=== PATIENT | male | born 1960 | race American Indian/Alaskan Native ===

== ENCOUNTER 2020-08-24 21:53 | Inpatient (IN) | payer OTHER ==
--- NOTE | 2020-08-24 21:58 | Emergency Department Report ---
HPI - General Time Seen by Provider: 08/24/20 21:53 - HPI HPI: This is a 60-year-old male who presents to the emergency department via EMS from home as a code stroke. The patient began having some difficulty with his speech around 5 PM and it got progressively worse to the point where he is having difficulty speaking at all. He also was complaining of an unsteady gait. Justina nt also appears to have a right-sided facial droop. The patient is awake and alert and following commands. The patient has never been to this facility previously. He was just admitted and discharged from [facility] for what appears to be treatment for CHF. The patient denies any headache, vision change, numbness, chest pain, shortness of breath. It does not appear that the patient took anything or receive anything for his symptoms prior to presentation. ED Past Medical Hx - Medications Home Medications: Home Medications Medication Instructions Recorded Confirmed Last Taken Type Aspirin [Adult Aspirin] 81 mg PO QDAY 08/25/20 08/25/20 Unknown History Dapagliflozin Propanediol [Farxiga] 10 mg PO QDAY 08/25/20 08/25/20 Unknown History Furosemide [Lasix] 40 mg PO QDAY 08/25/20 08/25/20 Unknown History Losartan [Cozaar] 50 mg PO QDAY 08/25/20 08/25/20 Unknown History Spironolactone [Aldactone] 25 mg PO QDAY 08/25/20 08/25/20 Unknown History carvediloL [Coreg] 12.5 mg PO BID 08/25/20 08/25/20 Unknown History ED Review of Systems ROS: Stated complaint: STROKE Other details as noted in HPI Comment: All other systems reviewed and negative Constitutional: denies: chills, fever Eyes: denies: eye pain, vision change ENT: denies: ear pain, throat pain Respiratory: denies: cough, shortness of breath Cardiovascular: denies: chest pain, palpitations Gastrointestinal: denies: abdominal pain, vomiting Genitourinary: denies: dysuria, discharge Musculoskeletal: denies: back pain, arthralgia Skin: denies: rash, lesions Neurological: other (Unsteady gait, aphasia). denies: headache Physical Exam - Physical Exam Physical Exam: GENERAL: The patient is ill-appearing. HENT: Normocephalic. Atraumatic. Patient has moist mucous membranes. EYES: Extraocular motions are intact. Pupils equal reactive to light bi laterally. NECK: Supple. Trachea is midline. CHEST/LUNGS: Coarse breath sounds throughout the chest. There is some tachypnea but no accessory muscle use. HEART/CARDIOVASCULAR: Regular. There is no tachycardia. There is no murmur. ABDOMEN: Abdomen is soft, nontender. Patient has normal bowel sounds. There is no abdominal distention. SKIN: Skin is warm and dry. NEURO: The patient is awake, alert, and cooperative. The patient has severe aphasia. Right-sided nasolabial fold paresis. No pronator drift. Follows commands. MUSCULOSKELETAL: There is no tenderness or deformity. There is no limitation range of motion. ED Course - Reevaluation(s) Reevaluation #1: 08/25/20 00:05 The patient returned from CT imaging, he began having increased work of breathing, shortness of breath, and had some oxygen desaturation to about 90% on room air. The patient was first placed on supplemental oxygen via nasal cannula without any improvement. He was then placed on a nonrebreather without any improvement. The patient was very anxious and pulling off his mask. He was given 1.5 mg of Ativan and we placed him on BiPAP. Even despite keeping the BiPAP mask on, the patient continued to have severe tachypnea breathing at about 50 to 60 breaths/min. This did not improve with a DuoNeb breathing treatment being bled into the BiPAP and on 100% FiO2. The patient is unable to communicate either verbally or by writing, most likely secondary to his stroke. I called and spoke with the son, who was then brought back to the bedside. I explained that the patient has both a stroke and what appears to be a CHF exacerbation and explained that we were going to intubate the patient. The patient was successfully intubated as per the intubation procedure section. - Consultations Consultation #1: 08/25/20 00:03 Patient was seen by the telemedicine neurologist, Dr. Gayle, while he was in CT. CT of the head without contrast did not show any hemorrhage or signs of large vessel occlusion. Dr. Gayle asked for a CT angiography of the head and neck. He later called back and said that he did not see any signs of large vessel occlusion, significant stenosis or thrombus on the CT angiography studies. He recommends a full dose aspirin, 300 mg of Plavix, and a statin. His full consultation and recommendations are in the chart. - ABG Interpretation Ph: [phone] PCO2: 49 PO2: 99.5 Bicarbonate: 22.9 Interpretation: respiratory acidosis, metabolic acidosis - Intubation Time Out Performed: Yes Sedative: Etomidate Mg Given: 20 Paralytic: Rocuronium Mg Given: 80 Laryngoscope: other ([place] scope) Size: 4 ET Tube Size: 7.5 Tube Secured Depth (cm): 26 Tube Secured Location: lips Tube Placement Confirmation: visualized tube passing t, equal breath sounds bilat, confirmation by capnometr Patient Tolerated Procedure: well Intubation Complications: none ED Medical Decision Making - Lab Data Result diagrams: 08/24/20 22:24 08/24/20 22:24 Lab Results 08/24/20 08/24/20 08/24/20 Range/Units 22:24 22:24 22:24 WBC 6.6 (4.5-11.0) K/mm3 RBC 4.46 (3.65-5.03) M/mm3 Hgb 13.7 (11.8-15.2) gm/dl Hct 41.2 (35.5-45.6) % MCV 93 (84-94) fl MCH 31 (28-32) pg MCHC 33 (32-34) % RDW 14.6 (13.2-15.2) % Plt Count 154 (140-440) K/mm3 Lymph % (Auto) 11.1 L (13.4-35.0) % [place] % (Auto) 5.7 (0.0-7.3) % Eos % (Auto) 0.2 (0.0-4.3) % Baso % (Auto) 0.5 (0.0-1.8) % Lymph # (Auto) 0.7 L (1.2-5.4) K/mm3 [place] # (Auto) 0.4 (0.0-0.8) K/mm3 Eos # (Auto) 0.0 (0.0-0.4) K/mm3 Baso # (Auto) 0.0 (0.0-0.1) K/mm3 Seg Neutrophils % 82.5 H (40.0-70.0) % Seg Neutrophils # 5.4 (1.8-7.7) K/mm3 PT 15.5 H (12.2-14.9) Sec. INR 1.05 (0.87-1.13) APTT 29.9 (24.2-36.6) Sec. Thrombin Time 18.7 (15.1-19.6) Sec. Sodium 130 L (137-145) mmol/L Potassium 4.9 (3.6-5.0) mmol/L Chloride 97.5 L (98-107) mmol/L Carbon Dioxide 23 (22-30) mmol/L Anion Gap 14 mmol/L BUN 20 (9-20) mg/dL Creatinine 1.1 (0.8-1.3) mg/dL Estimated GFR > 60 ml/min BUN/Creatinine Ratio 18 % Glucose 170 H (75-100) mg/dL Calcium 8.7 (8.4-10.2) mg/dL Total Bilirubin 0.90 (0.1-1.2) mg/dL AST 31 (5-40) units/L ALT 46 (7-56) units/L Alkaline Phosphatase 111 (35-129) units/L Total Creatine Kinase 250 H (55-170) units/L CK-MB (CK-2) 3.6 (0.0-4.0) ng/mL CK-MB (CK-2) Rel Index 1.4 (0-4) Troponin T < 0.010 (0.00-0.029) ng/mL NT-Pro-B Natriuret Pep (0-900) pg/mL Total Protein 7.2 (6.3-8.2) g/dL Albumin 3.9 (3.9-5) g/dL Albumin/Globulin Ratio 1.2 % TSH (0.270-4.200) mlU/mL Urine Color (Yellow) Urine Turbidity (Clear) Urine pH (5.0-7.0) Ur Specific [place] (1.003-1.030) Urine Protein (Negative) mg/dL Urine Glucose (UA) (Negative) mg/dL Urine Ketones (Negative) mg/dL Urine Blood (Negative) Urine Nitrite (Negative) Urine Bilirubin (Negative) Urine Urobilinogen (<2.0) mg/dL Ur Leukocyte Esterase (Negative) Urine WBC (Auto) (0.0-6.0) /HPF Urine RBC (Auto) (0.0-6.0) /HPF Urine Mucus /HPF Urine Opiates Screen Urine Methadone Screen Ur Barbiturates Screen Ur Phencyclidine Scrn Ur Amphetamines Screen U Benzodiazepines Scrn Urine Cocaine Screen U Marijuana (THC) Screen Drugs of Abuse Note Plasma/Serum Alcohol (0-0.07) % Blood Type Antibody Screen 08/24/20 08/24/20 08/24/20 Range/Units 22:24 22:24 22:24 WBC (4.5-11.0) K/mm3 RBC (3.65-5.03) M/mm3 Hgb (11.8-15.2) gm/dl Hct (35.5-45.6) % MCV (84-94) fl MCH (28-32) pg MCHC (32-34) % RDW (13.2-15.2) % Plt Count (140-440) K/mm3 Lymph % (Auto) (13.4-35.0) % [place] % (Auto) (0.0-7.3) % Eos % (Auto) (0.0-4.3) % Baso % (Auto) (0.0-1.8) % Lymph # (Auto) (1.2-5.4) K/mm3 [place] # (Auto) (0.0-0.8) K/mm3 Eos # (Auto) (0.0-0.4) K/mm3 Baso # (Auto) (0.0-0.1) K/mm3 Seg Neutrophils % (40.0-70.0) % Seg Neutrophils # (1.8-7.7) K/mm3 PT (12.2-14.9) Sec. INR (0.87-1.13) APTT (24.2-36.6) Sec. Thrombin Time (15.1-19.6) Sec. Sodium (137-145) mmol/L Potassium (3.6-5.0) mmol/L Chloride (98-107) mmol/L Carbon Dioxide (22-30) mmol/L Anion Gap mmol/L BUN (9-20) mg/dL Creatinine (0.8-1.3) mg/dL Estimated GFR ml/min BUN/Creatinine Ratio % Glucose (75-100) mg/dL Calcium (8.4-10.2) mg/dL Total Bilirubin (0.1-1.2) mg/dL AST (5-40) units/L ALT (7-56) units/L Alkaline Phosphatase (35-129) units/L Total Creatine Kinase (55-170) units/L CK-MB (CK-2) (0.0-4.0) ng/mL CK-MB (CK-2) Rel Index (0-4) Troponin T (0.00-0.029) ng/mL NT-Pro-B Natriuret Pep (0-900) pg/mL Total Protein (6.3-8.2) g/dL Albumin (3.9-5) g/dL Albumin/Globulin Ratio % TSH 3.150 (0.270-4.200) mlU/mL Urine Color (Yellow) Urine Turbidity (Clear) Urine pH (5.0-7.0) Ur Specific [place] (1.003-1.030) Urine Protein (Negative) mg/dL Urine Glucose (UA) (Negative) mg/dL Urine Ketones (Negative) mg/dL Urine Blood (Negative) Urine Nitrite (Negative) Urine Bilirubin (Negative) Urine Urobilinogen (<2.0) mg/dL Ur Leukocyte Esterase (Negative) Urine WBC (Auto) (0.0-6.0) /HPF Urine RBC (Auto) (0.0-6.0) /HPF Urine Mucus /HPF Urine Opiates Screen Urine Methadone Screen Ur Barbiturates Screen Ur Phencyclidine Scrn Ur Amphetamines Screen U Benzodiazepines Scrn Urine Cocaine Screen U Marijuana (THC) Screen Drugs of Abuse Note Plasma/Serum Alcohol < 0.01 (0-0.07) % Blood Type A POSITIVE Antibody Screen Negative 08/24/20 08/24/20 08/24/20 Range/Units 22:24 22:35 22:35 WBC (4.5-11.0) K/mm3 RBC (3.65-5.03) M/mm3 Hgb (11.8-15.2) gm/dl Hct (35.5-45.6) % MCV (84-94) fl MCH (28-32) pg MCHC (32-34) % RDW (13.2-15.2) % Plt Count (140-440) K/mm3 Lymph % (Auto) (13.4-35.0) % [place] % (Auto) (0.0-7.3) % Eos % (Auto) (0.0-4.3) % Baso % (Auto) (0.0-1.8) % Lymph # (Auto) (1.2-5.4) K/mm3 [place] # (Auto) (0.0-0.8) K/mm3 Eos # (Auto) (0.0-0.4) K/mm3 Baso # (Auto) (0.0-0.1) K/mm3 Seg Neutrophils % (40.0-70.0) % Seg Neutrophils # (1.8-7.7) K/mm3 PT (12.2-14.9) Sec. INR (0.87-1.13) APTT (24.2-36.6) Sec. Thrombin Time (15.1-19.6) Sec. Sodium (137-145) mmol/L Potassium (3.6-5.0) mmol/L Chloride (98-107) mmol/L Carbon Dioxide (22-30) mmol/L Anion Gap mmol/L BUN (9-20) mg/dL Creatinine (0.8-1.3) mg/dL Estimated GFR ml/min BUN/Creatinine Ratio % Glucose (75-100) mg/dL Calcium (8.4-10.2) mg/dL Total Bilirubin (0.1-1.2) mg/dL AST (5-40) units/L ALT (7-56) units/L Alkaline Phosphatase (35-129) units/L Total Creatine Kinase (55-170) units/L CK-MB (CK-2) (0.0-4.0) ng/mL CK-MB (CK-2) Rel Index (0-4) Troponin T (0.00-0.029) ng/mL NT-Pro-B Natriuret Pep 2769 H (0-900) pg/mL Total Protein (6.3-8.2) g/dL Albumin (3.9-5) g/dL Albumin/Globulin Ratio % TSH (0.270-4.200) mlU/mL Urine Color Yellow (Yellow) Urine Turbidity Clear (Clear) Urine pH 7.0 (5.0-7.0) Ur Specific [place] 1.005 (1.003-1.030) Urine Protein 100 mg/dl (Negative) mg/dL Urine Glucose (UA) >=500 (Negative) mg/dL Urine Ketones Neg (Negative) mg/dL Urine Blood Neg (Negative) Urine Nitrite Neg (Negative) Urine Bilirubin Neg (Negative) Urine Urobilinogen < 2.0 (<2.0) mg/dL Ur Leukocyte Esterase Neg (Negative) Urine WBC (Auto) 1.0 (0.0-6.0) /HPF Urine RBC (Auto) 2.0 (0.0-6.0) /HPF Urine Mucus Few /HPF Urine Opiates Screen Negative Urine Methadone Screen Negative Ur Barbiturates Screen Negative Ur Phencyclidine Scrn Negative Ur Amphetamines Screen Negative U Benzodiazepines Scrn Negative Urine Cocaine Screen Negative U Marijuana (THC) Screen Negative Drugs of Abuse Note Disclamer Plasma/Serum Alcohol (0-0.07) % Blood Type Antibody Screen - EKG Data -: EKG Interpreted by Me EKG shows normal: sinus rhythm (PVCs), axis, intervals, QRS complexes (LVH), ST- T waves (T wave inversions to the inferolateral leads) Rate: normal - EKG Data When compared to previous EKG there are: previous EKG unavailable Interpretation: other (Sinus rhythm at 100 bpm, PVCs, biatrial enlargement, LVH, normal axis, normal intervals, T wave inversions to the inferolateral leads) - Radiology Data Radiology results: report reviewed, image reviewed interpreted by me: Chest x-ray shows pulmonary vascular congestion and bilateral interstitial/pulmonary edema. No pneumothorax. CT HEAD WITHOUT CONTRAST INDICATION / CLINICAL INFORMATION: Strokelike symptoms. TECHNIQUE: All CT scans at this location are performed using CT dose reduction for ALARA by means of automated exposure control. COMPARISON: None available. FINDINGS: BRAIN PARENCHYMA: No acute intracranial hemorrhage. No evidence of recent infarct. No mass effect or midline shift. White matter chronic small vessel ischemic changes. VENTRICULAR SYSTEM/EXTRA-AXIAL SPACES: Age-related cerebral atrophy. No extra-axial fluid collection. ORBITS: Normal as visualized. SKELETAL SYSTEM/SOFT TISSUES: Normal bones and soft tissues. PARANASAL SINUSES/MASTOID AIR CELLS: No significant abnormality. ADDITIONAL FINDINGS: None. IMPRESSION: No acute intracranial abnormality. CTA HEAD WITH CONTRAST HISTORY: Stroke like symptoms COMPARISON: None. TECHNIQUE: Routine non-contrast CT Head, CTA of the head and post-contrast CT Head are performed. 3-D/MIP reformats postprocessed. All CT scans at this location are performed using CT dose reduction for ALARA by means of automated exposure control CONTRAST: 100 ml of Omnipaque 350 FINDINGS: CTA Head: Intracranial vertebral arteries: No significant abnormality. Basilar artery: No significant abnormality. Posterior cerebral arteries: No significant abnormality. Intracranial internal carotid arteries: No significant abnormality. Anterior cerebral arteries: No significant abnormality. Middle cerebral arteries: No significant abnormality. Dural venous sinuses:Not optimally opacified. No significant abnormality. Additional findings: None. IMPRESSION: 1. No significant abnormality. CTA NECK WITH CONTRAST HISTORY: Stroke like symptoms COMPARISON: None. TECHNIQ UE: Routine CTA of the neck was performed. 3-D/MIP reformats were postprocessed. Percentage stenosis is determined by direct quantitative measurements of diseased internal carotid artery diameter compared with normal distal internal carotid artery reference segments or by criteria similar to NASCET where applicable.All CT scans at this location are performed using CT dose reduction for ALARA by means of automated exposure control CONTRAST: 100 ml of Omnipaque 300 FINDINGS: Aortic arch: No significant abnormality. Cervical vertebral arteries: No significant abnormality. Common carotid arteries: No significant abnormality. Carotid bifurcations: Normal Cervical internal carotid arteries: No significant abnormality. Additional findings: None. IMPRESSION: 1. No significant abnormality. - Medical Decision Making This patient presented to the emergency department initially as a code stroke secondary to some aphasia. He also appears to have right-sided facial droop. He was sent for a CT scan of the head without contrast that ultimately did not show any hemorrhage or large vessel occlusion. He was seen by the telemedicine neurologist, Dr. Gayle, who requested CT angiography studies of the head and neck. These also did not show any signs of large vessel occlusion, thrombus, significant stenosis, or any other acute process. Dr. Gayle gave the patient an NIH stroke scale of 8. When the CT angiography studies did not show any signs of mechanical obstruction, he recommended admission to the hospital for further evaluation of the stroke and gave recommendations for a full dose aspirin, Plavix, and a statin. With the patient returned from CT scan, he began to show signs of respiratory distress. There was increased tachypnea and work of breathing, worsening coarse breath sounds, development of accessory muscle use. The patient also had a pulse ox of 90% on room air. Initially he was tried on supplemental oxygen via nasal cannula without any improvement. He was then placed on a nonrebreather but began pulling the mask off and appeared anxious. He was given 1.5 mg of Ativan but still did not improve with a nonrebreather. He was then placed on BiPAP. Even while being compliant with the BiPAP, the patient continued to have significant tachypnea and work of breathing. Chest x-ray shows concern for volume overload with interstitial edema. For these reasons the patient was intubated as per the procedure section. Patient was given IV Lasix for diuresis. He was given etomidate and rocuronium as part of RSI, and then placed on propofol for sedation after intubation. Post intubation chest x-ray shows appropriate placement of the endotracheal tube, but appears to show some worsening infiltrates or consolidation with right greater than left. The patient's labs have been mostly unremarkable except for an elevated proBNP of about 2500, some mild hyponatremia with a sodium level of 130, and an ABG that shows some respiratory and metabolic acidosis, and there is most likely some underlying lactic acidosis. The patient will be admitted to the ICU and has been accepted for admission by the hospitalist, Dr. England. Critical Care Time: Yes Critical care time in (mins) excluding proc time.: 75 Critical care attestation.: If time is entered above; I have spent that time in minutes in the direct care of this critically ill patient, excluding procedure time. Critical care time spent on this patient in doing his initial evaluation, multiple reevaluations, ordering and interpretation of labs and imaging, discussion with the telemedicine neurologist, IV Lasix for diuresis, propofol for sedation, multiple discussions with the patient's family. This does not include the time spent on separately billable procedures such as the intubation procedure. Critical Care Time: 75 minutes ED Disposition Clinical Impression: CVA (cerebral vascular accident) Qualifiers: CVA mechanism: unspecified Qualified Code(s): I63.9 - Cerebral infarction, unspecified Acute exacerbation of CHF (congestive heart failure) Qualifiers: Heart failure type: unspecified Qualified Code(s): I50.9 - Heart failure, unspecified Acute respiratory failure Qualifiers: Respiratory failure complication: unspecified whether with hypoxia or hypercapnia Qualified Code(s): J96.00 - Acute respiratory failure, unspecified whether with hypoxia or hypercapnia Disposition: OP ADMIT IP TO THIS HOSP Is pt being admited?: Yes Condition: Critical Time of Disposition: 00:01
--- NOTE | 2020-08-24 22:18 | Cat Scan Report ---
CT HEAD WITHOUT CONTRAST INDICATION / CLINICAL INFORMATION: Strokelike symptoms. TECHNIQUE: All CT scans at this location are performed using CT dose reduction for ALARA by means of automated exposure control. COMPARISON: None available. FINDINGS: BRAIN PARENCHYMA: No acute intracranial hemorrhage. No evidence of recent infarct. No mass effect or midline shift. White matter chronic small vessel ischemic changes. VENTRICULAR SYSTEM/EXTRA-AXIAL SPACES: Age-related cerebral atrophy. No extra-axial fluid collection. ORBITS: Normal as visualized. SKELETAL SYSTEM/SOFT TISSUES: Normal bones and soft tissues. PARANASAL SINUSES/MASTOID AIR CELLS: No significant abnormality. ADDITIONAL FINDINGS: None. IMPRESSION: No acute intracranial abnormality. Information regarding the critical finding(s) was communicated to Dr. ANDRE DE LEON DO by Dr. Cade Valenzuela MD, via telephone on 08/24/2020 9:14 PM. Signer Name: Cade Valenzuela MD Signed: 08/24/2020 10:14 PM Workstation Name: [id number]
[2020-08-24 22:47] LABS: Bilirubin,Urine NEG (Negative); Blood,Urine NEG (Negative); Color,Urine Yellow (Yellow); Mucus,Urine FEW /HPF; Urobilinogen,Urine < 2.0 mg/dL (<2.0)
[2020-08-24 22:49] LABS: Basophils % (Auto) 0.5 % (0.0-1.8); Eosinophils % (Auto) 0.2 % (0.0-4.3); Hematocrit 41.2 % (35.5-45.6); Hemoglobin 13.7 gm/dl (11.8-15.2); Lymphocytes # (Auto) 0.7 K/mm3 (1.2-5.4); Lymphocytes % (Auto) 11.1 % (13.4-35.0); Mean Corpuscular HGB Conc 33 % (32-34); Mean Corpuscular Volume 93 fl (84-94); Monocytes # (Auto) 0.4 K/mm3 (0.0-0.8); Monocytes % (Auto) 5.7 % (0.0-7.3); Platelet Count 154 K/mm3 (140-440); Red Blood Count 4.46 M/mm3 (3.65-5.03); Red Cell Distribution Width 14.6 % (13.2-15.2)
[2020-08-24 22:54] LABS: Amphetamine Screen,Urine Negative; Benzodiazepines Screen,Urine Negative; Cannabinoid Screen,Urine Negative; Cocaine Screen,Urine Negative; Methadone Screen,Urine Negative; Opiate Screen,Urine Negative
[2020-08-24] MEDS: FUROSEMIDE 40 MG/4 ML INJ IV ONE ×2 (22:55→23:41)
[2020-08-24] MEDS: IPRATROPIUM/ALBUTEROL SULFATE 3 ML AMPUL.NEB IH ONE (22:57)
[2020-08-24] MEDS ORDERED: ASPIRIN 81 MG TAB CHEW PO ONE (22:58)
--- NOTE | 2020-08-24 22:58 | Consultation ---
History of Present Illness History of present illness: [facility] Consult Note # Demographics Consult Type: Acute Stroke Level 1 (0-4.5 hrs) Patient Location: Emergency Room First Name: Wali Last Name: Glenny Date of : 1960 Age: 60 Gender: Male Time of Initial Page ( Time): 08/24/2020, 21:57 Time of Return Call ( Time): 08/24/2020, 22:03 # HPI History: 60M with HTN, CHF presents with right facial droop and aphasia, difficulty walking. Discharged from [facility] on Sunday. on ASA. Symptom on set at 1700 with mild difficulty speaking, which worsened over time. Right facial droop and difficulty walking started at 2100. # Scores Time of exam and NIHSS (): 08/24/2020, 22:06 Level of Consciousness 1a: [0] = Alert; keenly responsive LOC Questions 1b: [2] = Answers neither correctly LOC Commands 1c: [0] = Performs both tasks correctly Best Gaze 2: [0] = Normal Visual 3: [0] = No visual loss Facial Palsy 4: [2] = Partial paralysis Motor Arm Left 5a: [0] = No drift Motor Arm Right 5b: [0] = No drift Motor Leg Left 6a: [0] = No drift Motor Leg Right 6b: [0] = No drift Limb Ataxia 7: [0] = Absent Sensory 8: [0] = Normal Best Language 9: [2] = Severe aphasia Dysarthria 10: [2] = Severe dysarthria Extinction and Inattention 11: [0] = No abnormality NIHSS Total: 8 # Data Time Head CT personally read by me ( Time): 08/24/2020, 22:[address]: no bleed, preliminarily reviewed by me, please refer to radiology read for official reading CTA Head: no large vessel occlusion, preliminarily reviewed by me, please refer to radiology read for official reading CTA Neck: patent vessels, preliminarily reviewed by me, please refer to radiology read for official reading # Assessment Impression: Ischemic Stroke (Acute) # Plan Thrombolytic/Intervention: NOT IV Thrombolytic or IA Intervention Thrombolytic Exclusion: > 4.5 hours Intraarterial Exclusion: no large vessel occlusion (LVO) Target Blood Pressure: SBP < 220, DBP < 105 Labs: hemoglobin A1c, lipid panel Imaging: (urgency: routine admission): MRI Brain without contrast Diagnostic Test: echo with bubble study Therapy/Evaluation: PT/OT evaluation, speech/swallow consultation Medication: ASA 325 x1 then 81 daily, Plavix 300 x1 then 75 daily (3 weeks DAPT then Plavix monotherapy), atorvastatin 80 daily and tailor dose to LDL < 70 goal DVT Prophylaxis: SCD, chemical DVT prophylaxis Other: permissive hypertension, telemetry monitoring, I have discussed my recommendations with the referring provider Disposition: admit # Logistics Telemedicine: Interactive 2 way audio and visual telecommunication technology was utilized during this visit Electronically signed at 08/24/2020 22:57 (Eastern Time) by Armadno Gayle MD Medications and Allergies Allergies Allergy/AdvReac Type Severity Reaction Status Date / Time No Known Allergies Allergy Verified 08/24/20 22:49 Active Meds: Active Medications Albuterol/Ipratropium (Ipratropium/Albuterol Sulfate 3 Ml Ampul.Neb) 1 ampul IH ONCE ONE Stop: 08/24/20 23:43 Last Admin: 08/24/20 22:57 Dose: 1 ampul Documented by: Furosemide (Furosemide 40 Mg/4 Ml Inj) 40 mg IV ONCE ONE Stop: 08/24/20 23:42 Last Admin: 08/24/20 22:55 Dose: 40 mg Documented by: Results - Laboratory Findings CBC and BMP: 08/24/20 22:24 Abnormal Lab Findings: Abnormal Labs 08/24/20 22:24 Seg Neutrophils % 82.5 H
[2020-08-24 23:00] LABS: INR 1.05 (0.87-1.13)
[2020-08-24 23:01] LABS: Partial Thromboplastin Time 29.9 Sec. (24.2-36.6); Thrombin Time 18.7 Sec. (15.1-19.6)
[2020-08-24] MEDS ORDERED: LORazepam 2 MG/ML VIAL IV ONE (23:05)
--- NOTE | 2020-08-24 23:11 | XRay Report ---
CHEST 1 VIEW INDICATION: SOB COMPARISON: None FINDINGS: SUPPORT DEVICES: None. HEART / MEDIASTINUM: Cardiac enlargement LUNGS / PLEURA: Bilateral diffuse airspace pulmonary process. No pneumothorax. ADDITIONAL FINDINGS: IMPRESSION: 1. Diffuse pulmonary process with associated cardiac enlargement, pulmonary edema is a concern Signer Name: Castillo Roblero MD Signed: 08/24/2020 11:07 PM Workstation Name: [id number]
--- NOTE | 2020-08-24 23:13 | Cat Scan Report ---
CTA NECK WITH CONTRAST HISTORY: Stroke like symptoms COMPARISON: None. TECHNIQUE: Routine CTA of the neck was performed. 3-D/MIP reformats were postprocessed. Percentage s tenosis is determined by direct quantitative measurements of diseased internal carotid artery diamete r compared with normal distal internal carotid artery reference segments or by criteria similar to NA SCET where applicable.All CT scans at this location are performed using CT dose reduction for ALARA b y means of automated exposure control CONTRAST: 100 ml of Omnipaque 300 FINDINGS: Aortic arch: No significant abnormality. Cervical vertebral arteries: No significant abnormality. Common carotid arteries: No significant abnormality. Carotid bifurcations: Normal Cervical internal carotid arteries: No significant abnormality. Additional findings: None. IMPRESSION: 1. No significant abnormality. Signer Name: Марина Prithcard MD Signed: 08/24/2020 11:09 PM Workstation Name: [id number]
[2020-08-24 23:15] LABS: Alanine Aminotransferase 46 units/L (7-56); Albumin 3.9 g/dL (3.9-5); BUN/Creatinine Ratio 18; Blood Urea Nitrogen 20 mg/dL (9-20); Calcium 8.7 mg/dL (8.4-10.2); Creatine Kinase MB 3.6 ng/mL (0.0-4.0); Hemolysis Index 5
--- NOTE | 2020-08-24 23:16 | Cat Scan Report ---
CTA HEAD WITH CONTRAST HISTORY: Stroke like symptoms COMPARISON: None. TECHNIQUE: Routine non-contrast CT Head, CTA of the head and post-contrast CT Head are performed. 3-D /MIP reformats postprocessed. All CT scans at this location are performed using CT dose reduction for ALARA by means of automated exposure control CONTRAST: 100 ml of Omnipaque 350 FINDINGS: CTA Head: Intracranial vertebral arteries: No significant abnormality. Basilar artery: No significant abnormality. Posterior cerebral arteries: No significant abnormality. Intracranial internal carotid arteries: No significant abnormality. Anterior cerebral arteries: No significant abnormality. Middle cerebral arteries: No significant abnormality. Dural venous sinuses:Not optimally opacified. No significant abnormality. Additional findings: None. IMPRESSION: 1. No significant abnormality. Signer Name: Марина Pritchard MD Signed: 08/24/2020 11:11 PM Workstation Name: [id number]
[2020-08-24] MEDS ORDERED: ETOMIDATE 20 MG/10 ML INJ IV ONE (23:39)
[2020-08-24] MEDS ORDERED: ROCURONIUM 50 MG/5 ML INJ IV ONE (23:40)
[2020-08-24] MEDS ORDERED: LIP THERAPY VASELINE TP PRN (23:56)
[2020-08-24] MEDS ORDERED: MINERAL OIL/PETROLATUM, WHITE OPHTH OINT 3.5 GM OU PRN (23:56)
[2020-08-25] MEDS ORDERED: ASPIRIN 300 MG RECT SUPP PR ONE (00:03)
[2020-08-25] MEDS ORDERED: ONDANSETRON 4 MG/2 ML INJ IV PRN (00:33)
[2020-08-25] MEDS ORDERED: ALBUTEROL 2.5 MG/3 ML NEBU IH PRN (00:33)
[2020-08-25] MEDS ORDERED: hydrALAZINE 20 MG/1 ML INJ IV PRN (00:39)
--- NOTE | 2020-08-25 00:44 | History and Physical Report ---
History of Present Illness Date of examination: 08/25/20 Date of admission: 08/25/20 00:01 Chief complaint: Code 2 stroke Shortness of breath History of present illness: 60-year-old male with past medical history of hypertension CHF was brought to the emergency department via EMS from home as a code stroke. The patient began having some difficulty with his speech around 5 PM and it got progressively worse to the point where he is having difficulty speaking at all. He also was complaining of an unsteady gait. Patient also appears to have a right-sided facial droop. The patient is awake and alert and following commands. The patient has never been to this facility previously. He was just admitted and discharged from [facility] for what appears to be treatment for CHF. The patient denies any headache, vision change, numbness, chest pain, shortness of breath. It does not appear that the patient took anything or receive anything for his symptoms prior to presentation. when patient returned from CT imaging, he began having increased work of br eathing, shortness of breath, and had some oxygen desaturation to about 90% on room air. The patient was first placed on supplemental oxygen via nasal cannula without any improvement. He was then placed on a nonrebreather without any improvement. The patient was very anxious and pulling off his mask. He was given 1.5 mg of Ativan and we placed him on BiPAP. Even despite keeping the BiPAP mask on, the patient continued to have severe tachypnea breathing at about 50 to 60 breaths/min. Subsequently patient was intubated. In the emergency room patient is found to have code stroke, acute CHF exacerbation and acute respiratory failure. Initial CT scan of the head shows no acute intracranial abnormality. Patient is seen and evaluated by telemetry neurology Past History Past Medical History: heart failure, hypertension Medications and Allergies Allergies Allergy/AdvReac Type Severity Reaction Status Date / Time No Known Allergies Allergy Verified 08/24/20 22:49 Active Meds: Active Medications Hydrophilic Ointment (Lip Therapy Vaseline) 1 applic TP Q2HR PRN PRN Reason: Dry Lips Propofol (Diprivan 10 Mg/Ml) 1,000 mg in 100 mls @ 0 mls/hr IV TITR TK; Protocol Multi-Ingred Cream/Lotion/Oil/Oint (Mineral Oil/Petrolatum, White Ophth Oint 3.5 Gm) 1 applic OU Q4HR PRN PRN Reason: Dry Eye(s) Senna/Docusate Sodium (Sennosides/Docusate Sodium 8.6/50 Mg Tab) 1 tab FEEDTUBE BID TK Review of Systems Cardiovascular: shortness of breath, dyspnea on exertion Respiratory: shortness of breath, dyspnea on exertion Neurological: change in speech, gait dysfunction, other (Right facial droop) Exam - Constitutional Vitals: Temp Pulse Resp BP Pulse Ox 97.8 F 125 H 20 190/147 96 08/25/20 00:15 08/25/20 00:30 08/25/20 00:30 08/25/20 00:30 08/25/20 00:30 General appearance: Present: mild distress, well-nourished - EENT Eyes: Present: PERRL ENT: hearing intact, clear oral mucosa - Neck Neck: Present: supple, normal ROM - Respiratory Respiratory effort: normal Respiratory: bilateral: rales - Cardiovascular Heart Sounds: Present: S1 & S2. Absent: rub, click - Extremities Extremities: pulses symmetrical, No edema Peripheral Pulses: within normal limits - Abdominal General gastrointestinal: Present: soft, non-tender, non-distended, normal bowel sounds Male genitourinary: Present: normal - Integumentary Integumentary: Present: clear, warm, dry - Musculoskeletal Musculoskeletal: gait normal, strength equal bilaterally - Psychiatric Psychiatric: appropriate mood/affect - Neurologic Neurologic: CNII-XII intact, other (Slurred speech, unsteady gait, right facial droop) HEART Score - HEART Score Troponin: Troponin T < 0.010 ng/mL (0.00-0.029) 08/24/20 22:24 Results - Labs CBC & Chem 7: 08/24/20 22:24 08/24/20 22:24 Labs: Laboratory Last Values WBC 6.6 K/mm3 (4.5-11.0) 08/24/20 22:24 RBC 4.46 M/mm3 (3.65-5.03) 08/24/20 22:24 Hgb 13.7 gm/dl (11.8-15.2) 08/24/20 22:24 Hct 41.2 % (35.5-45.6) 08/24/20 22:24 MCV 93 fl (84-94) 08/24/20 22:24 MCH 31 pg (28-32) 08/24/20 22:24 MCHC 33 % (32-34) 08/24/20 22:24 RDW 14.6 % (13.2-15.2) 08/24/20 22:24 Plt Count 154 K/mm3 (140-440) 08/24/20 22:24 Lymph % (Auto) 11.1 % (13.4-35.0) L 08/24/20 22:24 [place] % (Auto) 5.7 % (0.0-7.3) 08/24/20 22:24 Eos % (Auto) 0.2 % (0.0-4.3) 08/24/20 22:24 Baso % (Auto) 0.5 % (0.0-1.8) 08/24/20 22:24 Lymph # (Auto) 0.7 K/mm3 (1.2-5.4) L 08/24/20 22:24 [place] # (Auto) 0.4 K/mm3 (0.0-0.8) 08/24/20 22:24 Eos # (Auto) 0.0 K/mm3 (0.0-0.4) 08/24/20 22:24 Baso # (Auto) 0.0 K/mm3 (0.0-0.1) 08/24/20 22:24 Seg Neutrophils % 82.5 % (40.0-70.0) H 08/24/20 22:24 Seg Neutrophils # 5.4 K/mm3 (1.8-7.7) 08/24/20 22:24 PT 15.5 Sec. (12.2-14.9) H 08/24/20 22:24 INR 1.05 (0.87-1.13) 08/24/20 22:24 APTT 29.9 Sec. (24.2-36.6) 08/24/20 22:24 Thrombin Time 18.7 Sec. (15.1-19.6) 08/24/20 22:24 Sodium 130 mmol/L (137-145) L 08/24/20 22:24 Potassium 4.9 mmol/L (3.6-5.0) 08/24/20 22:24 Chloride 97.5 mmol/L (98-107) L 08/24/20 22:24 Carbon Dioxide 23 mmol/L (22-30) 08/24/20 22:24 Anion Gap 14 mmol/L 08/24/20 22:24 BUN 20 mg/dL (9-20) 08/24/20 22:24 Creatinine 1.1 mg/dL (0.8-1.3) 08/24/20 22:24 Estimated GFR > 60 ml/min 08/24/20 22:24 BUN/Creatinine Ratio 18 % 08/24/20 22:24 Glucose 170 mg/dL (75-100) H 08/24/20 22:24 Calcium 8.7 mg/dL (8.4-10.2) 08/24/20 22:24 Total Bilirubin 0.90 mg/dL (0.1-1.2) 08/24/20 22:24 AST 31 units/L (5-40) 08/24/20 22:24 ALT 46 units/L (7-56) 08/24/20 22:24 Alkaline Phosphatase 111 units/L (35-129) 08/24/20 22:24 Total Creatine Kinase 250 units/L (55-170) H 08/24/20 22:24 CK-MB (CK-2) 3.6 ng/mL (0.0-4.0) 08/24/20 22:24 CK-MB (CK-2) Rel Index 1.4 (0-4) 08/24/20 22:24 Troponin T < 0.010 ng/mL (0.00-0.029) 08/24/20 22:24 Total Protein 7.2 g/dL (6.3-8.2) 08/24/20 22:24 Albumin 3.9 g/dL (3.9-5) 08/24/20 22:24 Albumin/Globulin Ratio 1.2 % 08/24/20 22:24 TSH 3.150 mlU/mL (0.270-4.200) 08/24/20 22:24 Urine Color Yellow (Yellow) 08/24/20 22:35 Urine Turbidity Clear (Clear) 08/24/20 22:35 Urine pH 7.0 (5.0-7.0) 08/24/20 22:35 Ur Specific [place] 1.005 (1.003-1.030) 08/24/20 22:35 Urine Protein 100 mg/dl mg/dL (Negative) 08/24/20 22:35 Urine Glucose (UA) >=500 mg/dL (Negative) 08/24/20 22:35 Urine Ketones Neg mg/dL (Negative) 08/24/20 22:35 Urine Blood Neg (Negative) 08/24/20 22:35 Urine Nitrite Neg (Negative) 08/24/20 22:35 Urine Bilirubin Neg (Negative) 08/24/20 22:35 Urine Urobilinogen < 2.0 mg/dL (<2.0) 08/24/20 22:35 Ur Leukocyte Esterase Neg (Negative) 08/24/20 22:35 Urine WBC (Auto) 1.0 /HPF (0.0-6.0) 08/24/20 22:35 Urine RBC (Auto) 2.0 /HPF (0.0-6.0) 08/24/20 22:35 Urine Mucus Few /HPF 08/24/20 22:35 Urine Opiates Screen Negative 08/24/20 22:35 Urine Methadone Screen Negative 08/24/20 22:35 Ur Barbiturates Screen Negative 08/24/20 22:35 Ur Phencyclidine Scrn Negative 08/24/20 22:35 Ur Amphetamines Screen Negative 08/24/20 22:35 U Benzodiazepines Scrn Negative 08/24/20 22:35 Urine Cocaine Screen Negative 08/24/20 22:35 U Marijuana (THC) Screen Negative 08/24/20 22:35 Drugs of Abuse Note Disclamer 08/24/20 22:35 Plasma/Serum Alcohol < 0.01 % (0-0.07) 08/24/20 22:24 Blood Type A POSITIVE 08/24/20 22:24 Antibody Screen Negative 08/24/20 22:24 - Imaging and Cardiology CT Scan - head: report reviewed Assessment and Plan VTE prophylaxis?: Mechanical Plan of care discussed with patient/family: Yes - Patient Problems (1) CVA (cerebral vascular accident) Current Visit: Yes Status: Acute Plan to address problem: Admit the patient to the ICU. Put the patient on aspirin 325 mg p.o. daily. Plavix 75 mg p.o. daily. Lipitor 80 mg p.o. daily. Will consult PT OT any speech evaluation. We also order MRI of the brain and MRA of the brain and neck with and without contrast. Echocardiogram. Consult neurology in the morning. (2) Acute exacerbation of CHF (congestive heart failure) Current Visit: Yes Status: Acute Plan to address problem: Lasix 40 mg IV every 12 hours. Fluid restriction. Maintain input output. E chocardiogram. Cardiology consult. BMP in the morning (3) Acute respiratory failure Current Visit: Yes Status: Acute Plan to address problem: Patient is status post intubation. DuoNeb by nebulizer every 4 hours. Albuterol via nebulizer every 4 hours as needed. Will consult critical care evaluation. Recheck ABG in the morning (4) Hypertension Current Visit: Yes Status: Acute Plan to address problem: Hydralazine 10 mg IV every 6 hours as needed lisinopril 5 mg p.o. daily. We will monitor the blood pressure closely. (5) DVT prophylaxis Current Visit: Yes Status: Acute Plan to address problem: SCD for DVT prophylaxis as per neurology recommendation. Pepcid 20 mg IV twice daily for GI prophylaxis. Patient is a full code
--- NOTE | 2020-08-25 00:45 | XRay Report ---
CHEST 1 VIEW INDICATION: ETT placement COMPARISON: 08/24/2020 2242 hours FINDINGS: SUPPORT DEVICES: Endotracheal tubes in good position. Nasogastric tube has tip in stomach. HEART / MEDIASTINUM: Persisting cardiac enlargement LUNGS / PLEURA: Bilateral pulmonary process right much more severe effected than left. No pneumothora x. ADDITIONAL FINDINGS: IMPRESSION: 1. Persistent bilateral pulmonary process, pneumonia is a concern. Signer Name: Castillo Roblero MD Signed: 08/25/2020 12:41 AM Workstation Name: [id number]
[2020-08-25 01:09] LABS: ABG Base Excess -4.2 mmol/L (-2.0-3.0); ABG HCO3 22.9 mmol/L (20.0-26.0); ABG Methemoglobin 0.5 % (0.0-1.5); ABG PCO2 49.2 mm Hg; ABG PH 7.285 pH Units (7.350-7.450); ABG PO2 99.5 mm Hg (80.0-90.0)
[2020-08-25] MEDS: IPRATROPIUM/ALBUTEROL SULFATE 3 ML AMPUL.NEB IH ONE (01:21)
[2020-08-25] MEDS: NORepinephrine/NS 4 MG-250 ML 4 MG/250 ML BAG IV SCH ×4 (02:40→18:43)
[2020-08-25 03:28] LABS: Chol/HDL Ratio 4.18 %
[2020-08-25 04:59] LABS: ABG Base Excess -1.8 mmol/L (-2.0-3.0); ABG HCO3 23.3 mmol/L (20.0-26.0); ABG Methemoglobin 0.5 % (0.0-1.5); ABG Oxygen Saturation 99.2 % (95.0-99.0); ABG PCO2 40.7 mm Hg; ABG PH 7.375 pH Units (7.350-7.450); ABG PO2 194.6 mm Hg (80.0-90.0)
[2020-08-25] MEDS ORDERED: FUROSEMIDE 40 MG/4 ML INJ IV SCH (06:00)
--- NOTE | 2020-08-25 08:48 | Consultation ---
History of Present Illness Consult date: 08/25/20 Reason for Consult: CVA and respiratory failure History of present illness: History of present illness: 60-year-old male with past medical history of hypertension CHF was brought to the emergency department via EMS from home as a code stroke. The patient began having some difficulty with his speech around 5 PM and it got progressively worse to the point where he is having difficulty speaking at all. He also was c omplaining of an unsteady gait. Patient also appears to have a right-sided facial droop. The patient is awake and alert and following commands. The patient has never been to this facility previously. He was just admitted and discharged from [facility] for what appears to be treatment for CHF. The patient denies any headache, vision change, numbness, chest pain, shortness of breath. It does not appear that the patient took anything or receive anything for his symptoms prior to presentation. when patient returned from CT imaging, he began having increased work of breathing, shortness of breath, and had some oxygen desaturation to about 90% on room air. The patient was first placed on supplemental oxygen via nasal cannula without any improvement. He was then placed on a nonrebreather without any improvement. The patient was very anxious and pulling off his mask. He was given 1.5 mg of Ativan and we placed him on BiPAP. Even despite keeping the BiPAP mask on, the patient continued to have severe tachypnea breathing at about 50 to 60 breaths/min. Subsequently patient was intubated. In the emergency room patient is found to have code stroke, acute CHF exacerbation and acute respiratory failure. Initial CT scan of the head shows no acute intracranial abnormality. Patient is seen and evaluated by telemetry neurology his initial NIH#8 he was started on ASA 325 mg and Plavix 75 mg Plus lipitor 80 mg Past History Past Medical History: heart failure, hypertension Medications and Allergies Allergies Allergy/AdvReac Type Severity Reaction Status Date / Time No Known Allergies Allergy Verified 08/24/20 22:49 Active Meds: Active Medications Hydrophilic Ointment (Lip Therapy Vaseline) 1 applic TP Q2HR PRN PRN Reason: Dry Lips Propofol (Diprivan 10 Mg/Ml) 1,000 mg in 100 mls @ 0 mls/hr IV TITR TK; Protocol Multi-Ingred Cream/Lotion/Oil/Oint (Mineral Oil/Petrolatum, White Ophth Oint 3.5 Gm) 1 applic OU Q4HR PRN PRN Reason: Dry Eye(s) Senna/Docusate Sodium (Sennosides/Docusate Sodium 8.6/50 Mg Tab) 1 tab FEEDTUBE BID TK Review of Systems Cardiovascular: shortness of breath, dyspnea on exertion Respiratory: shortness of breath, dyspnea on exertion Neurological: change in speech, gait dysfunction, other (Right facial droop) Past History Past Medical History: heart failure, hypertension Medications and Allergies Allergies Allergy/AdvReac Type Severity Reaction Status Date / Time No Known Allergies Allergy Verified 08/24/20 22:49 Home Medications Medication Instructions Recorded Confirmed Last Taken Type Aspirin [Adult Aspirin] 81 mg PO QDAY 08/25/20 08/25/20 Unknown History Dapagliflozin Propanediol [Farxiga] 10 mg PO QDAY 08/25/20 08/25/20 Unknown History Furosemide [Lasix] 40 mg PO QDAY 08/25/20 08/25/20 Unknown History Losartan [Cozaar] 50 mg PO QDAY 08/25/20 08/25/20 Unknown History Spironolactone [Aldactone] 25 mg PO QDAY 08/25/20 08/25/20 Unknown History carvediloL [Coreg] 12.5 mg PO BID 08/25/20 08/25/20 Unknown History Active Meds: Active Medications Acetaminophen (Acetaminophen 325 Mg Tab) 650 mg PO Q4H PRN PRN Reason: Pain MILD(1-3)/Fever >100.5/[place] Albuterol (Albuterol 2.5 Mg/3 Ml Nebu) 2.5 mg IH Q4HRT PRN PRN Reason: Shortness Of Breath Aspirin (Aspirin 325 Mg Tab) 325 mg PO QDAY TK Atorvastatin Calcium (Atorvastatin 40 Mg Tab) 80 mg PO QHS TK Clopidogrel Bisulfate (Clopidogrel 75 Mg Tab) 75 mg PO QDAY TK Famotidine (Famotidine 20 Mg/2 Ml Inj) 20 mg IV BID TK Furosemide (Furosemide 40 Mg/4 Ml Inj) 40 mg IV BID@0600,1800 TK Heparin Sodium (Porcine) (Heparin 5,000 Unit/1 Ml Vial) 5,000 unit SUB-Q Q8HR TK Hydralazine HCl (Hydralazine 20 Mg/1 Ml Inj) 10 mg IV Q6H PRN PRN Reason: htn Hydrophilic Ointment (Lip Therapy Vaseline) 1 applic TP Q2HR PRN PRN Reason: Dry Lips Propofol (Diprivan 10 Mg/Ml) 1,000 mg in 100 mls @ 2.541 mls/hr IV TITR TK; Protocol Last Admin: 08/25/20 06:38 Dose: 30 mcg/kg/min, 15.246 mls/hr Documented by: Norepinephrine (Levophed Drip 4 Mg/Ns 250 Ml) 4 mg in 250 mls @ 7.5 mls/hr IV TITR TK; Protocol Last Titration: 08/25/20 04:40 Dose: 16 mcg/min, 60 mls/hr Documented by: Lisinopril (Lisinopril 5 Mg Tab) 5 mg PO QDAY TK Multi-Ingred Cream/Lotion/Oil/Oint (Mineral Oil/Petrolatum, White Ophth Oint 3.5 Gm) 1 applic OU Q4HR PRN PRN Reason: Dry Eye(s) Ondansetron HCl (Ondansetron 4 Mg/2 Ml Inj) 4 mg IV Q8H PRN PRN Reason: Nausea And Vomiting Senna/Docusate Sodium (Sennosides/Docusate Sodium 8.6/50 Mg Tab) 1 tab FEEDTUBE BID TK Sodium Chloride (Sodium Chloride 0.9% 10 Ml Flush Syringe) 10 ml IV BID TK Sodium Chloride (Sodium Chloride 0.9% 10 Ml Flush Syringe) 10 ml IV PRN PRN PRN Reason: LINE FLUSH Physical Examination - Vital Signs Vital Signs: Vital Signs Pulse Resp BP Pulse Ox 108 H 48 H 174/122 90 08/24/20 22:40 08/24/20 22:40 08/24/20 22:40 08/24/20 22:40 - Constitutional General appearance: comfortable - EENT EENT: Present: PERRL, mucous membranes moist - Respiratory Respiratory: Present: chest non-tender, lungs clear, rhonchi - Cardiovascular Cardiovascular: Present: regular rate, normal S1, normal S2 Extremities: Present: no peripheral edema bilatateraly - Gastrointestinal Gastrointestinal: Present: normoactive bowel sounds - Integumentary Integumentary: Present: normal - Neurologic Cranial nerve examination: PERRL, EOMI, other (possibly right facial droop he is intubated and is difficult to assess .) Sensorimotor examination: other (he squeeze both side to stimulation but seems to be stronger on right side) Results - Laboratory Findings CBC and BMP: 08/24/20 22:24 08/24/20 22:24 Abnormal Lab Findings: Abnormal Labs 08/24/20 08/24/20 08/24/20 22:24 22:24 22:24 Lymph % (Auto) 11.1 L Lymph # (Auto) 0.7 L Seg Neutrophils % 82.5 H PT 15.5 H ABG pH ABG pO2 ABG O2 Saturation ABG Base Excess Oxyhemoglobin Sodium 130 L Chloride 97.5 L Glucose 170 H Total Creatine Kinase 250 H NT-Pro-B Natriuret Pep LDL Cholesterol Direct 08/24/20 08/25/20 08/25/20 22:24 01:01 01:47 Lymph % (Auto) Lymph # (Auto) Seg Neutrophils % PT ABG pH 7.285 L ABG pO2 99.5 H ABG O2 Saturation ABG Base Excess -4.2 L Oxyhemoglobin 94.9 L Sodium Chloride Glucose Total Creatine Kinase NT-Pro-B Natriuret Pep 2769 H LDL Cholesterol Direct 141 H 08/25/20 04:45 Lymph % (Auto) Lymph # (Auto) Seg Neutrophils % PT ABG pH ABG pO2 194.6 H ABG O2 Saturation 99.2 H ABG Base Excess Oxyhemoglobin Sodium Chloride Glucose Total Creatine Kinase NT-Pro-B Natriuret Pep LDL Cholesterol Direct Assessment and Plan Assessment and Plan VTE prophylaxis?: Mechanical Plan of care discussed with patient/family: Yes - Patient Problems # CVA (cerebral vascular accident) - new onset of right sided weakness and speech difficulty -initial NIH #8 -startyed on ASA and plavix plus lipitor 80 mg -Ct brain and CTA brain and neck are unremarkable -Not a candidate for TPA >4.5 Hrs, not a candidate for thrombectomy -Echo is pending -MRI brain is pending -evaluate ST.PT once extubated -LDL#141 -Low BP on Norepinephrine -- maintain BP>110/60 with MAP>65 # Acute exacerbation of CHF (congestive heart failure) -Lasix 40 mg IV every 12 hours. - Fluid restriction. Maintain input output. - Echocardiogram. # Acute respiratory failure -Patient is status post intubation. -DuoNeb by nebulizer every 4 hours. -Albuterol via nebulizer every 4 hours as needed. # Hypertension -Hydralazine 10 mg IV every 6 hours as needed lisinopril 5 mg p.o. daily. - We will monitor the blood pressure closely. # DVT prophylaxis -SCD for DVT prophylaxis as per neurology recommendation. - Pepcid 20 mg IV twice daily for GI prophylaxis. - Patient is a full code pt. is evaluated in ICU he is critically ill time spent in evaluation, review documents and labs,and Xrys ,CT >30 minutes
--- NOTE | 2020-08-25 08:54 | XRay Report ---
CHEST - 1 VIEW 0836 hours INDICATION: follow up respiratory failure COMPARISON: Yesterday FINDINGS: Support devices: Stable support device positioning. Heart: Stable mild cardiomegaly Lungs/pleura: Diffuse airspace opacities or pulmonary edema in the right lung has decreased by 25%. Patchy airspace disease or congestive changes in the left lung has nearly resolved. No large pleural effusion or pneumothorax. Additional findings: None. IMPRESSION: Stable cardiomegaly. Improvement in the bilateral infiltrates or pulmonary edema. Signer Name: Kenan Coleman Jr, MD Signed: 08/25/2020 8:50 AM Workstation Name: [id number]
[2020-08-25] MEDS ORDERED: LIPASE 10,500/PROTEASE 25,000/AMYLASE 43,750 (UNITS) DR CAP FEEDTUBE PRN (09:40)
[2020-08-25] MEDS ORDERED: SIMPLE SYRUP 15 ML FEEDTUBE PRN ×2 (09:40)
[2020-08-25] MEDS ORDERED: SODIUM BICARBONATE 325 MG TAB FEEDTUBE PRN (09:40)
[2020-08-25] MEDS ORDERED: LISINOPRIL 5 MG TAB PO SCH (10:00)
--- NOTE | 2020-08-25 10:17 | Electrocardiograph Report ---
[facility] Test Date: 2020-08-25 Test Time: 00:14:57 Pat Name: ZACK LÓPEZ Department: Room: A257 1 Gender: M Corporate Sales Manager: PRUDENCIO : 1960 Requested By: ANDRE DE LEON Order Number: [id number] Reading MD: Giovany Cruz Measurements Intervals [place] Rate: 100 P: 66 CA: 160 QRS: 61 QRSD: 87 T: 239 QT: 352 QTc: 450 Interpretive Statements Sinus rhythm Ventricular premature complex Aberrant complex Biatrial enlargement Left ventricular hypertrophy Abnormal T, consider ischemia, diffuse leads No previous ECG available for comparison Electronically Signed On 08-25-2020 10:16:38 EDT by Giovany Cruz
[2020-08-25] MEDS: ASPIRIN 325 MG TAB PO SCH (10:56)
[2020-08-25] MEDS: FAMOTIDINE 20 MG/2 ML INJ IV SCH ×2 (10:56→21:49)
[2020-08-25] MEDS: SENNOSIDES/DOCUSATE SODIUM 8.6/50 MG TAB FEEDTUBE SCH ×2 (10:57→21:49)
[2020-08-25] MEDS: CLOPIDOGREL 75 MG TAB PO SCH (10:57)
[2020-08-25] MEDS: HEPARIN 5,000 UNIT/1 ML VIAL SUB-Q SCH ×3 (11:49→21:50)
[2020-08-25] MEDS ORDERED: HYDROmorphone 1 MG/1 ML INJ ONE (14:55)
--- NOTE | 2020-08-25 14:57 | Consultation ---
History of Present Illness Consult date: 08/25/20 Requesting physician: MARIE SCHNEIDER Consult reason: congestive heart failure History of present illness: This patient is a 60-year-old male with significant history of hypertension, heart failure. He is previously unknown to our practice. Patient presented to [facility] by EMS for progressive aphasia and altered gait. Patient was admitted with acute thrombolic stroke. While in ER, patient b ecame hypoxic and tachycardic with no relief from supplemental O2 or BiPAP and was subsequently intubated. Thus history and physical is obtained from the chart. Cardiology is consulted for acute on chronic heart failure. Patient was reportedly recently seen by [facility]. Records have been requested. Past History Past Medical History: heart failure, hypertension, other (See HPI) Medications and Allergies Allergies Allergy/AdvReac Type Severity Reaction Status Date / Time No Known Allergies Allergy Verified 08/24/20 22:49 Home Medications Medication Instructions Recorded Confirmed Last Taken Type Aspirin [Adult Aspirin] 81 mg PO QDAY 08/25/20 08/25/20 Unknown History Dapagliflozin Propanediol [Farxiga] 10 mg PO QDAY 08/25/20 08/25/20 Unknown History Furosemide [Lasix] 40 mg PO QDAY 08/25/20 08/25/20 Unknown History Losartan [Cozaar] 50 mg PO QDAY 08/25/20 08/25/20 Unknown History Spironolactone [Aldactone] 25 mg PO QDAY 08/25/20 08/25/20 Unknown History carvediloL [Coreg] 12.5 mg PO BID 08/25/20 08/25/20 Unknown History Active Meds: Active Medications Acetaminophen (Acetaminophen 325 Mg Tab) 650 mg PO Q4H PRN PRN Reason: Pain MILD(1-3)/Fever >100.5/[place] Albuterol (Albuterol 2.5 Mg/3 Ml Nebu) 2.5 mg IH Q4HRT PRN PRN Reason: Shortness Of Breath Lipase/Protease/Amylase (Lipase 10,500/Protease 25,000/Amylase 43,750 (Units) Dr Flores) 1 each FEEDTUBE PRN PRN PRN Reason: For Clogged Feeding Tube Aspirin (Aspirin 325 Mg Tab) 325 mg PO QDAY TK Last Admin: 08/25/20 10:56 Dose: 325 mg Documented by: Atorvastatin Calcium (Atorvastatin 40 Mg Tab) 80 mg PO QHS [facility] Clopidogrel Bisulfate (Clopidogrel 75 Mg Tab) 75 mg PO QDAY [facility] Last Admin: 08/25/20 10:57 Dose: 75 mg Documented by: Famotidine (Famotidine 20 Mg/2 Ml Inj) 20 mg IV BID [facility] Last Admin: 08/25/20 10:56 Dose: 20 mg Documented by: Furosemide (Furosemide 40 Mg/4 Ml Inj) 40 mg IV DAILY@0600 [facility] Heparin Sodium (Porcine) (Heparin 5,000 Unit/1 Ml Vial) 5,000 unit SUB-Q Q8HR [facility] Last Admin: 08/25/20 14:41 Dose: Not Given Documented by: Hydralazine HCl (Hydralazine 20 Mg/1 Ml Inj) 10 mg IV Q6H PRN PRN Reason: htn Hydrophilic Ointment (Lip Therapy Vaseline) 1 applic TP Q2HR PRN PRN Reason: Dry Lips Propofol (Diprivan 10 Mg/Ml) 1,000 mg in 100 mls @ 2.541 mls/hr IV TITR [facility]; Protocol Last Admin: 08/25/20 12:52 Dose: 25 mcg/kg/min, 12.705 mls/hr Documented by: Norepinephrine (Levophed Drip 4 Mg/Ns 250 Ml) 4 mg in 250 mls @ 7.5 mls/hr IV TITR [facility]; Protocol Last Titration: 08/25/20 14:00 Dose: 14 mcg/min, 52.5 mls/hr Documented by: Multi-Ingred Cream/Lotion/Oil/Oint (Mineral Oil/Petrolatum, White Ophth Oint 3.5 Gm) 1 applic OU Q4HR PRN PRN Reason: Dry Eye(s) Ondansetron HCl (Ondansetron 4 Mg/2 Ml Inj) 4 mg IV Q8H PRN PRN Reason: Nausea And Vomiting Senna/Docusate Sodium (Sennosides/Docusate Sodium 8.6/50 Mg Tab) 1 tab FEEDTUBE BID [facility] Last Admin: 08/25/20 10:57 Dose: 1 tab Documented by: Simple Syrup (Simple Syrup 15 Ml) 15 ml FEEDTUBE PRN PRN PRN Reason: Hypoglycemia Simple Syrup (Simple Syrup 15 Ml) 30 ml FEEDTUBE PRN PRN PRN Reason: Hypoglycemia Sodium Bicarbonate (Sodium Bicarbonate 325 Mg Tab) 325 mg FEEDTUBE PRN PRN PRN Reason: For Clogged Feeding Tube Sodium Chloride (Sodium Chloride 0.9% 10 Ml Flush Syringe) 10 ml IV BID TK Last Admin: 08/25/20 14:41 Dose: 10 ml Documented by: Sodium Chloride (Sodium Chloride 0.9% 10 Ml Flush Syringe) 10 ml IV PRN PRN PRN Reason: LINE FLUSH Last Admin: 08/25/20 10:58 Dose: 10 ml Documented by: Review of Systems ROS unobtainable: due to endotracheal tube, due to mental status Physical Examination Last Vital Signs Temp 98.9 F 08/25/20 12:00 Pulse 90 08/25/20 14:11 Resp 16 08/25/20 14:11 BP 144/95 08/25/20 14:11 Pulse Ox 100 08/25/20 14:11 General appearance: other (Intubated and sedated) HEENT: Positive: Other (Intubated and sedated) Neck: Positive: neck supple, trachea midline Cardiac: Positive: Reg Rate and Rhythm, S1/S2 Lungs: Positive: Ventilated Respirations Neuro: Positive: Other (Intubated and sedated) Abdomen: Positive: Unremarkable, Soft Skin: Negative: Rash, Wound Musculoskeletal: other (Intubated and sedated) Extremities: Present: lower extr. pulses, edema Results 08/24/20 22:24 08/24/20 22:24 Cardiac Enzymes 08/24/20 Range/Units 22:24 AST 31 (5-40) units/L CK-MB (CK-2) 3.6 (0.0-4.0) ng/mL Coagulation 08/24/20 Range/Units 22:24 PT 15.5 H (12.2-14.9) Sec. INR 1.05 (0.87-1.13) APTT 29.9 (24.2-36.6) Sec. Lipids 08/25/20 Range/Units 01:47 Triglycerides 67 (2-149) mg/dL Cholesterol 184 (50-199) mg/dL HDL Cholesterol 44 (40-59) mg/dL Cholesterol/HDL Ratio 4.18 % CBC 08/24/20 Range/Units 22:24 WBC 6.6 (4.5-11.0) K/mm3 RBC 4.46 (3.65-5.03) M/mm3 Hgb 13.7 (11.8-15.2) gm/dl Hct 41.2 (35.5-45.6) % Plt Count 154 (140-440) K/mm3 Lymph # (Auto) 0.7 L (1.2-5.4) K/mm3 [place] # (Auto) 0.4 (0.0-0.8) K/mm3 Eos # (Auto) 0.0 (0.0-0.4) K/mm3 Baso # (Auto) 0.0 (0.0-0.1) K/mm3 Comprehensive Metabolic Panel 08/24/20 Range/Units 22:24 Sodium 130 L (137-145) mmol/L Potassium 4.9 (3.6-5.0) mmol/L Chloride 97.5 L (98-107) mmol/L Carbon Dioxide 23 (22-30) mmol/L BUN 20 (9-20) mg/dL Creatinine 1.1 (0.8-1.3) mg/dL Glucose 170 H (75-100) mg/dL Calcium 8.7 (8.4-10.2) mg/dL AST 31 (5-40) units/L ALT 46 (7-56) units/L Alkaline Phosphatase 111 (35-129) units/L Total Protein 7.2 (6.3-8.2) g/dL Albumin 3.9 (3.9-5) g/dL - Imaging and Cardiology Echo: pending EKG: report reviewed, image reviewed EKG interpretations - Telemetry EKG Rhythm: Sinus Rhythm - EKG Sinus rhythms and dysrhythmias: sinus tachycardia Assessment and Plan Telemetry reviewed: Sinus rhythm 80. No events #Acute on Chronic heart failure * Echocardiogram is pending * Chest x-ray shows significant pulmonary edema. Volume optimization must be balanced with hemodynamic instability. Reduce Lasix to 40 mg IV daily. * Patient is reportedly followed by [facility]. Records have been requested. #Acute CVA * Per neurology recommendations: Allow permissive hypertension, on aspirin 325mg and Plavix 75 mg #Acute hypoxic respiratory failure * Patient remains intubated and sedated. Pulmonology is following #Hypertension, Chronic * Currently hypotensive requiring vasopressor support. #DVT prophylaxis * Heparin SQ Echocardiogram is pending. Will follow This patient was seen in conjunction with Dr Misael Cruz who agrees with this assessment and plan of care. - Patient Problems (1) Acute exacerbation of CHF (congestive heart failure) Current Visit: Yes Status: Acute Qualifiers: Heart failure type: unspecified Qualified Code(s): I50.9 - Heart failure, unspecified (2) Acute respiratory failure Current Visit: Yes Status: Acute Qualifiers: Respiratory failure complication: unspecified whether with hypoxia or hypercapnia Qualified Code(s): J96.00 - Acute respiratory failure, unspecified whether with hypoxia or hypercapnia (3) CVA (cerebral vascular accident) Current Visit: Yes Status: Acute Qualifiers: CVA mechanism: unspecified Qualified Code(s): I63.9 - Cerebral infarction, unspecified (4) DVT prophylaxis Current Visit: Yes Status: Acute (5) Hypertension Current Visit: Yes Status: Chronic
[2020-08-25] MEDS ORDERED: MIDAZOLAM 2 MG/2 ML INJ ONE (14:59)
[2020-08-25] MEDS ORDERED: MIDAZOLAM 2 MG/2 ML INJ IV ONE (15:01)
[2020-08-25] MEDS ORDERED: HYDROmorphone 2 MG/1 ML INJ IV ONE (15:02)
[2020-08-25] MEDS ORDERED: HYDROmorphone 1 MG/1 ML INJ IM PRN (15:21)
[2020-08-25] MEDS ORDERED: HYDROmorphone 2 MG/1 ML INJ IV SCH ×2 (15:30)
--- NOTE | 2020-08-25 16:21 | XRay Report ---
CHEST 1 VIEW INDICATION / CLINICAL INFORMATION: Right IJ placement. COMPARISON: 08/25/2020 at 0836 hours FINDINGS: SUPPORT DEVICES: Endotracheal tube, nasogastric tube, right central venous line HEART / MEDIASTINUM: No significant abnormality. LUNGS / PLEURA: Right-sided airspace disease No pneumothorax. ADDITIONAL FINDINGS: No significant additional findings. IMPRESSION: Right-sided central venous line has been placed with the tip superimposed over the expected position of the right atrium. No evidence of a right-sided pneumothorax. Signer Name: Adolfo Lieberman MD FACR Signed: 08/25/2020 4:17 PM Workstation Name: [id number]
[2020-08-25] MEDS ORDERED: HYDROmorphone 1 MG/1 ML INJ IV SCH (16:30)
--- NOTE | 2020-08-25 18:20 | Event Note ---
Date: 08/25/20 This is a 60-year-old male with hypertension and CHF who presented to emergency department on 08/25 with difficulty in speech which began around 5 PM and became progressively worse, unsteady gait and right-sided facial droop. Recommend emergency department included a CT head and after returning from imaging patient had increased work of breath, shortness of breath and desaturation to 90% SPO2 on room air. Patient was placed on supplemental oxygen via nasal cannula without improvement and progressed to nonrebreather to BiPAP. However the pat ient was still tachypneic to 50 to 60 breaths/min and was subsequently intubated. Patient was admitted to the hospital service with possible CVA, acute hypoxic respiratory failure, and congestive heart failure. [facility], cardiology and neurology were consulted. 08/25: Patient is echocardiogram, MRI brain and MRA head pending. The time of examination patient was sedated on propofol and on assist control tidal volume 450, rate of 26, PEEP of 10 and 100% FiO2. Patient was started on Levophed drip for persistent hypotension. CVL was eventually placed. PE: Constitutional: Patient sedated on mechanical ventilation Neuro: Patient able to follow commands, pupils equal round and reactive, positive cough/gag, right is weaker than the left side CV: S1/S2 auscultated, no murmur/gallop auscultated. Peripheral pulses palpable x4, cap refill less than 3 seconds x 4. Respiratory: Already intubated on assist control, regular rate and rhythm, CTA GI: Abdomen nontender nondistended, bowel sounds x4 quadrants normal active : Skin: CDI, warm/dry MS: Left side 3/4 strength, right side 2/4 strength. This is 60-year-old male with HTN and CHF who was admitted for rule out CVA, acute respiratory failure, acute on chronic heart failure and is currently hypotensive. Patient was admitted COVID-19 PUI which has been ruled out r/o CVA Acute hypoxic respiratory failure Acute on chronic heart failure Hypotension Hyponatremia Hypochloremia COVID-19 ruled out h/o Hypertension -[facility], cardiology and neurology consulted, patient recommendations -Vasopressor support with Levophed -Sedated with propofol -MRI brain pending -MRA/MRV head pending -Echocardiogram pending -Statin, aspirin, Plavix -IV Lasix -Mechanical ventilation, wean as tolerated, VAP bundle -Hold antihypertensive regimen as patient is requiring vasopressor support -Medical records requested from [facility] -08/24 CT head shows no acute intracranial abnormality, age-related cerebral atrophy, chronic small vessel ischemic changes in white matter, no evidence of recent infarct or mass-effect or midline shift -08/24 CTA neck with contrast shows no significant abnormality -08/24 CTA head with contrast shows no significant abnormality -08/24 echocardiogram shows mildly dilated left ventricle, definitely systolic function severely decreased, severe global hypokinesis of the left ventricle, right ventricle moderate to severely dilated, left atrium mildly dilated, right atrium mildly dilated without evidence of atrial septal defect, trace MR, RVSP is 48 mmHg, mild TR, trace LA, mild pulmonary hypertension, no pericardial effusion or pleural effusion noted, Mild diastolic dysfunction, no ventricular septal defect, no left ventricular thrombus noted, LVEF 20 to 25% -Trend CBC, BMP DVT/GI prophylaxis: SCDs to bilateral lower extremities while in bed, heparin subcu, PPI Disposition: ICU The high probability of a clinically significant, sudden or life threatening deterioration of the [multi] system(s) required my full and direct attention, intervention and personal management. The aggregate critical care time was [35] minutes. This time is in addition to time spent performing reported procedures but includes the following: [x] Data Review and interpretation [x] Patient assessment and monitoring of vital signs [x] Documentation [x] Medication orders and management
[2020-08-26] MEDS: NORepinephrine/NS 4 MG-250 ML 4 MG/250 ML BAG IV SCH ×2 (02:58→17:07)
[2020-08-26] MEDS: ACETAMINOPHEN 325 MG TAB PO PRN ×2 (03:40→21:00)
[2020-08-26 05:38] LABS: Basophils # (Auto) 0.1 K/mm3 (0.0-0.1); Basophils % (Auto) 0.5 % (0.0-1.8); Eosinophils % (Auto) 0.2 % (0.0-4.3); Hematocrit 37.6 % (35.5-45.6); Hemoglobin 12.4 gm/dl (11.8-15.2); Lymphocytes # (Auto) 0.5 K/mm3 (1.2-5.4); Lymphocytes % (Auto) 4.2 % (13.4-35.0); Mean Corpuscular HGB Conc 33 % (32-34); Mean Corpuscular Volume 93 fl (84-94); Monocytes % (Auto) 9.2 % (0.0-7.3); Platelet Count 112 K/mm3 (140-440); Red Blood Count 4.03 M/mm3 (3.65-5.03)
[2020-08-26] MEDS: HEPARIN 5,000 UNIT/1 ML VIAL SUB-Q SCH ×3 (05:57→21:00)
[2020-08-26 05:58] LABS: BUN/Creatinine Ratio 15; Blood Urea Nitrogen 16 mg/dL (9-20); Calcium 8.2 mg/dL (8.4-10.2); Hemolysis Index 4
[2020-08-26] MEDS ORDERED: FUROSEMIDE 40 MG/4 ML INJ IV SCH (06:00)
--- NOTE | 2020-08-26 08:06 | XRay Report ---
CHEST 1 VIEW INDICATION: follow up respiratory failure COMPARISON: 08/25/2020 FINDINGS: SUPPORT DEVICES: Endotracheal tubes in good position. Nasogastric tube has tip below the diaphragm. C entral venous lines tip in superior vena cava HEART / MEDIASTINUM: No significant abnormality. LUNGS / PLEURA: Improved aeration throughout both lungs as compared to previous exam. No pneumothorax . ADDITIONAL FINDINGS: IMPRESSION: 1. Improvement appearance the chest as compared to previous exam Signer Name: Castillo Roblero MD Signed: 08/26/2020 5:16 AM Workstation Name: [id number]
[2020-08-26] MEDS ORDERED: SODIUM CHLORIDE 0.9% 500 ML 500 ML ONE (09:13)
[2020-08-26] MEDS ORDERED: LIDOCAINE (1%) 10 MG/1 ML VIAL 20 ML MDV ONE (10:48)
[2020-08-26] MEDS ORDERED: SODIUM CHLORIDE 0.9% IRR 1,000 ML BOTTLE IR ONE (11:00)
[2020-08-26] MEDS ORDERED: LIDOCAINE (1%) 10 MG/1 ML VIAL 20 ML MDV INFILTRATI ONE (11:00)
--- NOTE | 2020-08-26 11:08 | Progress Note ---
Assessment and Plan Assessment and Plan VTE prophylaxis?: Mechanical Plan of care discussed with patient/family: Yes - Patient Problems # CVA (cerebral vascular accident) - new onset of right sided weakness and speech difficulty -initial NIH #8 -startyed on ASA and plavix plus lipitor 80 mg -Ct brain and CTA brain and neck are unremarkable -Not a candidate for TPA >4.5 Hrs, not a candidate for thrombectomy -Echo is with EF#20-25% with sever LV hypertrophy. -MRI brain is pending -evaluate ST-PT once extubated -LDL#141 -Low BP on Norepinephrine , maintain BP>110/60 with MAP>65 # Acute exacerbation of CHF (congestive heart failure) -Lasix 40 mg IV every 12 hours. - Fluid restriction. Maintain input output. - Echocardiogram. # Acute respiratory failure -Patient is status post intubation. -DuoNeb by nebulizer every 4 hours. -Albuterol via nebulizer every 4 hours as needed. # Hypertension -Hydralazine 10 mg IV every 6 hours as needed lisinopril 5 mg p.o. daily. - We will monitor the blood pressure closely. # DVT prophylaxis -SCD for DVT prophylaxis as per neurology recommendation. - Pepcid 20 mg IV twice daily for GI prophylaxis. - Patient is a full code pt. is evaluated in ICU he is critically ill time spent in evaluation, review documents and labs,and Xrys ,CT >30 minutes plan 1-need mri brain 2-suggest cut down sedation. will follow Subjective Date of service: 08/26/20 Principal diagnosis: CVA with right side weakness Interval history: pt. is intubated and sedated on propofol 50 mc he seems to be moving right side some what to stimulation MRI still pending echo is pending Objective - Vital Sign Vital Signs - 12hr 08/25/20 08/25/20 08/25/20 23:11 23:21 23:30 Temperature Pulse Rate 78 80 90 Pulse Rate [ Right From Monitor] Respiratory 27 H 26 H 9 L Rate Blood Pressure 117/78 114/74 130/87 O2 Sat by Pulse 100 100 99 Oximetry 08/25/20 08/25/20 08/26/20 23:41 23:51 00:00 Temperature 98.6 F Pulse Rate 80 82 81 Pulse Rate [ 81 Right From Monitor] Respiratory 26 H 26 H 26 H Rate Blood Pressure 130/87 108/69 106/69 O2 Sat by Pulse 100 100 100 Oximetry 08/26/20 08/26/20 08/26/20 00:01 00:11 00:21 Temperature Pulse Rate 80 79 Pulse Rate [ Right From Monitor] Respiratory 26 H 26 H Rate Blood Pressure 106/69 106/69 112/69 O2 Sat by Pulse 100 100 100 Oximetry 08/26/20 08/26/20 08/26/20 00:30 00:41 00:51 Temperature Pulse Rate 78 80 81 Pulse Rate [ Right From Monitor] Respiratory 26 H 26 H 26 H Rate Blood Pressure 113/70 113/70 110/70 O2 Sat by Pulse 99 100 100 Oximetry 08/26/20 08/26/20 08/26/20 01:00 01:11 01:21 Temperature Pulse Rate 93 H 82 82 Pulse Rate [ Right From Monitor] Respiratory 18 26 H 26 H Rate Blood Pressure 128/89 128/89 112/72 O2 Sat by Pulse 100 100 100 Oximetry 08/26/20 08/26/20 08/26/20 01:30 01:41 01:51 Temperature Pulse Rate 83 94 H 82 Pulse Rate [ Right From Monitor] Respiratory 26 H 15 26 H Rate Blood Pressure 108/71 108/71 128/80 O2 Sat by Pulse 100 100 100 Oximetry 08/26/20 08/26/20 08/26/20 02:00 02:11 02:21 Temperature Pulse Rate 81 81 80 Pulse Rate [ Right From Monitor] Respiratory 26 H 26 H 26 H Rate Blood Pressure 115/68 115/68 114/73 O2 Sat by Pulse 99 100 100 Oximetry 08/26/20 08/26/20 08/26/20 02:30 02:41 02:51 Temperature Pulse Rate 80 110 H 109 H Pulse Rate [ Right From Monitor] Respiratory 26 H 18 29 H Rate Blood Pressure 118/74 115/68 150/103 O2 Sat by Pulse 100 100 Oximetry 08/26/20 08/26/20 08/26/20 03:00 03:11 03:21 Temperature Pulse Rate 96 H 95 H 90 Pulse Rate [ Right From Monitor] Respiratory 26 H 13 21 Rate Blood Pressure 119/74 119/74 127/80 O2 Sat by Pulse 100 100 100 Oximetry 08/26/20 08/26/20 08/26/20 03:30 03:41 03:51 Temperature Pulse Rate 88 86 84 Pulse Rate [ Right From Monitor] Respiratory 26 H 26 H 26 H Rate Blood Pressure 115/77 119/74 117/76 O2 Sat by Pulse 100 100 100 Oximetry 08/26/20 08/26/20 08/26/20 04:00 04:11 04:48 Temperature 101.0 F H Pulse Rate 82 89 76 Pulse Rate [ 84 Right From Monitor] Respiratory 26 H 26 H Rate Blood Pressure 115/71 115/71 114/68 O2 Sat by Pulse 100 100 100 Oximetry 08/26/20 08/26/20 08:00 09:47 Temperature 100.1 F H Pulse Rate 93 H Pulse Rate [ Right From Monitor] Respiratory Rate Blood Pressure 125/83 O2 Sat by Pulse 100 Oximetry - General Apperance Constitutional: comfortable - EENT EENT: PERRL, mucous membranes moist - Respiratory Respiratory: lungs clear, rhonchi - Cardiovascular Cardiovascular: normal S1, normal S2 Extremities: no peripheral edema bilat, no clubbing, cyanosis - Gastrointestinal Gastrointestinal: normoactive bowel sounds - Integumentary Integumentary: normal - Neurologic Cranial nerve examination: PERRL, EOMI Speech examination: intact Detailed motor examination: other (possible right side weakness flaccid slight withdrawal left side to pain stimulation, right facial droop.) - Laboratory Findings CBC and BMP: 08/26/20 05:15 08/26/20 05:15 Abnormal Lab Findings: Abnormal Labs 08/24/20 08/24/20 08/24/20 22:24 22:24 22:24 WBC Plt Count Lymph % (Auto) 11.1 L [place] % (Auto) Lymph # (Auto) 0.7 L [place] # (Auto) Seg Neutrophils % 82.5 H Seg Neutrophils # PT 15.5 H D-Dimer ABG pH POC ABG pO2 ABG pO2 ABG O2 Saturation ABG Base Excess ABG Oxyhemoglobin ABG Chloride ABG Glucose Oxyhemoglobin Sodium 130 L Chloride 97.5 L Glucose 170 H POC Glucose Calcium Total Creatine Kinase 250 H Troponin T NT-Pro-B Natriuret Pep LDL Cholesterol Direct Arterial Blood Glucose Arterial Blood Ionized Calcium 08/24/20 08/25/20 08/25/20 22:24 01:01 01:47 WBC Plt Count Lymph % (Auto) [place] % (Auto) Lymph # (Auto) [place] # (Auto) Seg Neutrophils % Seg Neutrophils # PT D-Dimer ABG pH 7.285 L POC ABG pO2 ABG pO2 99.5 H ABG O2 Saturation ABG Base Excess -4.2 L ABG Oxyhemoglobin ABG Chloride ABG Glucose Oxyhemoglobin 94.9 L Sodium Chloride Glucose POC Glucose Calcium Total Creatine Kinase Troponin T NT-Pro-B Natriuret Pep 2769 H LDL Cholesterol Direct 141 H Arterial Blood Glucose Arterial Blood Ionized Calcium 08/25/20 08/25/20 08/25/20 04:45 11:45 17:20 WBC Plt Count Lymph % (Auto) [place] % (Auto) Lymph # (Auto) [place] # (Auto) Seg Neutrophils % Seg Neutrophils # PT D-Dimer ABG pH POC ABG pO2 ABG pO2 194.6 H ABG O2 Saturation 99.2 H ABG Base Excess ABG Oxyhemoglobin ABG Chloride ABG Glucose Oxyhemoglobin Sodium Chloride Glucose POC Glucose 136 H 117 H Calcium Total Creatine Kinase Troponin T NT-Pro-B Natriuret Pep LDL Cholesterol Direct Arterial Blood Glucose Arterial Blood Ionized Calcium 08/26/20 08/26/20 08/26/20 05:00 05:15 05:15 WBC 11.3 H Plt Count 112 L Lymph % (Auto) 4.2 L [place] % (Auto) 9.2 H Lymph # (Auto) 0.5 L [place] # (Auto) 1.0 H Seg Neutrophils % 85.9 H Seg Neutrophils # 9.7 H PT D-Dimer ABG pH 7.495 H POC ABG pO2 194.0 H ABG pO2 ABG O2 Saturation ABG Base Excess ABG Oxyhemoglobin 98.6 H ABG Chloride 109.0 H ABG Glucose 125 H Oxyhemoglobin Sodium Chloride Glucose 120 H POC Glucose Calcium 8.2 L Total Creatine Kinase Troponin T 0.032 H D NT-Pro-B Natriuret Pep LDL Cholesterol Direct Arterial Blood Glucose 125 H Arterial Blood Ionized Calcium 4.5 L 08/26/20 05:15 WBC Plt Count Lymph % (Auto) [place] % (Auto) Lymph # (Auto) [place] # (Auto) Seg Neutrophils % Seg Neutrophils # PT D-Dimer 4955.67 H ABG pH POC ABG pO2 ABG pO2 ABG O2 Saturation ABG Base Excess ABG Oxyhemoglobin ABG Chloride ABG Glucose Oxyhemoglobin Sodium Chloride Glucose POC Glucose Calcium Total Creatine Kinase Troponin T NT-Pro-B Natriuret Pep LDL Cholesterol Direct Arterial Blood Glucose Arterial Blood Ionized Calcium
--- NOTE | 2020-08-26 12:03 | Consultation ---
History of Present Illness Consult date: 08/25/20 Reason for consult: hypoxemia History of present illness: 60 y/o male admitted with stroke like symptoms who ended up requiring intubation in the ED. Hypotensive now and requiring vasopressor therapy. Patient moves extremities but does not open his eyes or follow commands but requires sedations for saftey to not self extubate or harm himself or others. Per history he was recently admitted to [facility] for CHF exacerbation. CXR shows dense right sided only infiltrate in all lobes. Past History Past Medical History: heart failure, hypertension, other (See HPI) Medications and Allergies Allergies Allergy/AdvReac Type Severity Reaction Status Date / Time No Known Allergies Allergy Verified 08/24/20 22:49 Home Medications Medication Instructions Recorded Confirmed Last Taken Type Aspirin [Adult Aspirin] 81 mg PO QDAY 08/25/20 08/25/20 Unknown History Dapagliflozin Propanediol [Farxiga] 10 mg PO QDAY 08/25/20 08/25/20 Unknown History Furosemide [Lasix] 40 mg PO QDAY 08/25/20 08/25/20 Unknown History Losartan [Cozaar] 50 mg PO QDAY 08/25/20 08/25/20 Unknown History Spironolactone [Aldactone] 25 mg PO QDAY 08/25/20 08/25/20 Unknown History carvediloL [Coreg] 12.5 mg PO BID 08/25/20 08/25/20 Unknown History Active Meds: Active Medications Acetaminophen (Acetaminophen 325 Mg Tab) 650 mg PO Q4H PRN PRN Reason: Pain MILD(1-3)/Fever >100.5/[place] Last Admin: 08/26/20 03:40 Dose: 650 mg Documented by: Albuterol (Albuterol 2.5 Mg/3 Ml Nebu) 2.5 mg IH Q4HRT PRN PRN Reason: Shortness Of Breath Lipase/Protease/Amylase (Lipase 10,500/Protease 25,000/Amylase 43,750 (Units) Dr Flores) 1 each FEEDTUBE PRN PRN PRN Reason: For Clogged Feeding Tube Aspirin (Aspirin 325 Mg Tab) 325 mg PO QDAY [facility] Last Admin: 08/25/20 10:56 Dose: 325 mg Documented by: Atorvastatin Calcium (Atorvastatin 40 Mg Tab) 80 mg PO QHS [facility] Last Admin: 06/02/21 21:49 Dose: 80 mg Documented by: Clopidogrel Bisulfate (Clopidogrel 75 Mg Tab) 75 mg PO QDAY [facility] Last Admin: 08/25/20 10:57 Dose: 75 mg Documented by: Famotidine (Famotidine 20 Mg/2 Ml Inj) 20 mg IV BID [facility] Last Admin: 08/25/20 21:49 Dose: 20 mg Documented by: Heparin Sodium (Porcine) (Heparin 5,000 Unit/1 Ml Vial) 5,000 unit SUB-Q Q8HR [facility] Last Admin: 08/26/20 05:57 Dose: 5,000 unit Documented by: Hydralazine HCl (Hydralazine 20 Mg/1 Ml Inj) 10 mg IV Q6H PRN PRN Reason: htn Hydrophilic Ointment (Lip Therapy Vaseline) 1 applic TP Q2HR PRN PRN Reason: Dry Lips Propofol (Diprivan 10 Mg/Ml) 1,000 mg in 100 mls @ 2.541 mls/hr IV TITR [facility]; Protocol Last Admin: 08/26/20 02:59 Dose: 25 mcg/kg/min, 12.705 mls/hr Documented by: Norepinephrine (Levophed Drip 4 Mg/Ns 250 Ml) 4 mg in 250 mls @ 7.5 mls/hr IV [facility]R [facility]; Protocol Last Admin: 08/26/20 02:58 Dose: 10 mcg/min, 37.5 mls/hr Documented by: Cefepime HCl (Cefepime/Ns 2 Gm/100 Ml) 2 gm in 100 mls @ 200 mls/hr IV Q12H [facility]; Protocol Stop: 09/02/20 11:59 Multi-Ingred Cream/Lotion/Oil/Oint (Mineral Oil/Petrolatum, White Ophth Oint 3.5 Gm) 1 applic OU Q4HR PRN PRN Reason: Dry Eye(s) Ondansetron HCl (Ondansetron 4 Mg/2 Ml Inj) 4 mg IV Q8H PRN PRN Reason: Nausea And Vomiting Senna/Docusate Sodium (Sennosides/Docusate Sodium 8.6/50 Mg Tab) 1 tab FEEDTUBE BID [facility] Last Admin: 08/25/20 21:49 Dose: 1 tab Documented by: Simple Syrup (Simple Syrup 15 Ml) 15 ml FEEDTUBE PRN PRN PRN Reason: Hypoglycemia Simple Syrup (Simple Syrup 15 Ml) 30 ml FEEDTUBE PRN PRN PRN Reason: Hypoglycemia Sodium Bicarbonate (Sodium Bicarbonate 325 Mg Tab) 325 mg FEEDTUBE PRN PRN PRN Reason: For Clogged Feeding Tube Sodium Chloride (Sodium Chloride 0.9% 10 Ml Flush Syringe) 10 ml IV BID TK Last Admin: 08/25/20 14:41 Dose: 10 ml Documented by: Sodium Chloride (Sodium Chloride 0.9% 10 Ml Flush Syringe) 10 ml IV PRN PRN PRN Reason: LINE FLUSH Last Admin: 08/25/20 10:58 Dose: 10 ml Documented by: Physical Examination Vital signs: Vital Signs Pulse Resp BP Pulse Ox 108 H 48 H 174/122 90 08/24/20 22:40 08/24/20 22:40 08/24/20 22:40 08/24/20 22:40 Results - Laboratory Findings CBC and BMP: 08/26/20 05:15 08/26/20 05:15 ABG ABG pH 7.495 (7.320-7.450) H 08/26/20 05:00 POC ABG pCO2 33.9 mmHg (32.0-48.0) 08/26/20 05:00 ABG pCO2 40.7 mm Hg 08/25/20 04:45 POC ABG pO2 194.0 mmHg (83-108) H 08/26/20 05:00 ABG pO2 194.6 mm Hg (80.0-90.0) H 08/25/20 04:45 POC ABG HCO3 25.5 08/26/20 05:00 ABG O2 Saturation 99.6 (0-100) 08/26/20 05:00 PT/INR, D-dimer PT 15.5 Sec. (12.2-14.9) H 08/24/20 22:24 INR 1.05 (0.87-1.13) 08/24/20 22:24 D-Dimer 4955.67 ng/mlDDU (0-234) H 08/26/20 05:15 Abnormal lab findings: Abnormal Labs 08/24/20 08/24/20 08/24/20 22:24 22:24 22:24 WBC Plt Count Lymph % (Auto) 11.1 L [place] % (Auto) Lymph # (Auto) 0.7 L [place] # (Auto) Seg Neutrophils % 82.5 H Seg Neutrophils # PT 15.5 H D-Dimer ABG pH POC ABG pO2 ABG pO2 ABG O2 Saturation ABG Base Excess ABG Oxyhemoglobin ABG Chloride ABG Glucose Oxyhemoglobin Sodium 130 L Chloride 97.5 L Glucose 170 H POC Glucose Calcium Total Creatine Kinase 250 H Troponin T NT-Pro-B Natriuret Pep LDL Cholesterol Direct Arterial Blood Glucose Arterial Blood Ionized Calcium 08/24/20 08/25/20 08/25/20 22:24 01:01 01:47 WBC Plt Count Lymph % (Auto) [place] % (Auto) Lymph # (Auto) [place] # (Auto) Seg Neutrophils % Seg Neutrophils # PT D-Dimer ABG pH 7.285 L POC ABG pO2 ABG pO2 99.5 H ABG O2 Saturation ABG Base Excess -4.2 L ABG Oxyhemoglobin ABG Chloride ABG Glucose Oxyhemoglobin 94.9 L Sodium Chloride Glucose POC Glucose Calcium Total Creatine Kinase Troponin T NT-Pro-B Natriuret Pep 2769 H LDL Cholesterol Direct 141 H Arterial Blood Glucose Arterial Blood Ionized Calcium 08/25/20 08/25/20 08/25/20 04:45 11:45 17:20 WBC Plt Count Lymph % (Auto) [place] % (Auto) Lymph # (Auto) [place] # (Auto) Seg Neutrophils % Seg Neutrophils # PT D-Dimer ABG pH POC ABG pO2 ABG pO2 194.6 H ABG O2 Saturation 99.2 H ABG Base Excess ABG Oxyhemoglobin ABG Chloride ABG Glucose Oxyhemoglobin Sodium Chloride Glucose POC Glucose 136 H 117 H Calcium Total Creatine Kinase Troponin T NT-Pro-B Natriuret Pep LDL Cholesterol Direct Arterial Blood Glucose Arterial Blood Ionized Calcium 08/26/20 08/26/20 08/26/20 05:00 05:15 05:15 WBC 11.3 H Plt Count 112 L Lymph % (Auto) 4.2 L [place] % (Auto) 9.2 H Lymph # (Auto) 0.5 L [place] # (Auto) 1.0 H Seg Neutrophils % 85.9 H Seg Neutrophils # 9.7 H PT D-Dimer ABG pH 7.495 H POC ABG pO2 194.0 H ABG pO2 ABG O2 Saturation ABG Base Excess ABG Oxyhemoglobin 98.6 H ABG Chloride 109.0 H ABG Glucose 125 H Oxyhemoglobin Sodium Chloride Glucose 120 H POC Glucose Calcium 8.2 L Total Creatine Kinase Troponin T 0.032 H D NT-Pro-B Natriuret Pep LDL Cholesterol Direct Arterial Blood Glucose 125 H Arterial Blood Ionized Calcium 4.5 L 08/26/20 08/26/20 05:15 11:40 WBC Plt Count Lymph % (Auto) [place] % (Auto) Lymph # (Auto) [place] # (Auto) Seg Neutrophils % Seg Neutrophils # PT D-Dimer 4955.67 H ABG pH POC ABG pO2 ABG pO2 ABG O2 Saturation ABG Base Excess ABG Oxyhemoglobin ABG Chloride ABG Glucose Oxyhemoglobin Sodium Chloride Glucose POC Glucose 116 H Calcium Total Creatine Kinase Troponin T NT-Pro-B Natriuret Pep LDL Cholesterol Direct Arterial Blood Glucose Arterial Blood Ionized Calcium - Diagnostic Findings Chest x-ray: image reviewed Assessment and Plan 60 y/o male with acute respiratory failure with symptoms of stroke and abnormal CXR 1. Continue current level of care 2. Central line placed for Vasopressor therapy 3. Follow up echo report 4. Sedation to maintain safety and ventilator support Guarded prognosis.
--- NOTE | 2020-08-26 12:11 | Progress Note ---
Assessment and Plan 60 y/o male with acute respiratory failure with symptoms of stroke and abnormal CXR 08/26/20: Follow up cards recs. Given current hypotensive state, not sure, but maybe would be a candidate for inotropic therapy. Patient could be septic from pneumonia as well. Bronched today and obtained sample from right middle. Empiric abx therapy started (cefepime). Will follow up cultures. Wean Vasopressors for MAPS >60. Overall prognosis is guarded to poor given CHF comorbidity and current hypotensive state with stroke. Unable to get MRI as pump is broken that is compatible with vent. 1. Continue current level of care 2. Central line placed for Vasopressor therapy 3. Follow up echo report 4. Sedation to maintain safety and ventilator support Guarded prognosis. Subjective Date of service: 08/26/20 Principal diagnosis: CVA with right side weakness Interval history: EF 20-25%. Still hypotensive on levophed. CXR is unchanged, but oxygenation is better. Unfortunately on 100%. no other labs checked today. Objective Vital Signs - 12hr 08/26/20 08/26/20 08/26/20 00:11 00:21 00:30 Temperature Pulse Rate 80 79 78 Pulse Rate [ Right From Monitor] Respiratory 26 H 26 H 26 H Rate Blood Pressure 106/69 112/69 113/70 O2 Sat by Pulse 100 100 99 Oximetry 08/26/20 08/26/20 08/26/20 00:41 00:51 01:00 Temperature Pulse Rate 80 81 93 H Pulse Rate [ Right From Monitor] Respiratory 26 H 26 H 18 Rate Blood Pressure 113/70 110/70 128/89 O2 Sat by Pulse 100 100 100 Oximetry 08/26/20 08/26/20 08/26/20 01:11 01:21 01:30 Temperature Pulse Rate 82 82 83 Pulse Rate [ Right From Monitor] Respiratory 26 H 26 H 26 H Rate Blood Pressure 128/89 112/72 108/71 O2 Sat by Pulse 100 100 100 Oximetry 08/26/20 08/26/20 08/26/20 01:41 01:51 02:00 Temperature Pulse Rate 94 H 82 81 Pulse Rate [ Right From Monitor] Respiratory 15 26 H 26 H Rate Blood Pressure 108/71 128/80 115/68 O2 Sat by Pulse 100 100 99 Oximetry 08/26/20 08/26/20 08/26/20 02:11 02:21 02:30 Temperature Pulse Rate 81 80 80 Pulse Rate [ Right From Monitor] Respiratory 26 H 26 H 26 H Rate Blood Pressure 115/68 114/73 118/74 O2 Sat by Pulse 100 100 Oximetry 08/26/20 08/26/20 08/26/20 02:41 02:51 03:00 Temperature Pulse Rate 110 H 109 H 96 H Pulse Rate [ Right From Monitor] Respiratory 18 29 H 26 H Rate Blood Pressure 115/68 150/103 119/74 O2 Sat by Pulse 100 100 100 Oximetry 08/26/20 08/26/20 08/26/20 03:11 03:21 03:30 Temperature Pulse Rate 95 H 90 88 Pulse Rate [ Right From Monitor] Respiratory 13 21 26 H Rate Blood Pressure 119/74 127/80 115/77 O2 Sat by Pulse 100 100 100 Oximetry 08/26/20 08/26/20 08/26/20 03:41 03:51 04:00 Temperature 101.0 F H Pulse Rate 86 84 82 Pulse Rate [ 84 Right From Monitor] Respiratory 26 H 26 H 26 H Rate Blood Pressure 119/74 117/76 115/71 O2 Sat by Pulse 100 100 100 Oximetry 08/26/20 08/26/20 08/26/20 04:11 04:48 08:00 Temperature 100.1 F H Pulse Rate 89 76 Pulse Rate [ Right From Monitor] Respiratory 26 H Rate Blood Pressure 115/71 114/68 O2 Sat by Pulse 100 100 Oximetry 08/26/20 09:47 Temperature Pulse Rate 93 H Pulse Rate [ Right From Monitor] Respiratory Rate Blood Pressure 125/83 O2 Sat by Pulse 100 Oximetry Gastrointestinal: normoactive bowel sounds Integumentary: normal CBC and BMP: 08/26/20 05:15 08/26/20 05:15 ABG, PT/INR, D-dimer: ABG ABG pH 7.495 (7.320-7.450) H 08/26/20 05:00 POC ABG pCO2 33.9 mmHg (32.0-48.0) 08/26/20 05:00 ABG pCO2 40.7 mm Hg 08/25/20 04:45 POC ABG pO2 194.0 mmHg (83-108) H 08/26/20 05:00 ABG pO2 194.6 mm Hg (80.0-90.0) H 08/25/20 04:45 POC ABG HCO3 25.5 08/26/20 05:00 ABG O2 Saturation 99.6 (0-100) 08/26/20 05:00 PT/INR, D-dimer PT 15.5 Sec. (12.2-14.9) H 08/24/20 22:24 INR 1.05 (0.87-1.13) 08/24/20 22:24 D-Dimer 4955.67 ng/mlDDU (0-234) H 08/26/20 05:15 Abnormal lab findings: Abnormal Labs 08/24/20 08/24/20 08/24/20 22:24 22:24 22:24 WBC Plt Count Lymph % (Auto) 11.1 L [place] % (Auto) Lymph # (Auto) 0.7 L [place] # (Auto) Seg Neutrophils % 82.5 H Seg Neutrophils # PT 15.5 H D-Dimer ABG pH POC ABG pO2 ABG pO2 ABG O2 Saturation ABG Base Excess ABG Oxyhemoglobin ABG Chloride ABG Glucose Oxyhemoglobin Sodium 130 L Chloride 97.5 L Glucose 170 H POC Glucose Calcium Total Creatine Kinase 250 H Troponin T NT-Pro-B Natriuret Pep LDL Cholesterol Direct Arterial Blood Glucose Arterial Blood Ionized Calcium 08/24/20 08/25/20 08/25/20 22:24 01:01 01:47 WBC Plt Count Lymph % (Auto) [place] % (Auto) Lymph # (Auto) [place] # (Auto) Seg Neutrophils % Seg Neutrophils # PT D-Dimer ABG pH 7.285 L POC ABG pO2 ABG pO2 99.5 H ABG O2 Saturation ABG Base Excess -4.2 L ABG Oxyhemoglobin ABG Chloride ABG Glucose Oxyhemoglobin 94.9 L Sodium Chloride Glucose POC Glucose Calcium Total Creatine Kinase Troponin T NT-Pro-B Natriuret Pep 2769 H LDL Cholesterol Direct 141 H Arterial Blood Glucose Arterial Blood Ionized Calcium 08/25/20 08/25/20 08/25/20 04:45 11:45 17:20 WBC Plt Count Lymph % (Auto) [place] % (Auto) Lymph # (Auto) [place] # (Auto) Seg Neutrophils % Seg Neutrophils # PT D-Dimer ABG pH POC ABG pO2 ABG pO2 194.6 H ABG O2 Saturation 99.2 H ABG Base Excess ABG Oxyhemoglobin ABG Chloride ABG Glucose Oxyhemoglobin Sodium Chloride Glucose POC Glucose 136 H 117 H Calcium Total Creatine Kinase Troponin T NT-Pro-B Natriuret Pep LDL Cholesterol Direct Arterial Blood Glucose Arterial Blood Ionized Calcium 08/26/20 08/26/20 08/26/20 05:00 05:15 05:15 WBC 11.3 H Plt Count 112 L Lymph % (Auto) 4.2 L [place] % (Auto) 9.2 H Lymph # (Auto) 0.5 L [place] # (Auto) 1.0 H Seg Neutrophils % 85.9 H Seg Neutrophils # 9.7 H PT D-Dimer ABG pH 7.495 H POC ABG pO2 194.0 H ABG pO2 ABG O2 Saturation ABG Base Excess ABG Oxyhemoglobin 98.6 H ABG Chloride 109.0 H ABG Glucose 125 H Oxyhemoglobin Sodium Chloride Glucose 120 H POC Glucose Calcium 8.2 L Total Creatine Kinase Troponin T 0.032 H D NT-Pro-B Natriuret Pep LDL Cholesterol Direct Arterial Blood Glucose 125 H Arterial Blood Ionized Calcium 4.5 L 08/26/20 08/26/20 05:15 11:40 WBC Plt Count Lymph % (Auto) [place] % (Auto) Lymph # (Auto) [place] # (Auto) Seg Neutrophils % Seg Neutrophils # PT D-Dimer 4955.67 H ABG pH POC ABG pO2 ABG pO2 ABG O2 Saturation ABG Base Excess ABG Oxyhemoglobin ABG Chloride ABG Glucose Oxyhemoglobin Sodium Chloride Glucose POC Glucose 116 H Calcium Total Creatine Kinase Troponin T NT-Pro-B Natriuret Pep LDL Cholesterol Direct Arterial Blood Glucose Arterial Blood Ionized Calcium
[2020-08-26] MEDS: FAMOTIDINE 20 MG/2 ML INJ IV SCH ×2 (12:54→21:00)
[2020-08-26] MEDS: CEFEPIME/NS 2 GM/100 ML 2 GM/100 ML BAG IV SCH (12:56)
--- NOTE | 2020-08-26 13:36 | Progress Note ---
<MARITZAKEZIA SandraShruthi - Last Filed: 08/26/20 16:05> Assessment and Plan Assessment and plan: This is 60-year-old male with HTN and CHF who was admitted for rule out CVA, acute respiratory failure, acute on chronic heart failure and is currently hypotensive. Patient was admitted COVID-19 PUI which has been ruled out r/o CVA Acute hypoxic respiratory failure Acute on chronic heart failure Hypotension Hyponatremia Hypochloremia COVID-19 ruled out h/o Hypertension -[facility], cardiology and neurology consulted, patient recommendations -Vasopressor support with Levophed -Sedated with propofol -Statin, aspirin, Plavix -Mechanical ventilation, wean as tolerated, VAP bundle -Hold antihypertensive regimen as patient is requiring vasopressor support -Medical records requested from [place] -08/24 CT head shows no acute intracranial abnormality, age-related cerebral atrophy, chronic small vessel ischemic changes in white matter, no evidence of recent infarct or mass-effect or midline shift -08/24 CTA neck with contrast shows no significant abnormality -08/24 CTA head with contrast shows no significant abnormality -08/24 echocardiogram shows mildly dilated left ventricle, definitely systolic function severely decreased, severe global hypokinesis of the left ventricle, right ventricle moderate to severely dilated, left atrium mildly dilated, right atrium mildly dilated without evidence of atrial septal defect, trace MR, RVSP is 48 mmHg, mild TR, trace VT, mild pulmonary hypertension, no pericardial effusion or pleural effusion noted, Mild diastolic dysfunction, no ventricular septal defect, no left ventricular thrombus noted, LVEF 20 to 25% -08/26 BLE Doppler US shows no DVT/SVT -MRI brain pending -MRA/MRV head pending -08/26 CTA chest pending -08/26 s/p bronch with culture completed -Per cardio, dobutamine gtt. -Trend CBC, BMP DVT/GI prophylaxis: SCDs to bilateral lower extremities while in bed, heparin subcu, PPI Disposition: ICU The high probability of a clinically significant, sudden or life threatening deterioration of the [multi] system(s) required my full and direct attention, intervention and personal management. The aggregate critical care time was [35] minutes. This time is in addition to time spent performing reported procedures but includes the following: [x] Data Review and interpretation [x] Patient assessment and monitoring of vital signs [x] Documentation [x] Medication orders and management History Interval history: This is a 60-year-old male with hypertension and CHF who presented to emergency department on 08/25 with difficulty in speech which began around 5 PM and became progressively worse, unsteady gait and right-sided facial droop. Recommend emergency department included a CT head and after returning from imaging patient had increased work of breath, shortness of breath and desaturation to 90% SPO2 on room air. Patient was placed on supplemental oxygen via nasal cannula without improvement and progressed to nonrebreather to BiPAP. However the patient was still tachypneic to 50 to 60 breaths/min and was subsequently intubated. Patient was admitted to the hospital service with possible CVA, acute hypoxic respiratory failure, and congestive heart failure. [facility], cardiology and neurology were consulted. 08/25: Patient is echocardiogram, MRI brain and MRA head pending. The time of examination patient was sedated on propofol and on assist control tidal volume 450, rate of 26, PEEP of 10 and 100% FiO2. Patient was started on Levophed drip for persistent hypotension. CVL was eventually placed. 08/26: MRI brain pending, echocardiogram shows reduced ejection fraction, continued use of vasopressin. Patient was bronched today by [facility] empiric antibiotic therapy with cefepime was started. Dr. Corea and I updated son at bedside today. CTA pending Hospitalist Physical - Constitutional Vitals: Temp Pulse Resp BP Pulse Ox 98.9 F 62 27 H 94/62 99 08/26/20 12:00 08/26/20 12:25 08/26/20 12:00 08/26/20 12:25 08/26/20 12:25 General appearance: Present: other (Intubated and sedated) - EENT Eyes: Present: PERRL ENT: dentition normal - Neck Neck: Present: normal ROM - Respiratory Respiratory effort: normal Respiratory: bilateral: CTA - Cardiovascular Rhythm: regular Heart Sounds: Present: S1 & S2. Absent: systolic murmur, diastolic murmur - Extremities Extremities: no ischemia, pulses intact, pulses symmetrical, No edema, normal t emperature, normal color Peripheral Pulses: within normal limits - Abdominal General gastrointestinal: soft, non-tender, non-distended, normal bowel sounds - Integumentary Integumentary: Present: warm, dry - Psychiatric Psychiatric: agitated - Neurologic Neurologic: moves all extremities HEART Score - HEART Score Troponin: Troponin T 0.032 ng/mL (0.00-0.029) H D 08/26/20 05:15 Results - Labs CBC & Chem 7: 08/26/20 05:15 08/26/20 05:15 Labs: Laboratory Last Values WBC 11.3 K/mm3 (4.5-11.0) H 08/26/20 05:15 RBC 4.03 M/mm3 (3.65-5.03) 08/26/20 05:15 Hgb 12.4 gm/dl (11.8-15.2) 08/26/20 05:15 Hct 37.6 % (35.5-45.6) 08/26/20 05:15 MCV 93 fl (84-94) 08/26/20 05:15 MCH 31 pg (28-32) 08/26/20 05:15 MCHC 33 % (32-34) 08/26/20 05:15 RDW 15.0 % (13.2-15.2) 08/26/20 05:15 Plt Count 112 K/mm3 (140-440) L 08/26/20 05:15 Lymph % (Auto) 4.2 % (13.4-35.0) L 08/26/20 05:15 Mcmullen % (Auto) 9.2 % (0.0-7.3) H 08/26/20 05:15 Eos % (Auto) 0.2 % (0.0-4.3) 08/26/20 05:15 Baso % (Auto) 0.5 % (0.0-1.8) 08/26/20 05:15 Lymph # (Auto) 0.5 K/mm3 (1.2-5.4) L 08/26/20 05:15 Mcmullen # (Auto) 1.0 K/mm3 (0.0-0.8) H 08/26/20 05:15 Eos # (Auto) 0.0 K/mm3 (0.0-0.4) 08/26/20 05:15 Baso # (Auto) 0.1 K/mm3 (0.0-0.1) 08/26/20 05:15 Seg Neutrophils % 85.9 % (40.0-70.0) H 08/26/20 05:15 Seg Neutrophils # 9.7 K/mm3 (1.8-7.7) H 08/26/20 05:15 PT 15.5 Sec. (12.2-14.9) H 08/24/20 22:24 INR 1.05 (0.87-1.13) 08/24/20 22:24 APTT 29.9 Sec. (24.2-36.6) 08/24/20 22:24 Thrombin Time 18.7 Sec. (15.1-19.6) 08/24/20 22:24 D-Dimer 4955.67 ng/mlDDU (0-234) H 08/26/20 05:15 ABG pH 7.495 (7.320-7.450) H 08/26/20 05:00 POC ABG pCO2 33.9 mmHg (32.0-48.0) 08/26/20 05:00 ABG pCO2 40.7 mm Hg 08/25/20 04:45 POC ABG pO2 194.0 mmHg (83-108) H 08/26/20 05:00 ABG pO2 194.6 mm Hg (80.0-90.0) H 08/25/20 04:45 POC ABG HCO3 25.5 08/26/20 05:00 ABG HCO3 23.3 mmol/L (20.0-26.0) 08/25/20 04:45 ABG O2 Saturation 99.6 (0-100) 08/26/20 05:00 ABG O2 Content 19.9 (0.0-44) 08/25/20 04:45 POC ABG Base Excess 2.6 08/26/20 05:00 ABG Base Excess -1.8 mmol/L (-2.0-3.0) 08/25/20 04:45 ABG Hemoglobin 12.9 (12.0-17.5) 08/26/20 05:00 ABG Oxyhemoglobin 98.6 (94-98) H 08/26/20 05:00 ABG Carboxyhemoglobin 1.6 % (0.0-5.0) 08/25/20 04:45 ABG Methemoglobin 0 (0.0-1.5) 08/26/20 05:00 ABG Sodium 141.2 mmol/L (136.0-145.0) 08/26/20 05:00 ABG Potassium 3.7 mmol/L (3.40-4.50) 08/26/20 05:00 ABG Chloride 109.0 mmol/L (98-107) H 08/26/20 05:00 ABG Glucose 125 mg/dL (65-95) H 08/26/20 05:00 Oxyhemoglobin 97.2 % (95.0-99.0) 08/25/20 04:45 Carboxyhemoglobin 1.0 (0.5-1.5) 08/26/20 05:00 FiO2 100 % 08/25/20 04:45 FiO2 % 55.0 08/26/20 05:00 Sodium 143 mmol/L (137-145) D 08/26/20 05:15 Potassium 3.7 mmol/L (3.6-5.0) D 08/26/20 05:15 Chloride 105.5 mmol/L (98-107) 08/26/20 05:15 Carbon Dioxide 28 mmol/L (22-30) 08/26/20 05:15 Anion Gap 13 mmol/L 08/26/20 05:15 BUN 16 mg/dL (9-20) 08/26/20 05:15 Creatinine 1.1 mg/dL (0.8-1.3) 08/26/20 05:15 Estimated GFR > 60 ml/min 08/26/20 05:15 BUN/Creatinine Ratio 15 % 08/26/20 05:15 Glucose 120 mg/dL (75-100) H 08/26/20 05:15 POC Glucose 116 mg/dL (70-105) H 08/26/20 11:40 Calcium 8.2 mg/dL (8.4-10.2) L 08/26/20 05:15 Total Bilirubin 0.90 mg/dL (0.1-1.2) 08/24/20 22:24 AST 31 units/L (5-40) 08/24/20 22:24 ALT 46 units/L (7-56) 08/24/20 22:24 Alkaline Phosphatase 111 units/L (35-129) 08/24/20 22:24 Total Creatine Kinase 250 units/L (55-170) H 08/24/20 22:24 CK-MB (CK-2) 3.6 ng/mL (0.0-4.0) 08/24/20 22:24 CK-MB (CK-2) Rel Index 1.4 (0-4) 08/24/20 22:24 Troponin T 0.032 ng/mL (0.00-0.029) H D 08/26/20 05:15 NT-Pro-B Natriuret Pep 2769 pg/mL (0-900) H 08/24/20 22:24 Total Protein 7.2 g/dL (6.3-8.2) 08/24/20 22:24 Albumin 3.9 g/dL (3.9-5) 08/24/20 22:24 Albumin/Globulin Ratio 1.2 % 08/24/20 22:24 Triglycerides 67 mg/dL (2-149) 08/25/20 01:47 Cholesterol 184 mg/dL (50-199) 08/25/20 01:47 LDL Cholesterol Direct 141 mg/dL (50-130) H 08/25/20 01:47 HDL Cholesterol 44 mg/dL (40-59) 08/25/20 01:47 Cholesterol/HDL Ratio 4.18 % 08/25/20 01:47 TSH 3.150 mlU/mL (0.270-4.200) 08/24/20 22:24 Arterial Blood Glucose 125 mg/dL (65-95) H 08/26/20 05:00 Arterial Blood Ionized Calcium 4.5 mg/dL (4.6-5.3) L 08/26/20 05:00 Urine Color Yellow (Yellow) 08/24/20 22:35 Urine Turbidity Clear (Clear) 08/24/20 22:35 Urine pH 7.0 (5.0-7.0) 08/24/20 22:35 Ur Specific Hillister 1.005 (1.003-1.030) 08/24/20 22:35 Urine Protein 100 mg/dl mg/dL (Negative) 08/24/20 22:35 Urine Glucose (UA) >=500 mg/dL (Negative) 08/24/20 22:35 Urine Ketones Neg mg/dL (Negative) 08/24/20 22:35 Urine Blood Neg (Negative) 08/24/20 22:35 Urine Nitrite Neg (Negative) 08/24/20 22:35 Urine Bilirubin Neg (Negative) 08/24/20 22:35 Urine Urobilinogen < 2.0 mg/dL (<2.0) 08/24/20 22:35 Ur Leukocyte Esterase Neg (Negative) 08/24/20 22:35 Urine WBC (Auto) 1.0 /HPF (0.0-6.0) 08/24/20 22:35 Urine RBC (Auto) 2.0 /HPF (0.0-6.0) 08/24/20 22:35 Urine Mucus Few /HPF 08/24/20 22:35 Nasal Screen MRSA (PCR) Negative (Negative) 08/25/20 Unknown Urine Opiates Screen Negative 08/24/20 22:35 Urine Methadone Screen Negative 08/24/20 22:35 Ur Barbiturates Screen Negative 08/24/20 22:35 Ur Phencyclidine Scrn Negative 08/24/20 22:35 Ur Amphetamines Screen Negative 08/24/20 22:35 U Benzodiazepines Scrn Negative 08/24/20 22:35 Urine Cocaine Screen Negative 08/24/20 22:35 U Marijuana (THC) Screen Negative 08/24/20 22:35 Drugs of Abuse Note Disclamer 08/24/20 22:35 Plasma/Serum Alcohol < 0.01 % (0-0.07) 08/24/20 22:24 Coronavirus (PCR) Negative (Negative) 08/25/20 Unknown Blood Type A POSITIVE 08/24/20 22:24 Antibody Screen Negative 08/24/20 22:24 Microbiology: Microbiology 08/25/20 02:39 Peripheral/Venous Blood Culture - Preliminary NO GROWTH AFTER 24 HOURS 08/25/20 01:47 Peripheral/Venous Blood Culture - Preliminary NO GROWTH AFTER 24 HOURS 08/25/20 04:55 Tracheal Aspirate Sputum Culture - Preliminary Active Medications - Current Medications Current Medications: Generic Name Dose Route Start Last Admin Trade Name Freq PRN Reason Stop Dose Admin Acetaminophen 650 mg 08/25/20 00:33 08/26/20 03:40 Acetaminophen 325 Mg Tab PO 650 mg Q4H PRN Administration Pain MILD(1-3)/Fever >100.5/[place] Albuterol 2.5 mg 08/25/20 00:33 Albuterol 2.5 Mg/3 Ml Nebu IH Q4HRT PRN Shortness Of Breath Lipase/Protease/Amylase 1 each 08/25/20 09:40 Lipase 10,500/Protease 25,000/Amylase 43,750 (Units) Dr Cap FEEDTUBE PRN PRN For Clogged Feeding Tube Aspirin 325 mg 08/25/20 10:00 08/25/20 10:56 Aspirin 325 Mg Tab PO 325 mg QDAY TK Administration Atorvastatin Calcium 80 mg 08/25/20 22:00 08/25/20 21:49 Atorvastatin 40 Mg Tab PO 80 mg QHS TK Administration Clopidogrel Bisulfate 75 mg 08/25/20 10:00 08/25/20 10:57 Clopidogrel 75 Mg Tab PO 75 mg QDAY TK Administration Famotidine 20 mg 08/25/20 10:00 08/26/20 12:54 Famotidine 20 Mg/2 Ml Inj IV 20 mg BID TK Administration Heparin Sodium (Porcine) 5,000 unit 08/25/20 06:00 08/26/20 05:57 Heparin 5,000 Unit/1 Ml Vial SUB-Q 5,000 unit Q8HR TK Administration Hydralazine HCl 10 mg 08/25/20 00:39 Hydralazine 20 Mg/1 Ml Inj IV Q6H PRN htn Hydrophilic Ointment 1 applic 08/24/20 23:56 Lip Therapy Vaseline TP Q2HR PRN Dry Lips Propofol 1,000 mg in 100 mls @ 2.541 mls/hr 08/24/20 23:45 08/26/20 12:52 Diprivan 10 Mg/Ml IV 25 mcg/kg/min TITR TK 12.705 mls/hr Administration Protocol 5 MCG/KG/MIN Norepinephrine 4 mg in 250 mls @ 7.5 mls/hr 08/25/20 03:00 08/26/20 02:58 Levophed Drip 4 Mg/Ns 250 Ml IV 10 mcg/min TITR TK 37.5 mls/hr Administration Protocol 2 MCG/MIN Cefepime HCl 2 gm in 100 mls @ 200 mls/hr 08/26/20 12:00 08/26/20 12:56 Cefepime/Ns 2 Gm/100 Ml IV 09/02/20 11:59 200 mls/hr Q12H TK Administration Protocol Multi-Ingred Cream/Lotion/Oil/Oint 1 applic 08/24/20 23:56 Mineral Oil/Petrolatum, White Ophth Oint 3.5 Gm OU Q4HR PRN Dry Eye(s) Ondansetron HCl 4 mg 08/25/20 00:33 Ondansetron 4 Mg/2 Ml Inj IV Q8H PRN Nausea And Vomiting Senna/Docusate Sodium 1 tab 08/25/20 10:00 08/25/20 21:49 Sennosides/Docusate Sodium 8.6/50 Mg Tab FEEDTUBE 1 tab BID TK Administration Simple Syrup 15 ml 08/25/20 09:40 Simple Syrup 15 Ml FEEDTUBE PRN PRN Hypoglycemia Simple Syrup 30 ml 08/25/20 09:40 Simple Syrup 15 Ml FEEDTUBE PRN PRN Hypoglycemia Sodium Bicarbonate 325 mg 08/25/20 09:40 Sodium Bicarbonate 325 Mg Tab FEEDTUBE PRN PRN For Clogged Feeding Tube Sodium Chloride 10 ml 08/25/20 10:00 08/26/20 12:54 Sodium Chloride 0.9% 10 Ml Flush Syringe IV 10 ml BID TK Administration Sodium Chloride 10 ml 08/25/20 00:33 08/25/20 10:58 Sodium Chloride 0.9% 10 Ml Flush Syringe IV 10 ml PRN PRN Administration LINE FLUSH Nutrition/Malnutrition Assess - Dietary Evaluation Nutrition/Malnutrition Findings: Nutrition Notes Start: 08/25/20 09:17 Freq: Status: Active Protocol: Document 08/26/20 08:23 (Rec: 08/26/20 08:24 [id number]) Nutrition Notes Need for Assessment generated from: MD Order Initial or Follow up Brief Note Current Diagnosis Hypertension,Heart Failure, Respiratory Failure,Stroke Current Diet NPO Subjective/Other Information MD order for TF. Pt was placed on NPO yesterday. Will reorder TF. Nutrition Intervention Nutrition Support: Vital AF at 65 ml/hr Flush 100 ml q4h or per MD Kcal 1,872 Protein (gm) 117 Fluid (mL) 1,265 Follow-Up By: 08/27/20 Additional Comments FU for TF start/tolerance <LUCRETIA COREA - Last Filed: 08/26/20 18:22> History Interval history: Patient is 60-year-old male with HTN and CHF who was admitted for rule out CVA. He has acute respiratory failure is intubated on ventilator. He was hypotensive, started on pressors. CT Angio chest negative for Pulmonary Emboli but shows bronchopneumonia. He is on Cefepime. Consult ID for pneumonia, fever. Myself and Nurse Practitioner discussed with son at bedside. I saw and evaluated the patient and discussed with Nurse Practitioner and Project Asst.. I agree with the findings and the plan of care as documented in the Nurse Practitioner note. Hospitalist Physical - Constitutional Vitals: Temp Pulse Resp BP Pulse Ox 98.9 F 85 26 H 114/74 100 08/26/20 12:00 08/26/20 14:30 08/26/20 14:30 08/26/20 14:30 08/26/20 14:30 HEART Score - HEART Score Troponin: Troponin T 0.032 ng/mL (0.00-0.029) H D 08/26/20 05:15 Results - Labs CBC & Chem 7: 08/26/20 05:15 08/26/20 05:15 Labs: Laboratory Last Values WBC 11.3 K/mm3 (4.5-11.0) H 08/26/20 05:15 RBC 4.03 M/mm3 (3.65-5.03) 08/26/20 05:15 Hgb 12.4 gm/dl (11.8-15.2) 08/26/20 05:15 Hct 37.6 % (35.5-45.6) 08/26/20 05:15 MCV 93 fl (84-94) 08/26/20 05:15 MCH 31 pg (28-32) 08/26/20 05:15 MCHC 33 % (32-34) 08/26/20 05:15 RDW 15.0 % (13.2-15.2) 08/26/20 05:15 Plt Count 112 K/mm3 (140-440) L 08/26/20 05:15 Lymph % (Auto) 4.2 % (13.4-35.0) L 08/26/20 05:15 Mcmullen % (Auto) 9.2 % (0.0-7.3) H 08/26/20 05:15 Eos % (Auto) 0.2 % (0.0-4.3) 08/26/20 05:15 Baso % (Auto) 0.5 % (0.0-1.8) 08/26/20 05:15 Lymph # (Auto) 0.5 K/mm3 (1.2-5.4) L 08/26/20 05:15 Mcmullen # (Auto) 1.0 K/mm3 (0.0-0.8) H 08/26/20 05:15 Eos # (Auto) 0.0 K/mm3 (0.0-0.4) 08/26/20 05:15 Baso # (Auto) 0.1 K/mm3 (0.0-0.1) 08/26/20 05:15 Seg Neutrophils % 85.9 % (40.0-70.0) H 08/26/20 05:15 Seg Neutrophils # 9.7 K/mm3 (1.8-7.7) H 08/26/20 05:15 PT 15.5 Sec. (12.2-14.9) H 08/24/20 22:24 INR 1.05 (0.87-1.13) 08/24/20 22:24 APTT 29.9 Sec. (24.2-36.6) 08/24/20 22:24 Thrombin Time 18.7 Sec. (15.1-19.6) 08/24/20 22:24 D-Dimer 4955.67 ng/mlDDU (0-234) H 08/26/20 05:15 ABG pH 7.495 (7.320-7.450) H 08/26/20 05:00 POC ABG pCO2 33.9 mmHg (32.0-48.0) 08/26/20 05:00 ABG pCO2 40.7 mm Hg 08/25/20 04:45 POC ABG pO2 194.0 mmHg (83-108) H 08/26/20 05:00 ABG pO2 194.6 mm Hg (80.0-90.0) H 08/25/20 04:45 POC ABG HCO3 25.5 08/26/20 05:00 ABG HCO3 23.3 mmol/L (20.0-26.0) 08/25/20 04:45 ABG O2 Saturation 99.6 (0-100) 08/26/20 05:00 ABG O2 Content 19.9 (0.0-44) 08/25/20 04:45 POC ABG Base Excess 2.6 08/26/20 05:00 ABG Base Excess -1.8 mmol/L (-2.0-3.0) 08/25/20 04:45 ABG Hemoglobin 12.9 (12.0-17.5) 08/26/20 05:00 ABG Oxyhemoglobin 98.6 (94-98) H 08/26/20 05:00 ABG Carboxyhemoglobin 1.6 % (0.0-5.0) 08/25/20 04:45 ABG Methemoglobin 0 (0.0-1.5) 08/26/20 05:00 ABG Sodium 141.2 mmol/L (136.0-145.0) 08/26/20 05:00 ABG Potassium 3.7 mmol/L (3.40-4.50) 08/26/20 05:00 ABG Chloride 109.0 mmol/L (98-107) H 08/26/20 05:00 ABG Glucose 125 mg/dL (65-95) H 08/26/20 05:00 Oxyhemoglobin 97.2 % (95.0-99.0) 08/25/20 04:45 Carboxyhemoglobin 1.0 (0.5-1.5) 08/26/20 05:00 FiO2 100 % 08/25/20 04:45 FiO2 % 55.0 08/26/20 05:00 Sodium 143 mmol/L (137-145) D 08/26/20 05:15 Potassium 3.7 mmol/L (3.6-5.0) D 08/26/20 05:15 Chloride 105.5 mmol/L (98-107) 08/26/20 05:15 Carbon Dioxide 28 mmol/L (22-30) 08/26/20 05:15 Anion Gap 13 mmol/L 08/26/20 05:15 BUN 16 mg/dL (9-20) 08/26/20 05:15 Creatinine 1.1 mg/dL (0.8-1.3) 08/26/20 05:15 Estimated GFR > 60 ml/min 08/26/20 05:15 BUN/Creatinine Ratio 15 % 08/26/20 05:15 Glucose 120 mg/dL (75-100) H 08/26/20 05:15 POC Glucose 116 mg/dL (70-105) H 08/26/20 11:40 Calcium 8.2 mg/dL (8.4-10.2) L 08/26/20 05:15 Total Bilirubin 0.90 mg/dL (0.1-1.2) 08/24/20 22:24 AST 31 units/L (5-40) 08/24/20 22:24 ALT 46 units/L (7-56) 08/24/20 22:24 Alkaline Phosphatase 111 units/L (35-129) 08/24/20 22:24 Total Creatine Kinase 250 units/L (55-170) H 08/24/20 22:24 CK-MB (CK-2) 3.6 ng/mL (0.0-4.0) 08/24/20 22:24 CK-MB (CK-2) Rel Index 1.4 (0-4) 08/24/20 22:24 Troponin T 0.032 ng/mL (0.00-0.029) H D 08/26/20 05:15 NT-Pro-B Natriuret Pep 2769 pg/mL (0-900) H 08/24/20 22:24 Total Protein 7.2 g/dL (6.3-8.2) 08/24/20 22:24 Albumin 3.9 g/dL (3.9-5) 08/24/20 22:24 Albumin/Globulin Ratio 1.2 % 08/24/20 22:24 Triglycerides 67 mg/dL (2-149) 08/25/20 01:47 Cholesterol 184 mg/dL (50-199) 08/25/20 01:47 LDL Cholesterol Direct 141 mg/dL (50-130) H 08/25/20 01:47 HDL Cholesterol 44 mg/dL (40-59) 08/25/20 01:47 Cholesterol/HDL Ratio 4.18 % 08/25/20 01:47 TSH 3.150 mlU/mL (0.270-4.200) 08/24/20 22:24 Arterial Blood Glucose 125 mg/dL (65-95) H 08/26/20 05:00 Arterial Blood Ionized Calcium 4.5 mg/dL (4.6-5.3) L 08/26/20 05:00 Urine Color Yellow (Yellow) 08/24/20 22:35 Urine Turbidity Clear (Clear) 08/24/20 22:35 Urine pH 7.0 (5.0-7.0) 08/24/20 22:35 Ur Specific Hillister 1.005 (1.003-1.030) 08/24/20 22:35 Urine Protein 100 mg/dl mg/dL (Negative) 08/24/20 22:35 Urine Glucose (UA) >=500 mg/dL (Negative) 08/24/20 22:35 Urine Ketones Neg mg/dL (Negative) 08/24/20 22:35 Urine Blood Neg (Negative) 08/24/20 22:35 Urine Nitrite Neg (Negative) 08/24/20 22:35 Urine Bilirubin Neg (Negative) 08/24/20 22:35 Urine Urobilinogen < 2.0 mg/dL (<2.0) 08/24/20 22:35 Ur Leukocyte Esterase Neg (Negative) 08/24/20 22:35 Urine WBC (Auto) 1.0 /HPF (0.0-6.0) 08/24/20 22:35 Urine RBC (Auto) 2.0 /HPF (0.0-6.0) 08/24/20 22:35 Urine Mucus Few /HPF 08/24/20 22:35 Nasal Screen MRSA (PCR) Negative (Negative) 08/25/20 Unknown Urine Opiates Screen Negative 08/24/20 22:35 Urine Methadone Screen Negative 08/24/20 22:35 Ur Barbiturates Screen Negative 08/24/20 22:35 Ur Phencyclidine Scrn Negative 08/24/20 22:35 Ur Amphetamines Screen Negative 08/24/20 22:35 U Benzodiazepines Scrn Negative 08/24/20 22:35 Urine Cocaine Screen Negative 08/24/20 22:35 U Marijuana (THC) Screen Negative 08/24/20 22:35 Drugs of Abuse Note Disclamer 08/24/20 22:35 Plasma/Serum Alcohol < 0.01 % (0-0.07) 08/24/20 22:24 Coronavirus (PCR) Negative (Negative) 08/25/20 Unknown Blood Type A POSITIVE 08/24/20 22:24 Antibody Screen Negative 08/24/20 22:24 Microbiology: Microbiology 08/26/20 11:45 Bronchial Washings - Right Middle Lobe Respiratory Culture - Preliminary 08/25/20 02:39 Peripheral/Venous Blood Culture - Preliminary NO GROWTH AFTER 24 HOURS 08/25/20 01:47 Peripheral/Venous Blood Culture - Preliminary NO GROWTH AFTER 24 HOURS 08/25/20 04:55 Tracheal Aspirate Sputum Culture - Preliminary Active Medications - Current Medications Current Medications: Generic Name Dose Route Start Last Admin Trade Name Freq PRN Reason Stop Dose Admin Acetaminophen 650 mg 08/25/20 00:33 08/26/20 03:40 Acetaminophen 325 Mg Tab PO 650 mg Q4H PRN Administration Pain MILD(1-3)/Fever >100.5/[place] Albuterol 2.5 mg 08/25/20 00:33 Albuterol 2.5 Mg/3 Ml Nebu IH Q4HRT PRN Shortness Of Breath Lipase/Protease/Amylase 1 each 08/25/20 09:40 Lipase 10,500/Protease 25,000/Amylase 43,750 (Units) Dr Cap FEEDTUBE PRN PRN For Clogged Feeding Tube Aspirin 325 mg 08/25/20 10:00 08/26/20 17:07 Aspirin 325 Mg Tab PO 325 mg QDAY TK Administration Atorvastatin Calcium 80 mg 08/25/20 22:00 08/25/20 21:49 Atorvastatin 40 Mg Tab PO 80 mg QHS TK Administration Clopidogrel Bisulfate 75 mg 08/25/20 10:00 08/26/20 17:08 Clopidogrel 75 Mg Tab PO 75 mg QDAY TK Administration Famotidine 20 mg 08/25/20 10:00 08/26/20 12:54 Famotidine 20 Mg/2 Ml Inj IV 20 mg BID TK Administration Heparin Sodium (Porcine) 5,000 unit 08/25/20 06:00 08/26/20 17:08 Heparin 5,000 Unit/1 Ml Vial SUB-Q 5,000 unit Q8HR TK Administration Hydralazine HCl 10 mg 08/25/20 00:39 Hydralazine 20 Mg/1 Ml Inj IV Q6H PRN htn Hydrophilic Ointment 1 applic 08/24/20 23:56 Lip Therapy Vaseline TP Q2HR PRN Dry Lips Propofol 1,000 mg in 100 mls @ 2.541 mls/hr 08/24/20 23:45 08/26/20 17:07 Diprivan 10 Mg/Ml IV 25 mcg/kg/min TITR TK 12.705 mls/hr Administration Protocol 5 MCG/KG/MIN Norepinephrine 4 mg in 250 mls @ 7.5 mls/hr 08/25/20 03:00 08/26/20 17:07 Levophed Drip 4 Mg/Ns 250 Ml IV 10 mcg/min TITR TK 37.5 mls/hr Administration Protocol 2 MCG/MIN Cefepime HCl 2 gm in 100 mls @ 200 mls/hr 08/26/20 12:00 08/26/20 12:56 Cefepime/Ns 2 Gm/100 Ml IV 09/02/20 11:59 200 mls/hr Q12H TK Administration Protocol Dobutamine HCl/Dextrose 500 mg in 250 mls @ 6.353 mls/hr 08/26/20 17:00 Dobutrex Drip 500mg/D5w 250ml IV DIRECT TK Protocol 2.5 MCG/KG/MIN Multi-Ingred Cream/Lotion/Oil/Oint 1 applic 08/24/20 23:56 Mineral Oil/Petrolatum, White Ophth Oint 3.5 Gm OU Q4HR PRN Dry Eye(s) Ondansetron HCl 4 mg 08/25/20 00:33 Ondansetron 4 Mg/2 Ml Inj IV Q8H PRN Nausea And Vomiting Senna/Docusate Sodium 1 tab 08/25/20 10:00 08/26/20 17:08 Sennosides/Docusate Sodium 8.6/50 Mg Tab FEEDTUBE Not Given BID TK Simple Syrup 15 ml 08/25/20 09:40 Simple Syrup 15 Ml FEEDTUBE PRN PRN Hypoglycemia Simple Syrup 30 ml 08/25/20 09:40 Simple Syrup 15 Ml FEEDTUBE PRN PRN Hypoglycemia Sodium Bicarbonate 325 mg 08/25/20 09:40 Sodium Bicarbonate 325 Mg Tab FEEDTUBE PRN PRN For Clogged Feeding Tube Sodium Chloride 10 ml 08/25/20 10:00 08/26/20 12:54 Sodium Chloride 0.9% 10 Ml Flush Syringe IV 10 ml BID TK Administration Sodium Chloride 10 ml 08/25/20 00:33 08/25/20 10:58 Sodium Chloride 0.9% 10 Ml Flush Syringe IV 10 ml PRN PRN Administration LINE FLUSH Nutrition/Malnutrition Assess - Dietary Evaluation Nutrition/Malnutrition Findings: Nutrition Notes Start: 08/25/20 09:17 Freq: Status: Active Protocol: Document 08/26/20 08:23 JAZMYNE (Rec: 08/26/20 08:24 [email or web address] [id number]) Nutrition Notes Need for Assessment generated from: MD Order Initial or Follow up Brief Note Current Diagnosis Hypertension,Heart Failure, Respiratory Failure,Stroke Current Diet NPO Subjective/Other Information MD order for TF. Pt was placed on NPO yesterday. Will reorder TF. Nutrition Intervention Nutrition Support: Vital AF at 65 ml/hr Flush 100 ml q4h or per MD Kcal 1,872 Protein (gm) 117 Fluid (mL) 1,265 Follow-Up By: 08/27/20 Additional Comments FU for TF start/tolerance
--- NOTE | 2020-08-26 15:09 | Progress Note ---
Assessment and Plan Echo reviewed - LV mod dilated, EF 20-25%, RV mod-severely dilated, RV mod hypokinetic, LA mildly dilated, negative Bubble study, no LV thrombus. Agree with Pulm recs regarding IV inotrope therapy. Pt would likely benefit from dobutamine gtt. Continue other present mgmt. Consider confirmatory testing of PE vs DVT given elevated D-dimer. Pt seen in conjunction with Dr. Mosqueda, who agrees with the assessment and plan of care. - Patient Problems (1) CVA (cerebral vascular accident) Current Visit: Yes Status: Suspected Qualifiers: CVA mechanism: unspecified Qualified Code(s): I63.9 - Cerebral infarction, unspecified (2) Acute respiratory failure Current Visit: Yes Status: Acute Qualifiers: Qualified Code(s): J96.00 - Acute respiratory failure, unspecified whether with hypoxia or hypercapnia (3) PNA (pneumonia) Current Visit: Yes Status: Acute (4) Acute on chronic HFrEF (heart failure with reduced ejection fraction) Current Visit: Yes Status: Acute (5) Dilated cardiomyopathy Current Visit: Yes Status: Acute (6) Hypotension Current Visit: Yes Status: Acute (7) Elevated d-dimer Current Visit: Yes Status: Acute Subjective Date of service: 08/26/20 Principal diagnosis: CVA Interval history: Remains intubated/sedated. On Levo gtt. Tele reviewed SR 90s, short intermittent 4-5 bt runs of NSVT noted. Objective Last Vital Signs Temp 98.9 F 08/26/20 12:00 Pulse 85 08/26/20 14:30 Resp 26 H 08/26/20 14:30 BP 114/74 08/26/20 14:30 Pulse Ox 100 08/26/20 14:30 - Physical Examination General: Other (intubated) HEENT: Positive: Normocephaly Neck: Positive: neck supple, trachea midline Cardiac: Positive: Reg Rate and Rhythm, S1/S2. Negative: Audible Murmur Lungs: Positive: Decreased Breath Sounds (bilaterally) Neuro: Positive: Other (intubated) Abdomen: Positive: Soft Skin: Negative: Rash Musculoskeletal: No Fluid Collection Extremities: Present: lower extr. pulses, edema - Labs and Meds CBC 08/26/20 Range/Units 05:15 WBC 11.3 H (4.5-11.0) K/mm3 RBC 4.03 (3.65-5.03) M/mm3 Hgb 12.4 (11.8-15.2) gm/dl Hct 37.6 (35.5-45.6) % Plt Count 112 L (140-440) K/mm3 Lymph # (Auto) 0.5 L (1.2-5.4) K/mm3 Door # (Auto) 1.0 H (0.0-0.8) K/mm3 Eos # (Auto) 0.0 (0.0-0.4) K/mm3 Baso # (Auto) 0.1 (0.0-0.1) K/mm3 Comprehensive Metabolic Panel 08/26/20 Range/Units 05:15 Sodium 143 D (137-145) mmol/L Potassium 3.7 D (3.6-5.0) mmol/L Chloride 105.5 (98-107) mmol/L Carbon Dioxide 28 (22-30) mmol/L BUN 16 (9-20) mg/dL Creatinine 1.1 (0.8-1.3) mg/dL Glucose 120 H (75-100) mg/dL Calcium 8.2 L (8.4-10.2) mg/dL - Imaging and Cardiology EKG: report reviewed, image reviewed Echo: report reviewed (08/25/2020 - LV mod dilated, EF 20-25%, RV mod-severely dilated, RV mod hypokinetic, LA mildly dilated, negative Bubble study, no LV thrombus) - Telemetry EKG Rhythm: Sinus Rhythm - EKG Sinus rhythms and dysrhythmias: sinus tachycardia Ventricular dysrhythmias: ventricular premature com Chamber hypertrophy or enlargement: left atrial enlargement, right atrial enlargment, left ventricular hypertro Repolarization changes or abnormalities: nonspecific abnormality, ST segment, and/or T wave - Allied health notes Allied health notes reviewed: nursing
--- NOTE | 2020-08-26 16:03 | Vascular Lab Report ---
DUPLEX DOPPLER LOWER EXTREMITY VEINS, BILATERAL INDICATION / CLINICAL INFORMATION: Leg swelling. Respiratory failure TECHNIQUE: Duplex doppler imaging was performed through the veins of both lower extremities using venous marcelle nino and other maneuvers. COMPARISON: None available. FINDINGS: RIGHT COMMON FEMORAL VEIN: Negative. RIGHT FEMORAL VEIN: Negative. RIGHT POPLITEAL VEIN: Negative. RIGHT CALF VEINS: Negative. LEFT COMMON FEMORAL VEIN: Negative. LEFT FEMORAL VEIN: Negative. LEFT POPLITEAL VEIN: Negative. LEFT CALF VEINS: Negative. ADDITIONAL FINDINGS: None. IMPRESSION: 1. No sonographic evidence for DVT in either lower extremity. Signer Name: Kwasi Daley MD Signed: 08/26/2020 3:59 PM Workstation Name: [email or web address]
--- NOTE | 2020-08-26 16:32 | Cat Scan Report ---
CTA CHEST WITH IV CONTRAST INDICATION: Shortness of breath. TECHNIQUE: Axial CT images were obtained through the chest after injection of IV contrast. 3 plane MIP reconstru ctions were produced. All CT scans at this location are performed using CT dose reduction for ALARA b y means of automated exposure control. COMPARISON: None available. FINDINGS: PULMONARY ARTERIES: No pulmonary emboli. THORACIC AORTA: No acute abnormality. HEART: Normal. CORONARY ARTERIES: No significant calcification. PLEURA: No pleural effusion. No pneumothorax. LYMPH NODES: No significant adenopathy. LUNGS: Airspace consolidation both lower lobes, right greater than left characteristic for pneumonia. Mild groundglass parenchymal disease right upper, middle and both lower lobes. ADDITIONAL FINDINGS: Right IJ CVL has tip in SVC. Endotracheal and NG tubes both in expected position UPPER ABDOMEN: No acute findings. SKELETAL STRUCTURES: No significant osseous abnormality. IMPRESSION: 1. No CT evidence for pulmonary embolism. 2. Bilateral bronchopneumonia most pronounced within both lower lobes. Signer Name: Kwasi Daley MD Signed: 08/26/2020 4:27 PM Workstation Name: [email or web address]
[2020-08-26] MEDS ORDERED: DOBUTamine/D5W 500 MG/250 ML 500 MG/250 ML BAG IV SCH (17:00)
[2020-08-26] MEDS: ASPIRIN 325 MG TAB PO SCH (17:07)
[2020-08-26] MEDS: CLOPIDOGREL 75 MG TAB PO SCH (17:08)
[2020-08-26] MEDS: SENNOSIDES/DOCUSATE SODIUM 8.6/50 MG TAB FEEDTUBE SCH ×2 (17:08→21:00)
[2020-08-27] MEDS: CEFEPIME/NS 2 GM/100 ML 2 GM/100 ML BAG IV SCH ×2 (00:01→16:25)
[2020-08-27 05:35] LABS: Hematocrit 38.3 % (35.5-45.6); Hemoglobin 12.6 gm/dl (11.8-15.2); Mean Corpuscular HGB Conc 33 % (32-34); Mean Corpuscular Volume 94 fl (84-94); Platelet Count 103 K/mm3 (140-440); Red Blood Count 4.07 M/mm3 (3.65-5.03)
[2020-08-27 05:54] LABS: BUN/Creatinine Ratio 14; Blood Urea Nitrogen 17 mg/dL (9-20); Calcium 8.3 mg/dL (8.4-10.2); Hemolysis Index 1
[2020-08-27] MEDS: HEPARIN 5,000 UNIT/1 ML VIAL SUB-Q SCH ×3 (06:24→22:16)
--- NOTE | 2020-08-27 06:30 | XRay Report ---
CHEST 1 VIEW INDICATION: follow up respiratory failure COMPARISON: One day prior. FINDINGS: Support devices: Unchanged. Heart: Stable. Lungs/Pleura: Mild, diffuse parenchymal disease, unchanged. No new disease. IMPRESSION: 1. No significant change. Signer Name: Donald Mata MD Signed: 08/27/2020 6:26 AM Workstation Name: [id number]
[2020-08-27] MEDS: fentaNYL 100 MCG/2 ML INJ IV PRN ×2 (10:42→22:20)
[2020-08-27] MEDS: FAMOTIDINE 20 MG/2 ML INJ IV SCH ×2 (10:42→22:17)
[2020-08-27] MEDS: ASPIRIN 325 MG TAB PO SCH (10:43)
[2020-08-27] MEDS: CLOPIDOGREL 75 MG TAB PO SCH (10:43)
[2020-08-27] MEDS: SENNOSIDES/DOCUSATE SODIUM 8.6/50 MG TAB FEEDTUBE SCH ×2 (10:43→22:17)
--- NOTE | 2020-08-27 11:27 | Progress Note ---
Assessment and Plan Assessment and Plan VTE prophylaxis?: Mechanical Plan of care discussed with patient/family: Yes - Patient Problems # CVA (cerebral vascular accident) - new onset of right sided weakness and speech difficulty -initial NIH #8 -startyed on ASA and plavix plus lipitor 80 mg -Ct brain and CTA brain and neck are unremarkable -Not a candidate for TPA >4.5 Hrs, not a candidate for thrombectomy -Echo is with EF#20-25% with sever LV hypertrophy. -MRI brain is pending -evaluate ST-PT once extubated -LDL#141 -Low BP on Norepinephrine , maintain BP>110/60 with MAP>65 # Acute exacerbation of CHF (congestive heart failure) -Lasix 40 mg IV every 12 hours. - Fluid restriction. Maintain input output. - Echocardiogram. # Acute respiratory failure -Patient is status post intubation. -DuoNeb by nebulizer every 4 hours. -Albuterol via nebulizer every 4 hours as needed. # Hypertension -Hydralazine 10 mg IV every 6 hours as needed lisinopril 5 mg p.o. daily. - We will monitor the blood pressure closely. # DVT prophylaxis -SCD for DVT prophylaxis as per neurology recommendation. - Pepcid 20 mg IV twice daily for GI prophylaxis. - Patient is a full code pt. is evaluated in ICU he is critically ill time spent in evaluation, review documents and labs,and Xrys ,CT >30 minutes plan 1-need mri brain 2-suggest cut down sedation. will follow as needed Subjective Date of service: 08/27/20 Principal diagnosis: CVA Interval history: pt. is intubated and sedated on propofol 50 mc he seems to be moving right side some what to stimulation slightly MRI still pending echo showed Ef#20-25% with global hypokinesia Objective - Vital Sign Vital Signs - 12hr 08/26/20 08/26/20 08/26/20 23:21 23:30 23:41 Temperature Pulse Rate 94 H 92 H 93 H Pulse Rate [ Right From Monitor] Respiratory 21 21 26 H Rate Blood Pressure 106/63 95/59 95/59 O2 Sat by Pulse 100 97 100 Oximetry 08/26/20 08/26/20 08/26/20 23:51 23:56 23:59 Temperature 99.1 F Pulse Rate 94 H 92 H Pulse Rate [ Right From Monitor] Respiratory 26 H Rate Blood Pressure 100/64 95/59 O2 Sat by Pulse 100 100 Oximetry 08/27/20 08/27/20 08/27/20 00:00 00:11 00:21 Temperature Pulse Rate 92 H 91 H 92 H Pulse Rate [ 92 H Right From Monitor] Respiratory 26 H 26 H 26 H Rate Blood Pressure 109/67 109/67 90/62 O2 Sat by Pulse 97 100 100 Oximetry 08/27/20 08/27/20 08/27/20 00:30 00:41 00:51 Temperature Pulse Rate 97 H 94 H 96 H Pulse Rate [ Right From Monitor] Respiratory 23 26 H 26 H Rate Blood Pressure 107/72 107/72 98/60 O2 Sat by Pulse 97 100 100 Oximetry 08/27/20 08/27/20 08/27/20 01:01 01:11 01:21 Temperature Pulse Rate 96 H 93 H 92 H Pulse Rate [ Right From Monitor] Respiratory 26 H 25 H 26 H Rate Blood Pressure 124/73 124/73 92/63 O2 Sat by Pulse 97 100 100 Oximetry 08/27/20 08/27/20 08/27/20 01:30 01:41 01:51 Temperature Pulse Rate 91 H 92 H 94 H Pulse Rate [ Right From Monitor] Respiratory 26 H 26 H 27 H Rate Blood Pressure 95/59 95/59 124/73 O2 Sat by Pulse 98 100 100 Oximetry 08/27/20 08/27/20 08/27/20 02:00 02:11 02:21 Temperature Pulse Rate 90 91 H 93 H Pulse Rate [ Right From Monitor] Respiratory 26 H 26 H 27 H Rate Blood Pressure 111/66 111/66 102/60 O2 Sat by Pulse 100 100 Oximetry 08/27/20 08/27/20 08/27/20 02:30 02:41 02:51 Temperature Pulse Rate 98 H 96 H 93 H Pulse Rate [ Right From Monitor] Respiratory 16 27 H 26 H Rate Blood Pressure 118/84 118/84 109/70 O2 Sat by Pulse 100 100 100 Oximetry 08/27/20 08/27/20 08/27/20 03:00 03:11 03:21 Temperature Pulse Rate 89 89 88 Pulse Rate [ Right From Monitor] Respiratory 27 H 19 17 Rate Blood Pressure 96/63 96/63 90/58 O2 Sat by Pulse 99 100 100 Oximetry 08/27/20 08/27/20 08/27/20 03:23 03:30 03:41 Temperature 99.6 F Pulse Rate 86 88 Pulse Rate [ Right From Monitor] Respiratory 21 28 H Rate Blood Pressure 87/54 87/54 O2 Sat by Pulse 98 100 Oximetry 08/27/20 08/27/20 08/27/20 03:51 04:00 04:11 Temperature Pulse Rate 87 86 86 Pulse Rate [ 87 Right From Monitor] Respiratory 27 H 26 H 29 H Rate Blood Pressure 90/60 92/57 92/57 O2 Sat by Pulse 100 100 100 Oximetry 08/27/20 08/27/20 08/27/20 04:21 04:31 04:32 Temperature Pulse Rate 86 96 H 97 H Pulse Rate [ Right From Monitor] Respiratory 26 H 16 Rate Blood Pressure 92/57 129/86 129/86 O2 Sat by Pulse 100 97 100 Oximetry 08/27/20 08/27/20 08/27/20 04:41 04:51 05:00 Temperature Pulse Rate 92 H 96 H 93 H Pulse Rate [ Right From Monitor] Respiratory 22 28 H 26 H Rate Blood Pressure 129/86 97/59 137/84 O2 Sat by Pulse 100 100 99 Oximetry 08/27/20 08/27/20 08/27/20 05:11 05:21 05:30 Temperature Pulse Rate 90 93 H 91 H Pulse Rate [ Right From Monitor] Respiratory 23 23 Rate Blood Pressure 137/84 137/78 136/77 O2 Sat by Pulse 100 100 100 Oximetry 08/27/20 08/27/20 08/27/20 05:41 05:51 06:00 Temperature Pulse Rate 90 92 H 88 Pulse Rate [ Right From Monitor] Respiratory 22 24 22 Rate Blood Pressure 136/77 118/78 117/81 O2 Sat by Pulse 100 100 100 Oximetry 08/27/20 08/27/20 08/27/20 06:11 07:00 07:15 Temperature 98.7 F Pulse Rate 89 84 Pulse Rate [ Right From Monitor] Respiratory 23 Rate Blood Pressure 117/81 106/67 O2 Sat by Pulse 100 100 Oximetry - General Apperance Constitutional: comfortable, other (intubated and sedated no movment ) - EENT EENT: PERRL, mucous membranes moist - Respiratory Respiratory: lungs clear, rhonchi - Cardiovascular Cardiovascular: normal S1, normal S2 Extremities: no peripheral edema bilat, no clubbing, cyanosis - Gastrointestinal Gastrointestinal: normoactive bowel sounds - Integumentary Integumentary: normal - Neurologic Cranial nerve examination: PERRL, EOMI, intact Speech examination: other (intubated) Detailed motor examination: other (no movment to stimuli) - Laboratory Findings CBC and BMP: 08/27/20 04:50 08/27/20 04:50 Abnormal Lab Findings: Abnormal Labs 08/24/20 08/24/20 08/24/20 22:24 22:24 22:24 WBC Plt Count Lymph % (Auto) 11.1 L Page % (Auto) Lymph # (Auto) 0.7 L Page # (Auto) Seg Neutrophils % 82.5 H Seg Neutrophils # PT 15.5 H D-Dimer ABG pH POC ABG pCO2 POC ABG pO2 ABG pO2 ABG O2 Saturation ABG Base Excess ABG Oxyhemoglobin ABG Chloride ABG Glucose Oxyhemoglobin Sodium 130 L Chloride 97.5 L Glucose 170 H POC Glucose Calcium Total Creatine Kinase 250 H Troponin T NT-Pro-B Natriuret Pep LDL Cholesterol Direct Arterial Blood Glucose Arterial Blood Ionized Calcium 08/24/20 08/25/20 08/25/20 22:24 01:01 01:47 WBC Plt Count Lymph % (Auto) Page % (Auto) Lymph # (Auto) Page # (Auto) Seg Neutrophils % Seg Neutrophils # PT D-Dimer ABG pH 7.285 L POC ABG pCO2 POC ABG pO2 ABG pO2 99.5 H ABG O2 Saturation ABG Base Excess -4.2 L ABG Oxyhemoglobin ABG Chloride ABG Glucose Oxyhemoglobin 94.9 L Sodium Chloride Glucose POC Glucose Calcium Total Creatine Kinase Troponin T NT-Pro-B Natriuret Pep 2769 H LDL Cholesterol Direct 141 H Arterial Blood Glucose Arterial Blood Ionized Calcium 08/25/20 08/25/20 08/25/20 04:45 11:45 17:20 WBC Plt Count Lymph % (Auto) Page % (Auto) Lymph # (Auto) Page # (Auto) Seg Neutrophils % Seg Neutrophils # PT D-Dimer ABG pH POC ABG pCO2 POC ABG pO2 ABG pO2 194.6 H ABG O2 Saturation 99.2 H ABG Base Excess ABG Oxyhemoglobin ABG Chloride ABG Glucose Oxyhemoglobin Sodium Chloride Glucose POC Glucose 136 H 117 H Calcium Total Creatine Kinase Troponin T NT-Pro-B Natriuret Pep LDL Cholesterol Direct Arterial Blood Glucose Arterial Blood Ionized Calcium 08/26/20 08/26/20 08/26/20 05:00 05:15 05:15 WBC 11.3 H Plt Count 112 L Lymph % (Auto) 4.2 L Page % (Auto) 9.2 H Lymph # (Auto) 0.5 L Page # (Auto) 1.0 H Seg Neutrophils % 85.9 H Seg Neutrophils # 9.7 H PT D-Dimer ABG pH 7.495 H POC ABG pCO2 POC ABG pO2 194.0 H ABG pO2 ABG O2 Saturation ABG Base Excess ABG Oxyhemoglobin 98.6 H ABG Chloride 109.0 H ABG Glucose 125 H Oxyhemoglobin Sodium Chloride Glucose 120 H POC Glucose Calcium 8.2 L Total Creatine Kinase Troponin T 0.032 H D NT-Pro-B Natriuret Pep LDL Cholesterol Direct Arterial Blood Glucose 125 H Arterial Blood Ionized Calcium 4.5 L 08/26/20 08/26/20 08/26/20 05:15 11:40 23:28 WBC Plt Count Lymph % (Auto) Page % (Auto) Lymph # (Auto) Page # (Auto) Seg Neutrophils % Seg Neutrophils # PT D-Dimer 4955.67 H ABG pH POC ABG pCO2 POC ABG pO2 ABG pO2 ABG O2 Saturation ABG Base Excess ABG Oxyhemoglobin ABG Chloride ABG Glucose Oxyhemoglobin Sodium Chloride Glucose POC Glucose 116 H 131 H Calcium Total Creatine Kinase Troponin T NT-Pro-B Natriuret Pep LDL Cholesterol Direct Arterial Blood Glucose Arterial Blood Ionized Calcium 08/27/20 08/27/20 08/27/20 04:22 04:50 04:50 WBC Plt Count 103 L Lymph % (Auto) Page % (Auto) Lymph # (Auto) Page # (Auto) Seg Neutrophils % Seg Neutrophils # PT D-Dimer ABG pH 7.500 H POC ABG pCO2 27.7 L POC ABG pO2 163.1 H ABG pO2 ABG O2 Saturation ABG Base Excess ABG Oxyhemoglobin 98.2 H ABG Chloride 109.0 H ABG Glucose 116 H Oxyhemoglobin Sodium 147 H Chloride 109.7 H Glucose 112 H POC Glucose Calcium 8.3 L Total Creatine Kinase Troponin T NT-Pro-B Natriuret Pep LDL Cholesterol Direct Arterial Blood Glucose 116 H Arterial Blood Ionized Calcium 08/27/20 05:29 WBC Plt Count Lymph % (Auto) Page % (Auto) Lymph # (Auto) Page # (Auto) Seg Neutrophils % Seg Neutrophils # PT D-Dimer ABG pH POC ABG pCO2 POC ABG pO2 ABG pO2 ABG O2 Saturation ABG Base Excess ABG Oxyhemoglobin ABG Chloride ABG Glucose Oxyhemoglobin Sodium Chloride Glucose POC Glucose 107 H Calcium Total Creatine Kinase Troponin T NT-Pro-B Natriuret Pep LDL Cholesterol Direct Arterial Blood Glucose Arterial Blood Ionized Calcium
--- NOTE | 2020-08-27 11:52 | Progress Note ---
Assessment and Plan 60 y/o male with acute respiratory failure with symptoms of stroke and abnormal CXR 08/27/20: Tolerating inotropes and now off pressors. CTA was negative for PE. Continue to wean sedation as patient is becoming more appropriate. Follow up bronch results but will continue cefepime for now. Fever curve is better. Neuro still recommending MRI. Suggest transfer for MRI to be done and then accept patient back to hospital. 08/26/20: Follow up cards recs. Given current hypotensive state, not sure, but maybe would be a candidate for inotropic therapy. Patient could be septic from pneumonia as well. Bronched today and obtained sample from right middle. Empiric abx therapy started (cefepime). Will follow up cultures. Wean Vasopr essors for MAPS >60. Overall prognosis is guarded to poor given CHF comorbidity and current hypotensive state with stroke. Unable to get MRI as pump is broken that is compatible with vent. 1. Continue current level of care 2. Central line placed for Vasopressor therapy 3. Follow up echo report 4. Sedation to maintain safety and ventilator support Guarded prognosis. cct 31minutes Subjective Date of service: 08/27/20 Principal diagnosis: CVA Interval history: No acute events. Down to 35% now with good sats. CTA was done yesterday. Objective Vital Signs - 12hr 08/26/20 08/26/20 08/26/20 23:51 23:56 23:59 Temperature 99.1 F Pulse Rate 94 H 92 H Pulse Rate [ Right From Monitor] Respiratory 26 H Rate Blood Pressure 100/64 95/59 O2 Sat by Pulse 100 100 Oximetry 08/27/20 08/27/20 08/27/20 00:00 00:11 00:21 Temperature Pulse Rate 92 H 91 H 92 H Pulse Rate [ 92 H Right From Monitor] Respiratory 26 H 26 H 26 H Rate Blood Pressure 109/67 109/67 90/62 O2 Sat by Pulse 97 100 100 Oximetry 08/27/20 08/27/20 08/27/20 00:30 00:41 00:51 Temperature Pulse Rate 97 H 94 H 96 H Pulse Rate [ Right From Monitor] Respiratory 23 26 H 26 H Rate Blood Pressure 107/72 107/72 98/60 O2 Sat by Pulse 97 100 100 Oximetry 08/27/20 08/27/20 08/27/20 01:01 01:11 01:21 Temperature Pulse Rate 96 H 93 H 92 H Pulse Rate [ Right From Monitor] Respiratory 26 H 25 H 26 H Rate Blood Pressure 124/73 124/73 92/63 O2 Sat by Pulse 97 100 100 Oximetry 08/27/20 08/27/20 08/27/20 01:30 01:41 01:51 Temperature Pulse Rate 91 H 92 H 94 H Pulse Rate [ Right From Monitor] Respiratory 26 H 26 H 27 H Rate Blood Pressure 95/59 95/59 124/73 O2 Sat by Pulse 98 100 100 Oximetry 08/27/20 08/27/20 08/27/20 02:00 02:11 02:21 Temperature Pulse Rate 90 91 H 93 H Pulse Rate [ Right From Monitor] Respiratory 26 H 26 H 27 H Rate Blood Pressure 111/66 111/66 102/60 O2 Sat by Pulse 100 100 Oximetry 08/27/20 08/27/20 08/27/20 02:30 02:41 02:51 Temperature Pulse Rate 98 H 96 H 93 H Pulse Rate [ Right From Monitor] Respiratory 16 27 H 26 H Rate Blood Pressure 118/84 118/84 109/70 O2 Sat by Pulse 100 100 100 Oximetry 08/27/20 08/27/20 08/27/20 03:00 03:11 03:21 Temperature Pulse Rate 89 89 88 Pulse Rate [ Right From Monitor] Respiratory 27 H 19 17 Rate Blood Pressure 96/63 96/63 90/58 O2 Sat by Pulse 99 100 100 Oximetry 08/27/20 08/27/20 08/27/20 03:23 03:30 03:41 Temperature 99.6 F Pulse Rate 86 88 Pulse Rate [ Right From Monitor] Respiratory 21 28 H Rate Blood Pressure 87/54 87/54 O2 Sat by Pulse 98 100 Oximetry 08/27/20 08/27/20 08/27/20 03:51 04:00 04:11 Temperature Pulse Rate 87 86 86 Pulse Rate [ 87 Right From Monitor] Respiratory 27 H 26 H 29 H Rate Blood Pressure 90/60 92/57 92/57 O2 Sat by Pulse 100 100 100 Oximetry 08/27/20 08/27/20 08/27/20 04:21 04:31 04:32 Temperature Pulse Rate 86 96 H 97 H Pulse Rate [ Right From Monitor] Respiratory 26 H 16 Rate Blood Pressure 92/57 129/86 129/86 O2 Sat by Pulse 100 97 100 Oximetry 08/27/20 08/27/20 08/27/20 04:41 04:51 05:00 Temperature Pulse Rate 92 H 96 H 93 H Pulse Rate [ Right From Monitor] Respiratory 22 28 H 26 H Rate Blood Pressure 129/86 97/59 137/84 O2 Sat by Pulse 100 100 99 Oximetry 08/27/20 08/27/20 08/27/20 05:11 05:21 05:30 Temperature Pulse Rate 90 93 H 91 H Pulse Rate [ Right From Monitor] Respiratory 23 23 Rate Blood Pressure 137/84 137/78 136/77 O2 Sat by Pulse 100 100 100 Oximetry 08/27/20 08/27/20 08/27/20 05:41 05:51 06:00 Temperature Pulse Rate 90 92 H 88 Pulse Rate [ Right From Monitor] Respiratory 22 24 22 Rate Blood Pressure 136/77 118/78 117/81 O2 Sat by Pulse 100 100 100 Oximetry 08/27/20 08/27/20 08/27/20 06:11 07:00 07:15 Temperature 98.7 F Pulse Rate 89 84 Pulse Rate [ Right From Monitor] Respiratory 23 Rate Blood Pressure 117/81 106/67 O2 Sat by Pulse 100 100 Oximetry 08/27/20 08/27/20 11:19 11:42 Temperature 98.8 F Pulse Rate 85 Pulse Rate [ Right From Monitor] Respiratory Rate Blood Pressure 112/72 O2 Sat by Pulse 100 Oximetry Gastrointestinal: normoactive bowel sounds Integumentary: normal CBC and BMP: 08/27/20 04:50 08/27/20 04:50 ABG, PT/INR, D-dimer: ABG ABG pH 7.500 (7.320-7.450) H 08/27/20 04:22 POC ABG pCO2 27.7 mmHg (32.0-48.0) L 08/27/20 04:22 ABG pCO2 40.7 mm Hg 08/25/20 04:45 POC ABG pO2 163.1 mmHg (83-108) H 08/27/20 04:22 ABG pO2 194.6 mm Hg (80.0-90.0) H 08/25/20 04:45 POC ABG HCO3 21.1 08/27/20 04:22 ABG O2 Saturation 99.3 (0-100) 08/27/20 04:22 PT/INR, D-dimer PT 15.5 Sec. (12.2-14.9) H 08/24/20 22:24 INR 1.05 (0.87-1.13) 08/24/20 22:24 D-Dimer 4955.67 ng/mlDDU (0-234) H 08/26/20 05:15 Abnormal lab findings: Abnormal Labs 08/24/20 08/24/20 08/24/20 22:24 22:24 22:24 WBC Plt Count Lymph % (Auto) 11.1 L Delta % (Auto) Lymph # (Auto) 0.7 L Delta # (Auto) Seg Neutrophils % 82.5 H Seg Neutrophils # PT 15.5 H D-Dimer ABG pH POC ABG pCO2 POC ABG pO2 ABG pO2 ABG O2 Saturation ABG Base Excess ABG Oxyhemoglobin ABG Chloride ABG Glucose Oxyhemoglobin Sodium 130 L Chloride 97.5 L Glucose 170 H POC Glucose Calcium Total Creatine Kinase 250 H Troponin T NT-Pro-B Natriuret Pep LDL Cholesterol Direct Arterial Blood Glucose Arterial Blood Ionized Calcium 08/24/20 08/25/20 08/25/20 22:24 01:01 01:47 WBC Plt Count Lymph % (Auto) Delta % (Auto) Lymph # (Auto) Delta # (Auto) Seg Neutrophils % Seg Neutrophils # PT D-Dimer ABG pH 7.285 L POC ABG pCO2 POC ABG pO2 ABG pO2 99.5 H ABG O2 Saturation ABG Base Excess -4.2 L ABG Oxyhemoglobin ABG Chloride ABG Glucose Oxyhemoglobin 94.9 L Sodium Chloride Glucose POC Glucose Calcium Total Creatine Kinase Troponin T NT-Pro-B Natriuret Pep 2769 H LDL Cholesterol Direct 141 H Arterial Blood Glucose Arterial Blood Ionized Calcium 08/25/20 08/25/20 08/25/20 04:45 11:45 17:20 WBC Plt Count Lymph % (Auto) Delta % (Auto) Lymph # (Auto) Delta # (Auto) Seg Neutrophils % Seg Neutrophils # PT D-Dimer ABG pH POC ABG pCO2 POC ABG pO2 ABG pO2 194.6 H ABG O2 Saturation 99.2 H ABG Base Excess ABG Oxyhemoglobin ABG Chloride ABG Glucose Oxyhemoglobin Sodium Chloride Glucose POC Glucose 136 H 117 H Calcium Total Creatine Kinase Troponin T NT-Pro-B Natriuret Pep LDL Cholesterol Direct Arterial Blood Glucose Arterial Blood Ionized Calcium 08/26/20 08/26/20 08/26/20 05:00 05:15 05:15 WBC 11.3 H Plt Count 112 L Lymph % (Auto) 4.2 L Delta % (Auto) 9.2 H Lymph # (Auto) 0.5 L Delta # (Auto) 1.0 H Seg Neutrophils % 85.9 H Seg Neutrophils # 9.7 H PT D-Dimer ABG pH 7.495 H POC ABG pCO2 POC ABG pO2 194.0 H ABG pO2 ABG O2 Saturation ABG Base Excess ABG Oxyhemoglobin 98.6 H ABG Chloride 109.0 H ABG Glucose 125 H Oxyhemoglobin Sodium Chloride Glucose 120 H POC Glucose Calcium 8.2 L Total Creatine Kinase Troponin T 0.032 H D NT-Pro-B Natriuret Pep LDL Cholesterol Direct Arterial Blood Glucose 125 H Arterial Blood Ionized Calcium 4.5 L 08/26/20 08/26/20 08/26/20 05:15 11:40 23:28 WBC Plt Count Lymph % (Auto) Delta % (Auto) Lymph # (Auto) Delta # (Auto) Seg Neutrophils % Seg Neutrophils # PT D-Dimer 4955.67 H ABG pH POC ABG pCO2 POC ABG pO2 ABG pO2 ABG O2 Saturation ABG Base Excess ABG Oxyhemoglobin ABG Chloride ABG Glucose Oxyhemoglobin Sodium Chloride Glucose POC Glucose 116 H 131 H Calcium Total Creatine Kinase Troponin T NT-Pro-B Natriuret Pep LDL Cholesterol Direct Arterial Blood Glucose Arterial Blood Ionized Calcium 08/27/20 08/27/20 08/27/20 04:22 04:50 04:50 WBC Plt Count 103 L Lymph % (Auto) Delta % (Auto) Lymph # (Auto) Delta # (Auto) Seg Neutrophils % Seg Neutrophils # PT D-Dimer ABG pH 7.500 H POC ABG pCO2 27.7 L POC ABG pO2 163.1 H ABG pO2 ABG O2 Saturation ABG Base Excess ABG Oxyhemoglobin 98.2 H ABG Chloride 109.0 H ABG Glucose 116 H Oxyhemoglobin Sodium 147 H Chloride 109.7 H Glucose 112 H POC Glucose Calcium 8.3 L Total Creatine Kinase Troponin T NT-Pro-B Natriuret Pep LDL Cholesterol Direct Arterial Blood Glucose 116 H Arterial Blood Ionized Calcium 08/27/20 05:29 WBC Plt Count Lymph % (Auto) Delta % (Auto) Lymph # (Auto) Delta # (Auto) Seg Neutrophils % Seg Neutrophils # PT D-Dimer ABG pH POC ABG pCO2 POC ABG pO2 ABG pO2 ABG O2 Saturation ABG Base Excess ABG Oxyhemoglobin ABG Chloride ABG Glucose Oxyhemoglobin Sodium Chloride Glucose POC Glucose 107 H Calcium Total Creatine Kinase Troponin T NT-Pro-B Natriuret Pep LDL Cholesterol Direct Arterial Blood Glucose Arterial Blood Ionized Calcium Allied health notes reviewed: nursing
--- NOTE | 2020-08-27 12:40 | Consultation ---
History of Present Illness - Reason for Consult Consult date: 08/27/20 pneumonia Requesting physician: KEZIA SALAS - History of Present Illness The patient is a 60-year-old male with hypertension, CHF was admitted to the hospital as a possible stroke with difficulty with speech, right-sided facial droop. While in the emergency room, he developed decreased oxygenation, shortness of breath requiring BiPAP which he failed, requiring intubation. Having intermittent fever. Started on empiric antibiotics after being prompted by pulmonology yesterday. CTA was negative for PE, showed bilateral bronchopneumonia. Patient is on dobutamine Review of Systems: Limited due to vent Past History Past Medical History: heart failure, hypertension, other (See HPI) Medications and Allergies Allergies Allergy/AdvReac Type Severity Reaction Status Date / Time No Known Allergies Allergy Verified 08/24/20 22:49 Home Medications Medication Instructions Recorded Confirmed Last Taken Type Aspirin [Adult Aspirin] 81 mg PO QDAY 08/25/20 08/25/20 Unknown History Dapagliflozin Propanediol [Farxiga] 10 mg PO QDAY 08/25/20 08/25/20 Unknown History Furosemide [Lasix] 40 mg PO QDAY 08/25/20 08/25/20 Unknown History Losartan [Cozaar] 50 mg PO QDAY 08/25/20 08/25/20 Unknown History Spironolactone [Aldactone] 25 mg PO QDAY 08/25/20 08/25/20 Unknown History carvediloL [Coreg] 12.5 mg PO BID 08/25/20 08/25/20 Unknown History Active Meds: Active Medications Acetaminophen (Acetaminophen 325 Mg Tab) 650 mg PO Q4H PRN PRN Reason: Pain MILD(1-3)/Fever >100.5/[place] Last Admin: 08/26/20 21:00 Dose: 650 mg Documented by: Albuterol (Albuterol 2.5 Mg/3 Ml Nebu) 2.5 mg IH Q4HRT PRN PRN Reason: Shortness Of Breath Lipase/Protease/Amylase (Lipase 10,500/Protease 25,000/Amylase 43,750 (Units) Dr Flores) 1 each FEEDTUBE PRN PRN PRN Reason: For Clogged Feeding Tube Aspirin (Aspirin 325 Mg Tab) 325 mg PO QDAY [facility] Last Admin: 08/27/20 10:43 Dose: 325 mg Documented by: Atorvastatin Calcium (Atorvastatin 40 Mg Tab) 80 mg PO QHS TK Last Admin: 08/26/20 21:00 Dose: 80 mg Documented by: Clopidogrel Bisulfate (Clopidogrel 75 Mg Tab) 75 mg PO QDAY TK Last Admin: 08/27/20 10:43 Dose: 75 mg Documented by: Famotidine (Famotidine 20 Mg/2 Ml Inj) 20 mg IV BID TK Last Admin: 08/27/20 10:42 Dose: 20 mg Documented by: Fentanyl (Fentanyl 100 Mcg/2 Ml Inj) 50 mcg IV Q2H PRN PRN Reason: Pain, Mild (1-3) Last Admin: 08/27/20 10:42 Dose: 50 mcg Documented by: Heparin Sodium (Porcine) (Heparin 5,000 Unit/1 Ml Vial) 5,000 unit SUB-Q Q8HR TK Last Admin: 08/27/20 06:24 Dose: 5,000 unit Documented by: Hydralazine HCl (Hydralazine 20 Mg/1 Ml Inj) 10 mg IV Q6H PRN PRN Reason: htn Hydrophilic Ointment (Lip Therapy Vaseline) 1 applic TP Q2HR PRN PRN Reason: Dry Lips Propofol (Diprivan 10 Mg/Ml) 1,000 mg in 100 mls @ 2.541 mls/hr IV TITR TK; Protocol Last Titration: 08/27/20 11:38 Dose: 15 mcg/kg/min, 7.623 mls/hr Documented by: Norepinephrine (Levophed Drip 4 Mg/Ns 250 Ml) 4 mg in 250 mls @ 7.5 mls/hr IV TITR TK; Protocol Last Titration: 08/26/20 21:34 Dose: 0 mcg/min, 0 mls/hr Documented by: Cefepime HCl (Cefepime/Ns 2 Gm/100 Ml) 2 gm in 100 mls @ 200 mls/hr IV Q12H TK; Protocol Stop: 09/02/20 11:59 Last Admin: 08/27/20 00:01 Dose: 200 mls/hr Documented by: Dobutamine HCl/Dextrose (Dobutrex Drip 500mg/D5w 250ml) 500 mg in 250 mls @ 6.353 mls/hr IV DIRECT TK; Protocol Last Admin: 08/26/20 16:45 Dose: 2.5 mcg/kg/min, 6.353 mls/hr Documented by: Multi-Ingred Cream/Lotion/Oil/Oint (Mineral Oil/Petrolatum, White Ophth Oint 3.5 Gm) 1 applic OU Q4HR PRN PRN Reason: Dry Eye(s) Ondansetron HCl (Ondansetron 4 Mg/2 Ml Inj) 4 mg IV Q8H PRN PRN Reason: Nausea And Vomiting Senna/Docusate Sodium (Sennosides/Docusate Sodium 8.6/50 Mg Tab) 1 tab FEEDTUBE BID [facility] Last Admin: 08/27/20 10:43 Dose: 1 tab Documented by: Simple Syrup (Simple Syrup 15 Ml) 15 ml FEEDTUBE PRN PRN PRN Reason: Hypoglycemia Simple Syrup (Simple Syrup 15 Ml) 30 ml FEEDTUBE PRN PRN PRN Reason: Hypoglycemia Sodium Bicarbonate (Sodium Bicarbonate 325 Mg Tab) 325 mg FEEDTUBE PRN PRN PRN Reason: For Clogged Feeding Tube Sodium Chloride (Sodium Chloride 0.9% 10 Ml Flush Syringe) 10 ml IV BID [facility] Last Admin: 08/26/20 21:01 Dose: 10 ml Documented by: Sodium Chloride (Sodium Chloride 0.9% 10 Ml Flush Syringe) 10 ml IV PRN PRN PRN Reason: LINE FLUSH Last Admin: 08/25/20 10:58 Dose: 10 ml Documented by: Physical Examination - Physical Exam Narrative exam: Physical Exam: Constitutional: sedated, intubated, on the vent Head, Ears, Nose: Normocephalic, atraumatic. External ears, nose normal Eyes: Conjunctivae/corneas clear. No icterus. No ptosis. Neck: intubated Oral: intubated Cardiovascular: S1, S2 + Respiratory: AE fair bilaterally and equal GI: Soft, bowel sounds + Musculoskeletal: No pedal edema, no cyanosis. Skin: No rash or abscess Hem/Lymphatic: No palpable cervical or supraclavicular nodes. No lymphangitis Psych: no agitation Neurological: sedated, intubated, on the vent, exam limited - Constitutional Vitals: Vital Signs Temp Pulse Resp BP Pulse Ox 98.8 F 85 23 112/72 100 08/27/20 11:42 08/27/20 11:19 08/27/20 06:11 08/27/20 11:19 08/27/20 11:19 Temperature -Last 24 Hours Temperature 98.8 F Temperature 98.7 F Temperature 99.6 F Temperature 99.1 F Temperature 101.3 F Results - Labs CBC & Chem 7: 08/27/20 04:50 08/27/20 04:50 Labs: Abnormal lab results 08/26/20 08/27/20 08/27/20 Range/Units 23:28 04:22 04:50 Plt Count 103 L (140-440) K/mm3 ABG pH 7.500 H (7.320-7.450) POC ABG pCO2 27.7 L (32.0-48.0) mmHg POC ABG pO2 163.1 H (83-108) mmHg ABG Oxyhemoglobin 98.2 H (94-98) ABG Chloride 109.0 H (98-107) mmol/L ABG Glucose 116 H (65-95) mg/dL Sodium (137-145) mmol/L Chloride (98-107) mmol/L Glucose (75-100) mg/dL POC Glucose 131 H (70-105) mg/dL Calcium (8.4-10.2) mg/dL Arterial Blood Glucose 116 H (65-95) mg/dL 08/27/20 08/27/20 08/27/20 Range/Units 04:50 05:29 11:21 Plt Count (140-440) K/mm3 ABG pH (7.320-7.450) POC ABG pCO2 (32.0-48.0) mmHg POC ABG pO2 146.6 H (83-108) mmHg ABG Oxyhemoglobin (94-98) ABG Chloride 112.0 H (98-107) mmol/L ABG Glucose 127 H (65-95) mg/dL Sodium 147 H (137-145) mmol/L Chloride 109.7 H (98-107) mmol/L Glucose 112 H (75-100) mg/dL POC Glucose 107 H (70-105) mg/dL Calcium 8.3 L (8.4-10.2) mg/dL Arterial Blood Glucose 127 H (65-95) mg/dL - Imaging and Cardiology CT scan - chest: report reviewed, image reviewed (R sided pneumonia) Assessment and Plan Cultures: 08/25/2020 blood culture: No growth 08/25/2020 tracheal aspirate: In process 08/26/2020 right middle lobe BAL: In process. Gram stain showed few GPRs COVID-19 PCR: Negative A/P: 60-year-old male with hypertension, CHF was admitted to the hospital as a possible stroke with difficulty with speech, right-sided facial droop: #Right-sided pneumonia: Possibly aspiration related. Fever improving. #Sepsis: Secondary to above #Acute hypoxic respiratory failure #Acute on chronic CHF #Possible CVA: Neurology following. Recs: -Seems to be responding well, continue cefepime for now. We will hold off on adding vancomycin -Follow-up cultures -Procalcitonin in AM, if low, stop abx after 3-5 days Uriah Concepcion MD, FACP [facility] ([facility]) O: [phone] F: [phone]
--- NOTE | 2020-08-27 12:57 | Progress Note ---
Assessment and Plan Continue IV dobutamine gtt for now. Will increase to 5 mcg/kg/min. Continue other present mgmt per Primary teams. Chest CTA noted to be neg for PE. BLE Dopplers neg for DVT. Pt seen in conjunction with Dr. Mosqueda, who agrees with the assessment and plan of care. - Patient Problems (1) CVA (cerebral vascular accident) Current Visit: Yes Status: Suspected Qualifiers: CVA mechanism: unspecified Qualified Code(s): I63.9 - Cerebral infarction, unspecified (2) Acute respiratory failure Current Visit: Yes Status: Acute Qualifiers: Qualified Code(s): J96.00 - Acute respiratory failure, unspecified whether with hypoxia or hypercapnia (3) Sepsis Current Visit: Yes Status: Acute (4) PNA (pneumonia) Current Visit: Yes Status: Acute (5) Acute on chronic HFrEF (heart failure with reduced ejection fraction) Current Visit: Yes Status: Acute (6) Dilated cardiomyopathy Current Visit: Yes Status: Acute (7) Hypotension Current Visit: Yes Status: Acute (8) Elevated d-dimer Current Visit: Yes Status: Acute Subjective Date of service: 08/27/20 Principal diagnosis: CVA Interval history: Great UOP noted with dobutamine gtt. Perfusing well. Tele reviewed SR 80s, short intermittent 3-4 bt runs of NSVT noted. Objective Last Vital Signs Temp 98.8 F 08/27/20 11:42 Pulse 85 08/27/20 11:19 Resp 23 08/27/20 06:11 BP 112/72 08/27/20 11:19 Pulse Ox 100 08/27/20 11:19 - Physical Examination General: Other (intubated) HEENT: Positive: Normocephaly Neck: Positive: neck supple, trachea midline Cardiac: Positive: Reg Rate and Rhythm, S1/S2 Lungs: Positive: Ventilated Respirations Neuro: Positive: Other (intubated) Abdomen: Positive: Soft Skin: Negative: Rash Musculoskeletal: No Fluid Collection Extremities: Present: lower extr. pulses, edema, warm - Labs and Meds CBC 08/27/20 Range/Units 04:50 WBC 9.9 (4.5-11.0) K/mm3 RBC 4.07 (3.65-5.03) M/mm3 Hgb 12.6 (11.8-15.2) gm/dl Hct 38.3 (35.5-45.6) % Plt Count 103 L (140-440) K/mm3 Comprehensive Metabolic Panel 08/27/20 Range/Units 04:50 Sodium 147 H (137-145) mmol/L Potassium 3.7 (3.6-5.0) mmol/L Chloride 109.7 H (98-107) mmol/L Carbon Dioxide 28 (22-30) mmol/L BUN 17 (9-20) mg/dL Creatinine 1.2 (0.8-1.3) mg/dL Glucose 112 H (75-100) mg/dL Calcium 8.3 L (8.4-10.2) mg/dL - Imaging and Cardiology EKG: report reviewed, image reviewed Echo: report reviewed (08/25/2020 - LV mod dilated, EF 20-25%, RV mod-severely dilated, RV mod hypokinetic, LA mildly dilated, negative Bubble study, no LV thrombus) - Telemetry EKG Rhythm: Sinus Rhythm - EKG Sinus rhythms and dysrhythmias: sinus tachycardia Ventricular dysrhythmias: ventricular premature com Chamber hypertrophy or enlargement: left atrial enlargement, right atrial enlargment, left ventricular hypertro Repolarization changes or abnormalities: nonspecific abnormality, ST segment, and/or T wave - Allied health notes Allied health notes reviewed: nursing
[2020-08-27] MEDS: DOBUTamine/D5W 500 MG/250 ML 500 MG/250 ML BAG IV SCH ×2 (14:06→22:17)
--- NOTE | 2020-08-27 15:48 | Progress Note ---
<KEZIA SALAS - Last Filed: 08/27/20 16:42> Assessment and Plan Assessment and plan: This is 60-year-old male with HTN and CHF who was admitted for rule out CVA, acute respiratory failure, acute on chronic heart failure and is currently hypotensive. Patient was admitted COVID-19 PUI which has been ruled out r/o CVA Acute hypoxic respiratory failure Acute on chronic heart failure Staph aureus bronchial culture Hypernatremia Thrombocytopenia Hyperchloremia COVID-19 ruled out h/o Hypertension -[facility], cardiology and neurology consulted, patient recommendations -S/p vasopressor support with Levophed -Sedated with propofol -Statin, aspirin, Plavix -Mechanical ventilation, wean as tolerated, VAP bundle -Medical records requested from [facility] -IV abx -Per cardio, dobutamine gtt. -08/24 CT head shows no acute intracranial abnormality, age-related cerebral atrophy, chronic small vessel ischemic changes in white matter, no evidence of recent infarct or mass-effect or midline shift -08/24 CTA neck with contrast shows no significant abnormality -08/24 CTA head with contrast shows no significant abnormality -08/24 echocardiogram shows mildly dilated left ventricle, definitely systolic function severely decreased, severe global hypokinesis of the left ventricle, right ventricle moderate to severely dilated, left atrium mildly dilated, right atrium mildly dilated without evidence of atrial septal defect, trace MR, RVSP is 48 mmHg, mild TR, trace NE, mild pulmonary hypertension, no pericardial effusion or pleural effusion noted, Mild diastolic dysfunction, no ventricular septal defect, no left ventricular thrombus noted, LVEF 20 to 25% -08/25 MRI brain pending -08/25 MRA/MRV head pending -08/26 CTA chest shows no evidence of pulmonary embolism, bilateral bronchopneumonia most pronounced within both lower lobes -08/26 BLE Doppler US shows no DVT/SVT -08/26 s/p bronch with culture completed; Staphylococcus aureus -Trend CBC, BMP DVT/GI prophylaxis: SCDs to bilateral lower extremities while in bed, heparin subcu, PPI Disposition: ICU The high probability of a clinically significant, sudden or life threatening deterioration of the [multi] system(s) required my full and direct attention, intervention and personal management. The aggregate critical care time was [35] minutes. This time is in addition to time spent performing reported procedures but includes the following: [x] Data Review and interpretation [x] Patient assessment and monitoring of vital signs [x] Documentation [x] Medication orders and management History Interval history: This is a 60-year-old male with hypertension and CHF who presented to emergency department on 08/25 with difficulty in speech which began around 5 PM and became progressively worse, unsteady gait and right-sided facial droop. Recommend emergency department included a CT head and after returning from imaging patient had increased work of breath, shortness of breath and desaturation to 90% SPO2 on room air. Patient was placed on supplemental oxygen via nasal cannula without improvement and progressed to nonrebreather to BiPAP. However the patient was still tachypneic to 50 to 60 breaths/min and was subsequently in tubated. Patient was admitted to the hospital service with possible CVA, acute hypoxic respiratory failure, and congestive heart failure. CCM, cardiology and neurology were consulted. 08/25: Patient is echocardiogram, MRI brain and MRA head pending. The time of examination patient was sedated on propofol and on assist control tidal volume 450, rate of 26, PEEP of 10 and 100% FiO2. Patient was started on Levophed drip for persistent hypotension. CVL was eventually placed. 08/26: MRI brain pending, echocardiogram shows reduced ejection fraction, continued use of vasopressin. Patient was bronched today by CCM empiric antibiotic therapy with cefepime was started. Dr. Gonzalez and I updated son at bedside today. CTA pending 08/27: Patient was started on dobutamine drip per cardiology yesterday evening and he has been weaned off of Levophed. [facility] culture resulted with Staph aureus. Infectious disease is aware. Patient is currently on cefepime. Cardiology increased dobutamine drip to 5 mcg. Son updated at bedside with Dr. Gonzalez. The time my examination patient was on CMV tidal volume 450, rate 12, PEEP 8 on 35% FiO2. [facility] ordered as needed fentanyl every 2 hours. Patient is currently on propofol. Hospitalist Physical - Constitutional Vitals: Temp Pulse Resp BP Pulse Ox 98.8 F 85 23 112/72 100 08/27/20 11:42 08/27/20 11:19 08/27/20 06:11 08/27/20 11:19 08/27/20 11:19 General appearance: Present: other (Intubated and sedated) - EENT Eyes: Present: PERRL ENT: dentition normal - Neck Neck: Present: normal ROM - Respiratory Respiratory effort: normal Respiratory: bilateral: CTA - Cardiovascular Rhythm: regular Heart Sounds: Present: S1 & S2. Absent: systolic murmur, diastolic murmur - Extremities Extremities: no ischemia, pulses intact, pulses symmetrical, No edema, normal temperature, normal color Peripheral Pulses: within normal limits - Abdominal General gastrointestinal: soft, non-tender, non-distended, normal bowel sounds - Integumentary Integumentary: Present: warm, dry - Psychiatric Psychiatric: cooperative - Neurologic Neurologic: no focal deficits, moves all extremities, other (right weaker than left, able to follow commands) - Allied Health Allied health notes reviewed: nursing, RT HEART Score - HEART Score Troponin: Troponin T 0.032 ng/mL (0.00-0.029) H D 08/26/20 05:15 Results - Labs CBC & Chem 7: 08/27/20 04:50 08/27/20 04:50 Labs: Laboratory Last Values WBC 9.9 K/mm3 (4.5-11.0) 08/27/20 04:50 RBC 4.07 M/mm3 (3.65-5.03) 08/27/20 04:50 Hgb 12.6 gm/dl (11.8-15.2) 08/27/20 04:50 Hct 38.3 % (35.5-45.6) 08/27/20 04:50 MCV 94 fl (84-94) 08/27/20 04:50 MCH 31 pg (28-32) 08/27/20 04:50 MCHC 33 % (32-34) 08/27/20 04:50 RDW 15.0 % (13.2-15.2) 08/27/20 04:50 Plt Count 103 K/mm3 (140-440) L 08/27/20 04:50 Lymph % (Auto) 4.2 % (13.4-35.0) L 08/26/20 05:15 Kimble % (Auto) 9.2 % (0.0-7.3) H 08/26/20 05:15 Eos % (Auto) 0.2 % (0.0-4.3) 08/26/20 05:15 Baso % (Auto) 0.5 % (0.0-1.8) 08/26/20 05:15 Lymph # (Auto) 0.5 K/mm3 (1.2-5.4) L 08/26/20 05:15 [place] # (Auto) 1.0 K/mm3 (0.0-0.8) H 08/26/20 05:15 Eos # (Auto) 0.0 K/mm3 (0.0-0.4) 08/26/20 05:15 Baso # (Auto) 0.1 K/mm3 (0.0-0.1) 08/26/20 05:15 Seg Neutrophils % 85.9 % (40.0-70.0) H 08/26/20 05:15 Seg Neutrophils # 9.7 K/mm3 (1.8-7.7) H 08/26/20 05:15 PT 15.5 Sec. (12.2-14.9) H 08/24/20 22:24 INR 1.05 (0.87-1.13) 08/24/20 22:24 APTT 29.9 Sec. (24.2-36.6) 08/24/20 22:24 Thrombin Time 18.7 Sec. (15.1-19.6) 08/24/20 22:24 D-Dimer 4955.67 ng/mlDDU (0-234) H 08/26/20 05:15 ABG pH 7.424 (7.320-7.450) 08/27/20 11:21 POC ABG pCO2 39.1 mmHg (32.0-48.0) 08/27/20 11:21 ABG pCO2 40.7 mm Hg 08/25/20 04:45 POC ABG pO2 146.6 mmHg (83-108) H 08/27/20 11:21 ABG pO2 194.6 mm Hg (80.0-90.0) H 08/25/20 04:45 POC ABG HCO3 25.0 08/27/20 11: ABG HCO3 23.3 mmol/L (20.0-26.0) 08/25/20 04:45 ABG O2 Saturation 99.1 (0-100) 08/27/20 11:21 ABG O2 Content 19.9 (0.0-44) 08/25/20 04:45 POC ABG Base Excess 0.7 08/27/20 11:21 ABG Base Excess -1.8 mmol/L (-2.0-3.0) 08/25/20 04:45 ABG Hemoglobin 14.0 (12.0-17.5) 08/27/20 11:21 ABG Oxyhemoglobin 97.3 (94-98) 08/27/20 11:21 ABG Carboxyhemoglobin 1.6 % (0.0-5.0) 08/25/20 04:45 ABG Methemoglobin 0.3 (0.0-1.5) 08/27/20 11:21 ABG Sodium 143.9 mmol/L (136.0-145.0) 08/27/20 11:21 ABG Potassium 3.6 mmol/L (3.40-4.50) 08/27/20 11:21 ABG Chloride 112.0 mmol/L (98-107) H 08/27/20 11:21 ABG Glucose 127 mg/dL (65-95) H 08/27/20 11:21 Oxyhemoglobin 97.2 % (95.0-99.0) 08/25/20 04:45 Carboxyhemoglobin 1.5 (0.5-1.5) 08/27/20 11:21 FiO2 100 % 08/25/20 04:45 FiO2 % 35.0 08/27/20 11:21 Sodium 147 mmol/L (137-145) H 08/27/20 04:50 Potassium 3.7 mmol/L (3.6-5.0) 08/27/20 04:50 Chloride 109.7 mmol/L (98-107) H 08/27/20 04:50 Carbon Dioxide 28 mmol/L (22-30) 08/27/20 04:50 Anion Gap 13 mmol/L 08/27/20 04:50 BUN 17 mg/dL (9-20) 08/27/20 04:50 Creatinine 1.2 mg/dL (0.8-1.3) 08/27/20 04:50 Estimated GFR > 60 ml/min 08/27/20 04:50 BUN/Creatinine Ratio 14 % 08/27/20 04:50 Glucose 112 mg/dL (75-100) H 08/27/20 04:50 POC Glucose 117 mg/dL (70-105) H 08/27/20 11:24 Calcium 8.3 mg/dL (8.4-10.2) L 08/27/20 04:50 Total Bilirubin 0.90 mg/dL (0.1-1.2) 08/24/20 22:24 AST 31 units/L (5-40) 08/24/20 22:24 ALT 46 units/L (7-56) 08/24/20 22:24 Alkaline Phosphatase 111 units/L (35-129) 08/24/20 22:24 Total Creatine Kinase 250 units/L (55-170) H 08/24/20 22:24 CK-MB (CK-2) 3.6 ng/mL (0.0-4.0) 08/24/20 22:24 CK-MB (CK-2) Rel Index 1.4 (0-4) 08/24/20 22:24 Troponin T 0.032 ng/mL (0.00-0.029) H D 08/26/20 05:15 NT-Pro-B Natriuret Pep 2769 pg/mL (0-900) H 08/24/20 22:24 Total Protein 7.2 g/dL (6.3-8.2) 08/24/20 22:24 Albumin 3.9 g/dL (3.9-5) 08/24/20 22:24 Albumin/Globulin Ratio 1.2 % 08/24/20 22:24 Triglycerides 67 mg/dL (2-149) 08/25/20 01:47 Cholesterol 184 mg/dL (50-199) 08/25/20 01:47 LDL Cholesterol Direct 141 mg/dL (50-130) H 08/25/20 01:47 HDL Cholesterol 44 mg/dL (40-59) 08/25/20 01:47 Cholesterol/HDL Ratio 4.18 % 08/25/20 01:47 TSH 3.150 mlU/mL (0.270-4.200) 08/24/20 22:24 Arterial Blood Glucose 127 mg/dL (65-95) H 08/27/20 11:21 Arterial Blood Ionized Calcium 4.6 mg/dL (4.6-5.3) 08/27/20 11:21 Urine Color Yellow (Yellow) 08/24/20 22:35 Urine Turbidity Clear (Clear) 08/24/20 22:35 Urine pH 7.0 (5.0-7.0) 08/24/20 22:35 Ur Specific [place] 1.005 (1.003-1.030) 08/24/20 22:35 Urine Protein 100 mg/dl mg/dL (Negative) 08/24/20 22:35 Urine Glucose (UA) >=500 mg/dL (Negative) 08/24/20 22:35 Urine Ketones Neg mg/dL (Negative) 08/24/20 22:35 Urine Blood Neg (Negative) 08/24/20 22:35 Urine Nitrite Neg (Negative) 08/24/20 22:35 Urine Bilirubin Neg (Negative) 08/24/20 22:35 Urine Urobilinogen < 2.0 mg/dL (<2.0) 08/24/20 22:35 Ur Leukocyte Esterase Neg (Negative) 08/24/20 22:35 Urine WBC (Auto) 1.0 /HPF (0.0-6.0) 08/24/20 22:35 Urine RBC (Auto) 2.0 /HPF (0.0-6.0) 08/24/20 22:35 Urine Mucus Few /HPF 08/24/20 22:35 Nasal Screen MRSA (PCR) Negative (Negative) 08/25/20 Unknown Urine Opiates Screen Negative 08/24/20 22:35 Urine Methadone Screen Negative 08/24/20 22:35 Ur Barbiturates Screen Negative 08/24/20 22:35 Ur Phencyclidine Scrn Negative 08/24/20 22:35 Ur Amphetamines Screen Negative 08/24/20 22:35 U Benzodiazepines Scrn Negative 08/24/20 22:35 Urine Cocaine Screen Negative 08/24/20 22:35 U Marijuana (THC) Screen Negative 08/24/20 22:35 Drugs of Abuse Note Disclamer 08/24/20 22:35 Plasma/Serum Alcohol < 0.01 % (0-0.07) 08/24/20 22:24 Coronavirus (PCR) Negative (Negative) 08/25/20 Unknown Blood Type A POSITIVE 08/24/20 22:24 Antibody Screen Negative 08/24/20 22:24 Microbiology: Microbiology 08/25/20 04:55 Tracheal Aspirate Sputum Culture - Final 08/26/20 11:45 Bronchial Washings - Right Middle Lobe Respiratory Culture - Preliminary Staphylococcus Aureus 08/25/20 02:39 Peripheral/Venous Blood Culture - Preliminary NO GROWTH AFTER 48 HOURS 08/25/20 01:47 Peripheral/Venous Blood Culture - Preliminary NO GROWTH AFTER 48 HOURS Sanchez/IV: Voiding Method Indwelling Catheter Active Medications - Current Medications Current Medications: Generic Name Dose Route Start Last Admin Trade Name Freq PRN Reason Stop Dose Admin Acetaminophen 650 mg 08/25/20 00:33 08/26/20 21:00 Acetaminophen 325 Mg Tab PO 650 mg Q4H PRN Administration Pain MILD(1-3)/Fever >100.5/[place] Albuterol 2.5 mg 08/25/20 00:33 Albuterol 2.5 Mg/3 Ml Nebu IH Q4HRT PRN Shortness Of Breath Lipase/Protease/Amylase 1 each 08/25/20 09:40 Lipase 10,500/Protease 25,000/Amylase 43,750 (Units) Dr Flores FEEDTUBE PRN PRN For Clogged Feeding Tube Aspirin 325 mg 08/25/20 10:00 08/27/20 10:43 Aspirin 325 Mg Tab PO 325 mg QDAY TK Administration Atorvastatin Calcium 80 mg 08/25/20 22:00 08/26/20 21:00 Atorvastatin 40 Mg Tab PO 80 mg QHS TK Administration Clopidogrel Bisulfate 75 mg 08/25/20 10:00 08/27/20 10:43 Clopidogrel 75 Mg Tab PO 75 mg QDAY TK Administration Famotidine 20 mg 08/25/20 10:00 08/27/20 10:42 Famotidine 20 Mg/2 Ml Inj IV 20 mg BID TK Administration Fentanyl 50 mcg 08/27/20 10:30 08/27/20 10:42 Fentanyl 100 Mcg/2 Ml Inj IV 50 mcg Q2H PRN Administration Pain, Mild (1-3) Heparin Sodium (Porcine) 5,000 unit 08/25/20 06:00 08/27/20 06:24 Heparin 5,000 Unit/1 Ml Vial SUB-Q 5,000 unit Q8HR TK Administration Hydralazine HCl 10 mg 08/25/20 00:39 Hydralazine 20 Mg/1 Ml Inj IV Q6H PRN htn Hydrophilic Ointment 1 applic 08/24/20 23:56 Lip Therapy Vaseline TP Q2HR PRN Dry Lips Propofol 1,000 mg in 100 mls @ 2.541 mls/hr 08/24/20 23:45 08/27/20 11:38 Diprivan 10 Mg/Ml IV 15 mcg/kg/min TITR TK 7.623 mls/hr Titration Protocol 5 MCG/KG/MIN Norepinephrine 4 mg in 250 mls @ 7.5 mls/hr 08/25/20 03:00 08/26/20 21:34 Levophed Drip 4 Mg/Ns 250 Ml IV 0 mcg/min TITR TK 0 mls/hr Titration Protocol 2 MCG/MIN Cefepime HCl 2 gm in 100 mls @ 200 mls/hr 08/26/20 12:00 08/27/20 00:01 Cefepime/Ns 2 Gm/100 Ml IV 09/02/20 11:59 200 mls/hr Q12H TK Administration Protocol Dobutamine HCl/Dextrose 500 mg in 250 mls @ 12.705 mls/hr 08/27/20 13:00 08/27/20 14:06 Dobutrex Drip 500mg/D5w 250ml IV 5 mcg/kg/min DIRECT TK 12.705 mls/hr Administration Protocol 5 MCG/KG/MIN Multi-Ingred Cream/Lotion/Oil/Oint 1 applic 08/24/20 23:56 Mineral Oil/Petrolatum, White Ophth Oint 3.5 Gm OU Q4HR PRN Dry Eye(s) Ondansetron HCl 4 mg 08/25/20 00:33 Ondansetron 4 Mg/2 Ml Inj IV Q8H PRN Nausea And Vomiting Senna/Docusate Sodium 1 tab 08/25/20 10:00 08/27/20 10:43 Sennosides/Docusate Sodium 8.6/50 Mg Tab FEEDTUBE 1 tab BID TK Administration Simple Syrup 15 ml 08/25/20 09:40 Simple Syrup 15 Ml FEEDTUBE PRN PRN Hypoglycemia Simple Syrup 30 ml 08/25/20 09:40 Simple Syrup 15 Ml FEEDTUBE PRN PRN Hypoglycemia Sodium Bicarbonate 325 mg 08/25/20 09:40 Sodium Bicarbonate 325 Mg Tab FEEDTUBE PRN PRN For Clogged Feeding Tube Sodium Chloride 10 ml 08/25/20 10:00 08/26/20 21:01 Sodium Chloride 0.9% 10 Ml Flush Syringe IV 10 ml BID TK Administration Sodium Chloride 10 ml 08/25/20 00:33 08/25/20 10:58 Sodium Chloride 0.9% 10 Ml Flush Syringe IV 10 ml PRN PRN Administration LINE FLUSH Nutrition/Malnutrition Assess - Dietary Evaluation Nutrition/Malnutrition Findings: Nutrition Notes Start: 08/25/20 09:17 Freq: Status: Active Protocol: Document 08/27/20 10:32 CW (Rec: 08/27/20 10:43 CW [id number]) Nutrition Notes Initial or Follow up Reassessment Current Diagnosis Hypertension,Heart Failure, Respiratory Failure,Stroke Other Pertinent Diagnosis pneu Current Diet NPO Labs/Tests Reviewed Pertinent Medications propofol at 15.246 ml/hr (403 kcal) levophed Senokot 1L NS Height 5 ft 8 in Weight 84.7 kg [place] Body Weight (kg) 70.00 BMI 28.3 Weight Status Overweight Subjective/Other Information F/U for TF start/ tolerance.TF intiated at 5pm last night. Per chart, TF running at 40 ml /hr. No reports of intolerance noted. Percent of energy/protein needs met: 17%/21% (280 ml infused) Burn Absent Trauma Absent Current % PO Negligible Minimum of two criteria No physical signs of malnutrition #1 Nutrition Diagnosis Inadequate oral intake Diagnosis Progress(for reassessment Continues documentation) Is patient on ventilator? Yes Is Patient Ambulatory and/or Out of Bed No REE-([facility]-confined to bed) [phone] Calculation Used for Recommendations [facility] Additional Notes Protein: (1.2-2g/kg) 102-127g Fluid: 1500-1900ml or per Nutrition Intervention Change Diet Order: Continue TF regimen Nutrition Support: Vital AF at 65 ml/hr Flush 100 ml q4h or per Kcal 1,872 Protein (gm) 117 Fluid (mL) 1,265 Goal #1 Meet at least 75% of protein and energy needs via TF Anticipated Discharge Needs: Unable to determine at this time Follow-Up By: 08/30/20 Additional Comments F/U for TF tolerance and vent status <LUCRETIA GONZALEZ - Last Filed: 08/27/20 21:16> History Interval history: Patient is 60-year-old male with HTN and CHF who was admitted for rule out CVA. He has acute respiratory failure is intubated on ventilator. He was hypotensive, started on pressors. CT Angio chest negative for Pulmonary Emboli but shows bronchopneumonia. He is on Cefepime. Consulted ID for pneumonia, fever. and he was evaluated. He is doing better. he carlie follows commands. Moves all ext to commands. Myself and Nurse Practitioner discussed with son at bedside today 08/27. I saw and evaluated the patient and discussed with Nurse Practitioner. I agree with the findings and the plan of care as documented in the Nurse Practitioner note. Hospitalist Physical - Constitutional Vitals: Temp Pulse Resp BP Pulse Ox 98.5 F 86 20 110/65 100 08/27/20 19:52 08/27/20 19:33 08/27/20 19:00 08/27/20 19:33 08/27/20 19:33 HEART Score - HEART Score Troponin: Troponin T 0.032 ng/mL (0.00-0.029) H D 08/26/20 05:15 Results - Labs CBC & Chem 7: 08/27/20 04:50 08/27/20 04:50 Labs: Laboratory Last Values WBC 9.9 K/mm3 (4.5-11.0) 08/27/20 04:50 RBC 4.07 M/mm3 (3.65-5.03) 08/27/20 04:50 Hgb 12.6 gm/dl (11.8-15.2) 08/27/20 04:50 Hct 38.3 % (35.5-45.6) 08/27/20 04:50 MCV 94 fl (84-94) 08/27/20 04:50 MCH 31 pg (28-32) 08/27/20 04:50 MCHC 33 % (32-34) 08/27/20 04:50 RDW 15.0 % (13.2-15.2) 08/27/20 04:50 Plt Count 103 K/mm3 (140-440) L 08/27/20 04:50 Lymph % (Auto) 4.2 % (13.4-35.0) L 08/26/20 05:15 [place] % (Auto) 9.2 % (0.0-7.3) H 08/26/20 05:15 Eos % (Auto) 0.2 % (0.0-4.3) 08/26/20 05:15 Baso % (Auto) 0.5 % (0.0-1.8) 08/26/20 05:15 Lymph # (Auto) 0.5 K/mm3 (1.2-5.4) L 08/26/20 05:15 [place] # (Auto) 1.0 K/mm3 (0.0-0.8) H 08/26/20 05:15 Eos # (Auto) 0.0 K/mm3 (0.0-0.4) 08/26/20 05:15 Baso # (Auto) 0.1 K/mm3 (0.0-0.1) 08/26/20 05:15 Seg Neutrophils % 85.9 % (40.0-70.0) H 08/26/20 05:15 Seg Neutrophils # 9.7 K/mm3 (1.8-7.7) H 08/26/20 05:15 PT 15.5 Sec. (12.2-14.9) H 08/24/20 22:24 INR 1.05 (0.87-1.13) 08/24/20 22:24 APTT 29.9 Sec. (24.2-36.6) 08/24/20 22:24 Thrombin Time 18.7 Sec. (15.1-19.6) 08/24/20 22:24 D-Dimer 4955.67 ng/mlDDU (0-234) H 08/26/20 05:15 ABG pH 7.424 (7.320-7.450) 08/27/20 11:21 POC ABG pCO2 39.1 mmHg (32.0-48.0) 08/27/20 11:21 ABG pCO2 40.7 mm Hg 08/25/20 04:45 POC ABG pO2 146.6 mmHg (83-108) H 08/27/20 11:21 ABG pO2 194.6 mm Hg (80.0-90.0) H 08/25/20 04:45 POC ABG HCO3 25.0 08/27/20 11:21 ABG HCO3 23.3 mmol/L (20.0-26.0) 08/25/20 04:45 ABG O2 Saturation 99.1 (0-100) 08/27/20 11:21 ABG O2 Content 19.9 (0.0-44) 08/25/20 04:45 POC ABG Base Excess 0.7 08/27/20 11:21 ABG Base Excess -1.8 mmol/L (-2.0-3.0) 08/25/20 04:45 ABG Hemoglobin 14.0 (12.0-17.5) 08/27/20 11:21 ABG Oxyhemoglobin 97.3 (94-98) 08/27/20 11:21 ABG Carboxyhemoglobin 1.6 % (0.0-5.0) 08/25/20 04:45 ABG Methemoglobin 0.3 (0.0-1.5) 08/27/20 11:21 ABG Sodium 143.9 mmol/L (136.0-145.0) 08/27/20 11:21 ABG Potassium 3.6 mmol/L (3.40-4.50) 08/27/20 11:21 ABG Chloride 112.0 mmol/L (98-107) H 08/27/20 11:21 ABG Glucose 127 mg/dL (65-95) H 08/27/20 11:21 Oxyhemoglobin 97.2 % (95.0-99.0) 08/25/20 04:45 Carboxyhemoglobin 1.5 (0.5-1.5) 08/27/20 11:21 FiO2 100 % 08/25/20 04:45 FiO2 % 35.0 08/27/20 11:21 Sodium 147 mmol/L (137-145) H 08/27/20 04:50 Potassium 3.7 mmol/L (3.6-5.0) 08/27/20 04:50 Chloride 109.7 mmol/L (98-107) H 08/27/20 04:50 Carbon Dioxide 28 mmol/L (22-30) 08/27/20 04:50 Anion Gap 13 mmol/L 08/27/20 04:50 BUN 17 mg/dL (9-20) 08/27/20 04:50 Creatinine 1.2 mg/dL (0.8-1.3) 08/27/20 04:50 Estimated GFR > 60 ml/min 08/27/20 04:50 BUN/Creatinine Ratio 14 % 08/27/20 04:50 Glucose 112 mg/dL (75-100) H 08/27/20 04:50 POC Glucose 117 mg/dL (70-105) H 08/27/20 16:55 Calcium 8.3 mg/dL (8.4-10.2) L 08/27/20 04:50 Total Bilirubin 0.90 mg/dL (0.1-1.2) 08/24/20 22:24 AST 31 units/L (5-40) 08/24/20 22:24 ALT 46 units/L (7-56) 08/24/20 22:24 Alkaline Phosphatase 111 units/L (35-129) 08/24/20 22:24 Total Creatine Kinase 250 units/L (55-170) H 08/24/20 22:24 CK-MB (CK-2) 3.6 ng/mL (0.0-4.0) 08/24/20 22:24 CK-MB (CK-2) Rel Index 1.4 (0-4) 08/24/20 22:24 Troponin T 0.032 ng/mL (0.00-0.029) H D 08/26/20 05:15 NT-Pro-B Natriuret Pep 2769 pg/mL (0-900) H 08/24/20 22:24 Total Protein 7.2 g/dL (6.3-8.2) 08/24/20 22:24 Albumin 3.9 g/dL (3.9-5) 08/24/20 22:24 Albumin/Globulin Ratio 1.2 % 08/24/20 22:24 Triglycerides 67 mg/dL (2-149) 08/25/20 01:47 Cholesterol 184 mg/dL (50-199) 08/25/20 01:47 LDL Cholesterol Direct 141 mg/dL (50-130) H 08/25/20 01:47 HDL Cholesterol 44 mg/dL (40-59) 08/25/20 01:47 Cholesterol/HDL Ratio 4.18 % 08/25/20 01:47 TSH 3.150 mlU/mL (0.270-4.200) 08/24/20 22:24 Arterial Blood Glucose 127 mg/dL (65-95) H 08/27/20 11:21 Arterial Blood Ionized Calcium 4.6 mg/dL (4.6-5.3) 08/27/20 11:21 Urine Color Yellow (Yellow) 08/24/20 22:35 Urine Turbidity Clear (Clear) 08/24/20 22:35 Urine pH 7.0 (5.0-7.0) 08/24/20 22:35 Ur Specific [place] 1.005 (1.003-1.030) 08/24/20 22:35 Urine Protein 100 mg/dl mg/dL (Negative) 08/24/20 22:35 Urine Glucose (UA) >=500 mg/dL (Negative) 08/24/20 22:35 Urine Ketones Neg mg/dL (Negative) 08/24/20 22:35 Urine Blood Neg (Negative) 08/24/20 22:35 Urine Nitrite Neg (Negative) 08/24/20 22:35 Urine Bilirubin Neg (Negative) 08/24/20 22:35 Urine Urobilinogen < 2.0 mg/dL (<2.0) 08/24/20 22:35 Ur Leukocyte Esterase Neg (Negative) 08/24/20 22:35 Urine WBC (Auto) 1.0 /HPF (0.0-6.0) 08/24/20 22:35 Urine RBC (Auto) 2.0 /HPF (0.0-6.0) 08/24/20 22:35 Urine Mucus Few /HPF 08/24/20 22:35 Nasal Screen MRSA (PCR) Negative (Negative) 08/25/20 Unknown Urine Opiates Screen Negative 08/24/20 22:35 Urine Methadone Screen Negative 08/24/20 22:35 Ur Barbiturates Screen Negative 08/24/20 22:35 Ur Phencyclidine Scrn Negative 08/24/20 22:35 Ur Amphetamines Screen Negative 08/24/20 22:35 U Benzodiazepines Scrn Negative 08/24/20 22:35 Urine Cocaine Screen Negative 08/24/20 22:35 U Marijuana (THC) Screen Negative 08/24/20 22:35 Drugs of Abuse Note Disclamer 08/24/20 22:35 Plasma/Serum Alcohol < 0.01 % (0-0.07) 08/24/20 22:24 Coronavirus (PCR) Negative (Negative) 08/25/20 Unknown Blood Type A POSITIVE 08/24/20 22:24 Antibody Screen Negative 08/24/20 22:24 Microbiology: Microbiology 08/25/20 04:55 Tracheal Aspirate Sputum Culture - Final 08/26/20 11:45 Bronchial Washings - Right Middle Lobe Respiratory Culture - Preliminary Staphylococcus Aureus 08/25/20 02:39 Peripheral/Venous Blood Culture - Preliminary NO GROWTH AFTER 48 HOURS 08/25/20 01:47 Peripheral/Venous Blood Culture - Preliminary NO GROWTH AFTER 48 HOURS Sanchez/IV: Voiding Method Indwelling Catheter Active Medications - Current Medications Current Medications: Generic Name Dose Route Start Last Admin Trade Name Freq PRN Reason Stop Dose Admin Acetaminophen 650 mg 08/25/20 00:33 08/26/20 21:00 Acetaminophen 325 Mg Tab PO 650 mg Q4H PRN Administration Pain MILD(1-3)/Fever >100.5/[place] Albuterol 2.5 mg 08/25/20 00:33 Albuterol 2.5 Mg/3 Ml Nebu IH Q4HRT PRN Shortness Of Breath Lipase/Protease/Amylase 1 each 08/25/20 09:40 Lipase 10,500/Protease 25,000/Amylase 43,750 (Units) Dr Flores FEEDTUBE PRN PRN For Clogged Feeding Tube Aspirin 325 mg 08/25/20 10:00 08/27/20 10:43 Aspirin 325 Mg Tab PO 325 mg QDAY TK Administration Atorvastatin Calcium 80 mg 08/25/20 22:00 08/26/20 21:00 Atorvastatin 40 Mg Tab PO 80 mg QHS TK Administration Clopidogrel Bisulfate 75 mg 08/25/20 10:00 08/27/20 10:43 Clopidogrel 75 Mg Tab PO 75 mg QDAY TK Administration Famotidine 20 mg 08/25/20 10:00 08/27/20 10:42 Famotidine 20 Mg/2 Ml Inj IV 20 mg BID TK Administration Fentanyl 50 mcg 08/27/20 10:30 08/27/20 10:42 Fentanyl 100 Mcg/2 Ml Inj IV 50 mcg Q2H PRN Administration Pain, Mild (1-3) Heparin Sodium (Porcine) 5,000 unit 08/25/20 06:00 08/27/20 16:24 Heparin 5,000 Unit/1 Ml Vial SUB-Q 5,000 unit Q8HR TK Administration Hydralazine HCl 10 mg 08/25/20 00:39 Hydralazine 20 Mg/1 Ml Inj IV Q6H PRN htn Hydrophilic Ointment 1 applic 08/24/20 23:56 Lip Therapy Vaseline TP Q2HR PRN Dry Lips Propofol 1,000 mg in 100 mls @ 2.541 mls/hr 08/24/20 23:45 08/27/20 11:38 Diprivan 10 Mg/Ml IV 15 mcg/kg/min TITR TK 7.623 mls/hr Titration Protocol 5 MCG/KG/MIN Norepinephrine 4 mg in 250 mls @ 7.5 mls/hr 08/25/20 03:00 08/26/20 21:34 Levophed Drip 4 Mg/Ns 250 Ml IV 0 mcg/min TITR TK 0 mls/hr Titration Protocol 2 MCG/MIN Cefepime HCl 2 gm in 100 mls @ 200 mls/hr 08/26/20 12:00 08/27/20 16:25 Cefepime/Ns 2 Gm/100 Ml IV 09/02/20 11:59 200 mls/hr Q12H TK Administration Protocol Dobutamine HCl/Dextrose 500 mg in 250 mls @ 12.705 mls/hr 08/27/20 13:00 08/27/20 14:06 Dobutrex Drip 500mg/D5w 250ml IV 5 mcg/kg/min DIRECT TK 12.705 mls/hr Administration Protocol 5 MCG/KG/MIN Multi-Ingred Cream/Lotion/Oil/Oint 1 applic 08/24/20 23:56 Mineral Oil/Petrolatum, White Ophth Oint 3.5 Gm OU Q4HR PRN Dry Eye(s) Ondansetron HCl 4 mg 08/25/20 00:33 Ondansetron 4 Mg/2 Ml Inj IV Q8H PRN Nausea And Vomiting Senna/Docusate Sodium 1 tab 08/25/20 10:00 08/27/20 10:43 Sennosides/Docusate Sodium 8.6/50 Mg Tab FEEDTUBE 1 tab BID TK Administration Simple Syrup 15 ml 08/25/20 09:40 Simple Syrup 15 Ml FEEDTUBE PRN PRN Hypoglycemia Simple Syrup 30 ml 08/25/20 09:40 Simple Syrup 15 Ml FEEDTUBE PRN PRN Hypoglycemia Sodium Bicarbonate 325 mg 08/25/20 09:40 Sodium Bicarbonate 325 Mg Tab FEEDTUBE PRN PRN For Clogged Feeding Tube Sodium Chloride 10 ml 08/25/20 10:00 08/26/20 21:01 Sodium Chloride 0.9% 10 Ml Flush Syringe IV 10 ml BID TK Administration Sodium Chloride 10 ml 08/25/20 00:33 08/25/20 10:58 Sodium Chloride 0.9% 10 Ml Flush Syringe IV 10 ml PRN PRN Administration LINE FLUSH Nutrition/Malnutrition Assess - Dietary Evaluation Nutrition/Malnutrition Findings: Nutrition Notes Start: 08/25/20 09:17 Freq: Status: Active Protocol: Document 08/27/20 10:32 CW (Rec: 08/27/20 10:43 CW [email or web address]) Nutrition Notes Initial or Follow up Reassessment Current Diagnosis Hypertension,Heart Failure, Respiratory Failure,Stroke Other Pertinent Diagnosis pneu Current Diet NPO Labs/Tests Reviewed Pertinent Medications propofol at 15.246 ml/hr (403 kcal) levophed Senokot 1L NS Height 5 ft 8 in Weight 84.7 kg [place] Body Weight (kg) 70.00 BMI 28.3 Weight Status Overweight Subjective/Other Information F/U for TF start/ tolerance.TF intiated at 5pm last night. Per chart, TF running at 40 ml /hr. No reports of intolerance noted. Percent of energy/protein needs met: 17%/21% (280 ml infused) Burn Absent Trauma Absent Current % PO Negligible Minimum of two criteria No physical signs of malnutrition #1 Nutrition Diagnosis Inadequate oral intake Diagnosis Progress(for reassessment Continues documentation) Is patient on ventilator? Yes Is Patient Ambulatory and/or Out of Bed No REE-([facility]-confined to bed) [phone] Calculation Used for Recommendations [facility] Additional Notes Protein: (1.2-2g/kg) 102-127g Fluid: 1500-1900ml or per Nutrition Intervention Change Diet Order: Continue TF regimen Nutrition Support: Vital AF at 65 ml/hr Flush 100 ml q4h or per MD Kcal 1,872 Protein (gm) 117 Fluid (mL) 1,265 Goal #1 Meet at least 75% of protein and energy needs via TF Anticipated Discharge Needs: Unable to determine at this time Follow-Up By: 08/30/20 Additional Comments F/U for TF tolerance and vent status
[2020-08-28 05:15] LABS: Hematocrit 36.5 % (35.5-45.6); Mean Corpuscular HGB Conc 33 % (32-34); Mean Corpuscular Volume 94 fl (84-94); Platelet Count 114 K/mm3 (140-440); Red Blood Count 3.87 M/mm3 (3.65-5.03)
[2020-08-28 05:33] LABS: BUN/Creatinine Ratio 21; Blood Urea Nitrogen 17 mg/dL (9-20); Calcium 8.3 mg/dL (8.4-10.2); Hemolysis Index 6
[2020-08-28] MEDS: HEPARIN 5,000 UNIT/1 ML VIAL SUB-Q SCH ×3 (06:40→21:47)
[2020-08-28] MEDS: FAMOTIDINE 20 MG/2 ML INJ IV SCH ×2 (10:25→21:47)
[2020-08-28] MEDS: ASPIRIN 325 MG TAB PO SCH (10:25)
[2020-08-28] MEDS: CLOPIDOGREL 75 MG TAB PO SCH (10:25)
[2020-08-28] MEDS: SENNOSIDES/DOCUSATE SODIUM 8.6/50 MG TAB FEEDTUBE SCH ×2 (10:25→23:27)
--- NOTE | 2020-08-28 10:31 | Progress Note ---
Assessment and Plan Assessment and Plan VTE prophylaxis?: Mechanical Plan of care discussed with patient/family: Yes - Patient Problems # CVA (cerebral vascular accident) - new onset of right sided weakness and speech difficulty -initial NIH #8 -startyed on ASA and plavix plus lipitor 80 mg -Ct brain and CTA brain and neck are unremarkable -Not a candidate for TPA >4.5 Hrs, not a candidate for thrombectomy -Echo is with EF#20-25% with sever LV hypertrophy. -MRI brain is pending -Will Repaet CT brain today since MRI can not be done soon -evaluate ST-PT once extubated -LDL#141 -Low BP on doputamin , maintain BP>110/60 with MAP>65 # Acute exacerbation of CHF (congestive heart failure) -Lasix 40 mg IV every 12 hours. - Fluid restriction. Maintain input output. - Echocardiogram. # Acute respiratory failure -Patient is status post intubation. -DuoNeb by nebulizer every 4 hours. -Albuterol via nebulizer every 4 hours as needed. # Hypertension -Hydralazine 10 mg IV every 6 hours as needed lisinopril 5 mg p.o. daily. - We will monitor the blood pressure closely. # DVT prophylaxis -SCD for DVT prophylaxis as per neurology recommendation. - Pepcid 20 mg IV twice daily for GI prophylaxis. - Patient is a full code pt. is evaluated in ICU he is critically ill time spent in evaluation, review documents and labs,and Xrys ,CT >30 minutes plan 1-need mri brain when possible -- Mean while will repeat CT brain 2-suggest cut down sedation. when possible 3- maintain current management as per ICU team will follow as needed Subjective Date of service: 08/28/20 Principal diagnosis: CVA Interval history: pt. is intubated and sedated on propofol 50 mc he seems to be moving right side some what to stimulation slightly MRI still pending due to intubation echo showed Ef#20-25% with global hypokinesia On ASA plus Plavix plus Lipitor Objective - Vital Sign Vital Signs - 12hr 08/27/20 08/27/20 08/27/20 22:31 23:00 23:30 Temperature 99.1 F Pulse Rate 77 77 Pulse Rate [ Right From Monitor] Respiratory 20 20 Rate Blood Pressure 124/72 113/69 O2 Sat by Pulse 99 99 Oximetry 08/27/20 08/27/20 08/28/20 23:31 23:38 00:00 Temperature Pulse Rate 105 H 77 88 Pulse Rate [ 82 Right From Monitor] Respiratory 28 H 21 Rate Blood Pressure 159/109 115/73 164/75 O2 Sat by Pulse 98 100 99 Oximetry 08/28/20 08/28/20 08/28/20 00:30 01:00 01:30 Temperature Pulse Rate 86 81 92 H Pulse Rate [ Right From Monitor] Respiratory 23 21 22 Rate Blood Pressure 134/71 125/67 110/67 O2 Sat by Pulse 98 99 99 Oximetry 08/28/20 08/28/20 08/28/20 02:00 02:30 03:00 Temperature Pulse Rate 93 H 80 84 Pulse Rate [ Right From Monitor] Respiratory 17 20 20 Rate Blood Pressure 109/67 112/58 117/68 O2 Sat by Pulse 99 99 98 Oximetry 08/28/20 08/28/20 08/28/20 03:21 03:30 04:00 Temperature 99.4 F Pulse Rate 78 86 Pulse Rate [ 80 Right From Monitor] Respiratory 20 23 Rate Blood Pressure 117/60 134/67 O2 Sat by Pulse 99 98 Oximetry 08/28/20 08/28/20 08/28/20 04:04 04:30 05:00 Temperature Pulse Rate 88 86 77 Pulse Rate [ Right From Monitor] Respiratory 23 21 Rate Blood Pressure 114/73 133/64 111/61 O2 Sat by Pulse 100 99 98 Oximetry 08/28/20 08/28/20 08/28/20 05:30 06:00 06:30 Temperature Pulse Rate 80 84 79 Pulse Rate [ Right From Monitor] Respiratory 22 26 H 23 Rate Blood Pressure 132/68 142/73 129/75 O2 Sat by Pulse 99 98 99 Oximetry 08/28/20 08/28/20 08/28/20 07:00 07:30 07:59 Temperature Pulse Rate 80 79 78 Pulse Rate [ Right From Monitor] Respiratory 22 23 Rate Blood Pressure 135/70 133/74 116/67 O2 Sat by Pulse 99 98 100 Oximetry 08/28/20 08/28/20 08/28/20 08:00 08:30 09:00 Temperature 99.2 F Pulse Rate 77 75 82 Pulse Rate [ Right From Monitor] Respiratory 21 20 23 Rate Blood Pressure 116/67 119/71 122/66 O2 Sat by Pulse 99 99 Oximetry 08/28/20 09:25 Temperature Pulse Rate 76 Pulse Rate [ Right From Monitor] Respiratory Rate Blood Pressure 113/64 O2 Sat by Pulse 100 Oximetry - General Apperance Constitutional: comfortable - EENT EENT: PERRL - Respiratory Respiratory: lungs clear, crackles, rhonchi - Cardiovascular Cardiovascular: regular rate, normal S1, normal S2 Extremities: no peripheral edema bilat, no clubbing, cyanosis - Gastrointestinal Gastrointestinal: normoactive bowel sounds - Integumentary Integumentary: normal - Neurologic Cranial nerve examination: PERRL, EOMI Detailed motor examination: grossly full strength in, full strength in all cecilia, other (moving left side to painful stimuli > right side planter is equivical bilateral.) - Laboratory Findings CBC and BMP: 08/28/20 04:35 08/28/20 04:35 Abnormal Lab Findings: Abnormal Labs 08/24/20 08/24/20 08/24/20 22:24 22:24 22:24 WBC Plt Count Lymph % (Auto) 11.1 L [place] % (Auto) Lymph # (Auto) 0.7 L [place] # (Auto) Seg Neutrophils % 82.5 H Seg Neutrophils # PT 15.5 H D-Dimer ABG pH POC ABG pCO2 POC ABG pO2 ABG pO2 ABG O2 Saturation ABG Base Excess ABG Oxyhemoglobin ABG Sodium ABG Chloride ABG Glucose Oxyhemoglobin Sodium 130 L Chloride 97.5 L Glucose 170 H POC Glucose Calcium Total Creatine Kinase 250 H Troponin T NT-Pro-B Natriuret Pep LDL Cholesterol Direct Arterial Blood Glucose Arterial Blood Ionized Calcium 08/24/20 08/25/20 08/25/20 22:24 01:01 01:47 WBC Plt Count Lymph % (Auto) [place] % (Auto) Lymph # (Auto) [place] # (Auto) Seg Neutrophils % Seg Neutrophils # PT D-Dimer ABG pH 7.285 L POC ABG pCO2 POC ABG pO2 ABG pO2 99.5 H ABG O2 Saturation ABG Base Excess -4.2 L ABG Oxyhemoglobin ABG Sodium ABG Chloride ABG Glucose Oxyhemoglobin 94.9 L Sodium Chloride Glucose POC Glucose Calcium Total Creatine Kinase Troponin T NT-Pro-B Natriuret Pep 2769 H LDL Cholesterol Direct 141 H Arterial Blood Glucose Arterial Blood Ionized Calcium 08/25/20 08/25/20 08/25/20 04:45 11:45 17:20 WBC Plt Count Lymph % (Auto) [place] % (Auto) Lymph # (Auto) [place] # (Auto) Seg Neutrophils % Seg Neutrophils # PT D-Dimer ABG pH POC ABG pCO2 POC ABG pO2 ABG pO2 194.6 H ABG O2 Saturation 99.2 H ABG Base Excess ABG Oxyhemoglobin ABG Sodium ABG Chloride ABG Glucose Oxyhemoglobin Sodium Chloride Glucose POC Glucose 136 H 117 H Calcium Total Creatine Kinase Troponin T NT-Pro-B Natriuret Pep LDL Cholesterol Direct Arterial Blood Glucose Arterial Blood Ionized Calcium 08/26/20 08/26/20 08/26/20 05:00 05:15 05:15 WBC 11.3 H Plt Count 112 L Lymph % (Auto) 4.2 L [place] % (Auto) 9.2 H Lymph # (Auto) 0.5 L [place] # (Auto) 1.0 H Seg Neutrophils % 85.9 H Seg Neutrophils # 9.7 H PT D-Dimer ABG pH 7.495 H POC ABG pCO2 POC ABG pO2 194.0 H ABG pO2 ABG O2 Saturation ABG Base Excess ABG Oxyhemoglobin 98.6 H ABG Sodium ABG Chloride 109.0 H ABG Glucose 125 H Oxyhemoglobin Sodium Chloride Glucose 120 H POC Glucose Calcium 8.2 L Total Creatine Kinase Troponin T 0.032 H D NT-Pro-B Natriuret Pep LDL Cholesterol Direct Arterial Blood Glucose 125 H Arterial Blood Ionized Calcium 4.5 L 08/26/20 08/26/20 08/26/20 05:15 11:40 23:28 WBC Plt Count Lymph % (Auto) [place] % (Auto) Lymph # (Auto) [place] # (Auto) Seg Neutrophils % Seg Neutrophils # PT D-Dimer 4955.67 H ABG pH POC ABG pCO2 POC ABG pO2 ABG pO2 ABG O2 Saturation ABG Base Excess ABG Oxyhemoglobin ABG Sodium ABG Chloride ABG Glucose Oxyhemoglobin Sodium Chloride Glucose POC Glucose 116 H 131 H Calcium Total Creatine Kinase Troponin T NT-Pro-B Natriuret Pep LDL Cholesterol Direct Arterial Blood Glucose Arterial Blood Ionized Calcium 08/27/20 08/27/20 08/27/20 04:22 04:50 04:50 WBC Plt Count 103 L Lymph % (Auto) [place] % (Auto) Lymph # (Auto) [place] # (Auto) Seg Neutrophils % Seg Neutrophils # PT D-Dimer ABG pH 7.500 H POC ABG pCO2 27.7 L POC ABG pO2 163.1 H ABG pO2 ABG O2 Saturation ABG Base Excess ABG Oxyhemoglobin 98.2 H ABG Sodium ABG Chloride 109.0 H ABG Glucose 116 H Oxyhemoglobin Sodium 147 H Chloride 109.7 H Glucose 112 H POC Glucose Calcium 8.3 L Total Creatine Kinase Troponin T NT-Pro-B Natriuret Pep LDL Cholesterol Direct Arterial Blood Glucose 116 H Arterial Blood Ionized Calcium 08/27/20 08/27/20 08/27/20 05:29 11:21 11:24 WBC Plt Count Lymph % (Auto) [place] % (Auto) Lymph # (Auto) [place] # (Auto) Seg Neutrophils % Seg Neutrophils # PT D-Dimer ABG pH POC ABG pCO2 POC ABG pO2 146.6 H ABG pO2 ABG O2 Saturation ABG Base Excess ABG Oxyhemoglobin ABG Sodium ABG Chloride 112.0 H ABG Glucose 127 H Oxyhemoglobin Sodium Chloride Glucose POC Glucose 107 H 117 H Calcium Total Creatine Kinase Troponin T NT-Pro-B Natriuret Pep LDL Cholesterol Direct Arterial Blood Glucose 127 H Arterial Blood Ionized Calcium 08/27/20 08/27/20 08/28/20 16:55 23:18 04:21 WBC Plt Count Lymph % (Auto) [place] % (Auto) Lymph # (Auto) [place] # (Auto) Seg Neutrophils % Seg Neutrophils # PT D-Dimer ABG pH POC ABG pCO2 POC ABG pO2 138.2 H ABG pO2 ABG O2 Saturation ABG Base Excess ABG Oxyhemoglobin ABG Sodium 146.2 H ABG Chloride 114.0 H ABG Glucose 138 H Oxyhemoglobin Sodium Chloride Glucose POC Glucose 117 H 132 H Calcium Total Creatine Kinase Troponin T NT-Pro-B Natriuret Pep LDL Cholesterol Direct Arterial Blood Glucose 138 H Arterial Blood Ionized Calcium 08/28/20 08/28/20 08/28/20 04:35 04:35 05:16 WBC Plt Count 114 L Lymph % (Auto) [place] % (Auto) Lymph # (Auto) [place] # (Auto) Seg Neutrophils % Seg Neutrophils # PT D-Dimer ABG pH POC ABG pCO2 POC ABG pO2 ABG pO2 ABG O2 Saturation ABG Base Excess ABG Oxyhemoglobin ABG Sodium ABG Chloride ABG Glucose Oxyhemoglobin Sodium 149 H Chloride 113.6 H Glucose 138 H POC Glucose 135 H Calcium 8.3 L Total Creatine Kinase Troponin T NT-Pro-B Natriuret Pep LDL Cholesterol Direct Arterial Blood Glucose Arterial Blood Ionized Calcium
[2020-08-28] MEDS ORDERED: DEXTROSE 50% IN WATER (25GM) 50 ML SYRINGE IV PRN (11:12)
--- NOTE | 2020-08-28 11:15 | Progress Note ---
<KEZIA SALASShruthi - Last Filed: 08/28/20 14:09> Assessment and Plan Assessment and plan: This is 60-year-old male with HTN and CHF who was admitted for rule out CVA, acute respiratory failure, acute on chronic heart failure and is currently hypotensive. Patient was admitted COVID-19 PUI which has been ruled out r/o CVA Acute hypoxic respiratory failure Acute on chronic heart failure Staph aureus bronchial culture Hypernatremia Thrombocytopenia Hyperchloremia COVID-19 ruled out h/o Hypertension -CCM, cardiology and neurology consulted, patient recommendations -S/p vasopressor support with Levophed -Sedated with propofol -Statin, aspirin, Plavix -Mechanical ventilation, wean as tolerated, VAP bundle -Medical records requested from [facility] -IV abx -TF, SSI, accucheck q6 -Per cardio, dobutamine gtt. -08/24 CT head shows no acute intracranial abnormality, age-related cerebral atrophy, chronic small vessel ischemic changes in white matter, no evidence of recent infarct or mass-effect or midline shift -08/24 CTA neck with contrast shows no significant abnormality -08/24 CTA head with contrast shows no significant abnormality -08/24 echocardiogram shows mildly dilated left ventricle, definitely systolic function severely decreased, severe global hypokinesis of the left ventricle, right ventricle moderate to severely dilated, left atrium mildly dilated, right atrium mildly dilated without evidence of atrial septal defect, trace MR, RVSP is 48 mmHg, mild TR, trace VT, mild pulmonary hypertension, no pericardial effusion or pleural effusion noted, Mild diastolic dysfunction, no ventricular septal defect, no left ventricular thrombus noted, LVEF 20 to 25% -08/25 MRI brain pending -08/25 MRA/MRV head pending -08/26 CTA chest shows no evidence of pulmonary embolism, bilateral bronchopneumonia most pronounced within both lower lobes -08/26 BLE Doppler US shows no DVT/SVT -08/26 s/p bronch with culture completed; Staphylococcus aureus -08/28 CT head pending -Trend CBC, BMP DVT/GI prophylaxis: SCDs to bilateral lower extremities while in bed, heparin subcu, PPI Disposition: ICU The high probability of a clinically significant, sudden or life threatening deterioration of the [multi] system(s) required my full and direct attention, intervention and personal management. The aggregate critical care time was [35] minutes. This time is in addition to time spent performing reported procedures but includes the following: [x] Data Review and interpretation [x] Patient assessment and monitoring of vital signs [x] Documentation [x] Medication orders and management History Interval history: This is a 60-year-old male with hypertension and CHF who presented to emergency department on 08/25 with difficulty in speech which began around 5 PM and became progressively worse, unsteady gait and right-sided facial droop. Recommend emergency department included a CT head and after returning from imaging patient had increased work of breath, shortness of breath and desaturation to 90% SPO2 on room air. Patient was placed on supplemental oxygen via nasal cannula without improvement and progressed to nonrebreather to BiPAP. However the patient was still tachypneic to 50 to 60 breaths/min and was subsequently intubated. Patient was admitted to the hospital service with possible CVA, acute hypoxic respiratory failure, and congestive heart failure. [facility], cardiology and neurology were consulted. 08/25: Patient is echocardiogram, MRI brain and MRA head pending. The time of examination patient was sedated on propofol and on assist control tidal volume 450, rate of 26, PEEP of 10 and 100% FiO2. Patient was started on Levophed drip for persistent hypotension. CVL was eventually placed. 08/26: MRI brain pending, echocardiogram shows reduced ejection fraction, co ntinued use of vasopressin. Patient was bronched today by [facility] empiric antibiotic therapy with cefepime was started. Dr. Gonzalez and I updated son at bedside today. CTA pending 08/27: Patient was started on dobutamine drip per cardiology yesterday evening and he has been weaned off of Levophed. [facility] culture resulted with Staph aureus. Infectious disease is aware. Patient is currently on cefepime. Cardiology increased dobutamine drip to 5 mcg. Son updated at bedside with Dr. Gonzalez. The time my examination patient was on CMV tidal volume 450, rate 12, PEEP 8 on 35% FiO2. [facility] ordered as needed fentanyl every 2 hours. Patient is currently on propofol. 08/28: At the time my examination patient is sedated on propofol and has dobutamine drip infusing which was increased yesterday. He is on CMV tidal volume 450, rate of 20, PEEP of 6 and FiO2 35%. Patient is following commands. Patient's hypernatremia and hyperchloremia slightly worsened. Neurology will obtain repeat CT head since MRI is not able to be completed at this time. RN asked to remove Sanchez in place condom cath. SSI ordered Hospitalist Physical - Constitutional Vitals: Temp Pulse Resp BP Pulse Ox 99.2 F 76 23 113/64 100 08/28/20 08:00 08/28/20 09:25 08/28/20 09:00 08/28/20 09:25 08/28/20 09:25 General appearance: Present: other (Intubated and sedated) - EENT Eyes: Present: PERRL ENT: hearing intact - Neck Neck: Present: normal ROM - Respiratory Respiratory effort: normal Respiratory: bilateral: CTA - Cardiovascular Rhythm: regular Heart Sounds: Present: S1 & S2. Absent: systolic murmur, diastolic murmur - Extremities Extremities: no ischemia, pulses intact, pulses symmetrical, No edema, normal temperature, normal color Peripheral Pulses: within normal limits - Abdominal General gastrointestinal: soft, non-tender, non-distended, normal bowel sounds - Integumentary Integumentary: Present: warm, dry - Psychiatric Psychiatric: appropriate mood/affect, cooperative - Neurologic Neurologic: no focal deficits, moves all extremities - Allied Health Allied health notes reviewed: nursing, RT, social work HEART Score - HEART Score Troponin: Troponin T 0.032 ng/mL (0.00-0.029) H D 08/26/20 05:15 Results - Labs CBC & Chem 7: 08/28/20 04:35 08/28/20 04:35 Labs: Laboratory Last Values WBC 9.0 K/mm3 (4.5-11.0) 08/28/20 04:35 RBC 3.87 M/mm3 (3.65-5.03) 08/28/20 04:35 Hgb 12.0 gm/dl (11.8-15.2) 08/28/20 04:35 Hct 36.5 % (35.5-45.6) 08/28/20 04:35 MCV 94 fl (84-94) 08/28/20 04:35 MCH 31 pg (28-32) 08/28/20 04:35 MCHC 33 % (32-34) 08/28/20 04:35 RDW 15.0 % (13.2-15.2) 08/28/20 04:35 Plt Count 114 K/mm3 (140-440) L 08/28/20 04:35 Lymph % (Auto) 4.2 % (13.4-35.0) L 08/26/20 05:15 [place] % (Auto) 9.2 % (0.0-7.3) H 08/26/20 05:15 Eos % (Auto) 0.2 % (0.0-4.3) 08/26/20 05:15 Baso % (Auto) 0.5 % (0.0-1.8) 08/26/20 05:15 Lymph # (Auto) 0.5 K/mm3 (1.2-5.4) L 08/26/20 05:15 [place] # (Auto) 1.0 K/mm3 (0.0-0.8) H 08/26/20 05:15 Eos # (Auto) 0.0 K/mm3 (0.0-0.4) 08/26/20 05:15 Baso # (Auto) 0.1 K/mm3 (0.0-0.1) 08/26/20 05:15 Seg Neutrophils % 85.9 % (40.0-70.0) H 08/26/20 05:15 Seg Neutrophils # 9.7 K/mm3 (1.8-7.7) H 08/26/20 05:15 PT 15.5 Sec. (12.2-14.9) H 08/24/20 22:24 INR 1.05 (0.87-1.13) 08/24/20 22:24 APTT 29.9 Sec. (24.2-36.6) 08/24/20 22:24 Thrombin Time 18.7 Sec. (15.1-19.6) 08/24/20 22:24 D-Dimer 4955.67 ng/mlDDU (0-234) H 08/26/20 05:15 ABG pH 7.425 (7.320-7.450) 08/28/20 04:21 POC ABG pCO2 34.7 mmHg (32.0-48.0) 08/28/20 04:21 ABG pCO2 40.7 mm Hg 08/25/20 04:45 POC ABG pO2 138.2 mmHg (83-108) H 08/28/20 04:21 ABG pO2 194.6 mm Hg (80.0-90.0) H 08/25/20 04:45 POC ABG HCO3 22.3 08/28/20 04:21 ABG HCO3 23.3 mmol/L (20.0-26.0) 08/25/20 04:45 ABG O2 Saturation 99.1 (0-100) 08/28/20 04:21 ABG O2 Content 19.9 (0.0-44) 08/25/20 04:45 POC ABG Base Excess -1.5 08/28/20 04:21 ABG Base Excess -1.8 mmol/L (-2.0-3.0) 08/25/20 04:45 ABG Hemoglobin 13.3 (12.0-17.5) 08/28/20 04:21 ABG Oxyhemoglobin 97.6 (94-98) 08/28/20 04:21 ABG Carboxyhemoglobin 1.6 % (0.0-5.0) 08/25/20 04:45 ABG Methemoglobin 0 (0.0-1.5) 08/28/20 04:21 ABG Sodium 146.2 mmol/L (136.0-145.0) H 08/28/20 04:21 ABG Potassium 3.6 mmol/L (3.40-4.50) 08/28/20 04:21 ABG Chloride 114.0 mmol/L (98-107) H 08/28/20 04:21 ABG Glucose 138 mg/dL (65-95) H 08/28/20 04:21 Oxyhemoglobin 97.2 % (95.0-99.0) 08/25/20 04:45 Carboxyhemoglobin 1.5 (0.5-1.5) 08/28/20 04:21 FiO2 100 % 08/25/20 04:45 FiO2 % 35.0 08/28/20 04:21 Sodium 149 mmol/L (137-145) H 08/28/20 04:35 Potassium 3.7 mmol/L (3.6-5.0) 08/28/20 04:35 Chloride 113.6 mmol/L (98-107) H 08/28/20 04:35 Carbon Dioxide 28 mmol/L (22-30) 08/28/20 04:35 Anion Gap 11 mmol/L 08/28/20 04:35 BUN 17 mg/dL (9-20) 08/28/20 04:35 Creatinine 0.8 mg/dL (0.8-1.3) 08/28/20 04:35 Estimated GFR > 60 ml/min 08/28/20 04:35 BUN/Creatinine Ratio 21 % 08/28/20 04:35 Glucose 138 mg/dL (75-100) H 08/28/20 04:35 POC Glucose 135 mg/dL (70-105) H 08/28/20 05:16 Calcium 8.3 mg/dL (8.4-10.2) L 08/28/20 04:35 Total Bilirubin 0.90 mg/dL (0.1-1.2) 08/24/20 22:24 AST 31 units/L (5-40) 08/24/20 22:24 ALT 46 units/L (7-56) 08/24/20 22:24 Alkaline Phosphatase 111 units/L (35-129) 08/24/20 22:24 Total Creatine Kinase 250 units/L (55-170) H 08/24/20 22:24 CK-MB (CK-2) 3.6 ng/mL (0.0-4.0) 08/24/20 22:24 CK-MB (CK-2) Rel Index 1.4 (0-4) 08/24/20 22:24 Troponin T 0.032 ng/mL (0.00-0.029) H D 08/26/20 05:15 NT-Pro-B Natriuret Pep 2769 pg/mL (0-900) H 08/24/20 22:24 Total Protein 7.2 g/dL (6.3-8.2) 08/24/20 22:24 Albumin 3.9 g/dL (3.9-5) 08/24/20 22:24 Albumin/Globulin Ratio 1.2 % 08/24/20 22:24 Triglycerides 67 mg/dL (2-149) 08/25/20 01:47 Cholesterol 184 mg/dL (50-199) 08/25/20 01:47 LDL Cholesterol Direct 141 mg/dL (50-130) H 08/25/20 01:47 HDL Cholesterol 44 mg/dL (40-59) 08/25/20 01:47 Cholesterol/HDL Ratio 4.18 % 08/25/20 01:47 Procalcitonin 5.41 ng/mL (<0.15) 08/28/20 04:35 TSH 3.150 mlU/mL (0.270-4.200) 08/24/20 22:24 Arterial Blood Glucose 138 mg/dL (65-95) H 08/28/20 04:21 Arterial Blood Ionized Calcium 4.7 mg/dL (4.6-5.3) 08/28/20 04:21 Urine Color Yellow (Yellow) 08/24/20 22:35 Urine Turbidity Clear (Clear) 08/24/20 22:35 Urine pH 7.0 (5.0-7.0) 08/24/20 22:35 Ur Specific [place] 1.005 (1.003-1.030) 08/24/20 22:35 Urine Protein 100 mg/dl mg/dL (Negative) 08/24/20 22:35 Urine Glucose (UA) >=500 mg/dL (Negative) 08/24/20 22:35 Urine Ketones Neg mg/dL (Negative) 08/24/20 22:35 Urine Blood Neg (Negative) 08/24/20 22:35 Urine Nitrite Neg (Negative) 08/24/20 22:35 Urine Bilirubin Neg (Negative) 08/24/20 22:35 Urine Urobilinogen < 2.0 mg/dL (<2.0) 08/24/20 22:35 Ur Leukocyte Esterase Neg (Negative) 08/24/20 22:35 Urine WBC (Auto) 1.0 /HPF (0.0-6.0) 08/24/20 22:35 Urine RBC (Auto) 2.0 /HPF (0.0-6.0) 08/24/20 22:35 Urine Mucus Few /HPF 08/24/20 22:35 Nasal Screen MRSA (PCR) Negative (Negative) 08/25/20 Unknown Urine Opiates Screen Negative 08/24/20 22:35 Urine Methadone Screen Negative 08/24/20 22:35 Ur Barbiturates Screen Negative 08/24/20 22:35 Ur Phencyclidine Scrn Negative 08/24/20 22:35 Ur Amphetamines Screen Negative 08/24/20 22:35 U Benzodiazepines Scrn Negative 08/24/20 22:35 Urine Cocaine Screen Negative 08/24/20 22:35 U Marijuana (THC) Screen Negative 08/24/20 22:35 Drugs of Abuse Note Disclamer 08/24/20 22:35 Plasma/Serum Alcohol < 0.01 % (0-0.07) 08/24/20 22:24 Coronavirus (PCR) Negative (Negative) 08/25/20 Unknown Blood Type A POSITIVE 08/24/20 22:24 Antibody Screen Negative 08/24/20 22:24 Microbiology: Microbiology 08/25/20 02:39 Peripheral/Venous Blood Culture - Preliminary NO GROWTH AFTER 72 HOURS 08/25/20 01:47 Peripheral/Venous Blood Culture - Preliminary NO GROWTH AFTER 72 HOURS 08/25/20 04:55 Tracheal Aspirate Sputum Culture - Final 08/26/20 11:45 Bronchial Washings - Right Middle Lobe Respiratory Culture - Preliminary Staphylococcus Aureus Sanchez/IV: Voiding Method Indwelling Catheter Active Medications - Current Medications Current Medications: Generic Name Dose Route Start Last Admin Trade Name Freq PRN Reason Stop Dose Admin Acetaminophen 650 mg 08/25/20 00:33 08/26/20 21:00 Acetaminophen 325 Mg Tab PO 650 mg Q4H PRN Administration Pain MILD(1-3)/Fever >100.5/[place] Albuterol 2.5 mg 08/25/20 00:33 Albuterol 2.5 Mg/3 Ml Nebu IH Q4HRT PRN Shortness Of Breath Lipase/Protease/Amylase 1 each 08/25/20 09:40 Lipase 10,500/Protease 25,000/Amylase 43,750 (Units) Dr Flores FEEDTUBE PRN PRN For Clogged Feeding Tube Aspirin 325 mg 08/25/20 10:00 08/28/20 10:25 Aspirin 325 Mg Tab PO 325 mg QDAY TK Administration Atorvastatin Calcium 80 mg 08/25/20 22:00 08/27/20 22:16 Atorvastatin 40 Mg Tab PO 80 mg QHS TK Administration Clopidogrel Bisulfate 75 mg 08/25/20 10:00 08/28/20 10:25 Clopidogrel 75 Mg Tab PO 75 mg QDAY TK Administration Famotidine 20 mg 08/25/20 10:00 08/28/20 10:25 Famotidine 20 Mg/2 Ml Inj IV 20 mg BID TK Administration Fentanyl 50 mcg 08/27/20 10:30 08/27/20 22:20 Fentanyl 100 Mcg/2 Ml Inj IV 50 mcg Q2H PRN Administration Pain, Mild (1-3) Heparin Sodium (Porcine) 5,000 unit 08/25/20 06:00 08/28/20 06:40 Heparin 5,000 Unit/1 Ml Vial SUB-Q 5,000 unit Q8HR TK Administration Hydralazine HCl 10 mg 08/25/20 00:39 Hydralazine 20 Mg/1 Ml Inj IV Q6H PRN htn Hydrophilic Ointment 1 applic 08/24/20 23:56 Lip Therapy Vaseline TP Q2HR PRN Dry Lips Propofol 1,000 mg in 100 mls @ 2.541 mls/hr 08/24/20 23:45 08/28/20 09:15 Diprivan 10 Mg/Ml IV 0 mcg/kg/min TITR TK 0 mls/hr Titration Protocol 5 MCG/KG/MIN Norepinephrine 4 mg in 250 mls @ 7.5 mls/hr 08/25/20 03:00 08/26/20 21:34 Levophed Drip 4 Mg/Ns 250 Ml IV 0 mcg/min TITR TK 0 mls/hr Titration Protocol 2 MCG/MIN Cefepime HCl 2 gm in 100 mls @ 200 mls/hr 08/26/20 12:00 08/27/20 16:25 Cefepime/Ns 2 Gm/100 Ml IV 09/02/20 11:59 200 mls/hr Q12H TK Administration Protocol Dobutamine HCl/Dextrose 500 mg in 250 mls @ 12.705 mls/hr 08/27/20 13:00 08/27/20 22:17 Dobutrex Drip 500mg/D5w 250ml IV 5 mcg/kg/min DIRECT TK 12.705 mls/hr Administration Protocol 5 MCG/KG/MIN Multi-Ingred Cream/Lotion/Oil/Oint 1 applic 08/24/20 23:56 Mineral Oil/Petrolatum, White Ophth Oint 3.5 Gm OU Q4HR PRN Dry Eye(s) Ondansetron HCl 4 mg 08/25/20 00:33 Ondansetron 4 Mg/2 Ml Inj IV Q8H PRN Nausea And Vomiting Senna/Docusate Sodium 1 tab 08/25/20 10:00 08/28/20 10:25 Sennosides/Docusate Sodium 8.6/50 Mg Tab FEEDTUBE 1 tab BID TK Administration Simple Syrup 15 ml 08/25/20 09:40 Simple Syrup 15 Ml FEEDTUBE PRN PRN Hypoglycemia Simple Syrup 30 ml 08/25/20 09:40 Simple Syrup 15 Ml FEEDTUBE PRN PRN Hypoglycemia Sodium Bicarbonate 325 mg 08/25/20 09:40 Sodium Bicarbonate 325 Mg Tab FEEDTUBE PRN PRN For Clogged Feeding Tube Sodium Chloride 10 ml 08/25/20 10:00 08/28/20 10:26 Sodium Chloride 0.9% 10 Ml Flush Syringe IV 10 ml BID TK Administration Sodium Chloride 10 ml 08/25/20 00:33 08/25/20 10:58 Sodium Chloride 0.9% 10 Ml Flush Syringe IV 10 ml PRN PRN Administration LINE FLUSH Nutrition/Malnutrition Assess - Dietary Evaluation Nutrition/Malnutrition Findings: Nutrition Notes Start: 08/25/20 09:17 Freq: Status: Active Protocol: Document 08/27/20 10:32 CW (Rec: 08/27/20 10:43 CW [id number]) Nutrition Notes Initial or Follow up Reassessment Current Diagnosis Hypertension,Heart Failure, Respiratory Failure,Stroke Other Pertinent Diagnosis pneu Current Diet NPO Labs/Tests Reviewed Pertinent Medications propofol at 15.246 ml/hr (403 kcal) levophed Senokot 1L NS Height 5 ft 8 in Weight 84.7 kg [place] Body Weight (kg) 70.00 BMI 28.3 Weight Status Overweight Subjective/Other Information F/U for TF start/ tolerance.TF intiated at 5pm last night. Per chart, TF running at 40 ml /hr. No reports of intolerance noted. Percent of energy/protein needs met: 17%/21% (280 ml infused) Burn Absent Trauma Absent Current % PO Negligible Minimum of two criteria No physical signs of malnutrition #1 Nutrition Diagnosis Inadequate oral intake Diagnosis Progress(for reassessment Continues documentation) Is patient on ventilator? Yes Is Patient Ambulatory and/or Out of Bed No REE-([facility]-confined to bed) 1962.540 Calculation Used for Recommendations [facility] Additional Notes Protein: (1.2-2g/kg) 102-127g Fluid: 1500-1900ml or per MD Nutrition Intervention Change Diet Order: Continue TF regimen Nutrition Support: Vital AF at 65 ml/hr Flush 100 ml q4h or per MD Kcal 1,872 Protein (gm) 117 Fluid (mL) 1,265 Goal #1 Meet at least 75% of protein and energy needs via TF Anticipated Discharge Needs: Unable to determine at this time Follow-Up By: 08/30/20 Additional Comments F/U for TF tolerance and vent status <LUCRETIA GONZALEZ O - Last Filed: 08/28/20 15:33> History Interval history: Patient is 60-year-old male with HTN and CHF who was admitted for rule out CVA. He has acute respiratory failure is intubated on ventilator. He was hypotensive, started on pressors. CT Angio chest negative for Pulmonary Emboli but shows bronchopneumonia. He is on Cefepime. Consult ID for pneumonia, fever. Myself and Nurse Practitioner discussed with son at bedside. I saw and evaluated the patient and discussed with Nurse Practitioner and Drawing Checker.. I agree with the findings and the plan of care as documented in the Nurse Practitioner note. Hospitalist Physical - Constitutional Vitals: Temp Pulse Resp BP Pulse Ox 99.1 F 91 H 17 171/98 98 08/28/20 12:00 08/28/20 13:00 08/28/20 13:00 08/28/20 13:00 08/28/20 13:00 HEART Score - HEART Score Troponin: Troponin T 0.032 ng/mL (0.00-0.029) H D 08/26/20 05:15 Results - Labs CBC & Chem 7: 08/28/20 04:35 08/28/20 04:35 Labs: Laboratory Last Values WBC 9.0 K/mm3 (4.5-11.0) 08/28/20 04:35 RBC 3.87 M/mm3 (3.65-5.03) 08/28/20 04:35 Hgb 12.0 gm/dl (11.8-15.2) 08/28/20 04:35 Hct 36.5 % (35.5-45.6) 08/28/20 04:35 MCV 94 fl (84-94) 08/28/20 04:35 MCH 31 pg (28-32) 08/28/20 04:35 MCHC 33 % (32-34) 08/28/20 04:35 RDW 15.0 % (13.2-15.2) 08/28/20 04:35 Plt Count 114 K/mm3 (140-440) L 08/28/20 04:35 Lymph % (Auto) 4.2 % (13.4-35.0) L 08/26/20 05:15 [place] % (Auto) 9.2 % (0.0-7.3) H 08/26/20 05:15 Eos % (Auto) 0.2 % (0.0-4.3) 08/26/20 05:15 Baso % (Auto) 0.5 % (0.0-1.8) 08/26/20 05:15 Lymph # (Auto) 0.5 K/mm3 (1.2-5.4) L 08/26/20 05:15 [place] # (Auto) 1.0 K/mm3 (0.0-0.8) H 08/26/20 05:15 Eos # (Auto) 0.0 K/mm3 (0.0-0.4) 08/26/20 05:15 Baso # (Auto) 0.1 K/mm3 (0.0-0.1) 08/26/20 05:15 Seg Neutrophils % 85.9 % (40.0-70.0) H 08/26/20 05:15 Seg Neutrophils # 9.7 K/mm3 (1.8-7.7) H 08/26/20 05:15 PT 15.5 Sec. (12.2-14.9) H 08/24/20 22:24 INR 1.05 (0.87-1.13) 08/24/20 22:24 APTT 29.9 Sec. (24.2-36.6) 08/24/20 22:24 Thrombin Time 18.7 Sec. (15.1-19.6) 08/24/20 22:24 D-Dimer 4955.67 ng/mlDDU (0-234) H 08/26/20 05:15 ABG pH 7.425 (7.320-7.450) 08/28/20 04:21 POC ABG pCO2 34.7 mmHg (32.0-48.0) 08/28/20 04:21 ABG pCO2 40.7 mm Hg 08/25/20 04:45 POC ABG pO2 138.2 mmHg (83-108) H 08/28/20 04:21 ABG pO2 194.6 mm Hg (80.0-90.0) H 08/25/20 04:45 POC ABG HCO3 22.3 08/28/20 04:21 ABG HCO3 23.3 mmol/L (20.0-26.0) 08/25/20 04:45 ABG O2 Saturation 99.1 (0-100) 08/28/20 04:21 ABG O2 Content 19.9 (0.0-44) 08/25/20 04:45 POC ABG Base Excess -1.5 08/28/20 04:21 ABG Base Excess -1.8 mmol/L (-2.0-3.0) 08/25/20 04:45 ABG Hemoglobin 13.3 (12.0-17.5) 08/28/20 04:21 ABG Oxyhemoglobin 97.6 (94-98) 08/28/20 04:21 ABG Carboxyhemoglobin 1.6 % (0.0-5.0) 08/25/20 04:45 ABG Methemoglobin 0 (0.0-1.5) 08/28/20 04:21 ABG Sodium 146.2 mmol/L (136.0-145.0) H 08/28/20 04:21 ABG Potassium 3.6 mmol/L (3.40-4.50) 08/28/20 04:21 ABG Chloride 114.0 mmol/L (98-107) H 08/28/20 04:21 ABG Glucose 138 mg/dL (65-95) H 08/28/20 04:21 Oxyhemoglobin 97.2 % (95.0-99.0) 08/25/20 04:45 Carboxyhemoglobin 1.5 (0.5-1.5) 08/28/20 04:21 FiO2 100 % 08/25/20 04:45 FiO2 % 35.0 08/28/20 04:21 Sodium 149 mmol/L (137-145) H 08/28/20 04:35 Potassium 3.7 mmol/L (3.6-5.0) 08/28/20 04:35 Chloride 113.6 mmol/L (98-107) H 08/28/20 04:35 Carbon Dioxide 28 mmol/L (22-30) 08/28/20 04:35 Anion Gap 11 mmol/L 08/28/20 04:35 BUN 17 mg/dL (9-20) 08/28/20 04:35 Creatinine 0.8 mg/dL (0.8-1.3) 08/28/20 04:35 Estimated GFR > 60 ml/min 08/28/20 04:35 BUN/Creatinine Ratio 21 % 08/28/20 04:35 Glucose 138 mg/dL (75-100) H 08/28/20 04:35 POC Glucose 137 mg/dL (70-105) H 08/28/20 11:19 Calcium 8.3 mg/dL (8.4-10.2) L 08/28/20 04:35 Total Bilirubin 0.90 mg/dL (0.1-1.2) 08/24/20 22:24 AST 31 units/L (5-40) 08/24/20 22:24 ALT 46 units/L (7-56) 08/24/20 22:24 Alkaline Phosphatase 111 units/L (35-129) 08/24/20 22:24 Total Creatine Kinase 250 units/L (55-170) H 08/24/20 22:24 CK-MB (CK-2) 3.6 ng/mL (0.0-4.0) 08/24/20 22:24 CK-MB (CK-2) Rel Index 1.4 (0-4) 08/24/20 22:24 Troponin T 0.032 ng/mL (0.00-0.029) H D 08/26/20 05:15 NT-Pro-B Natriuret Pep 2769 pg/mL (0-900) H 08/24/20 22:24 Total Protein 7.2 g/dL (6.3-8.2) 08/24/20 22:24 Albumin 3.9 g/dL (3.9-5) 08/24/20 22:24 Albumin/Globulin Ratio 1.2 % 08/24/20 22:24 Triglycerides 67 mg/dL (2-149) 08/25/20 01:47 Cholesterol 184 mg/dL (50-199) 08/25/20 01:47 LDL Cholesterol Direct 141 mg/dL (50-130) H 08/25/20 01:47 HDL Cholesterol 44 mg/dL (40-59) 08/25/20 01:47 Cholesterol/HDL Ratio 4.18 % 08/25/20 01:47 Procalcitonin 5.41 ng/mL (<0.15) 08/28/20 04:35 TSH 3.150 mlU/mL (0.270-4.200) 08/24/20 22:24 Arterial Blood Glucose 138 mg/dL (65-95) H 08/28/20 04:21 Arterial Blood Ionized Calcium 4.7 mg/dL (4.6-5.3) 08/28/20 04:21 Urine Color Yellow (Yellow) 08/24/20 22:35 Urine Turbidity Clear (Clear) 08/24/20 22:35 Urine pH 7.0 (5.0-7.0) 08/24/20 22:35 Ur Specific [place] 1.005 (1.003-1.030) 08/24/20 22:35 Urine Protein 100 mg/dl mg/dL (Negative) 08/24/20 22:35 Urine Glucose (UA) >=500 mg/dL (Negative) 08/24/20 22:35 Urine Ketones Neg mg/dL (Negative) 08/24/20 22:35 Urine Blood Neg (Negative) 08/24/20 22:35 Urine Nitrite Neg (Negative) 08/24/20 22:35 Urine Bilirubin Neg (Negative) 08/24/20 22:35 Urine Urobilinogen < 2.0 mg/dL (<2.0) 08/24/20 22:35 Ur Leukocyte Esterase Neg (Negative) 08/24/20 22:35 Urine WBC (Auto) 1.0 /HPF (0.0-6.0) 08/24/20 22:35 Urine RBC (Auto) 2.0 /HPF (0.0-6.0) 08/24/20 22:35 Urine Mucus Few /HPF 08/24/20 22:35 Nasal Screen MRSA (PCR) Negative (Negative) 08/25/20 Unknown Urine Opiates Screen Negative 08/24/20 22:35 Urine Methadone Screen Negative 08/24/20 22:35 Ur Barbiturates Screen Negative 08/24/20 22:35 Ur Phencyclidine Scrn Negative 08/24/20 22:35 Ur Amphetamines Screen Negative 08/24/20 22:35 U Benzodiazepines Scrn Negative 08/24/20 22:35 Urine Cocaine Screen Negative 08/24/20 22:35 U Marijuana (THC) Screen Negative 08/24/20 22:35 Drugs of Abuse Note Disclamer 08/24/20 22:35 Plasma/Serum Alcohol < 0.01 % (0-0.07) 08/24/20 22:24 Coronavirus (PCR) Negative (Negative) 08/25/20 Unknown Blood Type A POSITIVE 08/24/20 22:24 Antibody Screen Negative 08/24/20 22:24 Microbiology: Microbiology 08/26/20 11:45 Bronchial Washings - Right Middle Lobe Respiratory Culture - Final Staphylococcus Aureus 08/25/20 02:39 Peripheral/Venous Blood Culture - Preliminary NO GROWTH AFTER 72 HOURS 08/25/20 01:47 Peripheral/Venous Blood Culture - Preliminary NO GROWTH AFTER 72 HOURS 08/25/20 04:55 Tracheal Aspirate Sputum Culture - Final Sanchez/IV: Voiding Method Indwelling Catheter Active Medications - Current Medications Current Medications: Generic Name Dose Route Start Last Admin Trade Name Freq PRN Reason Stop Dose Admin Acetaminophen 650 mg 08/25/20 00:33 08/26/20 21:00 Acetaminophen 325 Mg Tab PO 650 mg Q4H PRN Administration Pain MILD(1-3)/Fever >100.5/[place] Albuterol 2.5 mg 08/25/20 00:33 Albuterol 2.5 Mg/3 Ml Nebu IH Q4HRT PRN Shortness Of Breath Lipase/Protease/Amylase 1 each 08/25/20 09:40 Lipase 10,500/Protease 25,000/Amylase 43,750 (Units) Dr Flores FEEDTUBE PRN PRN For Clogged Feeding Tube Aspirin 325 mg 08/25/20 10:00 08/28/20 10:25 Aspirin 325 Mg Tab PO 325 mg QDAY TK Administration Atorvastatin Calcium 80 mg 08/25/20 22:00 08/27/20 22:16 Atorvastatin 40 Mg Tab PO 80 mg QHS TK Administration Clopidogrel Bisulfate 75 mg 08/25/20 10:00 08/28/20 10:25 Clopidogrel 75 Mg Tab PO 75 mg QDAY TK Administration Dextrose 50 ml 08/28/20 11:12 Dextrose 50% In Water (25gm) 50 Ml Syringe IV Q30MIN PRN Hypoglycemia Protocol Famotidine 20 mg 08/25/20 10:00 08/28/20 10:25 Famotidine 20 Mg/2 Ml Inj IV 20 mg BID TK Administration Fentanyl 50 mcg 08/27/20 10:30 08/27/20 22:20 Fentanyl 100 Mcg/2 Ml Inj IV 50 mcg Q2H PRN Administration Pain, Mild (1-3) Heparin Sodium (Porcine) 5,000 unit 08/25/20 06:00 08/28/20 14:31 Heparin 5,000 Unit/1 Ml Vial SUB-Q 5,000 unit Q8HR TK Administration Hydralazine HCl 10 mg 08/25/20 00:39 Hydralazine 20 Mg/1 Ml Inj IV Q6H PRN htn Hydrophilic Ointment 1 applic 08/24/20 23:56 Lip Therapy Vaseline TP Q2HR PRN Dry Lips Propofol 1,000 mg in 100 mls @ 2.541 mls/hr 08/24/20 23:45 08/28/20 09:15 Diprivan 10 Mg/Ml IV 0 mcg/kg/min TITR TK 0 mls/hr Titration Protocol 5 MCG/KG/MIN Norepinephrine 4 mg in 250 mls @ 7.5 mls/hr 08/25/20 03:00 08/26/20 21:34 Levophed Drip 4 Mg/Ns 250 Ml IV 0 mcg/min TITR TK 0 mls/hr Titration Protocol 2 MCG/MIN Cefepime HCl 2 gm in 100 mls @ 200 mls/hr 08/26/20 12:00 08/28/20 12:43 Cefepime/Ns 2 Gm/100 Ml IV 09/02/20 11:59 200 mls/hr Q12H TK Administration Protocol Dobutamine HCl/Dextrose 500 mg in 250 mls @ 12.705 mls/hr 08/27/20 13:00 08/27/20 22:17 Dobutrex Drip 500mg/D5w 250ml IV 5 mcg/kg/min DIRECT TK 12.705 mls/hr Administration Protocol 5 MCG/KG/MIN Insulin Human Regular 0 units 08/28/20 12:00 08/28/20 12:43 Insulin Regular, Human 100 Units/1 Ml SUB-Q Not Given Q6H TK Protocol Multi-Ingred Cream/Lotion/Oil/Oint 1 applic 08/24/20 23:56 Mineral Oil/Petrolatum, White Ophth Oint 3.5 Gm OU Q4HR PRN Dry Eye(s) Ondansetron HCl 4 mg 06/02/21 00:33 Ondansetron 4 Mg/2 Ml Inj IV Q8H PRN Nausea And Vomiting Senna/Docusate Sodium 1 tab 08/25/20 10:00 08/28/20 10:25 Sennosides/Docusate Sodium 8.6/50 Mg Tab FEEDTUBE 1 tab BID TK Administration Simple Syrup 15 ml 08/25/20 09:40 Simple Syrup 15 Ml FEEDTUBE PRN PRN Hypoglycemia Simple Syrup 30 ml 08/25/20 09:40 Simple Syrup 15 Ml FEEDTUBE PRN PRN Hypoglycemia Sodium Bicarbonate 325 mg 08/25/20 09:40 Sodium Bicarbonate 325 Mg Tab FEEDTUBE PRN PRN For Clogged Feeding Tube Sodium Chloride 10 ml 08/25/20 10:00 08/28/20 10:26 Sodium Chloride 0.9% 10 Ml Flush Syringe IV 10 ml BID TK Administration Sodium Chloride 10 ml 08/25/20 00:33 08/25/20 10:58 Sodium Chloride 0.9% 10 Ml Flush Syringe IV 10 ml PRN PRN Administration LINE FLUSH Nutrition/Malnutrition Assess - Dietary Evaluation Nutrition/Malnutrition Findings: Nutrition Notes Start: 08/25/20 09:17 Freq: Status: Active Protocol: Document 08/28/20 11:41 CW (Rec: 08/28/20 11:46 CW [id number]) Nutrition Notes Need for Assessment generated from: MD Order Initial or Follow up Brief Note Current Diagnosis Hypertension,Heart Failure, Respiratory Failure,Stroke Other Pertinent Diagnosis pneu Current Diet TF Vital AF at 65ml/hr Labs/Tests Reviewed Height 5 ft 8 in Weight 84.7 kg [place] Body Weight (kg) 70.00 BMI 28.3 Weight Status Overweight Subjective/Other Information MD consult for write/manage TF . Per [employer] it was a default order. No need to adjust TF at this time. TF order has an elevated flush of 200 already to alleviate hypernatremia initiated by [employer] Annemarie Is patient on ventilator? Yes Is Patient Ambulatory and/or Out of Bed No REE-([place]-[facility] Jeor-confined to bed) [phone] Calculation [facility]ations [facility] Additional Notes Protein: (1.2-2g/kg) 102-127g Fluid: 1500-1900ml or per MD Nutrition Intervention Change Diet Order: Continue TF regimen Nutrition Support: Vital AF at 65 ml/hr Flush 200 ml q4h or per MD Kcal 1,872 Protein (gm) 117 Fluid (mL) 1,265 Goal #1 Meet at least 75% of protein and energy needs via TF Anticipated Discharge Needs: Unable to determine at this time Follow-Up By: 08/30/20 Additional Comments F/U for TF tolerance and vent status
--- NOTE | 2020-08-28 11:50 | Progress Note ---
Assessment and Plan 60 y/o male with acute respiratory failure with symptoms of stroke and abnormal CXR 08/28/20: Extubate today. Once extubated can get MRI. Likely transfer to the floor tomorrow, or later today if bed is needed. CCT 31 minutes 1. Continue current level of care 2. Central line placed for Vasopressor therapy 3. Follow up echo report 4. Sedation to maintain safety and ventilator support Guarded prognosis. Subjective Date of service: 08/28/20 Principal diagnosis: CVA Interval history: AWake and alert. Following commands. On PSV and tolerating. ABG this am was good. Washing growing STaph. ID following Objective Vital Signs - 12hr 08/28/20 08/28/20 08/28/20 00:00 00:30 01:00 Temperature Pulse Rate 88 86 81 Pulse Rate [ 82 Right From Monitor] Respiratory 21 23 21 Rate Blood Pressure 164/75 134/71 125/67 O2 Sat by Pulse 99 98 99 Oximetry 08/28/20 08/28/20 08/28/20 01:30 02:00 02:30 Temperature Pulse Rate 92 H 93 H 80 Pulse Rate [ Right From Monitor] Respiratory 22 17 20 Rate Blood Pressure 110/67 109/67 112/58 O2 Sat by Pulse 99 99 99 Oximetry 08/28/20 08/28/20 08/28/20 03:00 03:21 03:30 Temperature 99.4 F Pulse Rate 84 78 Pulse Rate [ Right From Monitor] Respiratory 20 20 Rate Blood Pressure 117/68 117/60 O2 Sat by Pulse 98 99 Oximetry 08/28/20 08/28/20 08/28/20 04:00 04:04 04:30 Temperature Pulse Rate 86 88 86 Pulse Rate [ 80 Right From Monitor] Respiratory 23 23 Rate Blood Pressure 134/67 114/73 133/64 O2 Sat by Pulse 98 100 99 Oximetry 08/28/20 08/28/20 08/28/20 05:00 05:30 06:00 Temperature Pulse Rate 77 80 84 Pulse Rate [ Right From Monitor] Respiratory 21 22 26 H Rate Blood Pressure 111/61 132/68 142/73 O2 Sat by Pulse 98 99 98 Oximetry 08/28/20 08/28/20 08/28/20 06:30 07:00 07:30 Temperature Pulse Rate 79 80 79 Pulse Rate [ Right From Monitor] Respiratory 23 22 23 Rate Blood Pressure 129/75 135/70 133/74 O2 Sat by Pulse 99 99 98 Oximetry 08/28/20 08/28/20 08/28/20 07:59 08:00 08:30 Temperature 99.2 F Pulse Rate 78 77 75 Pulse Rate [ 81 Right From Monitor] Respiratory 21 20 Rate Blood Pressure 116/67 116/67 119/71 O2 Sat by Pulse 100 100 99 Oximetry 08/28/20 08/28/20 08/28/20 09:00 09:25 09:30 Temperature Pulse Rate 82 76 75 Pulse Rate [ Right From Monitor] Respiratory 23 22 Rate Blood Pressure 122/66 113/64 113/64 O2 Sat by Pulse 99 100 98 Oximetry 08/28/20 08/28/20 08/28/20 10:00 10:30 11:00 Temperature Pulse Rate 81 85 79 Pulse Rate [ Right From Monitor] Respiratory 21 22 21 Rate Blood Pressure 132/75 172/88 142/83 O2 Sat by Pulse 100 99 99 Oximetry 08/28/20 11:37 Temperature Pulse Rate Pulse Rate [ 76 Right From Monitor] Respiratory 22 Rate Blood Pressure O2 Sat by Pulse 100 Oximetry Gastrointestinal: normoactive bowel sounds Integumentary: normal CBC and BMP: 08/28/20 04:35 08/28/20 04:35 ABG, PT/INR, D-dimer: ABG ABG pH 7.425 (7.320-7.450) 08/28/20 04:21 POC ABG pCO2 34.7 mmHg (32.0-48.0) 08/28/20 04:21 ABG pCO2 40.7 mm Hg 08/25/20 04:45 POC ABG pO2 138.2 mmHg (83-108) H 08/28/20 04:21 ABG pO2 194.6 mm Hg (80.0-90.0) H 08/25/20 04:45 POC ABG HCO3 22.3 08/28/20 04:21 ABG O2 Saturation 99.1 (0-100) 08/28/20 04:21 PT/INR, D-dimer PT 15.5 Sec. (12.2-14.9) H 08/24/20 22:24 INR 1.05 (0.87-1.13) 08/24/20 22:24 D-Dimer 4955.67 ng/mlDDU (0-234) H 08/26/20 05:15 Abnormal lab findings: Abnormal Labs 08/24/20 08/24/20 08/24/20 22:24 22:24 22:24 WBC Plt Count Lymph % (Auto) 11.1 L [place] % (Auto) Lymph # (Auto) 0.7 L [place] # (Auto) Seg Neutrophils % 82.5 H Seg Neutrophils # PT 15.5 H D-Dimer ABG pH POC ABG pCO2 POC ABG pO2 ABG pO2 ABG O2 Saturation ABG Base Excess ABG Oxyhemoglobin ABG Sodium ABG Chloride ABG Glucose Oxyhemoglobin Sodium 130 L Chloride 97.5 L Glucose 170 H POC Glucose Calcium Total Creatine Kinase 250 H Troponin T NT-Pro-B Natriuret Pep LDL Cholesterol Direct Arterial Blood Glucose Arterial Blood Ionized Calcium 08/24/20 08/25/20 08/25/20 22:24 01:01 01:47 WBC Plt Count Lymph % (Auto) [place] % (Auto) Lymph # (Auto) [place] # (Auto) Seg Neutrophils % Seg Neutrophils # PT D-Dimer ABG pH 7.285 L POC ABG pCO2 POC ABG pO2 ABG pO2 99.5 H ABG O2 Saturation ABG Base Excess -4.2 L ABG Oxyhemoglobin ABG Sodium ABG Chloride ABG Glucose Oxyhemoglobin 94.9 L Sodium Chloride Glucose POC Glucose Calcium Total Creatine Kinase Troponin T NT-Pro-B Natriuret Pep 2769 H LDL Cholesterol Direct 141 H Arterial Blood Glucose Arterial Blood Ionized Calcium 08/25/20 08/25/20 08/25/20 04:45 11:45 17:20 WBC Plt Count Lymph % (Auto) [place] % (Auto) Lymph # (Auto) [place] # (Auto) Seg Neutrophils % Seg Neutrophils # PT D-Dimer ABG pH POC ABG pCO2 POC ABG pO2 ABG pO2 194.6 H ABG O2 Saturation 99.2 H ABG Base Excess ABG Oxyhemoglobin ABG Sodium ABG Chloride ABG Glucose Oxyhemoglobin Sodium Chloride Glucose POC Glucose 136 H 117 H Calcium Total Creatine Kinase Troponin T NT-Pro-B Natriuret Pep LDL Cholesterol Direct Arterial Blood Glucose Arterial Blood Ionized Calcium 08/26/20 08/26/20 08/26/20 05:00 05:15 05:15 WBC 11.3 H Plt Count 112 L Lymph % (Auto) 4.2 L [place] % (Auto) 9.2 H Lymph # (Auto) 0.5 L [place] # (Auto) 1.0 H Seg Neutrophils % 85.9 H Seg Neutrophils # 9.7 H PT D-Dimer ABG pH 7.495 H POC ABG pCO2 POC ABG pO2 194.0 H ABG pO2 ABG O2 Saturation ABG Base Excess ABG Oxyhemoglobin 98.6 H ABG Sodium ABG Chloride 109.0 H ABG Glucose 125 H Oxyhemoglobin Sodium Chloride Glucose 120 H POC Glucose Calcium 8.2 L Total Creatine Kinase Troponin T 0.032 H D NT-Pro-B Natriuret Pep LDL Cholesterol Direct Arterial Blood Glucose 125 H Arterial Blood Ionized Calcium 4.5 L 08/26/20 08/26/20 08/26/20 05:15 11:40 23:28 WBC Plt Count Lymph % (Auto) [place] % (Auto) Lymph # (Auto) [place] # (Auto) Seg Neutrophils % Seg Neutrophils # PT D-Dimer 4955.67 H ABG pH POC ABG pCO2 POC ABG pO2 ABG pO2 ABG O2 Saturation ABG Base Excess ABG Oxyhemoglobin ABG Sodium ABG Chloride ABG Glucose Oxyhemoglobin Sodium Chloride Glucose POC Glucose 116 H 131 H Calcium Total Creatine Kinase Troponin T NT-Pro-B Natriuret Pep LDL Cholesterol Direct Arterial Blood Glucose Arterial Blood Ionized Calcium 08/27/20 08/27/20 08/27/20 04:22 04:50 04:50 WBC Plt Count 103 L Lymph % (Auto) [place] % (Auto) Lymph # (Auto) [place] # (Auto) Seg Neutrophils % Seg Neutrophils # PT D-Dimer ABG pH 7.500 H POC ABG pCO2 27.7 L POC ABG pO2 163.1 H ABG pO2 ABG O2 Saturation ABG Base Excess ABG Oxyhemoglobin 98.2 H ABG Sodium ABG Chloride 109.0 H ABG Glucose 116 H Oxyhemoglobin Sodium 147 H Chloride 109.7 H Glucose 112 H POC Glucose Calcium 8.3 L Total Creatine Kinase Troponin T NT-Pro-B Natriuret Pep LDL Cholesterol Direct Arterial Blood Glucose 116 H Arterial Blood Ionized Calcium 08/27/20 08/27/20 08/27/20 05:29 11:21 11:24 WBC Plt Count Lymph % (Auto) [place] % (Auto) Lymph # (Auto) [place] # (Auto) Seg Neutrophils % Seg Neutrophils # PT D-Dimer ABG pH POC ABG pCO2 POC ABG pO2 146.6 H ABG pO2 ABG O2 Saturation ABG Base Excess ABG Oxyhemoglobin ABG Sodium ABG Chloride 112.0 H ABG Glucose 127 H Oxyhemoglobin Sodium Chloride Glucose POC Glucose 107 H 117 H Calcium Total Creatine Kinase Troponin T NT-Pro-B Natriuret Pep LDL Cholesterol Direct Arterial Blood Glucose 127 H Arterial Blood Ionized Calcium 08/27/20 08/27/20 08/28/20 16:55 23:18 04:21 WBC Plt Count Lymph % (Auto) [place] % (Auto) Lymph # (Auto) [place] # (Auto) Seg Neutrophils % Seg Neutrophils # PT D-Dimer ABG pH POC ABG pCO2 POC ABG pO2 138.2 H ABG pO2 ABG O2 Saturation ABG Base Excess ABG Oxyhemoglobin ABG Sodium 146.2 H ABG Chloride 114.0 H ABG Glucose 138 H Oxyhemoglobin Sodium Chloride Glucose POC Glucose 117 H 132 H Calcium Total Creatine Kinase Troponin T NT-Pro-B Natriuret Pep LDL Cholesterol Direct Arterial Blood Glucose 138 H Arterial Blood Ionized Calcium 08/28/20 08/28/20 08/28/20 04:35 04:35 05:16 WBC Plt Count 114 L Lymph % (Auto) [place] % (Auto) Lymph # (Auto) [place] # (Auto) Seg Neutrophils % Seg Neutrophils # PT D-Dimer ABG pH POC ABG pCO2 POC ABG pO2 ABG pO2 ABG O2 Saturation ABG Base Excess ABG Oxyhemoglobin ABG Sodium ABG Chloride ABG Glucose Oxyhemoglobin Sodium 149 H Chloride 113.6 H Glucose 138 H POC Glucose 135 H Calcium 8.3 L Total Creatine Kinase Troponin T NT-Pro-B Natriuret Pep LDL Cholesterol Direct Arterial Blood Glucose Arterial Blood Ionized Calcium 08/28/20 11:19 WBC Plt Count Lymph % (Auto) [place] % (Auto) Lymph # (Auto) [place] # (Auto) Seg Neutrophils % Seg Neutrophils # PT D-Dimer ABG pH POC ABG pCO2 POC ABG pO2 ABG pO2 ABG O2 Saturation ABG Base Excess ABG Oxyhemoglobin ABG Sodium ABG Chloride ABG Glucose Oxyhemoglobin Sodium Chloride Glucose POC Glucose 137 H Calcium Total Creatine Kinase Troponin T NT-Pro-B Natriuret Pep LDL Cholesterol Direct Arterial Blood Glucose Arterial Blood Ionized Calcium Allied health notes reviewed: nursing
[2020-08-28] MEDS: CEFEPIME/NS 2 GM/100 ML 2 GM/100 ML BAG IV SCH ×3 (12:23→23:28)
[2020-08-28] MEDS: INSULIN REGULAR, HUMAN 100 UNITS/1 ML SUB-Q SCH (12:43)
[2020-08-28] MEDS ORDERED: DOBUTamine/D5W 500 MG/250 ML 500 MG/250 ML BAG IV SCH (17:31)
--- NOTE | 2020-08-28 17:36 | Progress Note ---
Assessment and Plan Decrease IV dobutamine gtt to 2.5 mcg/kg/min. Plan to trial off inotrope therapy and start a low-dose beta olga in the AM. Continue other present mgmt per Primary teams. Pt seen in conjunction with Dr. Joshi, who agrees with the assessment and plan of care. - Patient Problems (1) CVA (cerebral vascular accident) Current Visit: Yes Status: Suspected Qualifiers: CVA mechanism: unspecified Qualified Code(s): I63.9 - Cerebral infarction, unspecified (2) Acute respiratory failure Current Visit: Yes Status: Acute Qualifiers: Qualified Code(s): J96.00 - Acute respiratory failure, unspecified whether with hypoxia or hypercapnia (3) Sepsis Current Visit: Yes Status: Acute (4) PNA (pneumonia) Current Visit: Yes Status: Acute (5) Acute on chronic HFrEF (heart failure with reduced ejection fraction) Current Visit: Yes Status: Acute (6) Dilated cardiomyopathy Current Visit: Yes Status: Acute (7) NSVT (nonsustained ventricular tachycardia) Current Visit: Yes Status: Acute (8) Hypotension Current Visit: Yes Status: Resolved (9) Hypertension Current Visit: Yes Status: Chronic Qualifiers: Hypertension type: essential hypertension Qualified Code(s): I10 - Essential (primary) hypertension (10) Diabetes mellitus Current Visit: Yes Status: Chronic Subjective Date of service: 08/28/20 Principal diagnosis: CVA Interval history: Extubated successfully today. Interacting upon assessment but aphasic. Unable to utilize R hand. Son present at bedside. Tele reviewed - SR 80s w/frequent PVCs. Objective Last Vital Signs Temp 98.2 F 08/28/20 16:00 Pulse 85 08/28/20 17:00 Resp 18 08/28/20 17:00 BP 149/119 08/28/20 17:00 Pulse Ox 97 08/28/20 17:00 - Physical Examination General: No Apparent Distress HEENT: Positive: Normocephaly Neck: Positive: neck supple, trachea midline. Negative: JVD/HJR Cardiac: Positive: Reg Rate and Rhythm, S1/S2 Lungs: Positive: Decreased Breath Sounds (bilaterally) Neuro: Positive: Weakness (R hand) Abdomen: Positive: Soft. Negative: Tender Skin: Negative: Rash Musculoskeletal: No Fluid Collection Extremities: Present: lower extr. pulses, edema, warm - Labs and Meds CBC 08/28/20 Range/Units 04:35 WBC 9.0 (4.5-11.0) K/mm3 RBC 3.87 (3.65-5.03) M/mm3 Hgb 12.0 (11.8-15.2) gm/dl Hct 36.5 (35.5-45.6) % Plt Count 114 L (140-440) K/mm3 Comprehensive Metabolic Panel 08/28/20 Range/Units 04:35 Sodium 149 H (137-145) mmol/L Potassium 3.7 (3.6-5.0) mmol/L Chloride 113.6 H (98-107) mmol/L Carbon Dioxide 28 (22-30) mmol/L BUN 17 (9-20) mg/dL Creatinine 0.8 (0.8-1.3) mg/dL Glucose 138 H (75-100) mg/dL Calcium 8.3 L (8.4-10.2) mg/dL - Imaging and Cardiology EKG: report reviewed, image reviewed Echo: report reviewed (08/25/2020 - LV mod dilated, EF 20-25%, RV mod-severely dilated, RV mod hypokinetic, LA mildly dilated, negative Bubble study, no LV thrombus) - Telemetry EKG Rhythm: Sinus Rhythm - EKG Sinus rhythms and dysrhythmias: sinus tachycardia Ventricular dysrhythmias: ventricular premature com Chamber hypertrophy or enlargement: left atrial enlargement, right atrial enlargment, left ventricular hypertro Repolarization changes or abnormalities: nonspecific abnormality, ST segment, and/or T wave - Allied health notes Allied health notes reviewed: nursing
--- NOTE | 2020-08-28 18:45 | Cat Scan Report ---
CT HEAD WITHOUT CONTRAST INDICATION / CLINICAL INFORMATION: CVA. TECHNIQUE: All CT scans at this location are performed using CT dose reduction for ALARA by means of automated e xposure control. COMPARISON: Head CT 08/24/2020 FINDINGS: HEMORRHAGE: No evidence of intracranial hemorrhage or extra-axial fluid collection. EXTRA-AXIAL SPACES: Cortical sulci, sylvian fissures and basilar cisterns have an unremarkable appear ance. VENTRICULAR SYSTEM: The third and lateral ventricles are of normal size and configuration. CEREBRAL PARENCHYMA: There has been interval development of an area of decreased brain parenchymal at tenuation involving the left frontal lobe. This is located anterior to the expected location of the p recentral gyrus. This represents an area of acute left middle cerebral artery infarction. MIDLINE SHIFT OR HERNIATION: There is no mass effect. CEREBELLUM / BRAINSTEM: Brainstem and cerebellum have an unremarkable appearance. MIDLINE STRUCTURES:No abnormalities of the pituitary gland or pineal region are identified. INTRACRANIAL VESSELS:No abnormalities are identified on this noncontrast head CT. ORBITS: visualized portions of the orbits have an unremarkable appearance. SOFT TISSUES of HEAD: No significant abnormality. CALVARIUM: Evaluation of bone windows reveals no abnormalities. PARANASAL SINUSES / MASTOID AIR CELLS: Visualized portions of the paranasal sinuses are free from inf lammatory mucosal disease. Mastoid air cells are normally pneumatized. Additional findings: Note is made of extensive ossification of the falx. IMPRESSION: 1. There has been interval development of CT evidence of an acute left middle cerebral artery infarct ion involving left frontal lobe as described above. Signer Name: Catrachito Fisher MD Signed: 08/28/2020 6:40 PM Workstation Name: [email or web address]
[2020-08-29] MEDS ORDERED: FUROSEMIDE 40 MG/4 ML INJ IV SCH ×2 (06:00→18:00)
[2020-08-29] MEDS: HEPARIN 5,000 UNIT/1 ML VIAL SUB-Q SCH ×3 (06:56→21:05)
[2020-08-29 07:46] LABS: Hematocrit 37.7 % (35.5-45.6); Hemoglobin 12.3 gm/dl (11.8-15.2); Mean Corpuscular HGB Conc 33 % (32-34); Mean Corpuscular Volume 94 fl (84-94); Platelet Count 128 K/mm3 (140-440); Red Blood Count 4.02 M/mm3 (3.65-5.03); Red Cell Distribution Width 14.8 % (13.2-15.2)
[2020-08-29 07:53] LABS: BUN/Creatinine Ratio 19; Blood Urea Nitrogen 17 mg/dL (9-20); Calcium 9.3 mg/dL (8.4-10.2); Hemolysis Index 2
[2020-08-29] MEDS: INSULIN REGULAR, HUMAN 100 UNITS/1 ML SUB-Q SCH ×5 (08:34→23:48)
[2020-08-29] MEDS ORDERED: DEXTROSE 5% IN WATER 1,000 ML IV SCH (09:00)
[2020-08-29] MEDS: METOPROLOL TARTRATE 25 MG TAB PO SCH ×3 (10:01→21:04)
--- NOTE | 2020-08-29 10:35 | XRay Report ---
ABDOMEN 1 VIEW(S) 08/29/2020 9:58 AM INDICATION: NG tube Placement. COMPARISON: Prior chest radiograph 08/28/2020 FINDINGS: The tip of the nasogastric tube projects over the gastric lumen in appropriate position. Gas-filled a nd distended small bowel loops are noted throughout the abdomen. Signer Name: Mukul Maradiaga MD Signed: 08/29/2020 10:30 AM Workstation Name: [id number]
--- NOTE | 2020-08-29 10:46 | Progress Note ---
<KEZIA SALASShruthi - Last Filed: 08/29/20 11:19> Assessment and Plan Assessment and plan: This is 60-year-old male with HTN and CHF who was admitted for rule out CVA, acute respiratory failure, acute on chronic heart failure and is currently hypotensive. Patient was admitted COVID-19 PUI which has been ruled out Acute Right MCA Acute hypoxic respiratory failure Acute on chronic heart failure Staph aureus bronchial culture Hypernatremia Thrombocytopenia Hyperchloremia COVID-19 ruled out h/o Hypertension -CCM, cardiology and neurology consulted, appreciate recommendations -S/p vasopressor support with Levophed -Statin, aspirin, Plavix -Medical records requested from [place] -IV abx -TF, SSI, accucheck q6 -s/p dobutamine gtt, on BB now -08/24 CT head shows no acute intracranial abnormality, age-related cerebral atr ophy, chronic small vessel ischemic changes in white matter, no evidence of recent infarct or mass-effect or midline shift -08/24 CTA neck with contrast shows no significant abnormality -08/24 CTA head with contrast shows no significant abnormality -08/24 echocardiogram shows mildly dilated left ventricle, definitely systolic function severely decreased, severe global hypokinesis of the left ventricle, right ventricle moderate to severely dilated, left atrium mildly dilated, right atrium mildly dilated without evidence of atrial septal defect, trace MR, RVSP is 48 mmHg, mild TR, trace NH, mild pulmonary hypertension, no pericardial effusion or pleural effusion noted, Mild diastolic dysfunction, no ventricular septal defect, no left ventricular thrombus noted, LVEF 20 to 25% -08/25 MRI brain pending -08/25 MRA/MRV head pending -08/26 CTA chest shows no evidence of pulmonary embolism, bilateral bronc hopneumonia most pronounced within both lower lobes -08/26 BLE Doppler US shows no DVT/SVT -08/26 s/p bronch with culture completed; Staphylococcus aureus -08/28 CT head shows acute right MCA infarct -ST/PT/OT eval -Trend CBC, BMP DVT/GI prophylaxis: SCDs to bilateral lower extremities while in bed, heparin subcu, PPI Disposition: transfer to the floor The high probability of a clinically significant, sudden or life threatening deterioration of the [multi] system(s) required my full and direct attention, intervention and personal management. The aggregate critical care time was [35] minutes. This time is in addition to time spent performing reported procedures but includes the following: [x] Data Review and interpretation [x] Patient assessment and monitoring of vital signs [x] Documentation [x] Medication orders and management History Interval history: This is a 60-year-old male with hypertension and CHF who presented to emergency department on 08/25 with difficulty in speech which began around 5 PM and became progressively worse, unsteady gait and right-sided facial droop. Recommend emergency department included a CT head and after returning from imaging patient had increased work of breath, shortness of breath and desaturation to 90% SPO2 on room air. Patient was placed on supplemental oxygen via nasal cannula without improvement and progressed to nonrebreather to BiPAP. However the patient was still tachypneic to 50 to 60 breaths/min and was subsequently intubated. Patient was admitted to the hospital service with possible CVA, acute hypoxic respiratory failure, and congestive heart failure. [facility], cardiology and neurology were consulted. 08/25: Patient is echocardiogram, MRI brain and MRA head pending. The time of exa mination patient was sedated on propofol and on assist control tidal volume 450, rate of 26, PEEP of 10 and 100% FiO2. Patient was started on Levophed drip for persistent hypotension. CVL was eventually placed. 08/26: MRI brain pending, echocardiogram shows reduced ejection fraction, continued use of vasopressin. Patient was bronched today by [facility] empiric antibiotic therapy with cefepime was started. Dr. Gonzalez and I updated son at bedside today. CTA pending 08/27: Patient was started on dobutamine drip per cardiology yesterday evening and he has been weaned off of Levophed. [facility] culture resulted with Staph aureus. Infectious disease is aware. Patient is currently on cefepime. Cardiology increased dobutamine drip to 5 mcg. Son updated at bedside with Dr. Gonzalez. The time my examination patient was on CMV tidal volume 450, rate 12, PEEP 8 on 35% FiO2. [facility] ordered as needed fentanyl every 2 hours. Patient is currently on propofol. 08/28: At the time my examination patient is sedated on propofol and has dobutamine drip infusing which was increased yesterday. He is on CMV tidal volume 450, rate of 20, PEEP of 6 and FiO2 35%. Patient is following commands. Patient's hypernatremia and hyperchloremia slightly worsened. Neurology will obtain repeat CT head since MRI is not able to be completed at this time. RN asked to remove Sanchez in place condom cath. SSI ordered 08/29: This morning patient is on NC, failed his bedside swallow eval and ST eval was ordered. RN replaced NGT. FWF increased. His hypernatremia and hyperchloremia worsened. Patient will be transferred to the floor. CT head confirmed acute left MCA CVA. Hospitalist Physical - Constitutional Vitals: Temp Pulse Resp BP Pulse Ox 98.8 F 84 16 145/87 96 08/29/20 08:00 08/29/20 10:00 08/29/20 10:00 08/29/20 10:00 08/29/20 10:00 General appearance: Present: no acute distress - EENT Eyes: Present: PERRL, EOM intact ENT: dentition normal - Neck Neck: Present: normal ROM - Respiratory Respiratory effort: normal Respiratory: bilateral: CTA - Cardiovascular Rhythm: regular Heart Sounds: Present: S1 & S2. Absent: systolic murmur, diastolic murmur - Extremities Extremities: no ischemia, pulses intact, pulses symmetrical, No edema, normal temperature, normal color Peripheral Pulses: within normal limits - Abdominal General gastrointestinal: soft, non-tender, non-distended, normal bowel sounds - Integumentary Integumentary: Present: clear, warm, dry - Psychiatric Psychiatric: appropriate mood/affect, cooperative - Neurologic Neurologic: moves all extremities (Right>left in strength, NIHSS), other (right sided facial droop, expressive aphasia ) - Allied Health Allied health notes reviewed: nursing, PT, OT, RT, social work HEART Score - HEART Score Troponin: Troponin T 0.032 ng/mL (0.00-0.029) H D 08/26/20 05:15 Results - Labs CBC & Chem 7: 08/29/20 07:15 08/29/20 07:15 Labs: Laboratory Last Values WBC 6.8 K/mm3 (4.5-11.0) 08/29/20 07:15 RBC 4.02 M/mm3 (3.65-5.03) 08/29/20 07:15 Hgb 12.3 gm/dl (11.8-15.2) 08/29/20 07:15 Hct 37.7 % (35.5-45.6) 08/29/20 07:15 MCV 94 fl (84-94) 08/29/20 07:15 MCH 31 pg (28-32) 08/29/20 07:15 MCHC 33 % (32-34) 08/29/20 07:15 RDW 14.8 % (13.2-15.2) 08/29/20 07:15 Plt Count 128 K/mm3 (140-440) L 08/29/20 07:15 Lymph % (Auto) 4.2 % (13.4-35.0) L 08/26/20 05:15 [place] % (Auto) 9.2 % (0.0-7.3) H 08/26/20 05:15 Eos % (Auto) 0.2 % (0.0-4.3) 08/26/20 05:15 Baso % (Auto) 0.5 % (0.0-1.8) 08/26/20 05:15 Lymph # (Auto) 0.5 K/mm3 (1.2-5.4) L 08/26/20 05:15 [place] # (Auto) 1.0 K/mm3 (0.0-0.8) H 08/26/20 05:15 Eos # (Auto) 0.0 K/mm3 (0.0-0.4) 08/26/20 05:15 Baso # (Auto) 0.1 K/mm3 (0.0-0.1) 08/26/20 05:15 Seg Neutrophils % 85.9 % (40.0-70.0) H 08/26/20 05:15 Seg Neutrophils # 9.7 K/mm3 (1.8-7.7) H 08/26/20 05:15 PT 15.5 Sec. (12.2-14.9) H 08/24/20 22:24 INR 1.05 (0.87-1.13) 08/24/20 22:24 APTT 29.9 Sec. (24.2-36.6) 08/24/20 22:24 Thrombin Time 18.7 Sec. (15.1-19.6) 08/24/20 22:24 D-Dimer 4955.67 ng/mlDDU (0-234) H 08/26/20 05:15 ABG pH 7.425 (7.320-7.450) 08/28/20 04:21 POC ABG pCO2 34.7 mmHg (32.0-48.0) 08/28/20 04:21 ABG pCO2 40.7 mm Hg 08/25/20 04:45 POC ABG pO2 138.2 mmHg (83-108) H 08/28/20 04:21 ABG pO2 194.6 mm Hg (80.0-90.0) H 08/25/20 04:45 POC ABG HCO3 22.3 08/28/20 04:21 ABG HCO3 23.3 mmol/L (20.0-26.0) 08/25/20 04:45 ABG O2 Saturation 99.1 (0-100) 08/28/20 04:21 ABG O2 Content 19.9 (0.0-44) 08/25/20 04:45 POC ABG Base Excess -1.5 08/28/20 04:21 ABG Base Excess -1.8 mmol/L (-2.0-3.0) 08/25/20 04:45 ABG Hemoglobin 13.3 (12.0-17.5) 08/28/20 04:21 ABG Oxyhemoglobin 97.6 (94-98) 08/28/20 04:21 ABG Carboxyhemoglobin 1.6 % (0.0-5.0) 08/25/20 04:45 ABG Methemoglobin 0 (0.0-1.5) 08/28/20 04:21 ABG Sodium 146.2 mmol/L (136.0-145.0) H 08/28/20 04:21 ABG Potassium 3.6 mmol/L (3.40-4.50) 08/28/20 04:21 ABG Chloride 114.0 mmol/L (98-107) H 08/28/20 04:21 ABG Glucose 138 mg/dL (65-95) H 08/28/20 04:21 Oxyhemoglobin 97.2 % (95.0-99.0) 08/25/20 04:45 Carboxyhemoglobin 1.5 (0.5-1.5) 08/28/20 04:21 FiO2 100 % 08/25/20 04:45 FiO2 % 35.0 08/28/20 04:21 Sodium 154 mmol/L (137-145) H 08/29/20 07:15 Potassium 3.9 mmol/L (3.6-5.0) 08/29/20 07:15 Chloride 116.2 mmol/L (98-107) H 08/29/20 07:15 Carbon Dioxide 29 mmol/L (22-30) 08/29/20 07:15 Anion Gap 13 mmol/L 08/29/20 07:15 BUN 17 mg/dL (9-20) 08/29/20 07:15 Creatinine 0.9 mg/dL (0.8-1.3) 08/29/20 07:15 Estimated GFR > 60 ml/min 08/29/20 07:15 BUN/Creatinine Ratio 19 % 08/29/20 07:15 Glucose 94 mg/dL (75-100) 08/29/20 07:15 POC Glucose 86 mg/dL (70-105) 08/29/20 05:30 Calcium 9.3 mg/dL (8.4-10.2) 08/29/20 07:15 Total Bilirubin 0.90 mg/dL (0.1-1.2) 08/24/20 22:24 AST 31 units/L (5-40) 08/24/20 22:24 ALT 46 units/L (7-56) 08/24/20 22:24 Alkaline Phosphatase 111 units/L (35-129) 08/24/20 22:24 Total Creatine Kinase 250 units/L (55-170) H 08/24/20 22:24 CK-MB (CK-2) 3.6 ng/mL (0.0-4.0) 08/24/20 22:24 CK-MB (CK-2) Rel Index 1.4 (0-4) 08/24/20 22:24 Troponin T 0.032 ng/mL (0.00-0.029) H D 08/26/20 05:15 NT-Pro-B Natriuret Pep 2769 pg/mL (0-900) H 08/24/20 22:24 Total Protein 7.2 g/dL (6.3-8.2) 08/24/20 22:24 Albumin 3.9 g/dL (3.9-5) 08/24/20 22:24 Albumin/Globulin Ratio 1.2 % 08/24/20 22:24 Triglycerides 67 mg/dL (2-149) 08/25/20 01:47 Cholesterol 184 mg/dL (50-199) 08/25/20 01:47 LDL Cholesterol Direct 141 mg/dL (50-130) H 08/25/20 01:47 HDL Cholesterol 44 mg/dL (40-59) 08/25/20 01:47 Cholesterol/HDL Ratio 4.18 % 08/25/20 01:47 Procalcitonin 5.41 ng/mL (<0.15) 08/28/20 04:35 TSH 3.150 mlU/mL (0.270-4.200) 08/24/20 22:24 Arterial Blood Glucose 138 mg/dL (65-95) H 08/28/20 04:21 Arterial Blood Ionized Calcium 4.7 mg/dL (4.6-5.3) 08/28/20 04:21 Urine Color Yellow (Yellow) 08/24/20 22:35 Urine Turbidity Clear (Clear) 08/24/20 22:35 Urine pH 7.0 (5.0-7.0) 08/24/20 22:35 Ur Specific [place] 1.005 (1.003-1.030) 08/24/20 22:35 Urine Protein 100 mg/dl mg/dL (Negative) 08/24/20 22:35 Urine Glucose (UA) >=500 mg/dL (Negative) 08/24/20 22:35 Urine Ketones Neg mg/dL (Negative) 08/24/20 22:35 Urine Blood Neg (Negative) 08/24/20 22:35 Urine Nitrite Neg (Negative) 08/24/20 22:35 Urine Bilirubin Neg (Negative) 08/24/20 22:35 Urine Urobilinogen < 2.0 mg/dL (<2.0) 08/24/20 22:35 Ur Leukocyte Esterase Neg (Negative) 08/24/20 22:35 Urine WBC (Auto) 1.0 /HPF (0.0-6.0) 08/24/20 22:35 Urine RBC (Auto) 2.0 /HPF (0.0-6.0) 08/24/20 22:35 Urine Mucus Few /HPF 08/24/20 22:35 Nasal Screen MRSA (PCR) Negative (Negative) 08/25/20 Unknown Urine Opiates Screen Negative 08/24/20 22:35 Urine Methadone Screen Negative 08/24/20 22:35 Ur Barbiturates Screen Negative 08/24/20 22:35 Ur Phencyclidine Scrn Negative 08/24/20 22:35 Ur Amphetamines Screen Negative 08/24/20 22:35 U Benzodiazepines Scrn Negative 08/24/20 22:35 Urine Cocaine Screen Negative 08/24/20 22:35 U Marijuana (THC) Screen Negative 08/24/20 22:35 Drugs of Abuse Note Disclamer 08/24/20 22:35 Plasma/Serum Alcohol < 0.01 % (0-0.07) 08/24/20 22:24 Coronavirus (PCR) Negative (Negative) 08/25/20 Unknown Blood Type A POSITIVE 08/24/20 22:24 Antibody Screen Negative 08/24/20 22:24 Microbiology: Microbiology 08/25/20 02:39 Peripheral/Venous Blood Culture - Preliminary NO GROWTH AFTER 4 DAYS 08/25/20 01:47 Peripheral/Venous Blood Culture - Preliminary NO GROWTH AFTER 4 DAYS 08/26/20 11:45 Bronchial Washings - Right Middle Lobe Respiratory Culture - Final Staphylococcus Aureus Sanchez/IV: Voiding Method Condom Catheter Active Medications - Current Medications Current Medications: Generic Name Dose Route Start Last Admin Trade Name Freq PRN Reason Stop Dose Admin Acetaminophen 650 mg 08/25/20 00:33 08/26/20 21:00 Acetaminophen 325 Mg Tab PO 650 mg Q4H PRN Administration Pain MILD(1-3)/Fever >100.5/[place] Albuterol 2.5 mg 08/25/20 00:33 Albuterol 2.5 Mg/3 Ml Nebu IH Q4HRT PRN Shortness Of Breath Lipase/Protease/Amylase 1 each 08/25/20 09:40 Lipase 10,500/Protease 25,000/Amylase 43,750 (Units) Dr Flores FEEDTUBE PRN PRN For Clogged Feeding Tube Aspirin 325 mg 08/25/20 10:00 08/28/20 10:25 Aspirin 325 Mg Tab PO 325 mg QDAY TK Administration Atorvastatin Calcium 80 mg 08/25/20 22:00 08/28/20 23:27 Atorvastatin 40 Mg Tab PO Not Given QHS TK Clopidogrel Bisulfate 75 mg 08/25/20 10:00 08/28/20 10:25 Clopidogrel 75 Mg Tab PO 75 mg QDAY TK Administration Dextrose 50 ml 08/28/20 11:12 Dextrose 50% In Water (25gm) 50 Ml Syringe IV Q30MIN PRN Hypoglycemia Protocol Famotidine 20 mg 08/25/20 10:00 08/28/20 21:47 Famotidine 20 Mg/2 Ml Inj IV 20 mg BID TK Administration Fentanyl 50 mcg 08/27/20 10:30 08/27/20 22:20 Fentanyl 100 Mcg/2 Ml Inj IV 50 mcg Q2H PRN Administration Pain, Mild (1-3) Furosemide 40 mg 08/29/20 06:00 08/29/20 06:56 Furosemide 40 Mg/4 Ml Inj IV 40 mg DAILY@0600 TK Administration Heparin Sodium (Porcine) 5,000 unit 08/25/20 06:00 08/29/20 06:56 Heparin 5,000 Unit/1 Ml Vial SUB-Q 5,000 unit Q8HR TK Administration Hydralazine HCl 10 mg 08/25/20 00:39 Hydralazine 20 Mg/1 Ml Inj IV Q6H PRN htn Hydrophilic Ointment 1 applic 08/24/20 23:56 Lip Therapy Vaseline TP Q2HR PRN Dry Lips Propofol 1,000 mg in 100 mls @ 2.541 mls/hr 08/24/20 23:45 08/28/20 16:14 Diprivan 10 Mg/Ml IV 0 mcg/kg/min TITR TK 0 mls/hr Titration Protocol 5 MCG/KG/MIN Norepinephrine 4 mg in 250 mls @ 7.5 mls/hr 08/25/20 03:00 08/26/20 21:34 Levophed Drip 4 Mg/Ns 250 Ml IV 0 mcg/min TITR TK 0 mls/hr Titration Protocol 2 MCG/MIN Cefepime HCl 2 gm in 100 mls @ 200 mls/hr 08/26/20 12:00 08/28/20 23:28 Cefepime/Ns 2 Gm/100 Ml IV 09/02/20 11:59 200 mls/hr Q12H TK Administration Protocol Insulin Human Regular 0 units 08/28/20 12:00 08/29/20 08:35 Insulin Regular, Human 100 Units/1 Ml SUB-Q Not Given Q6H [facility] Protocol Metoprolol Tartrate 12.5 mg 08/29/20 08:00 08/29/20 10:01 Metoprolol Tartrate 25 Mg Tab PO Not Given BID TK Multi-Ingred Cream/Lotion/Oil/Oint 1 applic 08/24/20 23:56 Mineral Oil/Petrolatum, White Ophth Oint 3.5 Gm OU Q4HR PRN Dry Eye(s) Ondansetron HCl 4 mg 08/25/20 00:33 Ondansetron 4 Mg/2 Ml Inj IV Q8H PRN Nausea And Vomiting Senna/Docusate Sodium 1 tab 08/25/20 10:00 08/28/20 23:27 Sennosides/Docusate Sodium 8.6/50 Mg Tab FEEDTUBE Not Given BID TK Simple Syrup 15 ml 08/25/20 09:40 Simple Syrup 15 Ml FEEDTUBE PRN PRN Hypoglycemia Simple Syrup 30 ml 08/25/20 09:40 Simple Syrup 15 Ml FEEDTUBE PRN PRN Hypoglycemia Sodium Bicarbonate 325 mg 08/25/20 09:40 Sodium Bicarbonate 325 Mg Tab FEEDTUBE PRN PRN For Clogged Feeding Tube Sodium Chloride 10 ml 08/25/20 10:00 08/29/20 08:35 Sodium Chloride 0.9% 10 Ml Flush Syringe IV Not Given BID TK Sodium Chloride 10 ml 08/25/20 00:33 08/25/20 10:58 Sodium Chloride 0.9% 10 Ml Flush Syringe IV 10 ml PRN PRN Administration LINE FLUSH Nutrition/Malnutrition Assess - Dietary Evaluation Nutrition/Malnutrition Findings: Nutrition Notes Start: 08/25/20 09 :17 Freq: Status: Active Protocol: Document 08/28/20 11:41 CW (Rec: 08/28/20 11:46 CW [id number]) Nutrition Notes Need for Assessment generated from: MD Order Initial or Follow up Brief Note Current Diagnosis Hypertension,Heart Failure, Respiratory Failure,Stroke Other Pertinent Diagnosis pneu Current Diet TF Vital AF at 65ml/hr Labs/Tests Reviewed Height 5 ft 8 in Weight 84.7 kg [place] Body Weight (kg) 70.00 BMI 28.3 Weight Status Overweight Subjective/Other Information MD consult for write/manage TF . Per [employer] it was a default order. No need to adjust TF at this time. TF order has an elevated flush of 200 already to alleviate hypernatremia initiated by [employer] Azad Is patient on ventilator? Yes Is Patient Ambulatory and/or Out of Bed No REE-([place]-confined to bed) [phone] Calculation Used for [facility]ations [facility] Additional Notes Protein: (1.2-2g/kg) 102-127g Fluid: 1500-1900ml or per Nutrition Intervention Change Diet Order: Continue TF regimen Nutrition Support: Vital AF at 65 ml/hr Flush 200 ml q4h or per MD Kcal 1,872 Protein (gm) 117 Fluid (mL) 1,265 Goal #1 Meet at least 75% of protein and energy needs via TF Anticipated Discharge Needs: Unable to determine at this time Follow-Up By: 08/30/20 Additional Comments F/U for TF tolerance and vent status <LUCRETIA GONZALEZ - Last Filed: 09/01/20 19:20> Assessment and Plan Assessment and plan: I saw and evaluated the patient. I agree with the findings and the plan of care as documented in the Nurse Practitioner's note. Hospitalist Physical - Constitutional Vitals: Temp Pulse Resp BP Pulse Ox 98.7 F 78 20 122/79 98 09/01/20 16:30 09/01/20 16:30 09/01/20 16:30 09/01/20 16:30 09/01/20 16:30 HEART Score - HEART Score Troponin: Troponin T 0.032 ng/mL (0.00-0.029) H D 08/26/20 05:15 Results - Labs CBC & Chem 7: 08/31/20 05:24 09/01/20 05:01 Labs: Laboratory Last Values WBC 8.9 K/mm3 (4.5-11.0) 08/31/20 05:24 RBC 4.52 M/mm3 (3.65-5.03) 08/31/20 05:24 Hgb 13.8 gm/dl (11.8-15.2) 08/31/20 05:24 Hct 42.2 % (35.5-45.6) 08/31/20 05:24 MCV 93 fl (84-94) 08/31/20 05:24 MCH 31 pg (28-32) 08/31/20 05:24 MCHC 33 % (32-34) 08/31/20 05:24 RDW 14.7 % (13.2-15.2) 08/31/20 05:24 Plt Count 149 K/mm3 (140-440) 08/31/20 05:24 Lymph % (Auto) 4.2 % (13.4-35.0) L 08/26/20 05:15 [place] % (Auto) 9.2 % (0.0-7.3) H 08/26/20 05:15 Eos % (Auto) 0.2 % (0.0-4.3) 08/26/20 05:15 Baso % (Auto) 0.5 % (0.0-1.8) 08/26/20 05:15 Lymph # (Auto) 0.5 K/mm3 (1.2-5.4) L 08/26/20 05:15 [place] # (Auto) 1.0 K/mm3 (0.0-0.8) H 08/26/20 05:15 Eos # (Auto) 0.0 K/mm3 (0.0-0.4) 08/26/20 05:15 Baso # (Auto) 0.1 K/mm3 (0.0-0.1) 08/26/20 05:15 Seg Neutrophils % 85.9 % (40.0-70.0) H 08/26/20 05:15 Seg Neutrophils # 9.7 K/mm3 (1.8-7.7) H 08/26/20 05:15 PT 15.5 Sec. (12.2-14.9) H 08/24/20 22:24 INR 1.05 (0.87-1.13) 08/24/20 22:24 APTT 29.9 Sec. (24.2-36.6) 08/24/20 22:24 Thrombin Time 18.7 Sec. (15.1-19.6) 08/24/20 22:24 D-Dimer 4955.67 ng/mlDDU (0-234) H 08/26/20 05:15 ABG pH 7.425 (7.320-7.450) 08/28/20 04:21 POC ABG pCO2 34.7 mmHg (32.0-48.0) 08/28/20 04:21 ABG pCO2 40.7 mm Hg 08/25/20 04:45 POC ABG pO2 138.2 mmHg (83-108) H 08/28/20 04:21 ABG pO2 194.6 mm Hg (80.0-90.0) H 08/25/20 04:45 POC ABG HCO3 22.3 08/28/20 04:21 ABG HCO3 23.3 mmol/L (20.0-26.0) 08/25/20 04:45 ABG O2 Saturation 99.1 (0-100) 08/28/20 04:21 ABG O2 Content 19.9 (0.0-44) 08/25/20 04:45 POC ABG Base Excess -1.5 08/28/20 04:21 ABG Base Excess -1.8 mmol/L (-2.0-3.0) 08/25/20 04:45 ABG Hemoglobin 13.3 (12.0-17.5) 08/28/20 04:21 ABG Oxyhemoglobin 97.6 (94-98) 08/28/20 04:21 ABG Carboxyhemoglobin 1.6 % (0.0-5.0) 08/25/20 04:45 ABG Methemoglobin 0 (0.0-1.5) 08/28/20 04:21 ABG Sodium 146.2 mmol/L (136.0-145.0) H 08/28/20 04:21 ABG Potassium 3.6 mmol/L (3.40-4.50) 08/28/20 04:21 ABG Chloride 114.0 mmol/L (98-107) H 08/28/20 04:21 ABG Glucose 138 mg/dL (65-95) H 08/28/20 04:21 Oxyhemoglobin 97.2 % (95.0-99.0) 08/25/20 04:45 Carboxyhemoglobin 1.5 (0.5-1.5) 08/28/20 04:21 FiO2 100 % 08/25/20 04:45 FiO2 % 35.0 08/28/20 04:21 Sodium 153 mmol/L (137-145) H 09/01/20 05:01 Potassium 3.7 mmol/L (3.6-5.0) 09/01/20 05:01 Chloride 115.0 mmol/L (98-107) H 09/01/20 05:01 Carbon Dioxide 29 mmol/L (22-30) 09/01/20 05:01 Anion Gap 13 mmol/L 09/01/20 05:01 BUN 25 mg/dL (9-20) H 09/01/20 05:01 Creatinine 0.9 mg/dL (0.8-1.3) 09/01/20 05:01 Estimated GFR > 60 ml/min 09/01/20 05:01 BUN/Creatinine Ratio 28 % 09/01/20 05:01 Glucose 161 mg/dL (75-100) H 09/01/20 05:01 POC Glucose 163 mg/dL (70-105) H 09/01/20 16:31 Calcium 9.1 mg/dL (8.4-10.2) 09/01/20 05:01 Total Bilirubin 0.90 mg/dL (0.1-1.2) 08/24/20 22:24 AST 31 units/L (5-40) 08/24/20 22:24 ALT 46 units/L (7-56) 08/24/20 22:24 Alkaline Phosphatase 111 units/L (35-129) 08/24/20 22:24 Total Creatine Kinase 250 units/L (55-170) H 08/24/20 22:24 CK-MB (CK-2) 3.6 ng/mL (0.0-4.0) 08/24/20 22:24 CK-MB (CK-2) Rel Index 1.4 (0-4) 08/24/20 22:24 Troponin T 0.032 ng/mL (0.00-0.029) H D 08/26/20 05:15 NT-Pro-B Natriuret Pep 2769 pg/mL (0-900) H 08/24/20 22:24 Total Protein 7.2 g/dL (6.3-8.2) 08/24/20 22:24 Albumin 3.9 g/dL (3.9-5) 08/24/20 22:24 Albumin/Globulin Ratio 1.2 % 08/24/20 22:24 Triglycerides 67 mg/dL (2-149) 08/25/20 01:47 Cholesterol 184 mg/dL (50-199) 08/25/20 01:47 LDL Cholesterol Direct 141 mg/dL (50-130) H 08/25/20 01:47 HDL Cholesterol 44 mg/dL (40-59) 08/25/20 01:47 Cholesterol/HDL Ratio 4.18 % 08/25/20 01:47 Procalcitonin 5.41 ng/mL (<0.15) 08/28/20 04:35 TSH 3.150 mlU/mL (0.270-4.200) 08/24/20 22:24 Arterial Blood Glucose 138 mg/dL (65-95) H 08/28/20 04:21 Arterial Blood Ionized Calcium 4.7 mg/dL (4.6-5.3) 08/28/20 04:21 Urine Color Yellow (Yellow) 08/24/20 22:35 Urine Turbidity Clear (Clear) 08/24/20 22:35 Urine pH 7.0 (5.0-7.0) 08/24/20 22:35 Ur Specific [place] 1.005 (1.003-1.030) 08/24/20 22:35 Urine Protein 100 mg/dl mg/dL (Negative) 08/24/20 22:35 Urine Glucose (UA) >=500 mg/dL (Negative) 08/24/20 22:35 Urine Ketones Neg mg/dL (Negative) 08/24/20 22:35 Urine Blood Neg (Negative) 08/24/20 22:35 Urine Nitrite Neg (Negative) 08/24/20 22:35 Urine Bilirubin Neg (Negative) 08/24/20 22:35 Urine Urobilinogen < 2.0 mg/dL (<2.0) 08/24/20 22:35 Ur Leukocyte Esterase Neg (Negative) 08/24/20 22:35 Urine WBC (Auto) 1.0 /HPF (0.0-6.0) 08/24/20 22:35 Urine RBC (Auto) 2.0 /HPF (0.0-6.0) 08/24/20 22:35 Urine Mucus Few /HPF 08/24/20 22:35 Nasal Screen MRSA (PCR) Negative (Negative) 08/25/20 Unknown Urine Opiates Screen Negative 08/24/20 22:35 Urine Methadone Screen Negative 08/24/20 22:35 Ur Barbiturates Screen Negative 08/24/20 22:35 Ur Phencyclidine Scrn Negative 08/24/20 22:35 Ur Amphetamines Screen Negative 08/24/20 22:35 U Benzodiazepines Scrn Negative 08/24/20 22:35 Urine Cocaine Screen Negative 08/24/20 22:35 U Marijuana (THC) Screen Negative 08/24/20 22:35 Drugs of Abuse Note Disclamer 08/24/20 22:35 Plasma/Serum Alcohol < 0.01 % (0-0.07) 08/24/20 22:24 Coronavirus (PCR) Negative (Negative) 08/25/20 Unknown Blood Type A POSITIVE 08/24/20 22:24 Antibody Screen Negative 08/24/20 22:24 Sanchez/IV: Voiding Method Urinal Active Medications - Current Medications Current Medications: Generic Name Dose Route Start Last Admin Trade Name Freq PRN Reason Stop Dose Admin Acetaminophen 650 mg 08/25/20 00:33 08/26/20 21:00 Acetaminophen 325 Mg Tab PO 650 mg Q4H PRN Administration Pain MILD(1-3)/Fever >100.5/[place] Albuterol 2.5 mg 08/25/20 00:33 Albuterol 2.5 Mg/3 Ml Nebu IH Q4HRT PRN Shortness Of Breath Lipase/Protease/Amylase 1 each 08/25/20 09:40 Lipase 10,500/Protease 25,000/Amylase 43,750 (Units) Dr Flores FEEDTUBE PRN PRN For Clogged Feeding Tube Aspirin 325 mg 08/25/20 10:00 09/01/20 14:08 Aspirin 325 Mg Tab PO 325 mg QDAY TK Administration Atorvastatin Calcium 80 mg 08/25/20 22:00 08/31/20 22:32 Atorvastatin 40 Mg Tab PO 80 mg QHS TK Administration Clopidogrel Bisulfate 75 mg 08/25/20 10:00 09/01/20 14:09 Clopidogrel 75 Mg Tab PO 75 mg QDAY TK Administration Dextrose 50 ml 08/28/20 11:12 Dextrose 50% In Water (25gm) 50 Ml Syringe IV Q30MIN PRN Hypoglycemia Protocol Famotidine 20 mg 08/30/20 22:00 09/01/20 14:09 Famotidine 20 Mg Tab PO 20 mg BID TK Administration Furosemide 40 mg 08/30/20 10:00 09/01/20 09:24 Furosemide 40 Mg/4 Ml Inj IV 40 mg QDAY TK Administration Heparin Sodium (Porcine) 5,000 unit 08/25/20 06:00 09/01/20 14:05 Heparin 5,000 Unit/1 Ml Vial SUB-Q 5,000 unit Q8HR TK Administration Hydralazine HCl 10 mg 08/25/20 00:39 Hydralazine 20 Mg/1 Ml Inj IV Q6H PRN htn Cefepime HCl 2 gm in 100 mls @ 200 mls/hr 08/26/20 12:00 09/01/20 14:04 Cefepime/Ns 2 Gm/100 Ml IV 09/02/20 00:29 200 mls/hr Q12H KT Administration Protocol Dextrose 1,000 mls @ 42 mls/hr 09/01/20 15:00 D5w IV DIRECT TK Insulin Human Regular 0 units 08/28/20 12:00 09/01/20 07:30 Insulin Regular, Human 100 Units/1 Ml SUB-Q Not Given Q6H [facility] Protocol Lisinopril 2.5 mg 08/31/20 11:00 09/01/20 14:08 Lisinopril 5 Mg Tab PO 2.5 mg QDAY TK Administration Metoprolol Tartrate 25 mg 08/29/20 20:00 09/01/20 14:09 Metoprolol Tartrate 25 Mg Tab PO 25 mg BID TK Administration Ondansetron HCl 4 mg 08/25/20 00:33 Ondansetron 4 Mg/2 Ml Inj IV Q8H PRN Nausea And Vomiting Simple Syrup 15 ml 08/25/20 09:40 Simple Syrup 15 Ml FEEDTUBE PRN PRN Hypoglycemia Simple Syrup 30 ml 08/25/20 09:40 Simple Syrup 15 Ml FEEDTUBE PRN PRN Hypoglycemia Sodium Bicarbonate 325 mg 08/25/20 09:40 Sodium Bicarbonate 325 Mg Tab FEEDTUBE PRN PRN For Clogged Feeding Tube Sodium Chloride 10 ml 08/25/20 10:00 09/01/20 09:22 Sodium Chloride 0.9% 10 Ml Flush Syringe IV 10 ml BID TK Administration Sodium Chloride 10 ml 08/25/20 00:33 08/25/20 10:58 Sodium Chloride 0.9% 10 Ml Flush Syringe IV 10 ml PRN PRN Administration LINE FLUSH Nutrition/Malnutrition Assess - Dietary Evaluation Nutrition/Malnutrition Findings: Nutrition Notes Start: 08/25/20 09:17 Freq: Status: Active Protocol: Document 09/01/20 12:23 JAZMYNE (Rec: 09/01/20 12:27 JAZMYNE [id number]) Nutrition Notes Initial or Follow up Reassessment Current Diagnosis Diabetes,Sepsis,Hypertension, Heart Failure,Stroke Other Pertinent Diagnosis Pneu Current Diet Pureed Labs/Tests POC BG 147 Pertinent Medications Lasix Height 5 ft 8 in Weight 74.9 kg [place] Body Weight (kg) 70.00 BMI 25.1 Weight change and time frame 12% wt loss in one week, unsure of accuracy, follow for trends Weight Status Overweight Subjective/Other Information FU for TF tolerance. Pt diet advanced to pureed with thin liquids. Will add ONS. Pt was tolerating TF. Burn Absent Trauma Absent Difficulty In Swallowing,Chewing Minimum of two criteria No physical signs of malnutrition Interpretation of Weight Loss (severe) >2% in 1 week #1 Nutrition Diagnosis Inadequate oral intake As Evidenced by Signs and Symptoms pt diet advanced Diagnosis Progress(for reassessment Continues documentation) Is patient on ventilator? No Is Patient Ambulatory and/or Out of Bed No REE-([facility]-confined to bed) [phone] Calculation Used for Recommendations [facility] Additional Notes Pro needs 1-1.2g/k-99g/ day Fluid needs per MD Nutrition Intervention Change Diet Order: Continue pureed Nutrition Support: D/C Add Supplement/Snack (indicate name/kcal Ensure Enlive BID /protein ) Provides kCal: 700 Provides Protein (gm) 40 Goal #1 Meet at least 75% of protein and energy needs via PO and ONS intakes Anticipated Discharge Needs: pureed with ONS PRN Follow-Up By: 09/03/20 Additional Comments FU for intakes and ONS tolerance
[2020-08-29] MEDS: ASPIRIN 325 MG TAB PO SCH (10:59)
[2020-08-29] MEDS: FAMOTIDINE 20 MG/2 ML INJ IV SCH ×2 (11:00→21:06)
[2020-08-29] MEDS: SENNOSIDES/DOCUSATE SODIUM 8.6/50 MG TAB FEEDTUBE SCH ×2 (11:00→21:04)
[2020-08-29] MEDS: CEFEPIME/NS 2 GM/100 ML 2 GM/100 ML BAG IV SCH ×2 (11:00→23:26)
[2020-08-29] MEDS: CLOPIDOGREL 75 MG TAB PO SCH (11:00)
--- NOTE | 2020-08-29 11:09 | Progress Note ---
Assessment and Plan 60 y/o male with acute respiratory failure with symptoms of stroke and abnormal CXR 08/29/20: Pulm status stable. Agree with NG tube and speech consult. Stable for transfer to floor. Abx have hard stop date but now ID is following. Will sign off once out of unit. 08/28/20: Extubate today. Once extubated can get MRI. Likely transfer to the floor tomorrow, or later today if bed is needed. CCT 31 minutes 1. Continue current level of care 2. Central line placed for Vasopressor therapy 3. Follow up echo report 4. Sedation to maintain safety and ventilator support Guarded prognosis. Subjective Date of service: 08/29/20 Principal diagnosis: CVA Interval history: Successful extubation on yesterday. Patient got repeat head CT and not MRI despite being extubated, but CT shows new infarct or evolving infarct. Patient is awake and alert. Will follow commands. Not able to speak. Failed swallow eval and now has NG tube back in. Objective Vital Signs - 12hr 08/28/20 08/28/20 08/28/20 23:00 23:15 23:30 Temperature Pulse Rate 76 82 87 Pulse Rate [ Right From Monitor] Respiratory 25 H 24 23 Rate Blood Pressure 144/81 152/87 153/90 O2 Sat by Pulse 96 96 96 Oximetry 08/28/20 08/29/20 08/29/20 23:45 00:00 00:16 Temperature 99.2 F Pulse Rate 76 86 80 Pulse Rate [ 87 Right From Monitor] Respiratory 24 24 27 H Rate Blood Pressure 145/87 155/89 149/72 O2 Sat by Pulse 95 97 97 Oximetry 08/29/20 08/29/20 08/29/20 00:30 00:45 01:00 Temperature Pulse Rate 84 87 80 Pulse Rate [ Right From Monitor] Respiratory 27 H 25 H 17 Rate Blood Pressure 159/93 162/98 159/85 O2 Sat by Pulse 96 99 97 Oximetry 08/29/20 08/29/20 08/29/20 01:15 01:30 01:45 Temperature Pulse Rate 84 88 85 Pulse Rate [ Right From Monitor] Respiratory 22 28 H 28 H Rate Blood Pressure 160/87 163/95 162/91 O2 Sat by Pulse 98 97 Oximetry 08/29/20 08/29/20 08/29/20 02:00 02:15 02:30 Temperature Pulse Rate 88 77 92 H Pulse Rate [ Right From Monitor] Respiratory 27 H 25 H 29 H Rate Blood Pressure 158/92 149/83 155/92 O2 Sat by Pulse 97 98 97 Oximetry 08/29/20 08/29/20 08/29/20 02:45 03:00 03:15 Temperature Pulse Rate 78 81 87 Pulse Rate [ Right From Monitor] Respiratory 26 H 25 H 22 Rate Blood Pressure 148/80 152/82 156/90 O2 Sat by Pulse 98 97 97 Oximetry 08/29/20 08/29/20 08/29/20 03:27 03:30 03:45 Temperature 99.9 F H Pulse Rate 91 H 88 Pulse Rate [ Right From Monitor] Respiratory 28 H 26 H Rate Blood Pressure 160/94 146/89 O2 Sat by Pulse 97 Oximetry 08/29/20 08/29/20 08/29/20 04:00 04:15 04:30 Temperature Pulse Rate 75 83 81 Pulse Rate [ 80 Right From Monitor] Respiratory 25 H 26 H 26 H Rate Blood Pressure 149/84 145/83 148/81 O2 Sat by Pulse 99 99 98 Oximetry 08/29/20 08/29/20 08/29/20 04:42 04:45 05:00 Temperature Pulse Rate 79 87 Pulse Rate [ Right From Monitor] Respiratory 25 H 26 H Rate Blood Pressure 143/79 143/87 O2 Sat by Pulse 100 98 Oximetry 08/29/20 08/29/20 08/29/20 05:15 05:30 05:45 Temperature Pulse Rate 84 82 81 Pulse Rate [ Right From Monitor] Respiratory 23 27 H 24 Rate Blood Pressure 147/87 140/82 146/85 O2 Sat by Pulse 98 98 Oximetry 08/29/20 08/29/20 08/29/20 06:00 06:15 06:30 Temperature Pulse Rate 84 81 79 Pulse Rate [ Right From Monitor] Respiratory 21 23 25 H Rate Blood Pressure 140/81 146/84 142/84 O2 Sat by Pulse 99 100 99 Oximetry 08/29/20 08/29/20 08/29/20 06:45 07:00 07:15 Temperature Pulse Rate 76 83 88 Pulse Rate [ Right From Monitor] Respiratory 24 22 26 H Rate Blood Pressure 149/83 144/85 148/95 O2 Sat by Pulse 98 98 99 Oximetry 08/29/20 08/29/20 08/29/20 07:30 07:45 08:00 Temperature 98.8 F Pulse Rate 80 90 82 Pulse Rate [ 91 H Right From Monitor] Respiratory 25 H 26 H 25 H Rate Blood Pressure 147/89 153/90 149/89 O2 Sat by Pulse 97 96 100 Oximetry 08/29/20 08/29/20 08/29/20 08:15 08:30 08:45 Temperature Pulse Rate 90 82 93 H Pulse Rate [ Right From Monitor] Respiratory 28 H 23 25 H Rate Blood Pressure 149/93 154/92 136/95 O2 Sat by Pulse 100 Oximetry 08/29/20 08/29/20 08/29/20 09:00 09:16 09:30 Temperature Pulse Rate 89 91 H 86 Pulse Rate [ Right From Monitor] Respiratory 27 H 31 H 22 Rate Blood Pressure 141/90 149/91 142/90 O2 Sat by Pulse 98 95 Oximetry 08/29/20 08/29/20 09:45 10:00 Temperature Pulse Rate 89 84 Pulse Rate [ Right From Monitor] Respiratory 24 16 Rate Blood Pressure 151/94 145/87 O2 Sat by Pulse 98 96 Oximetry Gastrointestinal: normoactive bowel sounds Integumentary: normal CBC and BMP: 08/29/20 07:15 08/29/20 07:15 ABG, PT/INR, D-dimer: ABG ABG pH 7.425 (7.320-7.450) 08/28/20 04:21 POC ABG pCO2 34.7 mmHg (32.0-48.0) 08/28/20 04:21 ABG pCO2 40.7 mm Hg 08/25/20 04:45 POC ABG pO2 138.2 mmHg (83-108) H 08/28/20 04:21 ABG pO2 194.6 mm Hg (80.0-90.0) H 08/25/20 04:45 POC ABG HCO3 22.3 08/28/20 04:21 ABG O2 Saturation 99.1 (0-100) 08/28/20 04:21 PT/INR, D-dimer PT 15.5 Sec. (12.2-14.9) H 08/24/20 22:24 INR 1.05 (0.87-1.13) 08/24/20 22:24 D-Dimer 4955.67 ng/mlDDU (0-234) H 08/26/20 05:15 Abnormal lab findings: Abnormal Labs 08/24/20 08/24/20 08/24/20 22:24 22:24 22:24 WBC Plt Count Lymph % (Auto) 11.1 L [place] % (Auto) Lymph # (Auto) 0.7 L [place] # (Auto) Seg Neutrophils % 82.5 H Seg Neutrophils # PT 15.5 H D-Dimer ABG pH POC ABG pCO2 POC ABG pO2 ABG pO2 ABG O2 Saturation ABG Base Excess ABG Oxyhemoglobin ABG Sodium ABG Chloride ABG Glucose Oxyhemoglobin Sodium 130 L Chloride 97.5 L Glucose 170 H POC Glucose Calcium Total Creatine Kinase 250 H Troponin T NT-Pro-B Natriuret Pep LDL Cholesterol Direct Arterial Blood Glucose Arterial Blood Ionized Calcium 08/24/20 08/25/20 08/25/20 22:24 01:01 01:47 WBC Plt Count Lymph % (Auto) [place] % (Auto) Lymph # (Auto) [place] # (Auto) Seg Neutrophils % Seg Neutrophils # PT D-Dimer ABG pH 7.285 L POC ABG pCO2 POC ABG pO2 ABG pO2 99.5 H ABG O2 Saturation ABG Base Excess -4.2 L ABG Oxyhemoglobin ABG Sodium ABG Chloride ABG Glucose Oxyhemoglobin 94.9 L Sodium Chloride Glucose POC Glucose Calcium Total Creatine Kinase Troponin T NT-Pro-B Natriuret Pep 2769 H LDL Cholesterol Direct 141 H Arterial Blood Glucose Arterial Blood Ionized Calcium 08/25/20 08/25/20 08/25/20 04:45 11:45 17:20 WBC Plt Count Lymph % (Auto) [place] % (Auto) Lymph # (Auto) [place] # (Auto) Seg Neutrophils % Seg Neutrophils # PT D-Dimer ABG pH POC ABG pCO2 POC ABG pO2 ABG pO2 194.6 H ABG O2 Saturation 99.2 H ABG Base Excess ABG Oxyhemoglobin ABG Sodium ABG Chloride ABG Glucose Oxyhemoglobin Sodium Chloride Glucose POC Glucose 136 H 117 H Calcium Total Creatine Kinase Troponin T NT-Pro-B Natriuret Pep LDL Cholesterol Direct Arterial Blood Glucose Arterial Blood Ionized Calcium 08/26/20 08/26/20 08/26/20 05:00 05:15 05:15 WBC 11.3 H Plt Count 112 L Lymph % (Auto) 4.2 L [place] % (Auto) 9.2 H Lymph # (Auto) 0.5 L [place] # (Auto) 1.0 H Seg Neutrophils % 85.9 H Seg Neutrophils # 9.7 H PT D-Dimer ABG pH 7.495 H POC ABG pCO2 POC ABG pO2 194.0 H ABG pO2 ABG O2 Saturation ABG Base Excess ABG Oxyhemoglobin 98.6 H ABG Sodium ABG Chloride 109.0 H ABG Glucose 125 H Oxyhemoglobin Sodium Chloride Glucose 120 H POC Glucose Calcium 8.2 L Total Creatine Kinase Troponin T 0.032 H D NT-Pro-B Natriuret Pep LDL Cholesterol Direct Arterial Blood Glucose 125 H Arterial Blood Ionized Calcium 4.5 L 08/26/20 08/26/20 08/26/20 05:15 11:40 23:28 WBC Plt Count Lymph % (Auto) [place] % (Auto) Lymph # (Auto) [place] # (Auto) Seg Neutrophils % Seg Neutrophils # PT D-Dimer 4955.67 H ABG pH POC ABG pCO2 POC ABG pO2 ABG pO2 ABG O2 Saturation ABG Base Excess ABG Oxyhemoglobin ABG Sodium ABG Chloride ABG Glucose Oxyhemoglobin Sodium Chloride Glucose POC Glucose 116 H 131 H Calcium Total Creatine Kinase Troponin T NT-Pro-B Natriuret Pep LDL Cholesterol Direct Arterial Blood Glucose Arterial Blood Ionized Calcium 08/27/20 08/27/20 08/27/20 04:22 04:50 04:50 WBC Plt Count 103 L Lymph % (Auto) [place] % (Auto) Lymph # (Auto) [place] # (Auto) Seg Neutrophils % Seg Neutrophils # PT D-Dimer ABG pH 7.500 H POC ABG pCO2 27.7 L POC ABG pO2 163.1 H ABG pO2 ABG O2 Saturation ABG Base Excess ABG Oxyhemoglobin 98.2 H ABG Sodium ABG Chloride 109.0 H ABG Glucose 116 H Oxyhemoglobin Sodium 147 H Chloride 109.7 H Glucose 112 H POC Glucose Calcium 8.3 L Total Creatine Kinase Troponin T NT-Pro-B Natriuret Pep LDL Cholesterol Direct Arterial Blood Glucose 116 H Arterial Blood Ionized Calcium 08/27/20 08/27/20 08/27/20 05:29 11:21 11:24 WBC Plt Count Lymph % (Auto) [place] % (Auto) Lymph # (Auto) [place] # (Auto) Seg Neutrophils % Seg Neutrophils # PT D-Dimer ABG pH POC ABG pCO2 POC ABG pO2 146.6 H ABG pO2 ABG O2 Saturation ABG Base Excess ABG Oxyhemoglobin ABG Sodium ABG Chloride 112.0 H ABG Glucose 127 H Oxyhemoglobin Sodium Chloride Glucose POC Glucose 107 H 117 H Calcium Total Creatine Kinase Troponin T NT-Pro-B Natriuret Pep LDL Cholesterol Direct Arterial Blood Glucose 127 H Arterial Blood Ionized Calcium 08/27/20 08/27/20 08/28/20 16:55 23:18 04:21 WBC Plt Count Lymph % (Auto) [place] % (Auto) Lymph # (Auto) [place] # (Auto) Seg Neutrophils % Seg Neutrophils # PT D-Dimer ABG pH POC ABG pCO2 POC ABG pO2 138.2 H ABG pO2 ABG O2 Saturation ABG Base Excess ABG Oxyhemoglobin ABG Sodium 146.2 H ABG Chloride 114.0 H ABG Glucose 138 H Oxyhemoglobin Sodium Chloride Glucose POC Glucose 117 H 132 H Calcium Total Creatine Kinase Troponin T NT-Pro-B Natriuret Pep LDL Cholesterol Direct Arterial Blood Glucose 138 H Arterial Blood Ionized Calcium 08/28/20 08/28/20 08/28/20 04:35 04:35 05:16 WBC Plt Count 114 L Lymph % (Auto) [place] % (Auto) Lymph # (Auto) [place] # (Auto) Seg Neutrophils % Seg Neutrophils # PT D-Dimer ABG pH POC ABG pCO2 POC ABG pO2 ABG pO2 ABG O2 Saturation ABG Base Excess ABG Oxyhemoglobin ABG Sodium ABG Chloride ABG Glucose Oxyhemoglobin Sodium 149 H Chloride 113.6 H Glucose 138 H POC Glucose 135 H Calcium 8.3 L Total Creatine Kinase Troponin T NT-Pro-B Natriuret Pep LDL Cholesterol Direct Arterial Blood Glucose Arterial Blood Ionized Calcium 08/28/20 08/29/20 08/29/20 11:19 07:15 07:15 WBC Plt Count 128 L Lymph % (Auto) [place] % (Auto) Lymph # (Auto) [place] # (Auto) Seg Neutrophils % Seg Neutrophils # PT D-Dimer ABG pH POC ABG pCO2 POC ABG pO2 ABG pO2 ABG O2 Saturation ABG Base Excess ABG Oxyhemoglobin ABG Sodium ABG Chloride ABG Glucose Oxyhemoglobin Sodium 154 H Chloride 116.2 H Glucose POC Glucose 137 H Calcium Total Creatine Kinase Troponin T NT-Pro-B Natriuret Pep LDL Cholesterol Direct Arterial Blood Glucose Arterial Blood Ionized Calcium Allied health notes reviewed: nursing
--- NOTE | 2020-08-29 11:55 | Progress Note ---
Assessment and Plan Assessment and Plan VTE prophylaxis?: Mechanical Plan of care discussed with patient/family: Yes - Patient Problems # CVA (cerebral vascular accident) - new onset of right sided weakness and speech difficulty -initial NIH #8 -startyed on ASA and plavix plus lipitor 80 mg -Ct brain and CTA brain and neck are unremarkable -Not a candidate for TPA >4.5 Hrs, not a candidate for thrombectomy -Echo is with EF#20-25% with sever LV hypertrophy. -MRI brain is pending ++++- Repeat CT brain showed subacute infarct left frontal MCA infarct -evaluate ST-PT once extubated -LDL#[id number] # Acute exacerbation of CHF (congestive heart failure) -Lasix 40 mg IV every 12 hours. - Fluid restriction. Maintain input output. # Acute respiratory failure -Patient is status post intubation. -DuoNeb by nebulizer every 4 hours. -Albuterol via nebulizer every 4 hours as needed. # Hypertension -Hydralazine 10 mg IV every 6 hours as needed lisinopril 5 mg p.o. daily. - We will monitor the blood pressure closely. # DVT prophylaxis -SCD for DVT prophylaxis as per neurology recommendation. - Pepcid 20 mg IV twice daily for GI prophylaxis. - Patient is a full code pt. is evaluated in ICU he is critically ill time spent in evaluation, review documents and labs,and Xrys ,CT >30 minutes plan 1-Pt/ST 2- MRI brain when possible 3- ASA plus palvix for total 3 months then Plavix alone there after 4- Lipitor 80 mg 5- Neurology follow up will follow as needed Subjective Date of service: 08/29/20 Principal diagnosis: CVA Interval history: pt. is extubated today alert interactive with slight speech out put follow command he is with right side weakness and facial droop on right side U>L ? aphasia echo showed Ef#20-25% with global hypokinesia On ASA plus Plavix plus Lipitor Objective - Vital Sign Vital Signs - 12hr 08/29/20 08/29/20 08/29/20 00:00 00:16 00:30 Temperature 99.2 F Pulse Rate 86 80 84 Pulse Rate [ 87 Right From Monitor] Respiratory 24 27 H 27 H Rate Blood Pressure 155/89 149/72 159/93 O2 Sat by Pulse 97 97 96 Oximetry 08/29/20 08/29/20 08/29/20 00:45 01:00 01:15 Temperature Pulse Rate 87 80 84 Pulse Rate [ Right From Monitor] Respiratory 25 H 17 22 Rate Blood Pressure 162/98 159/85 160/87 O2 Sat by Pulse 99 97 98 Oximetry 08/29/20 08/29/20 08/29/20 01:30 01:45 02:00 Temperature Pulse Rate 88 85 88 Pulse Rate [ Right From Monitor] Respiratory 28 H 28 H 27 H Rate Blood Pressure 163/95 162/91 158/92 O2 Sat by Pulse 97 97 Oximetry 08/29/20 08/29/20 08/29/20 02:15 02:30 02:45 Temperature Pulse Rate 77 92 H 78 Pulse Rate [ Right From Monitor] Respiratory 25 H 29 H 26 H Rate Blood Pressure 149/83 155/92 148/80 O2 Sat by Pulse 98 97 98 Oximetry 08/29/20 08/29/20 08/29/20 03:00 03:15 03:27 Temperature 99.9 F H Pulse Rate 81 87 Pulse Rate [ Right From Monitor] Respiratory 25 H 22 Rate Blood Pressure 152/82 156/90 O2 Sat by Pulse 97 97 Oximetry 08/29/20 08/29/20 08/29/20 03:30 03:45 04:00 Temperature Pulse Rate 91 H 88 75 Pulse Rate [ 80 Right From Monitor] Respiratory 28 H 26 H 25 H Rate Blood Pressure 160/94 146/89 149/84 O2 Sat by Pulse 97 99 Oximetry 08/29/20 08/29/20 08/29/20 04:15 04:30 04:42 Temperature Pulse Rate 83 81 Pulse Rate [ Right From Monitor] Respiratory 26 H 26 H Rate Blood Pressure 145/83 148/81 O2 Sat by Pulse 99 98 100 Oximetry 08/29/20 08/29/20 08/29/20 04:45 05:00 05:15 Temperature Pulse Rate 79 87 84 Pulse Rate [ Right From Monitor] Respiratory 25 H 26 H 23 Rate Blood Pressure 143/79 143/87 147/87 O2 Sat by Pulse 98 Oximetry 08/29/20 08/29/20 08/29/20 05:30 05:45 06:00 Temperature Pulse Rate 82 81 84 Pulse Rate [ Right From Monitor] Respiratory 27 H 24 21 Rate Blood Pressure 140/82 146/85 140/81 O2 Sat by Pulse 98 98 99 Oximetry 08/29/20 08/29/20 08/29/20 06:15 06:30 06:45 Temperature Pulse Rate 81 79 76 Pulse Rate [ Right From Monitor] Respiratory 23 25 H 24 Rate Blood Pressure 146/84 142/84 149/83 O2 Sat by Pulse 100 99 98 Oximetry 08/29/20 08/29/20 08/29/20 07:00 07:15 07:30 Temperature Pulse Rate 83 88 80 Pulse Rate [ Right From Monitor] Respiratory 22 26 H 25 H Rate Blood Pressure 144/85 148/95 147/89 O2 Sat by Pulse 98 99 97 Oximetry 08/29/20 08/29/20 08/29/20 07:45 08:00 08:15 Temperature 98.8 F Pulse Rate 90 82 90 Pulse Rate [ 91 H Right From Monitor] Respiratory 26 H 25 H 28 H Rate Blood Pressure 153/90 149/89 149/93 O2 Sat by Pulse 96 100 Oximetry 08/29/20 08/29/20 08/29/20 08:30 08:45 09:00 Temperature Pulse Rate 82 93 H 89 Pulse Rate [ Right From Monitor] Respiratory 23 25 H 27 H Rate Blood Pressure 154/92 136/95 141/90 O2 Sat by Pulse 100 98 Oximetry 08/29/20 08/29/20 08/29/20 09:16 09:30 09:45 Temperature Pulse Rate 91 H 86 89 Pulse Rate [ Right From Monitor] Respiratory 31 H 22 24 Rate Blood Pressure 149/91 142/90 151/94 O2 Sat by Pulse 95 98 Oximetry 08/29/20 08/29/20 10:00 10:59 Temperature Pulse Rate 84 87 Pulse Rate [ Right From Monitor] Respiratory 16 Rate Blood Pressure 145/87 144/89 O2 Sat by Pulse 96 Oximetry - General Apperance Constitutional: comfortable - EENT EENT: PERRL, mucous membranes moist - Respiratory Respiratory: lungs clear, rhonchi - Cardiovascular Cardiovascular: regular rate, normal S1, normal S2 Extremities: no peripheral edema bilat - Gastrointestinal Gastrointestinal: normoactive bowel sounds - Integumentary Integumentary: normal - Neurologic Cranial nerve examination: PERRL, EOMI, intact gag reflex, intact cough reflex, intact corneal reflex, facial droop Speech examination: other (comprehend with slight speech out put ? aphasia he is just been extubated difficult to assess ??) Detailed motor examination: grossly full strength in, full strength in all cecilia, other (right upper 3+/5 other malone all others are 4/5 ,planter is down going , gait can not do) - Laboratory Findings CBC and BMP: 08/29/20 07:15 08/29/20 07:15 Abnormal Lab Findings: Abnormal Labs 08/24/20 08/24/20 08/24/20 22:24 22:24 22:24 WBC Plt Count Lymph % (Auto) 11.1 L Armstrong % (Auto) Lymph # (Auto) 0.7 L Armstrong # (Auto) Seg Neutrophils % 82.5 H Seg Neutrophils # PT 15.5 H D-Dimer ABG pH POC ABG pCO2 POC ABG pO2 ABG pO2 ABG O2 Saturation ABG Base Excess ABG Oxyhemoglobin ABG Sodium ABG Chloride ABG Glucose Oxyhemoglobin Sodium 130 L Chloride 97.5 L Glucose 170 H POC Glucose Calcium Total Creatine Kinase 250 H Troponin T NT-Pro-B Natriuret Pep LDL Cholesterol Direct Arterial Blood Glucose Arterial Blood Ionized Calcium 08/24/20 08/25/20 08/25/20 22:24 01:01 01:47 WBC Plt Count Lymph % (Auto) Armstrong % (Auto) Lymph # (Auto) Armstrong # (Auto) Seg Neutrophils % Seg Neutrophils # PT D-Dimer ABG pH 7.285 L POC ABG pCO2 POC ABG pO2 ABG pO2 99.5 H ABG O2 Saturation ABG Base Excess -4.2 L ABG Oxyhemoglobin ABG Sodium ABG Chloride ABG Glucose Oxyhemoglobin 94.9 L Sodium Chloride Glucose POC Glucose Calcium Total Creatine Kinase Troponin T NT-Pro-B Natriuret Pep 2769 H LDL Cholesterol Direct 141 H Arterial Blood Glucose Arterial Blood Ionized Calcium 08/25/20 08/25/20 08/25/20 04:45 11:45 17:20 WBC Plt Count Lymph % (Auto) Armstrong % (Auto) Lymph # (Auto) Armstrong # (Auto) Seg Neutrophils % Seg Neutrophils # PT D-Dimer ABG pH POC ABG pCO2 POC ABG pO2 ABG pO2 194.6 H ABG O2 Saturation 99.2 H ABG Base Excess ABG Oxyhemoglobin ABG Sodium ABG Chloride ABG Glucose Oxyhemoglobin Sodium Chloride Glucose POC Glucose 136 H 117 H Calcium Total Creatine Kinase Troponin T NT-Pro-B Natriuret Pep LDL Cholesterol Direct Arterial Blood Glucose Arterial Blood Ionized Calcium 08/26/20 08/26/20 08/26/20 05:00 05:15 05:15 WBC 11.3 H Plt Count 112 L Lymph % (Auto) 4.2 L Armstrong % (Auto) 9.2 H Lymph # (Auto) 0.5 L Armstrong # (Auto) 1.0 H Seg Neutrophils % 85.9 H Seg Neutrophils # 9.7 H PT D-Dimer ABG pH 7.495 H POC ABG pCO2 POC ABG pO2 194.0 H ABG pO2 ABG O2 Saturation ABG Base Excess ABG Oxyhemoglobin 98.6 H ABG Sodium ABG Chloride 109.0 H ABG Glucose 125 H Oxyhemoglobin Sodium Chloride Glucose 120 H POC Glucose Calcium 8.2 L Total Creatine Kinase Troponin T 0.032 H D NT-Pro-B Natriuret Pep LDL Cholesterol Direct Arterial Blood Glucose 125 H Arterial Blood Ionized Calcium 4.5 L 08/26/20 08/26/20 08/26/20 05:15 11:40 23:28 WBC Plt Count Lymph % (Auto) Armstrong % (Auto) Lymph # (Auto) Armstrong # (Auto) Seg Neutrophils % Seg Neutrophils # PT D-Dimer 4955.67 H ABG pH POC ABG pCO2 POC ABG pO2 ABG pO2 ABG O2 Saturation ABG Base Excess ABG Oxyhemoglobin ABG Sodium ABG Chloride ABG Glucose Oxyhemoglobin Sodium Chloride Glucose POC Glucose 116 H 131 H Calcium Total Creatine Kinase Troponin T NT-Pro-B Natriuret Pep LDL Cholesterol Direct Arterial Blood Glucose Arterial Blood Ionized Calcium 08/27/20 08/27/20 08/27/20 04:22 04:50 04:50 WBC Plt Count 103 L Lymph % (Auto) Armstrong % (Auto) Lymph # (Auto) Armstrong # (Auto) Seg Neutrophils % Seg Neutrophils # PT D-Dimer ABG pH 7.500 H POC ABG pCO2 27.7 L POC ABG pO2 163.1 H ABG pO2 ABG O2 Saturation ABG Base Excess ABG Oxyhemoglobin 98.2 H ABG Sodium ABG Chloride 109.0 H ABG Glucose 116 H Oxyhemoglobin Sodium 147 H Chloride 109.7 H Glucose 112 H POC Glucose Calcium 8.3 L Total Creatine Kinase Troponin T NT-Pro-B Natriuret Pep LDL Cholesterol Direct Arterial Blood Glucose 116 H Arterial Blood Ionized Calcium 08/27/20 08/27/20 08/27/20 05:29 11:21 11:24 WBC Plt Count Lymph % (Auto) Armstrong % (Auto) Lymph # (Auto) Armstrong # (Auto) Seg Neutrophils % Seg Neutrophils # PT D-Dimer ABG pH POC ABG pCO2 POC ABG pO2 146.6 H ABG pO2 ABG O2 Saturation ABG Base Excess ABG Oxyhemoglobin ABG Sodium ABG Chloride 112.0 H ABG Glucose 127 H Oxyhemoglobin Sodium Chloride Glucose POC Glucose 107 H 117 H Calcium Total Creatine Kinase Troponin T NT-Pro-B Natriuret Pep LDL Cholesterol Direct Arterial Blood Glucose 127 H Arterial Blood Ionized Calcium 08/27/20 08/27/20 08/28/20 16:55 23:18 04:21 WBC Plt Count Lymph % (Auto) Armstrong % (Auto) Lymph # (Auto) Armstrong # (Auto) Seg Neutrophils % Seg Neutrophils # PT D-Dimer ABG pH POC ABG pCO2 POC ABG pO2 138.2 H ABG pO2 ABG O2 Saturation ABG Base Excess ABG Oxyhemoglobin ABG Sodium 146.2 H ABG Chloride 114.0 H ABG Glucose 138 H Oxyhemoglobin Sodium Chloride Glucose POC Glucose 117 H 132 H Calcium Total Creatine Kinase Troponin T NT-Pro-B Natriuret Pep LDL Cholesterol Direct Arterial Blood Glucose 138 H Arterial Blood Ionized Calcium 08/28/20 08/28/20 08/28/20 04:35 04:35 05:16 WBC Plt Count 114 L Lymph % (Auto) Armstrong % (Auto) Lymph # (Auto) Armstrong # (Auto) Seg Neutrophils % Seg Neutrophils # PT D-Dimer ABG pH POC ABG pCO2 POC ABG pO2 ABG pO2 ABG O2 Saturation ABG Base Excess ABG Oxyhemoglobin ABG Sodium ABG Chloride ABG Glucose Oxyhemoglobin Sodium 149 H Chloride 113.6 H Glucose 138 H POC Glucose 135 H Calcium 8.3 L Total Creatine Kinase Troponin T NT-Pro-B Natriuret Pep LDL Cholesterol Direct Arterial Blood Glucose Arterial Blood Ionized Calcium 08/28/20 08/29/20 08/29/20 11:19 07:15 07:15 WBC Plt Count 128 L Lymph % (Auto) Armstrong % (Auto) Lymph # (Auto) Armstrong # (Auto) Seg Neutrophils % Seg Neutrophils # PT D-Dimer ABG pH POC ABG pCO2 POC ABG pO2 ABG pO2 ABG O2 Saturation ABG Base Excess ABG Oxyhemoglobin ABG Sodium ABG Chloride ABG Glucose Oxyhemoglobin Sodium 154 H Chloride 116.2 H Glucose POC Glucose 137 H Calcium Total Creatine Kinase Troponin T NT-Pro-B Natriuret Pep LDL Cholesterol Direct Arterial Blood Glucose Arterial Blood Ionized Calcium
--- NOTE | 2020-08-29 15:38 | Progress Note ---
Assessment and Plan Pt appears to be perfusing well off dobutamine gtt. Continue IV Lasix 40mg daily for now with strict I/Os. Hyernatremia worsening. Free water loss repletion underway per Primary. Closely monitor renal indices and electrolytes. May consider utilization of Lasix + a thiazide diuretic to enhance natriuresis. Will increase BB. Plan to resume ARB, possibly tmr if BP permits. Pt's son also provided some medical records from [facility] today. Pt was diagnosed with HFrEF at the start of July this year. Unclear whether or not he underwent an ischemic workup at that time. Will request detailed medical records from [facility] in AM. Update provided to pt's son at bedside and pt's daughter via phone. Plan of care discussed at length. All questions answered. Pt seen in conjunction with Dr. Joshi, who agrees with the assessment and plan of care. - Patient Problems (1) CVA (cerebral vascular accident) Current Visit: Yes Status: Suspected Qualifiers: CVA mechanism: unspecified Qualified Code(s): I63.9 - Cerebral infarction, unspecified (2) Acute respiratory failure Current Visit: Yes Status: Acute Qualifiers: Qualified Code(s): J96.00 - Acute respiratory failure, unspecified whether with hypoxia or hypercapnia (3) Sepsis Current Visit: Yes Status: Acute (4) PNA (pneumonia) Current Visit: Yes Status: Acute (5) Acute on chronic HFrEF (heart failure with reduced ejection fraction) Current Visit: Yes Status: Acute (6) Dilated cardiomyopathy Current Visit: Yes Status: Acute (7) NSVT (nonsustained ventricular tachycardia) Current Visit: Yes Status: Acute (8) Hypotension Current Visit: Yes Status: Resolved (9) Hypertension Current Visit: Yes Status: Chronic Qualifiers: Hypertension type: essential hypertension Qualified Code(s): I10 - Essential (primary) hypertension (10) Diabetes mellitus Current Visit: Yes Status: Chronic Subjective Date of service: 08/29/20 Principal diagnosis: CVA Interval history: Extubated successfully yesterday. Still interacting upon assessment and now able to make sounds. Cannot form words. Pt can communicate via writing. He is regaining some strength in his right hand as well. Son present at bedside. Tele reviewed - SR 80s w/PVCs. Objective Vital Signs Temp Pulse Pulse Resp BP Pulse Ox 08/29/20 14:17 85 08/29/20 13:00 79 24 145/90 99 08/29/20 12:45 73 22 129/63 97 08/29/20 12:30 84 24 138/70 96 08/29/20 12:15 82 25 H 152/91 97 08/29/20 12:00 98.2 F 82 81 24 146/86 97 08/29/20 11:45 78 25 H 142/86 97 08/29/20 11:30 84 23 145/93 98 08/29/20 11:15 90 28 H 151/95 96 08/29/20 11:00 86 25 H 151/92 96 08/29/20 10:59 87 144/89 08/29/20 10:45 98 H 29 H 144/89 95 08/29/20 10:30 87 25 H 152/95 95 08/29/20 10:15 80 24 133/86 96 08/29/20 10:00 84 16 145/87 96 08/29/20 09:45 89 24 151/94 98 08/29/20 09:30 86 22 142/90 08/29/20 09:16 91 H 31 H 149/91 95 08/29/20 09:00 89 27 H 141/90 98 08/29/20 08:45 93 H 25 H 136/95 100 08/29/20 08:30 82 23 154/92 08/29/20 08:15 90 28 H 149/93 08/29/20 08:00 98.8 F 82 91 H 25 H 149/89 100 08/29/20 07:45 90 26 H 153/90 96 08/29/20 07:30 80 25 H 147/89 97 08/29/20 07:15 88 26 H 148/95 99 08/29/20 07:00 83 22 144/85 98 08/29/20 06:45 76 24 149/83 98 08/29/20 06:30 79 25 H 142/84 99 08/29/20 06:15 81 23 146/84 100 08/29/20 06:00 84 21 140/81 99 08/29/20 05:45 81 24 146/85 98 08/29/20 05:30 82 27 H 140/82 98 08/29/20 05:15 84 23 147/87 08/29/20 05:00 87 26 H 143/87 08/29/20 04:45 79 25 H 143/79 98 08/29/20 04:42 100 08/29/20 04:30 81 26 H 148/81 98 08/29/20 04:15 83 26 H 145/83 99 08/29/20 04:00 75 80 25 H 149/84 99 08/29/20 03:45 88 26 H 146/89 08/29/20 03:30 91 H 28 H 160/94 97 08/29/20 03:27 99.9 F H 08/29/20 03:15 87 22 156/90 97 08/29/20 03:00 81 25 H 152/82 97 08/29/20 02:45 78 26 H 148/80 98 08/29/20 02:30 92 H 29 H 155/92 97 08/29/20 02:15 77 25 H 149/83 98 08/29/20 02:00 88 27 H 158/92 97 08/29/20 01:45 85 28 H 162/91 97 08/29/20 01:30 88 28 H 163/95 08/29/20 01:15 84 22 160/87 98 08/29/20 01:00 80 17 159/85 97 08/29/20 00:45 87 25 H 162/98 99 08/29/20 00:30 84 27 H 159/93 96 08/29/20 00:16 80 27 H 149/72 97 08/29/20 00:00 99.2 F 86 87 24 155/89 97 08/28/20 23:45 76 24 145/87 95 08/28/20 23:30 87 23 153/90 96 08/28/20 23:15 82 24 152/87 96 08/28/20 23:00 76 25 H 144/81 96 08/28/20 22:45 93 H 29 H 155/92 08/28/20 22:30 76 25 H 145/82 08/28/20 22:15 77 25 H 148/79 96 08/28/20 22:00 82 26 H 138/90 96 08/28/20 21:45 74 24 143/82 96 08/28/20 21:30 84 26 H 142/84 96 08/28/20 21:15 84 28 H 143/68 95 08/28/20 21:00 77 25 H 150/84 95 08/28/20 20:45 85 25 H 150/89 96 08/28/20 20:30 80 23 149/87 95 08/28/20 20:20 100 08/28/20 20:15 88 27 H 149/88 97 08/28/20 20:00 97.9 F 95 H 82 25 H 140/92 97 08/28/20 19:45 78 25 H 149/85 98 08/28/20 19:30 85 25 H 152/93 97 08/28/20 19:15 85 27 H 143/89 97 08/28/20 19:00 79 24 160/94 96 08/28/20 18:45 80 21 157/90 97 08/28/20 18:30 89 23 153/93 97 08/28/20 18:24 88 16 151/86 100 08/28/20 18:16 91 H 17 151/86 100 08/28/20 18:00 82 22 151/86 98 08/28/20 17:45 81 23 153/85 96 08/28/20 17:30 77 25 H 161/86 96 08/28/20 17:15 86 28 H 157/91 97 08/28/20 17:00 85 18 149/119 97 08/28/20 16:45 82 21 152/75 97 08/28/20 16:30 90 19 156/67 96 08/28/20 16:15 80 22 160/89 98 08/28/20 16:00 98.2 F 78 85 23 159/89 96 08/28/20 15:45 78 22 162/92 98 - Physical Examination General: No Apparent Distress HEENT: Positive: Normocephaly Neck: Positive: neck supple, trachea midline. Negative: JVD/HJR Neuro: Positive: Weakness (R hand) Abdomen: Positive: Soft. Negative: Tender Skin: Negative: Rash Musculoskeletal: No Fluid Collection Extremities: Present: lower extr. pulses, edema, warm - Labs and Meds CBC 08/29/20 Range/Units 07:15 WBC 6.8 (4.5-11.0) K/mm3 RBC 4.02 (3.65-5.03) M/mm3 Hgb 12.3 (11.8-15.2) gm/dl Hct 37.7 (35.5-45.6) % Plt Count 128 L (140-440) K/mm3 Comprehensive Metabolic Panel 08/29/20 Range/Units 07:15 Sodium 154 H (137-145) mmol/L Potassium 3.9 (3.6-5.0) mmol/L Chloride 116.2 H (98-107) mmol/L Carbon Dioxide 29 (22-30) mmol/L BUN 17 (9-20) mg/dL Creatinine 0.9 (0.8-1.3) mg/dL Glucose 94 (75-100) mg/dL Calcium 9.3 (8.4-10.2) mg/dL - Imaging and Cardiology EKG: report reviewed, image reviewed Echo: report reviewed (08/25/2020 - LV mod dilated, EF 20-25%, RV mod-severely dilated, RV mod hypokinetic, LA mildly dilated, negative Bubble study, no LV thrombus) - EKG Sinus rhythms and dysrhythmias: sinus tachycardia Ventricular dysrhythmias: ventricular premature com Chamber hypertrophy or enlargement: left atrial enlargement, right atrial enl argment, left ventricular hypertro Repolarization changes or abnormalities: nonspecific abnormality, ST segment, and/or T wave - Allied health notes Allied health notes reviewed: nursing
[2020-08-30] MEDS: HEPARIN 5,000 UNIT/1 ML VIAL SUB-Q SCH ×3 (05:07→21:44)
[2020-08-30] MEDS: INSULIN REGULAR, HUMAN 100 UNITS/1 ML SUB-Q SCH ×3 (06:28→18:42)
[2020-08-30] MEDS: FUROSEMIDE 40 MG/4 ML INJ IV SCH (09:04)
[2020-08-30] MEDS: ASPIRIN 325 MG TAB PO SCH (09:04)
[2020-08-30] MEDS: SENNOSIDES/DOCUSATE SODIUM 8.6/50 MG TAB FEEDTUBE SCH ×2 (09:04→21:44)
[2020-08-30] MEDS: FAMOTIDINE 20 MG/2 ML INJ IV SCH (09:04)
[2020-08-30] MEDS: CLOPIDOGREL 75 MG TAB PO SCH (09:04)
[2020-08-30] MEDS: METOPROLOL TARTRATE 25 MG TAB PO SCH ×3 (09:04→21:48)
[2020-08-30 09:19] LABS: Hematocrit 38.8 % (35.5-45.6); Hemoglobin 12.9 gm/dl (11.8-15.2); Mean Corpuscular HGB Conc 33 % (32-34); Mean Corpuscular Volume 92 fl (84-94); Platelet Count 135 K/mm3 (140-440); Red Blood Count 4.23 M/mm3 (3.65-5.03); Red Cell Distribution Width 14.5 % (13.2-15.2)
[2020-08-30 09:56] LABS: BUN/Creatinine Ratio 29; Blood Urea Nitrogen 23 mg/dL (9-20); Calcium 9.4 mg/dL (8.4-10.2); Hemolysis Index 7
--- NOTE | 2020-08-30 11:28 | Progress Note ---
Assessment and Plan Assessment and plan: This is 60-year-old male with HTN and CHF who was admitted for rule out CVA, acute respiratory failure, acute on chronic heart failure and is currently hypotensive. Patient was admitted COVID-19 PUI which has been ruled out Acute Right MCA Acute hypoxic respiratory failure Acute on chronic heart failure Staph aureus bronchial culture Hypernatremia Thrombocytopenia Hyperchloremia COVID-19 ruled out h/o Hypertension -CCM, cardiology and neurology consulted, appreciate recommendations -S/p vasopressor support with Levophed -Statin, aspirin, Plavix -Medical records requested from [place] -IV abx -TF, SSI, accucheck q6 -s/p dobutamine gtt, on BB now -08/24 CT head shows no acute intracranial abnormality, age-related cerebral atrophy, chronic small vessel ischemic changes in white matter, no evidence of recent infarct or mass-effect or midline shift -08/24 CTA neck with contrast shows no significant abnormality -08/24 CTA head with contrast shows no significant abnormality -08/24 echocardiogram shows mildly dilated left ventricle, definitely systolic function severely decreased, severe global hypokinesis of the left ventricle, right ventricle moderate to severely dilated, left atrium mildly dilated, right atrium mildly dilated without evidence of atrial septal defect, trace MR, RVSP is 48 mmHg, mild TR, trace MT, mild pulmonary hypertension, no pericardial effusion or pleural effusion noted, Mild diastolic dysfunction, no ventricular septal defect, no left ventricular thrombus noted, LVEF 20 to 25% -08/25 MRI brain pending -08/25 MRA/MRV head pending -08/26 CTA chest shows no evidence of pulmonary embolism, bilateral bronchopneumonia most pronounced within both lower lobes -08/26 BLE Doppler US shows no DVT/SVT -08/26 s/p bronch with culture completed; Staphylococcus aureus -08/28 CT head shows acute right MCA infarct -ST/PT/OT eval -Trend CBC, BMP DVT/GI prophylaxis: SCDs to bilateral lower extremities while in bed, heparin subcu, PPI Disposition: transfer to the floor The high probability of a clinically significant, sudden or life threatening deterioration of the [multi] system(s) required my full and direct attention, intervention and personal management. The aggregate critical care time was [35] minutes. This time is in addition to time spent performing reported procedures but includes the following: [x] Data Review and interpretation [x] Patient assessment and monitoring of vital signs [x] Documentation [x] Medication orders and management History Interval history: This is a 60-year-old male with hypertension and CHF who presented to emergency department on 08/25 with difficulty in speech which began around 5 PM and became p rogressively worse, unsteady gait and right-sided facial droop. Recommend emergency department included a CT head and after returning from imaging patient had increased work of breath, shortness of breath and desaturation to 90% SPO2 on room air. Patient was placed on supplemental oxygen via nasal cannula without improvement and progressed to nonrebreather to BiPAP. However the patient was still tachypneic to 50 to 60 breaths/min and was subsequently intubated. Patient was admitted to the hospital service with possible CVA, acute hypoxic respiratory failure, and congestive heart failure. [facility], cardiology and neurology were consulted. 08/25: Patient is echocardiogram, MRI brain and MRA head pending. The time of examination patient was sedated on propofol and on assist control tidal volume 450, rate of 26, PEEP of 10 and 100% FiO2. Patient was started on Levophed drip for persistent hypotension. CVL was eventually placed. 08/26: MRI brain pending, echocardiogram shows reduced ejection fraction, continued use of vasopressin. Patient was bronched today by [facility] empiric antibiotic therapy with cefepime was started. Dr. Gonzalze and I updated son at bedside today. CTA pending 08/27: Patient was started on dobutamine drip per cardiology yesterday evening and he has been weaned off of Levophed. [facility] culture resulted with Staph aureus. Infectious disease is aware. Patient is currently on cefepime. Cardiology increased dobutamine drip to 5 mcg. Son updated at bedside with Dr. Gonzalez. The time my examination patient was on CMV tidal volume 450, rate 12, PEEP 8 on 35% FiO2. [facility] ordered as needed fentanyl every 2 hours. Patient is currently on propofol. 08/28: At the time my examination patient is sedated on propofol and has dobutamine drip infusing which was increased yesterday. He is on CMV tidal volume 450, rate of 20, PEEP of 6 and FiO2 35%. Patient is following commands. Patient's hypernatremia and hyperchloremia slightly worsened. Neurology will obtain repeat CT head since MRI is not able to be completed at this time. RN asked to remove Sanchez in place condom cath. SSI ordered 08/29: This morning patient is on NC, failed his bedside swallow eval and ST eval was ordered. RN replaced NGT. FWF increased. His hypernatremia and hyperchloremia worsened. Patient will be transferred to the floor. CT head confirmed acute left MCA CVA. 08/30 This is a 60-year-old male with hypertension and CHF who presented to emergency department on 08/25 with difficulty in speech which began around 5 PM and became progressively worse, unsteady gait and right-sided facial droop. Recommend emergency department included a CT head and after returning from imaging patient had increased work of breath, shortness of breath and desaturation to 90% SPO2 on room air. Patient was placed on supplemental oxygen via nasal cannula without improvement and progressed to nonrebreather to BiPAP. However the patient was still tachypneic to 50 to 60 breaths/min and was subsequently intubated, placed on vent.. Patient was admitted to the hospital service with possible CVA, acute hypoxic respiratory failure, and congestive heart failure. [facility], cardiology and neurology were consulted. He was on Dobutamine drip, now discontinued. He improved, was extubated. Repeat CT confirmed acute left MCA infarct. He has facial drrop, right sided weakness and expressive aphasia. He is on Aspirin, Plavix. Was transferred to Tele yesterday. History Interval history: Patient is 60-year-old male with HTN , CHF, now diagnosed with acute ischemic stroke, acute on chronic systolic CHF, sepsis due to pneumomnia He was just transferred to Tele yesterday 08/29 Still right sided weakness Still unable to talk Hospitalist Physical - Physical exam Narrative exam: General appearance: Present: no acute distress - EENT Eyes: Present: PERRL, EOM intact ENT: dentition normal - Neck Neck: Present: normal ROM - Respiratory Respiratory effort: normal Respiratory: bilateral: CTA - Cardiovascular Rhythm: regular Heart Sounds: Present: S1 & S2. Absent: systolic murmur, diastolic murmur - Extremities Extremities: no ischemia, pulses intact, pulses symmetrical, No edema, normal temperature, normal color Peripheral Pulses: within normal limits - Abdominal General gastrointestinal: soft, non-tender, non-distended, normal bowel sounds - Integumentary Integumentary: Present: clear, warm, dry - Psychiatric Psychiatric: appropriate mood/affect, cooperative - Neurologic Neurologic: Right sided weakness, right sided facial droop, expressive aphasia , awake,alert - Allied Health Allied health notes reviewed: nursing, PT, OT, RT, social work - Constitutional Vitals: Temp Pulse Resp BP Pulse Ox 99.2 F 71 18 120/74 98 08/30/20 07:50 08/30/20 09:04 08/30/20 07:50 08/30/20 09:04 08/30/20 09:48 HEART Score - HEART Score Troponin: Troponin T 0.032 ng/mL (0.00-0.029) H D 08/26/20 05:15 Results - Labs CBC & Chem 7: 08/30/20 09:04 08/30/20 09:04 Labs: Laboratory Last Values WBC 7.8 K/mm3 (4.5-11.0) 08/30/20 09:04 RBC 4.23 M/mm3 (3.65-5.03) 08/30/20 09:04 Hgb 12.9 gm/dl (11.8-15.2) 08/30/20 09:04 Hct 38.8 % (35.5-45.6) 08/30/20 09:04 MCV 92 fl (84-94) 08/30/20 09:04 MCH 31 pg (28-32) 08/30/20 09:04 MCHC 33 % (32-34) 08/30/20 09:04 RDW 14.5 % (13.2-15.2) 08/30/20 09:04 Plt Count 135 K/mm3 (140-440) L 08/30/20 09:04 Lymph % (Auto) 4.2 % (13.4-35.0) L 08/26/20 05:15 [place] % (Auto) 9.2 % (0.0-7.3) H 08/26/20 05:15 Eos % (Auto) 0.2 % (0.0-4.3) 08/26/20 05:15 Baso % (Auto) 0.5 % (0.0-1.8) 08/26/20 05:15 Lymph # (Auto) 0.5 K/mm3 (1.2-5.4) L 08/26/20 05:15 [place] # (Auto) 1.0 K/mm3 (0.0-0.8) H 08/26/20 05:15 Eos # (Auto) 0.0 K/mm3 (0.0-0.4) 08/26/20 05:15 Baso # (Auto) 0.1 K/mm3 (0.0-0.1) 08/26/20 05:15 Seg Neutrophils % 85.9 % (40.0-70.0) H 08/26/20 05:15 Seg Neutrophils # 9.7 K/mm3 (1.8-7.7) H 08/26/20 05:15 PT 15.5 Sec. (12.2-14.9) H 08/24/20 22:24 INR 1.05 (0.87-1.13) 08/24/20 22:24 APTT 29.9 Sec. (24.2-36.6) 08/24/20 22:24 Thrombin Time 18.7 Sec. (15.1-19.6) 08/24/20 22:24 D-Dimer 4955.67 ng/mlDDU (0-234) H 08/26/20 05:15 ABG pH 7.425 (7.320-7.450) 08/28/20 04:21 POC ABG pCO2 34.7 mmHg (32.0-48.0) 08/28/20 04:21 ABG pCO2 40.7 mm Hg 08/25/20 04:45 POC ABG pO2 138.2 mmHg (83-108) H 08/28/20 04:21 ABG pO2 194.6 mm Hg (80.0-90.0) H 08/25/20 04:45 POC ABG HCO3 22.3 08/28/20 04:21 ABG HCO3 23.3 mmol/L (20.0-26.0) 08/25/20 04:45 ABG O2 Saturation 99.1 (0-100) 08/28/20 04:21 ABG O2 Content 19.9 (0.0-44) 08/25/20 04:45 POC ABG Base Excess -1.5 08/28/20 04:21 ABG Base Excess -1.8 mmol/L (-2.0-3.0) 08/25/20 04:45 ABG Hemoglobin 13.3 (12.0-17.5) 08/28/20 04:21 ABG Oxyhemoglobin 97.6 (94-98) 08/28/20 04:21 ABG Carboxyhemoglobin 1.6 % (0.0-5.0) 08/25/20 04:45 ABG Methemoglobin 0 (0.0-1.5) 08/28/20 04:21 ABG Sodium 146.2 mmol/L (136.0-145.0) H 08/28/20 04:21 ABG Potassium 3.6 mmol/L (3.40-4.50) 08/28/20 04:21 ABG Chloride 114.0 mmol/L (98-107) H 08/28/20 04:21 ABG Glucose 138 mg/dL (65-95) H 08/28/20 04:21 Oxyhemoglobin 97.2 % (95.0-99.0) 08/25/20 04:45 Carboxyhemoglobin 1.5 (0.5-1.5) 08/28/20 04:21 FiO2 100 % 08/25/20 04:45 FiO2 % 35.0 08/28/20 04:21 Sodium 149 mmol/L (137-145) H 08/30/20 09:04 Potassium 3.8 mmol/L (3.6-5.0) 08/30/20 09:04 Chloride 112.5 mmol/L (98-107) H 08/30/20 09:04 Carbon Dioxide 28 mmol/L (22-30) 08/30/20 09:04 Anion Gap 12 mmol/L 08/30/20 09:04 BUN 23 mg/dL (9-20) H 08/30/20 09:04 Creatinine 0.8 mg/dL (0.8-1.3) 08/30/20 09:04 Estimated GFR > 60 ml/min 08/30/20 09:04 BUN/Creatinine Ratio 29 % 08/30/20 09:04 Glucose 145 mg/dL (75-100) H 08/30/20 09:04 POC Glucose 139 mg/dL (70-105) H 08/30/20 05:04 Calcium 9.4 mg/dL (8.4-10.2) 08/30/20 09:04 Total Bilirubin 0.90 mg/dL (0.1-1.2) 08/24/20 22:24 AST 31 units/L (5-40) 08/24/20 22:24 ALT 46 units/L (7-56) 08/24/20 22:24 Alkaline Phosphatase 111 units/L (35-129) 08/24/20 22:24 Total Creatine Kinase 250 units/L (55-170) H 08/24/20 22:24 CK-MB (CK-2) 3.6 ng/mL (0.0-4.0) 08/24/20 22:24 CK-MB (CK-2) Rel Index 1.4 (0-4) 08/24/20 22:24 Troponin T 0.032 ng/mL (0.00-0.029) H D 08/26/20 05:15 NT-Pro-B Natriuret Pep 2769 pg/mL (0-900) H 08/24/20 22:24 Total Protein 7.2 g/dL (6.3-8.2) 08/24/20 22:24 Albumin 3.9 g/dL (3.9-5) 08/24/20 22:24 Albumin/Globulin Ratio 1.2 % 08/24/20 22:24 Triglycerides 67 mg/dL (2-149) 08/25/20 01:47 Cholesterol 184 mg/dL (50-199) 08/25/20 01:47 LDL Cholesterol Direct 141 mg/dL (50-130) H 08/25/20 01:47 HDL Cholesterol 44 mg/dL (40-59) 08/25/20 01:47 Cholesterol/HDL Ratio 4.18 % 08/25/20 01:47 Procalcitonin 5.41 ng/mL (<0.15) 08/28/20 04:35 TSH 3.150 mlU/mL (0.270-4.200) 08/24/20 22:24 Arterial Blood Glucose 138 mg/dL (65-95) H 08/28/20 04:21 Arterial Blood Ionized Calcium 4.7 mg/dL (4.6-5.3) 08/28/20 04:21 Urine Color Yellow (Yellow) 08/24/20 22:35 Urine Turbidity Clear (Clear) 08/24/20 22:35 Urine pH 7.0 (5.0-7.0) 08/24/20 22:35 Ur Specific [place] 1.005 (1.003-1.030) 08/24/20 22:35 Urine Protein 100 mg/dl mg/dL (Negative) 08/24/20 22:35 Urine Glucose (UA) >=500 mg/dL (Negative) 08/24/20 22:35 Urine Ketones Neg mg/dL (Negative) 08/24/20 22:35 Urine Blood Neg (Negative) 08/24/20 22:35 Urine Nitrite Neg (Negative) 08/24/20 22:35 Urine Bilirubin Neg (Negative) 08/24/20 22:35 Urine Urobilinogen < 2.0 mg/dL (<2.0) 08/24/20 22:35 Ur Leukocyte Esterase Neg (Negative) 08/24/20 22:35 Urine WBC (Auto) 1.0 /HPF (0.0-6.0) 08/24/20 22:35 Urine RBC (Auto) 2.0 /HPF (0.0-6.0) 08/24/20 22:35 Urine Mucus Few /HPF 08/24/20 22:35 Nasal Screen MRSA (PCR) Negative (Negative) 08/25/20 Unknown Urine Opiates Screen Negative 08/24/20 22:35 Urine Methadone Screen Negative 08/24/20 22:35 Ur Barbiturates Screen Negative 08/24/20 22:35 Ur Phencyclidine Scrn Negative 08/24/20 22:35 Ur Amphetamines Screen Negative 08/24/20 22:35 U Benzodiazepines Scrn Negative 08/24/20 22:35 Urine Cocaine Screen Negative 08/24/20 22:35 U Marijuana (THC) Screen Negative 08/24/20 22:35 Drugs of Abuse Note Disclamer 08/24/20 22:35 Plasma/Serum Alcohol < 0.01 % (0-0.07) 08/24/20 22:24 Coronavirus (PCR) Negative (Negative) 08/25/20 Unknown Blood Type A POSITIVE 08/24/20 22:24 Antibody Screen Negative 08/24/20 22:24 Microbiology: Microbiology 08/25/20 02:39 Peripheral/Venous Blood Culture - Final NO GROWTH AFTER 5 DAYS 08/25/20 01:47 Peripheral/Venous Blood Culture - Final NO GROWTH AFTER 5 DAYS Sanchez/IV: Voiding Method Condom Catheter Active Medications - Current Medications Current Medications: Generic Name Dose Route Start Last Admin Trade Name Freq PRN Reason Stop Dose Admin Acetaminophen 650 mg 08/25/20 00:33 08/26/20 21:00 Acetaminophen 325 Mg Tab PO 650 mg Q4H PRN Administration Pain MILD(1-3)/Fever >100.5/[place] Albuterol 2.5 mg 08/25/20 00:33 Albuterol 2.5 Mg/3 Ml Nebu IH Q4HRT PRN Shortness Of Breath Lipase/Protease/Amylase 1 each 08/25/20 09:40 Lipase 10,500/Protease 25,000/Amylase 43,750 (Units) Dr Flores FEEDTUBE PRN PRN For Clogged Feeding Tube Aspirin 325 mg 08/25/20 10:00 08/30/20 09:04 Aspirin 325 Mg Tab PO 325 mg QDAY TK Administration Atorvastatin Calcium 80 mg 08/25/20 22:00 08/29/20 21:04 Atorvastatin 40 Mg Tab PO 80 mg QHS TK Administration Clopidogrel Bisulfate 75 mg 08/25/20 10:00 08/30/20 09:04 Clopidogrel 75 Mg Tab PO 75 mg QDAY TK Administration Dextrose 50 ml 08/28/20 11:12 Dextrose 50% In Water (25gm) 50 Ml Syringe IV Q30MIN PRN Hypoglycemia Protocol Famotidine 20 mg 08/30/20 22:00 Famotidine 20 Mg Tab PO BID TK Furosemide 40 mg 08/30/20 10:00 08/30/20 09:04 Furosemide 40 Mg/4 Ml Inj IV 40 mg QDAY TK Administration Heparin Sodium (Porcine) 5,000 unit 08/25/20 06:00 08/30/20 05:07 Heparin 5,000 Unit/1 Ml Vial SUB-Q 5,000 unit Q8HR TK Administration Hydralazine HCl 10 mg 08/25/20 00:39 Hydralazine 20 Mg/1 Ml Inj IV Q6H PRN htn Hydrophilic Ointment 1 applic 08/24/20 23:56 Lip Therapy Vaseline TP Q2HR PRN Dry Lips Cefepime HCl 2 gm in 100 mls @ 200 mls/hr 08/26/20 12:00 08/29/20 23:26 Cefepime/Ns 2 Gm/100 Ml IV 09/02/20 11:59 200 mls/hr Q12H TK Administration Protocol Insulin Human Regular 0 units 08/28/20 12:00 08/30/20 06:28 Insulin Regular, Human 100 Units/1 Ml SUB-Q Not Given Q6H [facility] Protocol Metoprolol Tartrate 25 mg 08/29/20 20:00 08/30/20 09:04 Metoprolol Tartrate 25 Mg Tab PO 25 mg BID TK Administration Multi-Ingred Cream/Lotion/Oil/Oint 1 applic 08/24/20 23:56 Mineral Oil/Petrolatum, White Ophth Oint 3.5 Gm OU Q4HR PRN Dry Eye(s) Ondansetron HCl 4 mg 08/25/20 00:33 Ondansetron 4 Mg/2 Ml Inj IV Q8H PRN Nausea And Vomiting Senna/Docusate Sodium 1 tab 08/25/20 10:00 08/30/20 09:04 Sennosides/Docusate Sodium 8.6/50 Mg Tab FEEDTUBE 1 tab BID TK Administration Simple Syrup 15 ml 08/25/20 09:40 Simple Syrup 15 Ml FEEDTUBE PRN PRN Hypoglycemia Simple Syrup 30 ml 08/25/20 09:40 Simple Syrup 15 Ml FEEDTUBE PRN PRN Hypoglycemia Sodium Bicarbonate 325 mg 08/25/20 09:40 Sodium Bicarbonate 325 Mg Tab FEEDTUBE PRN PRN For Clogged Feeding Tube Sodium Chloride 10 ml 08/25/20 10:00 08/30/20 09:06 Sodium Chloride 0.9% 10 Ml Flush Syringe IV 10 ml BID TK Administration Sodium Chloride 10 ml 08/25/20 00:33 08/25/20 10:58 Sodium Chloride 0.9% 10 Ml Flush Syringe IV 10 ml PRN PRN Administration LINE FLUSH Nutrition/Malnutrition Assess - Dietary Evaluation Nutrition/Malnutrition Findings: Nutrition Notes Start: 08/25/20 09:17 Freq: Status: Active Protocol: Document 08/28/20 11:41 CW (Rec: 08/28/20 11:46 CW [id number]) Nutrition Notes Need for Assessment generated from: MD Order Initial or Follow up Brief Note Current Diagnosis Hypertension,Heart Failure, Respiratory Failure,Stroke Other Pertinent Diagnosis pneu Current Diet TF Vital AF at 65ml/hr Labs/Tests Reviewed Height 5 ft 8 in Weight 84.7 kg [place] Body Weight (kg) 70.00 BMI 28.3 Weight Status Overweight Subjective/Other Information MD consult for write/manage TF . Per SYSTEMS TECHNOLOGIST it was a default order. No need to adjust TF at this time. TF order has an elevated flush of 200 already to alleviate hypernatremia initiated by SYSTEMS TECHNOLOGIST Annemarie Is patient on ventilator? Yes Is Patient Ambulatory and/or Out of Bed No REE-([facility]-confined to bed) 1961.540 Calculation Used for Recommendations [facility] Additional Notes Protein: (1.2-2g/kg) 102-127g Fluid: 1500-1900ml or per MD Nutrition Intervention Change Diet Order: Continue TF regimen Nutrition Support: Vital AF at 65 ml/hr Flush 200 ml q4h or per MD Kcal 1,872 Protein (gm) 117 Fluid (mL) 1,265 Goal #1 Meet at least 75% of protein and energy needs via TF Anticipated Discharge Needs: Unable to determine at this time Follow-Up By: 08/30/20 Additional Comments F/U for TF tolerance and vent status
[2020-08-30] MEDS: CEFEPIME/NS 2 GM/100 ML 2 GM/100 ML BAG IV SCH (12:01)
--- NOTE | 2020-08-30 12:07 | Progress Note ---
Assessment and Plan Telemetry reviewed: Sinus rhythm 84. Occasional episodes of triplet PVCs #Acute on Chronic heart failure * Echocardiogram reviewed (08/26/2020): LVEF is 20 to 25%. Left ventricle is moderately dilated. LV SF is severely decreased. Severe global hypokinesis of the left ventricle. Right ventricle is moderate to severely dilated. Right ventricle is moderately hypokinetic. LA is mildly dilated. Saline bubble contrast intravenous injection does not demonstrate PFO. No obvious thrombus noted in LV * Continue Lasix 40 mg IV daily * Patient is reportedly followed by [facility] [facility]. Records have been requested. #Acute CVA * Per neurology recommendations: on aspirin 325mg and Plavix 75 mg #Acute hypoxic respiratory failure * Patient has been extubated and is maintaining SPO2 #Hypertension, Chronic * Continue current antihypertensive regimen metoprolol 25 mg twice daily #DVT prophylaxis * Heparin SQ We will follow This patient was seen in conjunction with Dr Misael Cruz who agrees with this assessment and plan of care. - Patient Problems (1) Acute exacerbation of CHF (congestive heart failure) Current Visit: Yes Status: Acute Qualifiers: Heart failure type: unspecified Qualified Code(s): I50.9 - Heart failure, unspecified (2) Acute respiratory failure Current Visit: Yes Status: Acute Qualifiers: Qualified Code(s): J96.00 - Acute respiratory failure, unspecified whether with hypoxia or hypercapnia (3) CVA (cerebral vascular accident) Current Visit: Yes Status: Suspected Qualifiers: CVA mechanism: unspecified Qualified Code(s): I63.9 - Cerebral infarction, unspecified (4) DVT prophylaxis Current Visit: Yes Status: Acute (5) Hypertension Current Visit: Yes Status: Chronic Qualifiers: Hypertension type: essential hypertension Qualified Code(s): I10 - Essential (primary) hypertension Subjective Date of service: 08/30/20 Principal diagnosis: CVA Interval history: Patient resting comfortably in bed. Currently aphasic communicating with writing pad. Patient denies any shortness of breath or chest pain overnight Telemetry reviewed: Sinus rhythm 84. Occasional episodes of triplet PVCs noted on telemetry Objective Last Vital Signs Temp 99.2 F 08/30/20 07:50 Pulse 87 08/30/20 10:00 Resp 17 08/30/20 10:00 BP 120/74 08/30/20 09:04 Pulse Ox 100 08/30/20 10:00 - Physical Examination General: No Apparent Distress HEENT: Positive: Normocephaly Neck: Positive: neck supple, trachea midline. Negative: JVD/HJR Cardiac: Positive: Reg Rate and Rhythm, S1/S2 Lungs: Positive: Normal Exam, Normal Breath Sounds Neuro: Positive: Weakness (R hand), Other (Aphasic status post acute CVA) Abdomen: Positive: Soft. Negative: Tender Skin: Negative: Rash Musculoskeletal: No Fluid Collection Extremities: Present: lower extr. pulses, edema, warm - Labs and Meds CBC 08/30/20 Range/Units 09:04 WBC 7.8 (4.5-11.0) K/mm3 RBC 4.23 (3.65-5.03) M/mm3 Hgb 12.9 (11.8-15.2) gm/dl Hct 38.8 (35.5-45.6) % Plt Count 135 L (140-440) K/mm3 Comprehensive Metabolic Panel 08/30/20 Range/Units 09:04 Sodium 149 H (137-145) mmol/L Potassium 3.8 (3.6-5.0) mmol/L Chloride 112.5 H (98-107) mmol/L Carbon Dioxide 28 (22-30) mmol/L BUN 23 H (9-20) mg/dL Creatinine 0.8 (0.8-1.3) mg/dL Glucose 145 H (75-100) mg/dL Calcium 9.4 (8.4-10.2) mg/dL - Imaging and Cardiology EKG: report reviewed, image reviewed Echo: report reviewed (08/25/2020 - LV mod dilated, EF 20-25%, RV mod-severely dilated, RV mod hypokinetic, LA mildly dilated, negative Bubble study, no LV thrombus) - Telemetry EKG Rhythm: Sinus Rhythm - EKG Sinus rhythms and dysrhythmias: sinus tachycardia Ventricular dysrhythmias: ventricular premature com Chamber hypertrophy or enlargement: left atrial enlargement, right atrial enlargment, left ventricular hypertro Repolarization changes or abnormalities: nonspecific abnormality, ST segment, and/or T wave - Allied health notes Allied health notes reviewed: nursing
--- NOTE | 2020-08-30 13:14 | Progress Note ---
Assessment and Plan Cultures: 08/25/2020 blood culture: No growth 08/25/2020 tracheal aspirate: In process 08/26/2020 right middle lobe BAL: S aureus COVID-19 PCR: Negative A/P: 60-year-old male with hypertension, CHF was admitted to the hospital as a possible stroke with difficulty with speech, right-sided facial droop: #Right-sided pneumonia: Possibly aspiration related. Fever improving. #Sepsis: Secondary to above #Acute hypoxic respiratory failure: on 3L NC #Acute on chronic CHF #Possible CVA: Neurology following. Recs: -Seems to be responding well, continue cefepime for now. -Procalcitonin elevated, complete 7 days -If otherwise stable to be discharged can send home with omnicef 300mg q12h to complete the above course. Nic Terrell MD [facility] ([facility]) O: [phone] F: [phone] Subjective Date of service: 08/30/20 Principal diagnosis: CVA Interval history: Afebrile, normal white count. Objective - Exam Narrative Exam: Physical Exam: Constitutional: sedated, intubated, on the vent Head, Ears, Nose: Normocephalic, atraumatic. External ears, nose normal Eyes: Conjunctivae/corneas clear. No icterus. No ptosis. Neck: intubated Oral: intubated Cardiovascular: S1, S2 + Respiratory: AE fair bilaterally and equal GI: Soft, bowel sounds + Musculoskeletal: No pedal edema, no cyanosis. Skin: No rash or abscess Hem/Lymphatic: No palpable cervical or supraclavicular nodes. No lymphangitis Psych: no agitation Neurological: sedated, intubated, on the vent, exam limited - Constitutional Vitals: Vital Signs Temp Pulse Resp BP Pulse Ox 99.2 F 87 17 120/74 100 08/30/20 07:50 08/30/20 10:00 08/30/20 10:00 08/30/20 09:04 08/30/20 10:00 Temperature -Last 24 Hours Temperature 99.2 F Temperature 97.8 F Temperature 97.9 F Temperature 97.4 F Temperature 98.0 F - Labs CBC & Chem 7: 08/30/20 09:04 08/30/20 09:04 Labs: Abnormal lab results 08/29/20 08/30/20 08/30/20 Range/Units 17:11 05:04 09:04 Plt Count 135 L (140-440) K/mm3 Sodium (137-145) mmol/L Chloride (98-107) mmol/L BUN (9-20) mg/dL Glucose (75-100) mg/dL POC Glucose 107 H 139 H (70-105) mg/dL 08/30/20 08/30/20 Range/Units 09:04 11:58 Plt Count (140-440) K/mm3 Sodium 149 H (137-145) mmol/L Chloride 112.5 H (98-107) mmol/L BUN 23 H (9-20) mg/dL Glucose 145 H (75-100) mg/dL POC Glucose 160 H (70-105) mg/dL
--- NOTE | 2020-08-30 14:31 | Magnetic Resonance Report ---
MR MRA/MRV head wo con, MR brain wo con INDICATION / CLINICAL INFORMATION: Stroke. TECHNIQUE: Multiplanar, multisequence MRI of the brain. MRA of the head. 3-D/MIP reformats postprocessed. Percentage stenosis is determined by direct quantit ative measurements of distal internal carotid artery diameter compared with normal reference segments or by criteria similar to NASCET where applicable. COMPARISON: 08/28/2020 CT head FINDINGS: BRAIN: Intracranial: Small focus of restricted diffusion is seen within the left cerebellum. Small area of r estricted diffusion seen within the left frontal lobe corresponding to the hypoattenuation prior CT. Small volume of petechial conversion has developed. Periventricular and centrum semiovale T2 white ma tter hyperintensities most consistent with sequela of chronic microvascular disease. Ventricular anjali iber is normal. No extra-axial collection. No mass. No herniation. Orbits: No significant abnormality of visualized orbits. Sinuses/mastoid: Excessive thickening in the sphenoid sinus. Otherwise, minimal mucosal thickening in the paranasal sinuses and mastoid air cells. Additional findings: None. MRA HEAD: Intracranial vertebral arteries: No occlusion or significant stenosis. Basilar artery: No occlusion or significant stenosis. Posterior cerebral arteries: No occlusion or significant stenosis. Intracranial internal carotid arteries: No occlusion or significant stenosis. Anterior cerebral arteries: No occlusion or significant stenosis. Middle cerebral arteries: No occlusion or significant stenosis. No aneurysm. Additional findings: None. IMPRESSION: 1. MRI Brain: Evolving known left frontal MCA distribution infarction. Interval development of small quantity of petechial hemorrhage. Additionally there is an acute left lacunar cerebellar infarction. 2. MRA Head: No large proximal vessel occlusion. Signer Name: Troy Horton MD Signed: 08/30/2020 2:26 PM Workstation Name: [email or web address]
[2020-08-30] MEDS ORDERED: SIMPLE SYRUP 15 ML FEEDTUBE PRN ×2 (15:04)
[2020-08-30] MEDS ORDERED: LIPASE 10,500/PROTEASE 25,000/AMYLASE 43,750 (UNITS) DR CAP FEEDTUBE PRN (15:04)
[2020-08-30] MEDS ORDERED: SODIUM BICARBONATE 325 MG TAB FEEDTUBE PRN (15:04)
--- NOTE | 2020-08-30 16:30 | Event Note ---
Date: 08/30/20 Patient has small petechial hemorrhage in addition to ischemic stroke on MRI. I called and discussed with Dr. Casillas, Neuro. He recommends stat non=contrast CT head. If bleed is seen , stop Aspirin and Plavix. If no bleed, then continue Aspirin and Plavix. I also put in a consult for follow up.
--- NOTE | 2020-08-30 18:08 | Cat Scan Report ---
. CT head/brain wo con INDICATION / CLINICAL INFORMATION: 60 years Male; Petichial Hemmorhage on MRI. Recommended by [facility]. TECHNIQUE: Routine CT head without contrast. All CT scans at this location are performed using CT dos e reduction for ALARA by means of automated exposure control. COMPARISON: MRI-08/30/2020 FINDINGS: BRAIN / INTRACRANIAL CONTENTS: Small, subacute ischemic area is are seen in the left precentral gyral region on the left. No signs of hemorrhagic transformation. Findings on recent MRI are most likely r elated to cortical laminar necrosis. Small, branch PICA infarct seen inferiorly on the left, posteriorly, corresponding with area of ische cristina on today's MRI. Otherwise, no acute hemorrhage, mass effect, midline shift, hydrocephalus, or acute, large territori al infarct. No signs of significant atrophy. Minimal, nonspecific white matter disease suggested. Ossification is seen along the falx cerebri. CRANIOCERVICAL JUNCTION: No significant abnormality. ORBITS: No significant abnormality of visualized orbits. SINUSES / MASTOIDS: Minimal mucosal thickening seen in the ethmoids. Air-fluid level seen in the righ t sphenoid sinus, which is also noted on today's MRI. ADDITIONAL FINDINGS: NG tube noted. IMPRESSION: 1. Areas of subacute ischemia as described above. No signs of hemorrhagic transformation. Signer Name: Denzel Chan MD, III Signed: 08/30/2020 6:04 PM Workstation Name: [id number]
[2020-08-30] MEDS: FAMOTIDINE 20 MG TAB PO SCH (21:44)
[2020-08-31] MEDS: CEFEPIME/NS 2 GM/100 ML 2 GM/100 ML BAG IV SCH ×2 (01:00→18:17)
[2020-08-31] MEDS: INSULIN REGULAR, HUMAN 100 UNITS/1 ML SUB-Q SCH ×3 (06:06→12:00)
[2020-08-31] MEDS: HEPARIN 5,000 UNIT/1 ML VIAL SUB-Q SCH ×3 (06:07→22:32)
[2020-08-31 06:34] LABS: Hematocrit 42.2 % (35.5-45.6); Hemoglobin 13.8 gm/dl (11.8-15.2); Mean Corpuscular HGB Conc 33 % (32-34); Mean Corpuscular Volume 93 fl (84-94); Platelet Count 149 K/mm3 (140-440); Red Blood Count 4.52 M/mm3 (3.65-5.03); Red Cell Distribution Width 14.7 % (13.2-15.2)
[2020-08-31 06:52] LABS: BUN/Creatinine Ratio 28; Blood Urea Nitrogen 25 mg/dL (9-20); Calcium 9.6 mg/dL (8.4-10.2); Hemolysis Index 2
--- NOTE | 2020-08-31 08:49 | XRay Report ---
ABDOMEN 1 VIEW(S) INDICATION / CLINICAL INFORMATION: tube placement verification. COMPARISON: 08/29/2020 FINDINGS: TUBES / LINES: The sidehole of the nasogastric tube terminates just beyond the GE junction. Consider advancement by 5 to 10 cm. BOWEL GAS PATTERN: No significant abnormality. FREE AIR / EXTRALUMINAL GAS: None seen. ADDITIONAL FINDINGS: No significant additional findings. IMPRESSION: Endogastric tube as described. Signer Name: Kenan Coleman Jr, MD Signed: 08/31/2020 8:45 AM Workstation Name: [id number]
--- NOTE | 2020-08-31 09:41 | Progress Note ---
Assessment and Plan Telemetry reviewed: Sinus rhythm 84. Occasional episodes of triplet PVCs #Acute on Chronic heart failure in setting of dilated cardiomyopathy * Echocardiogram reviewed (08/26/2020): LVEF is 20 to 25%. Left ventricle is moderately dilated. LV SF is severely decreased. Severe global hypokinesis of the left ventricle. Right ventricle is moderate to severely dilated. Right ventricle is moderately hypokinetic. LA is mildly dilated. Saline bubble contrast intravenous injection does not demonstrate PFO. No obvious thrombus noted in LV * Optimize cardiac regimen: Continue Lasix 40 mg IV daily, metoprolol 25 mg twice daily, initiate lisinopril 2.5 mg daily. * Patient will need outpatient cardiac rehab on discharge to continue goal-di rected therapy * Patient is reportedly followed by [facility] [facility]. Records have been requested. #Acute CVA * Per neurology recommendations: on aspirin 325mg and Plavix 75 mg #Acute hypoxic respiratory failure * Patient has been extubated and is maintaining SPO2 #Hypertension, Chronic * Continue current antihypertensive regimen metoprolol 25 mg twice daily #DVT prophylaxis * Heparin SQ Patient currently in stable cardiac status. We will follow This patient was seen in conjunction with Dr Misael Cruz who agrees with this assessment and plan of care. - Patient Problems (1) Acute exacerbation of CHF (congestive heart failure) Current Visit: Yes Status: Acute Qualifiers: Heart failure type: unspecified Qualified Code(s): I50.9 - Heart failure, unspecified (2) Acute respiratory failure Current Visit: Yes Status: Acute Qualifiers: Qualified Code(s): J96.00 - Acute respiratory failure, unspecified whether with hypoxia or hypercapnia (3) CVA (cerebral vascular accident) Current Visit: Yes Status: Suspected Qualifiers: CVA mechanism: unspecified Qualified Code(s): I63.9 - Cerebral infarction, unspecified (4) DVT prophylaxis Current Visit: Yes Status: Acute (5) Hypertension Current Visit: Yes Status: Chronic Qualifiers: Hypertension type: essential hypertension Qualified Code(s): I10 - Essential (primary) hypertension Subjective Date of service: 08/31/20 Principal diagnosis: CVA Interval history: Pt is currently sleeping in bed, somnolent and aphasic, but able to respond appropriately to yes/no questions and is communicating with writing pad. No SEDA or CP overnight. Telemetry reviewed: Sinus rhythm 94. Episode of 4 beat VT noted overnight. Objective Last Vital Signs Temp 98.3 F 08/31/20 08:08 Pulse 88 08/31/20 08:08 Resp 18 08/31/20 08:08 BP 146/97 08/31/20 08:08 Pulse Ox 94 08/31/20 08:08 - Physical Examination General: No Apparent Distress HEENT: Positive: Normocephaly Neck: Positive: neck supple, trachea midline. Negative: JVD/HJR Cardiac: Positive: Reg Rate and Rhythm, S1/S2 Lungs: Positive: Normal Exam, Normal Breath Sounds Neuro: Positive: Weakness (R hand), Other (Aphasic status post acute CVA) Abdomen: Positive: Soft. Negative: Tender Skin: Negative: Rash Musculoskeletal: No Fluid Collection Extremities: Present: lower extr. pulses, warm. Absent: edema - Labs and Meds CBC 08/31/20 Range/Units 05:24 WBC 8.9 (4.5-11.0) K/mm3 RBC 4.52 (3.65-5.03) M/mm3 Hgb 13.8 (11.8-15.2) gm/dl Hct 42.2 (35.5-45.6) % Plt Count 149 (140-440) K/mm3 Comprehensive Metabolic Panel 08/30/20 08/31/20 Range/Units 09:04 05:24 Sodium 149 H 151 H (137-145) mmol/L Potassium 3.8 4.0 (3.6-5.0) mmol/L Chloride 112.5 H 113.7 H (98-107) mmol/L Carbon Dioxide 28 28 (22-30) mmol/L BUN 23 H 25 H (9-20) mg/dL Creatinine 0.8 0.9 (0.8-1.3) mg/dL Glucose 145 H 152 H (75-100) mg/dL Calcium 9.4 9.6 (8.4-10.2) mg/dL - Imaging and Cardiology EKG: report reviewed, image reviewed Echo: report reviewed (08/25/2020 - LV mod dilated, EF 20-25%, RV mod-severely dilated, RV mod hypokinetic, LA mildly dilated, negative Bubble study, no LV thrombus) - EKG Sinus rhythms and dysrhythmias: sinus tachycardia Ventricular dysrhythmias: ventricular premature com Chamber hypertrophy or enlargement: left atrial enlargement, right atrial enlargment, left ventricular hypertro Repolarization changes or abnormalities: nonspecific abnormality, ST segment, and/or T wave - Allied health notes Allied health notes reviewed: nursing
[2020-08-31] MEDS: FAMOTIDINE 20 MG TAB PO SCH ×2 (11:08→22:32)
[2020-08-31] MEDS: ASPIRIN 325 MG TAB PO SCH (11:08)
[2020-08-31] MEDS: METOPROLOL TARTRATE 25 MG TAB PO SCH ×2 (11:08→22:32)
[2020-08-31] MEDS: CLOPIDOGREL 75 MG TAB PO SCH (11:09)
[2020-08-31] MEDS: LISINOPRIL 5 MG TAB PO SCH (11:09)
[2020-08-31] MEDS: SENNOSIDES/DOCUSATE SODIUM 8.6/50 MG TAB FEEDTUBE SCH ×2 (11:09→22:32)
[2020-08-31] MEDS: FUROSEMIDE 40 MG/4 ML INJ IV SCH (11:11)
--- NOTE | 2020-08-31 12:23 | Progress Note ---
Assessment and Plan Cultures: 08/25/2020 blood culture: No growth 08/25/2020 tracheal aspirate: In process 08/26/2020 right middle lobe BAL: S aureus COVID-19 PCR: Negative A/P: 60-year-old male with hypertension, CHF was admitted to the hospital as a possible stroke with difficulty with speech, right-sided facial droop: #Right-sided pneumonia: Possibly aspiration related. Fever improving. #Sepsis: Secondary to above #Acute hypoxic respiratory failure: on 3L NC #Acute on chronic CHF #Possible CVA: Neurology following. Recs: -Seems to be responding well, continue cefepime for now. -Procalcitonin elevated, complete 7 days -If otherwise stable to be discharged can send home with omnicef 300mg q12h to complete the above course. Nic Terrell MD [facility] ([facility]) O: [phone] F: [phone] Subjective Date of service: 08/31/20 Principal diagnosis: CVA Interval history: Afebrile, normal white count. Imaging personally reviewed: AXR: NAD CT head: no evidence of hemorrhagic transformation Objective - Exam Narrative Exam: Physical Exam: Constitutional: sedated, intubated, on the vent Head, Ears, Nose: Normocephalic, atraumatic. External ears, nose normal Eyes: Conjunctivae/corneas clear. No icterus. No ptosis. Neck: intubated Oral: intubated Cardiovascular: S1, S2 + Respiratory: AE fair bilaterally and equal GI: Soft, bowel sounds + Musculoskeletal: No pedal edema, no cyanosis. Skin: No rash or abscess Hem/Lymphatic: No palpable cervical or supraclavicular nodes. No lymphangitis Psych: no agitation Neurological: sedated, intubated, on the vent, exam limited - Constitutional Vitals: Vital Signs Temp Pulse Resp BP Pulse Ox 98.3 F 88 18 146/97 94 08/31/20 08:08 08/31/20 08:08 08/31/20 08:08 08/31/20 08:08 08/31/20 08:08 Temperature -Last 24 Hours Temperature 98.3 F Temperature 98.1 F Temperature 97.9 F Temperature 98.0 F - Labs CBC & Chem 7: 08/31/20 05:24 08/31/20 05:24 Labs: Abnormal lab results 08/30/20 08/31/20 08/31/20 Range/Units 23:19 05:24 05:58 Sodium 151 H (137-145) mmol/L Chloride 113.7 H (98-107) mmol/L BUN 25 H (9-20) mg/dL Glucose 152 H (75-100) mg/dL POC Glucose 154 H 162 H (70-105) mg/dL 08/31/20 Range/Units 12:20 Sodium (137-145) mmol/L Chloride (98-107) mmol/L BUN (9-20) mg/dL Glucose (75-100) mg/dL POC Glucose 125 H (70-105) mg/dL
--- NOTE | 2020-08-31 13:17 | Progress Note ---
Assessment and Plan This is 60-year-old male with HTN and CHF who was admitted for possible CVA, acute respiratory failure, acute on chronic heart failure and COVID-19 PUI which has been ruled out. A/P Acute Left MCA CVA Acute hypoxic respiratory failure due to acute CVA required intubation Acute on chronic heart failure, LVEF 20 to 25% Cardiogenic shock required pressor support URI with Staph aureus bronchial culture Hypernatremia Thrombocytopenia Hyperchloremia COVID-19 ruled out h/o Hypertension -CCM, cardiology and neurology consulted, appreciate recommendations -S/p vasopressor support with Levophed -cont Statin, aspirin, Plavix -Medical records requested from [place] -IV abx for URI -s/p dobutamine gtt, on BB now -08/24 CT head shows no acute intracranial abnormality, age-related cerebral atrophy, chronic small vessel ischemic changes in white matter, no evidence of recent infarct or mass-effect or midline shift -08/24 CTA neck with contrast shows no significant abnormality -08/24 CTA head with contrast shows no significant abnormality -08/25 echocardiogram shows mildly dilated left ventricle, definitely systolic fun ction severely decreased, severe global hypokinesis of the left ventricle, right ventricle moderate to severely dilated, left atrium mildly dilated, right atrium mildly dilated without evidence of atrial septal defect, trace MR, RVSP is 48 mmHg, mild TR, trace LA, mild pulmonary hypertension, no pericardial effusion or pleural effusion noted, Mild diastolic dysfunction, no ventricular septal defe ct, no left ventricular thrombus noted, LVEF 20 to 25% -08/26 CTA chest shows no evidence of pulmonary embolism, bilateral bronchopneumonia most pronounced within both lower lobes -08/26 BLE Doppler US shows no DVT/SVT -08/26 s/p bronch with culture completed; Staphylococcus aureus -08/28 CT head shows acute right MCA infarct -08/30 MRI brain showed left frontal MCA distribution CVA with some petechial hemo rrhage -08/30 MRA head showed no large vessel occlusion -ST/PT/OT eval -Trend CBC, BMP DVT/GI prophylaxis: SCDs to bilateral lower extremities while in bed, heparin subcu, PPI Disposition: Telemetry, plan to DC home with home health Brief history: This is a 60-year-old male with hypertension and CHF who presented to emergency department on 08/25 with difficulty in speech which began around 5 PM and became progressively worse, unsteady gait and right-sided facial droop. Work-up at emergency department included a CT head and after returning from imaging patient had increased work of breath, shortness of breath and desaturation to 90% SPO2 on room air. Patient was placed on supplemental oxygen via nasal cannula without improvement and progressed to nonrebreather to BiPAP. However the patient was still tachypneic to 50 to 60 breaths/min and was subsequently intuba andrew. Patient was admitted to the hospital service with possible CVA, acute hypoxic respiratory failure, and congestive heart failure. [facility], cardiology and neurology were consulted. Daily clinical course: 08/25: Patient is echocardiogram, MRI brain and MRA head pending. The time of examination patient was sedated on propofol and on assist control tidal volume 450, rate of 26, PEEP of 10 and 100% FiO2. Patient was started on Levophed drip for persistent hypotension. CVL was eventually placed. 08/26: MRI brain pending, echocardiogram shows reduced ejection fraction, co ntinued use of vasopressin. Patient was bronched today by [facility] empiric antibiotic therapy with cefepime was started. Dr. Gonzalez and I updated son at bedside today. CTA pending 08/27: Patient was started on dobutamine drip per cardiology yesterday evening and he has been weaned off of Levophed. [facility] culture resulted with Staph aureus. Infectious disease is aware. Patient is currently on cefepime. Cardiology increased dobutamine drip to 5 mcg. Son updated at bedside with Dr. Gonzalez. The time my examination patient was on CMV tidal volume 450, rate 12, PEEP 8 on 35% FiO2. [facility] ordered as needed fentanyl every 2 hours. Patient is currently on propofol. 08/28: Patient is sedated on propofol and has dobutamine drip infusing which was increased yesterday. He is on CMV tidal volume 450, rate of 20, PEEP of 6 and FiO2 35%. Patient is following commands. Patient's hypernatremia and hype rchloremia slightly worsened. Neurology will obtain repeat CT head since MRI is not able to be completed at this time. RN asked to remove Sanchez in place condom cath. SSI ordered. Plan for extubation today. 08/29: Patient was extubated yesterday. This morning patient is on NC, failed his bedside swallow eval and ST eval was ordered. RN replaced NGT. FWF increased. His hypernatremia and hyperchloremia worsened. Patient will be transferred to the floor. CT head confirmed acute left MCA CVA. 08/30 This is a 60-year-old male with hypertension and CHF who presented to emergency department on 08/25 with difficulty in speech which began around 5 PM and became progressively worse, unsteady gait and right-sided facial droop. Recommend emergency department included a CT head and after returning from imaging patient had increased work of breath, shortness of breath and desaturation to 90% SPO2 on room air. Patient was placed on supplemental oxygen via nasal cannula without improvement and progressed to nonrebreather to BiPAP. However the patient was still tachypneic to 50 to 60 breaths/min and was subsequently intubated, placed on vent.. Patient was admitted to the hospital service with possible CVA, acute hypoxic respiratory failure, and congestive heart failure. CCM, cardiology and neurology were consulted. He was on Dobutamine drip, now discontinued. He improved, was extubated. Repeat CT confirmed acute left MCA infarct. He has facial drrop, right sided weakness and expressive aphasia. He is on Aspirin, Plavix. Was transferred to [facility] yesterday. 08/31; MRI brain yesterday showed left frontal MCA distribution CVA with some petechial hemorrhage without any major vessel occlusion. Pending final speech recommendation, continue tube feeding for now with NG tube. Continue cefazolin for aspiration pneumonia. Patient will need rehab but he is unfunded. Continue PT OT. Continue hypotonic fluid for hypernatremia, monitor BMP. Subjective Date of service: 08/31/20 Principal diagnosis: CVA Interval history: Patient seen and examined. Medical records and medication list reviewed. No acute event overnight noted by the RN. Patient denies any chest pain or difficulty breathing. Patient remains on TPN, pending speech therapy recommendation Discussed plan of care at bedside with patient and with RN. Objective - Exam Narrative Exam: General appearance: Present: no acute distress - EENT Eyes: Present: PERRL, EOM intact ENT: dentition normal - Neck Neck: Present: normal ROM - Respiratory Respiratory effort: normal Respiratory: bilateral: CTA - Cardiovascular Rhythm: regular Heart Sounds: Present: S1 & S2. Absent: systolic murmur, diastolic murmur - Extremities Extremities: no ischemia, pulses intact, pulses symmetrical, No edema, normal temperature, normal color Peripheral Pulses: within normal limits - Abdominal General gastrointestinal: soft, non-tender, non-distended, normal bowel sounds - Integumentary Integumentary: Present: clear, warm, dry - Psychiatric Psychiatric: appropriate mood/affect, cooperative - Neurologic Neurologic: Right sided weakness, right sided facial droop, expressive aphasia , awake,alert - Allied Health Allied health notes reviewed: nursing, PT, OT, RT, social work - Constitutional Vitals: Vital Signs - 12hr 08/31/20 08/31/20 08/31/20 03:14 06:00 07:50 Temperature 98.1 F Pulse Rate 87 81 Respiratory 18 Rate Blood Pressure 129/87 O2 Sat by Pulse 96 96 Oximetry 08/31/20 08:08 Temperature 98.3 F Pulse Rate 88 Respiratory 18 Rate Blood Pressure 146/97 O2 Sat by Pulse 94 Oximetry - Labs CBC & Chem 7: 09/02/20 04:31 09/03/20 05:40 Labs: Abnormal lab results 08/30/20 08/31/20 08/31/20 Range/Units 23:19 05:24 05:58 Sodium 151 H (137-145) mmol/L Chloride 113.7 H (98-107) mmol/L BUN 25 H (9-20) mg/dL Glucose 152 H (75-100) mg/dL POC Glucose 154 H 162 H (70-105) mg/dL 08/31/20 Range/Units 12:20 Sodium (137-145) mmol/L Chloride (98-107) mmol/L BUN (9-20) mg/dL Glucose (75-100) mg/dL POC Glucose 125 H (70-105) mg/dL HEART Score - HEART Score Troponin: Troponin T 0.032 ng/mL (0.00-0.029) H D 08/26/20 05:15
--- NOTE | 2020-08-31 14:17 | XRay Report ---
XR abdomen 1V ap INDICATION: feeding tube verification COMPARISON: None. FINDINGS/IMPRESSION: Feeding tube terminates in the mid stomach. Signer Name: Troy Horton MD Signed: 08/31/2020 2:12 PM Workstation Name: [id number]
--- NOTE | 2020-08-31 14:28 | Consultation ---
History of Present Illness Consult date: 08/31/20 Reason for Consult: Ischemic Stroke w/ petechial hemorrhage Chief complaint: No voice Past History Past Medical History: heart failure, hypertension, other (See HPI) Medications and Allergies Allergies Allergy/AdvReac Type Severity Reaction Status Date / Time No Known Allergies Allergy Verified 08/24/20 22:49 Home Medications Medication Instructions Recorded Confirmed Last Taken Type Aspirin [Adult Aspirin] 81 mg PO QDAY 08/25/20 08/25/20 Unknown History Dapagliflozin Propanediol [Farxiga] 10 mg PO QDAY 08/25/20 08/25/20 Unknown History Furosemide [Lasix] 40 mg PO QDAY 08/25/20 08/25/20 Unknown History Losartan [Cozaar] 50 mg PO QDAY 08/25/20 08/25/20 Unknown History Spironolactone [Aldactone] 25 mg PO QDAY 08/25/20 08/25/20 Unknown History carvediloL [Coreg] 12.5 mg PO BID 08/25/20 08/25/20 Unknown History Active Meds: Active Medications Acetaminophen (Acetaminophen 325 Mg Tab) 650 mg PO Q4H PRN PRN Reason: Pain MILD(1-3)/Fever >100.5/[place] Last Admin: 08/26/20 21:00 Dose: 650 mg Documented by: Albuterol (Albuterol 2.5 Mg/3 Ml Nebu) 2.5 mg IH Q4HRT PRN PRN Reason: Shortness Of Breath Lipase/Protease/Amylase (Lipase 10,500/Protease 25,000/Amylase 43,750 (Units) Dr Flores) 1 each FEEDTUBE PRN PRN PRN Reason: For Clogged Feeding Tube Aspirin (Aspirin 325 Mg Tab) 325 mg PO QDAY [facility] Last Admin: 08/31/20 11:08 Dose: Not Given Documented by: Atorvastatin Calcium (Atorvastatin 40 Mg Tab) 80 mg PO QHS [facility] Last Admin: 08/30/20 21:44 Dose: 80 mg Documented by: Clopidogrel Bisulfate (Clopidogrel 75 Mg Tab) 75 mg PO QDAY [facility] Last Admin: 08/31/20 11:09 Dose: Not Given Documented by: Dextrose (Dextrose 50% In Water (25gm) 50 Ml Syringe) 50 ml IV Q30MIN PRN; Protocol PRN Reason: Hypoglycemia Famotidine (Famotidine 20 Mg Tab) 20 mg PO BID [facility] Last Admin: 08/31/20 11:08 Dose: Not Given Documented by: Furosemide (Furosemide 40 Mg/4 Ml Inj) 40 mg IV QDAY [facility] Last Admin: 08/31/20 11:11 Dose: 40 mg Documented by: Heparin Sodium (Porcine) (Heparin 5,000 Unit/1 Ml Vial) 5,000 unit SUB-Q Q8HR [facility] Last Admin: 08/31/20 06:07 Dose: 5,000 unit Documented by: Hydralazine HCl (Hydralazine 20 Mg/1 Ml Inj) 10 mg IV Q6H PRN PRN Reason: htn Hydrophilic Ointment (Lip Therapy Vaseline) 1 applic TP Q2HR PRN PRN Reason: Dry Lips Cefepime HCl (Cefepime/Ns 2 Gm/100 Ml) 2 gm in 100 mls @ 200 mls/hr IV Q12H [facility]; Protocol Stop: 09/02/20 11:59 Last Admin: 08/31/20 01:00 Dose: 200 mls/hr Documented by: Insulin Human Regular (Insulin Regular, Human 100 Units/1 Ml) 0 units SUB-Q Q6H [facility]; Protocol Last Admin: 08/31/20 06:07 Dose: 1 units Documented by: Lisinopril (Lisinopril 5 Mg Tab) 2.5 mg PO QDAY [facility] Last Admin: 08/31/20 11:09 Dose: Not Given Documented by: Metoprolol Tartrate (Metoprolol Tartrate 25 Mg Tab) 25 mg PO BID [facility] Last Admin: 08/31/20 11:08 Dose: Not Given Documented by: Multi-Ingred Cream/Lotion/Oil/Oint (Mineral Oil/Petrolatum, White Ophth Oint 3.5 Gm) 1 applic OU Q4HR PRN PRN Reason: Dry Eye(s) Ondansetron HCl (Ondansetron 4 Mg/2 Ml Inj) 4 mg IV Q8H PRN PRN Reason: Nausea And Vomiting Senna/Docusate Sodium (Sennosides/Docusate Sodium 8.6/50 Mg Tab) 1 tab FEEDTUBE BID [facility] Last Admin: 08/31/20 11:09 Dose: Not Given Documented by: Simple Syrup (Simple Syrup 15 Ml) 15 ml FEEDTUBE PRN PRN PRN Reason: Hypoglycemia Simple Syrup (Simple Syrup 15 Ml) 30 ml FEEDTUBE PRN PRN PRN Reason: Hypoglycemia Sodium Bicarbonate (Sodium Bicarbonate 325 Mg Tab) 325 mg FEEDTUBE PRN PRN PRN Reason: For Clogged Feeding Tube Sodium Chloride (Sodium Chloride 0.9% 10 Ml Flush Syringe) 10 ml IV BID [facility] Last Admin: 08/31/20 11:10 Dose: 10 ml Documented by: Sodium Chloride (Sodium Chloride 0.9% 10 Ml Flush Syringe) 10 ml IV PRN PRN PRN Reason: LINE FLUSH Last Admin: 08/25/20 10:58 Dose: 10 ml Documented by: Physical Examination - Vital Signs Vital Signs: Vital Signs Pulse Resp BP Pulse Ox 108 H 48 H 174/122 90 08/24/20 22:40 08/24/20 22:40 08/24/20 22:40 08/24/20 22:40 Results - Laboratory Findings CBC and BMP: 08/31/20 05:24 08/31/20 05:24 Abnormal Lab Findings: Abnormal Labs 08/24/20 08/24/20 08/24/20 22:24 22:24 22:24 WBC Plt Count Lymph % (Auto) 11.1 L [place] % (Auto) Lymph # (Auto) 0.7 L [place] # (Auto) Seg Neutrophils % 82.5 H Seg Neutrophils # PT 15.5 H D-Dimer ABG pH POC ABG pCO2 POC ABG pO2 ABG pO2 ABG O2 Saturation ABG Base Excess ABG Oxyhemoglobin ABG Sodium ABG Chloride ABG Glucose Oxyhemoglobin Sodium 130 L Chloride 97.5 L BUN Glucose 170 H POC Glucose Calcium Total Creatine Kinase 250 H Troponin T NT-Pro-B Natriuret Pep LDL Cholesterol Direct Arterial Blood Glucose Arterial Blood Ionized Calcium 08/24/20 08/25/20 08/25/20 22:24 01:01 01:47 WBC Plt Count Lymph % (Auto) [place] % (Auto) Lymph # (Auto) [place] # (Auto) Seg Neutrophils % Seg Neutrophils # PT D-Dimer ABG pH 7.285 L POC ABG pCO2 POC ABG pO2 ABG pO2 99.5 H ABG O2 Saturation ABG Base Excess -4.2 L ABG Oxyhemoglobin ABG Sodium ABG Chloride ABG Glucose Oxyhemoglobin 94.9 L Sodium Chloride BUN Glucose POC Glucose Calcium Total Creatine Kinase Troponin T NT-Pro-B Natriuret Pep 2769 H LDL Cholesterol Direct 141 H Arterial Blood Glucose Arterial Blood Ionized Calcium 08/25/20 08/25/20 08/25/20 04:45 11:45 17:20 WBC Plt Count Lymph % (Auto) [place] % (Auto) Lymph # (Auto) [place] # (Auto) Seg Neutrophils % Seg Neutrophils # PT D-Dimer ABG pH POC ABG pCO2 POC ABG pO2 ABG pO2 194.6 H ABG O2 Saturation 99.2 H ABG Base Excess ABG Oxyhemoglobin ABG Sodium ABG Chloride ABG Glucose Oxyhemoglobin Sodium Chloride BUN Glucose POC Glucose 136 H 117 H Calcium Total Creatine Kinase Troponin T NT-Pro-B Natriuret Pep LDL Cholesterol Direct Arterial Blood Glucose Arterial Blood Ionized Calcium 08/26/20 08/26/20 08/26/20 05:00 05:15 05:15 WBC 11.3 H Plt Count 112 L Lymph % (Auto) 4.2 L [place] % (Auto) 9.2 H Lymph # (Auto) 0.5 L [place] # (Auto) 1.0 H Seg Neutrophils % 85.9 H Seg Neutrophils # 9.7 H PT D-Dimer ABG pH 7.495 H POC ABG pCO2 POC ABG pO2 194.0 H ABG pO2 ABG O2 Saturation ABG Base Excess ABG Oxyhemoglobin 98.6 H ABG Sodium ABG Chloride 109.0 H ABG Glucose 125 H Oxyhemoglobin Sodium Chloride BUN Glucose 120 H POC Glucose Calcium 8.2 L Total Creatine Kinase Troponin T 0.032 H D NT-Pro-B Natriuret Pep LDL Cholesterol Direct Arterial Blood Glucose 125 H Arterial Blood Ionized Calcium 4.5 L 08/26/20 08/26/20 08/26/20 05:15 11:40 23:28 WBC Plt Count Lymph % (Auto) [place] % (Auto) Lymph # (Auto) [place] # (Auto) Seg Neutrophils % Seg Neutrophils # PT D-Dimer 4955.67 H ABG pH POC ABG pCO2 POC ABG pO2 ABG pO2 ABG O2 Saturation ABG Base Excess ABG Oxyhemoglobin ABG Sodium ABG Chloride ABG Glucose Oxyhemoglobin Sodium Chloride BUN Glucose POC Glucose 116 H 131 H Calcium Total Creatine Kinase Troponin T NT-Pro-B Natriuret Pep LDL Cholesterol Direct Arterial Blood Glucose Arterial Blood Ionized Calcium 08/27/20 08/27/20 08/27/20 04:22 04:50 04:50 WBC Plt Count 103 L Lymph % (Auto) [place] % (Auto) Lymph # (Auto) [place] # (Auto) Seg Neutrophils % Seg Neutrophils # PT D-Dimer ABG pH 7.500 H POC ABG pCO2 27.7 L POC ABG pO2 163.1 H ABG pO2 ABG O2 Saturation ABG Base Excess ABG Oxyhemoglobin 98.2 H ABG Sodium ABG Chloride 109.0 H ABG Glucose 116 H Oxyhemoglobin Sodium 147 H Chloride 109.7 H BUN Glucose 112 H POC Glucose Calcium 8.3 L Total Creatine Kinase Troponin T NT-Pro-B Natriuret Pep LDL Cholesterol Direct Arterial Blood Glucose 116 H Arterial Blood Ionized Calcium 08/27/20 08/27/20 08/27/20 05:29 11:21 11:24 WBC Plt Count Lymph % (Auto) [place] % (Auto) Lymph # (Auto) [place] # (Auto) Seg Neutrophils % Seg Neutrophils # PT D-Dimer ABG pH POC ABG pCO2 POC ABG pO2 146.6 H ABG pO2 ABG O2 Saturation ABG Base Excess ABG Oxyhemoglobin ABG Sodium ABG Chloride 112.0 H ABG Glucose 127 H Oxyhemoglobin Sodium Chloride BUN Glucose POC Glucose 107 H 117 H Calcium Total Creatine Kinase Troponin T NT-Pro-B Natriuret Pep LDL Cholesterol Direct Arterial Blood Glucose 127 H Arterial Blood Ionized Calcium 08/27/20 08/27/20 08/28/20 16:55 23:18 04:21 WBC Plt Count Lymph % (Auto) [place] % (Auto) Lymph # (Auto) [place] # (Auto) Seg Neutrophils % Seg Neutrophils # PT D-Dimer ABG pH POC ABG pCO2 POC ABG pO2 138.2 H ABG pO2 ABG O2 Saturation ABG Base Excess ABG Oxyhemoglobin ABG Sodium 146.2 H ABG Chloride 114.0 H ABG Glucose 138 H Oxyhemoglobin Sodium Chloride BUN Glucose POC Glucose 117 H 132 H Calcium Total Creatine Kinase Troponin T NT-Pro-B Natriuret Pep LDL Cholesterol Direct Arterial Blood Glucose 138 H Arterial Blood Ionized Calcium 08/28/20 08/28/20 08/28/20 04:35 04:35 05:16 WBC Plt Count 114 L Lymph % (Auto) [place] % (Auto) Lymph # (Auto) [place] # (Auto) Seg Neutrophils % Seg Neutrophils # PT D-Dimer ABG pH POC ABG pCO2 POC ABG pO2 ABG pO2 ABG O2 Saturation ABG Base Excess ABG Oxyhemoglobin ABG Sodium ABG Chloride ABG Glucose Oxyhemoglobin Sodium 149 H Chloride 113.6 H BUN Glucose 138 H POC Glucose 135 H Calcium 8.3 L Total Creatine Kinase Troponin T NT-Pro-B Natriuret Pep LDL Cholesterol Direct Arterial Blood Glucose Arterial Blood Ionized Calcium 08/28/20 08/29/20 08/29/20 11:19 07:15 07:15 WBC Plt Count 128 L Lymph % (Auto) [place] % (Auto) Lymph # (Auto) [place] # (Auto) Seg Neutrophils % Seg Neutrophils # PT D-Dimer ABG pH POC ABG pCO2 POC ABG pO2 ABG pO2 ABG O2 Saturation ABG Base Excess ABG Oxyhemoglobin ABG Sodium ABG Chloride ABG Glucose Oxyhemoglobin Sodium 154 H Chloride 116.2 H BUN Glucose POC Glucose 137 H Calcium Total Creatine Kinase Troponin T NT-Pro-B Natriuret Pep LDL Cholesterol Direct Arterial Blood Glucose Arterial Blood Ionized Calcium 08/29/20 08/30/20 08/30/20 17:11 05:04 09:04 WBC Plt Count 135 L Lymph % (Auto) [place] % (Auto) Lymph # (Auto) [place] # (Auto) Seg Neutrophils % Seg Neutrophils # PT D-Dimer ABG pH POC ABG pCO2 POC ABG pO2 ABG pO2 ABG O2 Saturation ABG Base Excess ABG Oxyhemoglobin ABG Sodium ABG Chloride ABG Glucose Oxyhemoglobin Sodium Chloride BUN Glucose POC Glucose 107 H 139 H Calcium Total Creatine Kinase Troponin T NT-Pro-B Natriuret Pep LDL Cholesterol Direct Arterial Blood Glucose Arterial Blood Ionized Calcium 08/30/20 08/30/20 08/30/20 09:04 11:58 23:19 WBC Plt Count Lymph % (Auto) [place] % (Auto) Lymph # (Auto) [place] # (Auto) Seg Neutrophils % Seg Neutrophils # PT D-Dimer ABG pH POC ABG pCO2 POC ABG pO2 ABG pO2 ABG O2 Saturation ABG Base Excess ABG Oxyhemoglobin ABG Sodium ABG Chloride ABG Glucose Oxyhemoglobin Sodium 149 H Chloride 112.5 H BUN 23 H Glucose 145 H POC Glucose 160 H 154 H Calcium Total Creatine Kinase Troponin T NT-Pro-B Natriuret Pep LDL Cholesterol Direct Arterial Blood Glucose Arterial Blood Ionized Calcium 08/31/20 08/31/20 08/31/20 05:24 05:58 12:20 WBC Plt Count Lymph % (Auto) [place] % (Auto) Lymph # (Auto) [place] # (Auto) Seg Neutrophils % Seg Neutrophils # PT D-Dimer ABG pH POC ABG pCO2 POC ABG pO2 ABG pO2 ABG O2 Saturation ABG Base Excess ABG Oxyhemoglobin ABG Sodium ABG Chloride ABG Glucose Oxyhemoglobin Sodium 151 H Chloride 113.7 H BUN 25 H Glucose 152 H POC Glucose 162 H 125 H Calcium Total Creatine Kinase Troponin T NT-Pro-B Natriuret Pep LDL Cholesterol Direct Arterial Blood Glucose Arterial Blood Ionized Calcium
--- NOTE | 2020-08-31 14:40 | Progress Note ---
Assessment and Plan 60 yo male with htn, chf presenting initially with acute respiratory failure due to acute on chronic chf exacerbation and noted with a partial L mca stroke with expressive aphasia and right-sided weakness. 1. Acute Ischemic Stroke (cardioembolic) - slight petechial hemorrhage on NCHCT; EF <25% increases the risk of cardioembolic strokes; recommend jose luis to confirm no evidence of a thrombus; cardiac monitoring for underlying paroxysmal afib; asa 325 mg po qday; statin therapy for a goal ldl of 70; if no fall risk; pt/ot/st/swallow evaluation/monitoring; recommend stroke clinic followup in 4 weeks. 2. Hypertension - aim for normotension. 3. CHF - management per primary or cardiology. 4. Expressive Aphasia - st evaluation/monitoring. 5. Right face/arm weakness / dysarthria / dysphagia - pt/ot/st evaluation/monitoring. Yevgeniy Lomas MD Neurology Subjective Date of service: 08/31/20 Principal diagnosis: CVA Interval history: 60 yo male with htn, chf presenting initially with acute respiratory failure due to acute on chornic chf exacerbation and noted with a partial L mca stroke with expressive aphasia and right-sided weakness. Objective - Exam Narrative Exam: Gen: nad, well-nourished; Head: normocephalic; Eyes: no gaze deviation; no ptosis; ENT: normal vocalization; CVS: warm and well-perfused; Pulm: no respiratory distress; GI: appears non-distended; Ext: no cyanosis at distal extremities; Skin: no acute rash at distal extremities; Heme: no pathologic ecchymosis at distal extremities; Neuro: alert, expressive aphasia (severe; can only make sounds; can communicate by writing w/ L hand), mild receptive aphasia, CN 2 - PERRL, visual navarrete grossly intact, CN 3, 4, 6 - EOMI, CN 5 - facial sensation symmetric to light touch, CN 7 - facial movement with mild right facial droop, CN 8 - hearing grossly intact, CN 9, 10 - uvula midline, CN 11 - shrug symmetric, CN 12 - tongue midline; Motor - at least 5-/5 in all exts except 4-/5 at distal RUE; Se nsory - light touch symmetric, Cerebellar - fnf /hts intact, Gait - deferred secondary to fall risk; NIHSS (1a.) Level of Consciousness:0 (1b.) LOC Questions:2 (1c.) LOC Commands:0 (2.) Best Gaze:0 (3.) Visual:0 (4.) Facial Palsy:1 (5a.) Motor Arm, Left:0 (5b.) Motor Arm, Right:0 (6a.) Motor Leg, Left:0 (6b.) Motor Leg, Right:0 (7.) Limb Ataxia:0 (8.) Sensory:0 (9.) Best Language:2 (10.) Dysarthria:1 (11.) Extinction and Inattention:0 NIHSS Total Score: 6 - Vital Sign Vital Signs - 12hr 08/31/20 08/31/20 08/31/20 03:14 06:00 07:50 Temperature 98.1 F Pulse Rate 87 81 Respiratory 18 Rate Blood Pressure 129/87 O2 Sat by Pulse 96 96 Oximetry 08/31/20 08:08 Temperature 98.3 F Pulse Rate 88 Respiratory 18 Rate Blood Pressure 146/97 O2 Sat by Pulse 94 Oximetry - Laboratory Findings CBC and BMP: 08/31/20 05:24 08/31/20 05:24 Abnormal Lab Findings: Abnormal Labs 08/24/20 08/24/20 08/24/20 22:24 22:24 22:24 WBC Plt Count Lymph % (Auto) 11.1 L [place] % (Auto) Lymph # (Auto) 0.7 L [place] # (Auto) Seg Neutrophils % 82.5 H Seg Neutrophils # PT 15.5 H D-Dimer ABG pH POC ABG pCO2 POC ABG pO2 ABG pO2 ABG O2 Saturation ABG Base Excess ABG Oxyhemoglobin ABG Sodium ABG Chloride ABG Glucose Oxyhemoglobin Sodium 130 L Chloride 97.5 L BUN Glucose 170 H POC Glucose Calcium Total Creatine Kinase 250 H Troponin T NT-Pro-B Natriuret Pep LDL Cholesterol Direct Arterial Blood Glucose Arterial Blood Ionized Calcium 08/24/20 08/25/20 08/25/20 22:24 01:01 01:47 WBC Plt Count Lymph % (Auto) [place] % (Auto) Lymph # (Auto) [place] # (Auto) Seg Neutrophils % Seg Neutrophils # PT D-Dimer ABG pH 7.285 L POC ABG pCO2 POC ABG pO2 ABG pO2 99.5 H ABG O2 Saturation ABG Base Excess -4.2 L ABG Oxyhemoglobin ABG Sodium ABG Chloride ABG Glucose Oxyhemoglobin 94.9 L Sodium Chloride BUN Glucose POC Glucose Calcium Total Creatine Kinase Troponin T NT-Pro-B Natriuret Pep 2769 H LDL Cholesterol Direct 141 H Arterial Blood Glucose Arterial Blood Ionized Calcium 08/25/20 08/25/20 08/25/20 04:45 11:45 17:20 WBC Plt Count Lymph % (Auto) [place] % (Auto) Lymph # (Auto) [place] # (Auto) Seg Neutrophils % Seg Neutrophils # PT D-Dimer ABG pH POC ABG pCO2 POC ABG pO2 ABG pO2 194.6 H ABG O2 Saturation 99.2 H ABG Base Excess ABG Oxyhemoglobin ABG Sodium ABG Chloride ABG Glucose Oxyhemoglobin Sodium Chloride BUN Glucose POC Glucose 136 H 117 H Calcium Total Creatine Kinase Troponin T NT-Pro-B Natriuret Pep LDL Cholesterol Direct Arterial Blood Glucose Arterial Blood Ionized Calcium 08/26/20 08/26/20 08/26/20 05:00 05:15 05:15 WBC 11.3 H Plt Count 112 L Lymph % (Auto) 4.2 L [place] % (Auto) 9.2 H Lymph # (Auto) 0.5 L [place] # (Auto) 1.0 H Seg Neutrophils % 85.9 H Seg Neutrophils # 9.7 H PT D-Dimer ABG pH 7.495 H POC ABG pCO2 POC ABG pO2 194.0 H ABG pO2 ABG O2 Saturation ABG Base Excess ABG Oxyhemoglobin 98.6 H ABG Sodium ABG Chloride 109.0 H ABG Glucose 125 H Oxyhemoglobin Sodium Chloride BUN Glucose 120 H POC Glucose Calcium 8.2 L Total Creatine Kinase Troponin T 0.032 H D NT-Pro-B Natriuret Pep LDL Cholesterol Direct Arterial Blood Glucose 125 H Arterial Blood Ionized Calcium 4.5 L 08/26/20 08/26/20 08/26/20 05:15 11:40 23:28 WBC Plt Count Lymph % (Auto) [place] % (Auto) Lymph # (Auto) [place] # (Auto) Seg Neutrophils % Seg Neutrophils # PT D-Dimer 4955.67 H ABG pH POC ABG pCO2 POC ABG pO2 ABG pO2 ABG O2 Saturation ABG Base Excess ABG Oxyhemoglobin ABG Sodium ABG Chloride ABG Glucose Oxyhemoglobin Sodium Chloride BUN Glucose POC Glucose 116 H 131 H Calcium Total Creatine Kinase Troponin T NT-Pro-B Natriuret Pep LDL Cholesterol Direct Arterial Blood Glucose Arterial Blood Ionized Calcium 08/27/20 08/27/20 08/27/20 04:22 04:50 04:50 WBC Plt Count 103 L Lymph % (Auto) [place] % (Auto) Lymph # (Auto) [place] # (Auto) Seg Neutrophils % Seg Neutrophils # PT D-Dimer ABG pH 7.500 H POC ABG pCO2 27.7 L POC ABG pO2 163.1 H ABG pO2 ABG O2 Saturation ABG Base Excess ABG Oxyhemoglobin 98.2 H ABG Sodium ABG Chloride 109.0 H ABG Glucose 116 H Oxyhemoglobin Sodium 147 H Chloride 109.7 H BUN Glucose 112 H POC Glucose Calcium 8.3 L Total Creatine Kinase Troponin T NT-Pro-B Natriuret Pep LDL Cholesterol Direct Arterial Blood Glucose 116 H Arterial Blood Ionized Calcium 08/27/20 08/27/20 08/27/20 05:29 11:21 11:24 WBC Plt Count Lymph % (Auto) [place] % (Auto) Lymph # (Auto) [place] # (Auto) Seg Neutrophils % Seg Neutrophils # PT D-Dimer ABG pH POC ABG pCO2 POC ABG pO2 146.6 H ABG pO2 ABG O2 Saturation ABG Base Excess ABG Oxyhemoglobin ABG Sodium ABG Chloride 112.0 H ABG Glucose 127 H Oxyhemoglobin Sodium Chloride BUN Glucose POC Glucose 107 H 117 H Calcium Total Creatine Kinase Troponin T NT-Pro-B Natriuret Pep LDL Cholesterol Direct Arterial Blood Glucose 127 H Arterial Blood Ionized Calcium 08/27/20 08/27/20 08/28/20 16:55 23:18 04:21 WBC Plt Count Lymph % (Auto) [place] % (Auto) Lymph # (Auto) [place] # (Auto) Seg Neutrophils % Seg Neutrophils # PT D-Dimer ABG pH POC ABG pCO2 POC ABG pO2 138.2 H ABG pO2 ABG O2 Saturation ABG Base Excess ABG Oxyhemoglobin ABG Sodium 146.2 H ABG Chloride 114.0 H ABG Glucose 138 H Oxyhemoglobin Sodium Chloride BUN Glucose POC Glucose 117 H 132 H Calcium Total Creatine Kinase Troponin T NT-Pro-B Natriuret Pep LDL Cholesterol Direct Arterial Blood Glucose 138 H Arterial Blood Ionized Calcium 08/28/20 08/28/20 08/28/20 04:35 04:35 05:16 WBC Plt Count 114 L Lymph % (Auto) [place] % (Auto) Lymph # (Auto) [place] # (Auto) Seg Neutrophils % Seg Neutrophils # PT D-Dimer ABG pH POC ABG pCO2 POC ABG pO2 ABG pO2 ABG O2 Saturation ABG Base Excess ABG Oxyhemoglobin ABG Sodium ABG Chloride ABG Glucose Oxyhemoglobin Sodium 149 H Chloride 113.6 H BUN Glucose 138 H POC Glucose 135 H Calcium 8.3 L Total Creatine Kinase Troponin T NT-Pro-B Natriuret Pep LDL Cholesterol Direct Arterial Blood Glucose Arterial Blood Ionized Calcium 08/28/20 08/29/20 08/29/20 11:19 07:15 07:15 WBC Plt Count 128 L Lymph % (Auto) [place] % (Auto) Lymph # (Auto) [place] # (Auto) Seg Neutrophils % Seg Neutrophils # PT D-Dimer ABG pH POC ABG pCO2 POC ABG pO2 ABG pO2 ABG O2 Saturation ABG Base Excess ABG Oxyhemoglobin ABG Sodium ABG Chloride ABG Glucose Oxyhemoglobin Sodium 154 H Chloride 116.2 H BUN Glucose POC Glucose 137 H Calcium Total Creatine Kinase Troponin T NT-Pro-B Natriuret Pep LDL Cholesterol Direct Arterial Blood Glucose Arterial Blood Ionized Calcium 08/29/20 08/30/20 08/30/20 17:11 05:04 09:04 WBC Plt Count 135 L Lymph % (Auto) [place] % (Auto) Lymph # (Auto) [place] # (Auto) Seg Neutrophils % Seg Neutrophils # PT D-Dimer ABG pH POC ABG pCO2 POC ABG pO2 ABG pO2 ABG O2 Saturation ABG Base Excess ABG Oxyhemoglobin ABG Sodium ABG Chloride ABG Glucose Oxyhemoglobin Sodium Chloride BUN Glucose POC Glucose 107 H 139 H Calcium Total Creatine Kinase Troponin T NT-Pro-B Natriuret Pep LDL Cholesterol Direct Arterial Blood Glucose Arterial Blood Ionized Calcium 08/30/20 08/30/20 08/30/20 09:04 11:58 23:19 WBC Plt Count Lymph % (Auto) [place] % (Auto) Lymph # (Auto) [place] # (Auto) Seg Neutrophils % Seg Neutrophils # PT D-Dimer ABG pH POC ABG pCO2 POC ABG pO2 ABG pO2 ABG O2 Saturation ABG Base Excess ABG Oxyhemoglobin ABG Sodium ABG Chloride ABG Glucose Oxyhemoglobin Sodium 149 H Chloride 112.5 H BUN 23 H Glucose 145 H POC Glucose 160 H 154 H Calcium Total Creatine Kinase Troponin T NT-Pro-B Natriuret Pep LDL Cholesterol Direct Arterial Blood Glucose Arterial Blood Ionized Calcium 08/31/20 08/31/20 08/31/20 05:24 05:58 12:20 WBC Plt Count Lymph % (Auto) [place] % (Auto) Lymph # (Auto) [place] # (Auto) Seg Neutrophils % Seg Neutrophils # PT D-Dimer ABG pH POC ABG pCO2 POC ABG pO2 ABG pO2 ABG O2 Saturation ABG Base Excess ABG Oxyhemoglobin ABG Sodium ABG Chloride ABG Glucose Oxyhemoglobin Sodium 151 H Chloride 113.7 H BUN 25 H Glucose 152 H POC Glucose 162 H 125 H Calcium Total Creatine Kinase Troponin T NT-Pro-B Natriuret Pep LDL Cholesterol Direct Arterial Blood Glucose Arterial Blood Ionized Calcium
[2020-09-01] MEDS: CEFEPIME/NS 2 GM/100 ML 2 GM/100 ML BAG IV SCH ×2 (00:30→14:04)
[2020-09-01] MEDS: HEPARIN 5,000 UNIT/1 ML VIAL SUB-Q SCH ×3 (06:05→21:33)
[2020-09-01 06:07] LABS: BUN/Creatinine Ratio 28; Blood Urea Nitrogen 25 mg/dL (9-20); Calcium 9.1 mg/dL (8.4-10.2); Hemolysis Index 2
[2020-09-01] MEDS: INSULIN REGULAR, HUMAN 100 UNITS/1 ML SUB-Q SCH ×4 (07:30→21:49)
[2020-09-01] MEDS: ASPIRIN 325 MG TAB PO SCH ×2 (09:22→14:08)
[2020-09-01] MEDS: METOPROLOL TARTRATE 25 MG TAB PO SCH ×3 (09:22→21:47)
[2020-09-01] MEDS: FAMOTIDINE 20 MG TAB PO SCH ×3 (09:23→21:32)
[2020-09-01] MEDS: SENNOSIDES/DOCUSATE SODIUM 8.6/50 MG TAB FEEDTUBE SCH (09:23)
[2020-09-01] MEDS: CLOPIDOGREL 75 MG TAB PO SCH ×2 (09:23→14:09)
[2020-09-01] MEDS: LISINOPRIL 5 MG TAB PO SCH ×2 (09:23→14:08)
[2020-09-01] MEDS: FUROSEMIDE 40 MG/4 ML INJ IV SCH (09:24)
--- NOTE | 2020-09-01 10:37 | XRay Report ---
CHEST 1 VIEW INDICATION / CLINICAL INFORMATION: follow up respiratory failure. COMPARISON: 08/27/2020 FINDINGS: SUPPORT DEVICES: Stable, satisfactory device positioning. HEART / MEDIASTINUM: Stable. LUNGS / PLEURA: No significant pulmonary or pleural abnormality. No pneumothorax. ADDITIONAL FINDINGS: No significant additional findings. IMPRESSION: 1. No significant interval change since 08/27/2020 Signer Name: Mukul Maradiaga MD Signed: 09/01/2020 10:32 AM Workstation Name: [id number]
--- NOTE | 2020-09-01 10:40 | Fluoroscopy Report ---
MODIFIED BARIUM SWALLOW INDICATION: dysphagia TECHNIQUE: Swallowing was evaluated in the lateral position under direct fluoroscopy. FINDINGS: The patient was evaluated with thin liquids, puree and semisolid consistencies. Mild premature spillage and vallecular residuals were noted with all consistencies. One episode of pe netration was witnessed with thin liquids. No aspiration was witnessed. Please correlate with the for mal report from speech therapy. IMPRESSION: No evidence for aspiration. Fluoroscopic time: 1.9 minutes Number of fluoroscopic images: 2 Signer Name: Kenan Coleman Jr, MD Signed: 09/01/2020 10:36 AM Workstation Name: [id number]
--- NOTE | 2020-09-01 11:46 | Progress Note ---
Assessment and Plan Telemetry reviewed: Sinus rhythm 84. Occasional episodes of triplet PVCs #Acute on Chronic heart failure in setting of dilated cardiomyopathy * Echocardiogram reviewed (08/26/2020): LVEF is 20 to 25%. Left ventricle is moderately dilated. LV SF is severely decreased. Severe global hypokinesis of the left ventricle. Right ventricle is moderate to severely dilated. Right ventricle is moderately hypokinetic. LA is mildly dilated. Saline bubble contrast intravenous injection does not demonstrate PFO. No obvious thrombus noted in LV * Cardiomyopathy goal-directed therapy: Continue aspirin, atorvastatin 80 mg nightly, Lasix 40 mg IV daily, metoprolol 25 mg twice daily, lisinopril 2.5 mg daily. Outpatient follow-up with cardiac rehab. * Patient is reportedly followed by [facility]. Records have been requested. #Acute CVA * Per neurology recommendations: on aspirin 325mg and Plavix 75 mg * JD planned tomorrow at 9 AM. N.p.o. after midnight #Acute hypoxic respiratory failure * Patient has been extubated and is maintaining SPO2 #Hypertension, Chronic * Currently normotensive. Continue current antihypertensive regimen #DVT prophylaxis * Heparin SQ Patient currently in stable cardiac status. We will follow Discussed plan with patient and son in the room. Family expresses desire to follow-up with [facility] once patient is discharged. Patient should follow-up with Dr Misael Cruz, [facility] within 1 to 2 weeks of discharge. #[phone] This patient was seen in conjunction with Dr Misael Cruz who agrees with this assessment and plan of care. - Patient Problems (1) Acute exacerbation of CHF (congestive heart failure) Current Visit: Yes Status: Acute Qualifiers: Heart failure type: unspecified Qualified Code(s): I50.9 - Heart failure, unspecified (2) Acute respiratory failure Current Visit: Yes Status: Acute Qualifiers: Qualified Code(s): J96.00 - Acute respiratory failure, unspecified whether with hypoxia or hypercapnia (3) CVA (cerebral vascular accident) Current Visit: Yes Status: Suspected Qualifiers: CVA mechanism: unspecified Qualified Code(s): I63.9 - Cerebral infarction, unspecified (4) DVT prophylaxis Current Visit: Yes Status: Acute (5) Hypertension Current Visit: Yes Status: Chronic Qualifiers: Hypertension type: essential hypertension Qualified Code(s): I10 - Essential (primary) hypertension Subjective Date of service: 09/01/20 Principal diagnosis: CVA Interval history: Pt is currently sleeping in bed, somnolent and aphasic, but able to respond appropriately to yes/no questions and is communicating with writing pad. No SEDA or CP overnight. Telemetry reviewed: Sinus rhythm 96 with occasional PVCs. Several PVC couplets noted overnight. Objective Last Vital Signs Temp 98.2 F 09/01/20 08:13 Pulse 83 09/01/20 08:13 Resp 18 09/01/20 08:13 BP 139/97 09/01/20 08:13 Pulse Ox 97 09/01/20 09:15 - Physical Examination General: No Apparent Distress HEENT: Positive: Normocephaly Neck: Positive: neck supple, trachea midline. Negative: JVD/HJR Cardiac: Positive: Reg Rate and Rhythm, S1/S2 Lungs: Positive: Normal Exam, Normal Breath Sounds Neuro: Positive: Weakness (R hand), Other (Aphasic status post acute CVA) Abdomen: Positive: Soft. Negative: Tender Skin: Negative: Rash Musculoskeletal: No Fluid Collection Extremities: Present: lower extr. pulses, warm. Absent: edema - Labs and Meds Comprehensive Metabolic Panel 09/01/20 Range/Units 05:01 Sodium 153 H (137-145) mmol/L Potassium 3.7 (3.6-5.0) mmol/L Chloride 115.0 H (98-107) mmol/L Carbon Dioxide 29 (22-30) mmol/L BUN 25 H (9-20) mg/dL Creatinine 0.9 (0.8-1.3) mg/dL Glucose 161 H (75-100) mg/dL Calcium 9.1 (8.4-10.2) mg/dL - Imaging and Cardiology EKG: report reviewed, image reviewed Echo: report reviewed (08/25/2020 - LV mod dilated, EF 20-25%, RV mod-severely dilated, RV mod hypokinetic, LA mildly dilated, negative Bubble study, no LV thrombus) - Telemetry EKG Rhythm: Sinus Rhythm - EKG Sinus rhythms and dysrhythmias: sinus tachycardia Ventricular dysrhythmias: ventricular premature com Chamber hypertrophy or enlargement: left atrial enlargement, right atrial enlargment, left ventricular hypertro Repolarization changes or abnormalities: nonspecific abnormality, ST segment, and/or T wave - Allied health notes Allied health notes reviewed: nursing
--- NOTE | 2020-09-01 13:40 | Anesthesia Consultation ---
Anesthesia Consult and Med Hx Date of service: 09/02/20 - Airway Anesthetic Teeth Evaluation: Good, Chipped ROM Head & Neck: Adequate Mental/Hyoid Distance: Adequate Mallampati Class: Class III Intubation Access Assessment: Possibly Difficult - Pulmonary Exam CTA: Yes - Cardiac Exam Cardiac Exam: RRR - Pre-Operative Health Status ASA Pre-Surgery Classification: ASA3 Proposed Anesthetic Plan: MAC - Pulmonary Hx Asthma: No COPD: No Hx Pneumonia: No - Cardiovascular System Hx Hypertension: Yes - Central Nervous System CVA: Yes - Endocrine Hx End Stage Renal Disease: No Hx Liver Disease: No Hx Insulin Dependent Diabetes: No Hx Non-Insulin Dependent Diabetes: No - Other Systems Hx Alcohol Use: No Hx Substance Use: No - Additional Comments Anesthesia Medical History Comments: Patient with h/o CVA, s/p extubation for tachypnea possible aspiration PNA. Currently able to eat without assistance or difficulty. No h/o GAC or FHAC.
--- NOTE | 2020-09-01 14:59 | Progress Note ---
Assessment and Plan This is 60-year-old male with HTN and CHF who was admitted for possible CVA, acute respiratory failure, acute on chronic heart failure and COVID-19 PUI which has been ruled out. A/P Acute Left MCA CVA Acute hypoxic respiratory failure due to acute CVA required intubation Acute on chronic heart failure, LVEF 20 to 25% Cardiogenic shock required pressor support URI with Staph aureus bronchial culture Hypernatremia Thrombocytopenia Hyperchloremia COVID-19 ruled out h/o Hypertension -CCM, cardiology and neurology consulted, appreciate recommendations -S/p vasopressor support with Levophed -cont Statin, aspirin, Plavix -Medical records requested from [facility] -IV abx for URI -s/p dobutamine gtt, on BB now -08/24 CT head shows no acute intracranial abnormality, age-related cerebral atrophy, chronic small vessel ischemic changes in white matter, no evidence of recent infarct or mass-effect or midline shift -08/24 CTA neck with contrast shows no significant abnormality -08/24 CTA head with contrast shows no significant abnormality -08/25 echocardiogram shows mildly dilated left ventricle, definitely systolic fun ction severely decreased, severe global hypokinesis of the left ventricle, right ventricle moderate to severely dilated, left atrium mildly dilated, right atrium mildly dilated without evidence of atrial septal defect, trace MR, RVSP is 48 mmHg, mild TR, trace TX, mild pulmonary hypertension, no pericardial effusion or pleural effusion noted, Mild diastolic dysfunction, no ventricular septal defe ct, no left ventricular thrombus noted, LVEF 20 to 25% -08/26 CTA chest shows no evidence of pulmonary embolism, bilateral bronchopneumonia most pronounced within both lower lobes -08/26 BLE Doppler US shows no DVT/SVT -08/26 s/p bronch with culture completed; Staphylococcus aureus -08/28 CT head shows acute right MCA infarct -08/30 MRI brain showed left frontal MCA distribution CVA with some petechial hemo rrhage -08/30 MRA head showed no large vessel occlusion -ST/PT/OT eval -Trend CBC, BMP DVT/GI prophylaxis: SCDs to bilateral lower extremities while in bed, heparin subcu, PPI Disposition: Telemetry, plan to DC home with home health Brief history: This is a 60-year-old male with hypertension and CHF who presented to emergency department on 08/25 with difficulty in speech which began around 5 PM and became progressively worse, unsteady gait and right-sided facial droop. Work-up at emergency department included a CT head and after returning from imaging patient had increased work of breath, shortness of breath and desaturation to 90% SPO2 on room air. Patient was placed on supplemental oxygen via nasal cannula without improvement and progressed to nonrebreather to BiPAP. However the patient was still tachypneic to 50 to 60 breaths/min and was subsequently intuba andrew. Patient was admitted to the hospital service with possible CVA, acute hypoxic respiratory failure, and congestive heart failure. [facility], cardiology and neurology were consulted. Daily clinical course: 08/25: Patient is echocardiogram, MRI brain and MRA head pending. The time of examination patient was sedated on propofol and on assist control tidal volume 450, rate of 26, PEEP of 10 and 100% FiO2. Patient was started on Levophed drip for persistent hypotension. CVL was eventually placed. 08/26: MRI brain pending, echocardiogram shows reduced ejection fraction, co ntinued use of vasopressin. Patient was bronched today by [facility] empiric antibiotic therapy with cefepime was started. Dr. Gonzalez and I updated son at bedside today. CTA pending 08/27: Patient was started on dobutamine drip per cardiology yesterday evening and he has been weaned off of Levophed. [facility] culture resulted with Staph aureus. Infectious disease is aware. Patient is currently on cefepime. Cardiology increased dobutamine drip to 5 mcg. Son updated at bedside with Dr. Gonzalez. The time my examination patient was on CMV tidal volume 450, rate 12, PEEP 8 on 35% FiO2. [facility] ordered as needed fentanyl every 2 hours. Patient is currently on propofol. 08/28: Patient is sedated on propofol and has dobutamine drip infusing which was increased yesterday. He is on CMV tidal volume 450, rate of 20, PEEP of 6 and FiO2 35%. Patient is following commands. Patient's hypernatremia and hype rchloremia slightly worsened. Neurology will obtain repeat CT head since MRI is not able to be completed at this time. RN asked to remove Sanchez in place condom cath. SSI ordered. Plan for extubation today. 08/29: Patient was extubated yesterday. This morning patient is on NC, failed his bedside swallow eval and ST eval was ordered. RN replaced NGT. FWF increased. His hypernatremia and hyperchloremia worsened. Patient will be transferred to the floor. CT head confirmed acute left MCA CVA. 08/30 This is a 60-year-old male with hypertension and CHF who presented to emergency department on 08/25 with difficulty in speech which began around 5 PM and became progressively worse, unsteady gait and right-sided facial droop. Recommend emergency department included a CT head and after returning from imaging patient had increased work of breath, shortness of breath and desaturation to 90% SPO2 on room air. Patient was placed on supplemental oxygen via nasal cannula without improvement and progressed to nonrebreather to BiPAP. However the patient was still tachypneic to 50 to 60 breaths/min and was subsequently intubated, placed on vent.. Patient was admitted to the hospital service with possible CVA, acute hypoxic respiratory failure, and congestive heart failure. CCM, cardiology and neurology were consulted. He was on Dobutamine drip, now discontinued. He improved, was extubated. Repeat CT confirmed acute left MCA infarct. He has facial drrop, right sided weakness and expressive aphasia. He is on Aspirin, Plavix. Was transferred to [facility] yesterday. 08/31; MRI brain yesterday showed left frontal MCA distribution CVA with some petechial hemorrhage without any major vessel occlusion. Pending final speech recommendation, continue tube feeding for now with NG tube. Continue cefazolin for aspiration pneumonia. Patient will need rehab but he is unfunded. Continue PT OT. Continue hypotonic fluid for hypernatremia, monitor BMP. 09/01: Speech recommended pured diet. Sodium level 153 today. Renal diet and D5W. Repeat BMP tomorrow. Clinically stable and sodium level improves placement plan to DC home with home health and family support. Patient is unfunded. Subjective Date of service: 09/01/20 Principal diagnosis: CVA Interval history: Patient seen and examined. Medical records and medication list reviewed. No acute event overnight noted by the RN. Patient denies any chest pain or difficulty breathing. Speech recommended pured diet, pending final PT giorgio Discussed plan of care at bedside with patient and with RN. Objective - Exam Narrative Exam: General appearance: Present: no acute distress - EENT Eyes: Present: PERRL, EOM intact ENT: dentition normal - Neck Neck: Present: normal ROM - Respiratory Respiratory effort: normal Respiratory: bilateral: CTA - Cardiovascular Rhythm: regular Heart Sounds: Present: S1 & S2. Absent: systolic murmur, diastolic murmur - Extremities Extremities: no ischemia, pulses intact, pulses symmetrical, No edema, normal temperature, normal color Peripheral Pulses: within normal limits - Abdominal General gastrointestinal: soft, non-tender, non-distended, normal bowel sounds - Integumentary Integumentary: Present: clear, warm, dry - Psychiatric Psychiatric: appropriate mood/affect, cooperative - Neurologic Neurologic: Right sided weakness, right sided facial droop, expressive aphasia , awake,alert - Allied Health Allied health notes reviewed: nursing, PT, OT, RT, social work - Constitutional Vitals: Vital Signs - 12hr 09/01/20 09/01/20 09/01/20 08:13 09:15 10:00 Temperature 98.2 F Pulse Rate 83 90 Respiratory 18 Rate Blood Pressure 139/97 O2 Sat by Pulse 97 97 Oximetry 09/01/20 09/01/20 09/01/20 12:01 14:08 14:09 Temperature 98.6 F Pulse Rate 95 H 95 H 95 H Respiratory 18 Rate Blood Pressure 108/80 108/80 108/80 O2 Sat by Pulse 99 Oximetry - Labs CBC & Chem 7: 09/02/20 04:31 09/03/20 05:40 Labs: Abnormal lab results 08/31/20 08/31/20 09/01/20 Range/Units 17:41 23:27 05:01 Sodium 153 H (137-145) mmol/L Chloride 115.0 H (98-107) mmol/L BUN 25 H (9-20) mg/dL Glucose 161 H (75-100) mg/dL POC Glucose 152 H 142 H (70-105) mg/dL 09/01/20 09/01/20 Range/Units 05:26 11:44 Sodium (137-145) mmol/L Chloride (98-107) mmol/L BUN (9-20) mg/dL Glucose (75-100) mg/dL POC Glucose 166 H 147 H (70-105) mg/dL HEART Score - HEART Score Troponin: Troponin T 0.032 ng/mL (0.00-0.029) H D 08/26/20 05:15
--- NOTE | 2020-09-01 15:08 | Progress Note ---
Assessment and Plan Cultures: 08/25/2020 blood culture: No growth 08/25/2020 tracheal aspirate: In process 08/26/2020 right middle lobe BAL: S aureus COVID-19 PCR: Negative A/P: 60-year-old male with hypertension, CHF was admitted to the hospital as a possible stroke with difficulty with speech, right-sided facial droop: #Right-sided pneumonia: Possibly aspiration related. Fever improving. #Sepsis: Secondary to above #Acute hypoxic respiratory failure: on 3L NC #Acute on chronic CHF #Possible CVA: Neurology following. Recs: -Seems to be responding well, continue cefepime for now. -Procalcitonin elevated, complete 7 days -If otherwise stable to be discharged can send home with omnicef 300mg q12h to complete the above course. Nic Terrell MD [facility] ([facility]) O: [phone] F: [phone] Subjective Date of service: 09/01/20 Principal diagnosis: CVA Interval history: Afebrile, no acute change. Objective - Exam Narrative Exam: Physical Exam: Constitutional: sedated, intubated, on the vent Head, Ears, Nose: Normocephalic, atraumatic. External ears, nose normal Eyes: Conjunctivae/corneas clear. No icterus. No ptosis. Neck: intubated Oral: intubated Cardiovascular: S1, S2 + Respiratory: AE fair bilaterally and equal GI: Soft, bowel sounds + Musculoskeletal: No pedal edema, no cyanosis. Skin: No rash or abscess Hem/Lymphatic: No palpable cervical or supraclavicular nodes. No lymphangitis Psych: no agitation Neurological: sedated, intubated, on the vent, exam limited - Constitutional Vitals: Vital Signs Temp Pulse Resp BP Pulse Ox 98.6 F 95 H 18 108/80 99 09/01/20 12:01 09/01/20 14:09 09/01/20 12:01 09/01/20 14:09/01/20 12:01 Temperature -Last 24 Hours Temperature 98.6 F Temperature 98.2 F Temperature 98.5 F Temperature 98.6 F Temperature 98.9 F - Labs CBC & Chem 7: 08/31/20 05:24 09/01/20 05:01 Labs: Abnormal lab results 08/31/20 08/31/20 09/01/20 Range/Units 17:41 23:27 05:01 Sodium 153 H (137-145) mmol/L Chloride 115.0 H (98-107) mmol/L BUN 25 H (9-20) mg/dL Glucose 161 H (75-100) mg/dL POC Glucose 152 H 142 H (70-105) mg/dL 09/01/20 09/01/20 Range/Units 05:26 11:44 Sodium (137-145) mmol/L Chloride (98-107) mmol/L BUN (9-20) mg/dL Glucose (75-100) mg/dL POC Glucose 166 H 147 H (70-105) mg/dL
[2020-09-02] MEDS: INSULIN REGULAR, HUMAN 100 UNITS/1 ML SUB-Q SCH ×4 (00:42→18:33)
[2020-09-02] MEDS: CEFEPIME/NS 2 GM/100 ML 2 GM/100 ML BAG IV SCH (00:43)
[2020-09-02 05:08] LABS: Hematocrit 38.5 % (35.5-45.6); Hemoglobin 12.5 gm/dl (11.8-15.2); Mean Corpuscular HGB Conc 33 % (32-34); Mean Corpuscular Volume 92 fl (84-94); Platelet Count 150 K/mm3 (140-440); Red Blood Count 4.18 M/mm3 (3.65-5.03); Red Cell Distribution Width 14.4 % (13.2-15.2)
[2020-09-02 05:18] LABS: INR 1.2 (0.87-1.13)
[2020-09-02 05:24] LABS: BUN/Creatinine Ratio 31; Blood Urea Nitrogen 28 mg/dL (9-20); Calcium 9.2 mg/dL (8.4-10.2); Hemolysis Index 0
[2020-09-02] MEDS: HEPARIN 5,000 UNIT/1 ML VIAL SUB-Q SCH ×3 (06:07→22:10)
[2020-09-02] MEDS ORDERED: BENZOCAINE 20% TOP SPRAY 0.5 ML UNIT DOSE MM NR (09:00)
[2020-09-02] MEDS ORDERED: SODIUM CHLORIDE 0.9% 500 ML 500 ML IV SCH (10:00)
--- NOTE | 2020-09-02 10:26 | Progress Note ---
Assessment and Plan Cultures: 08/25/2020 blood culture: No growth 08/25/2020 tracheal aspirate: In process 08/26/2020 right middle lobe BAL: S aureus COVID-19 PCR: Negative A/P: 60-year-old male with hypertension, CHF was admitted to the hospital as a possible stroke with difficulty with speech, right-sided facial droop: #Right-sided pneumonia: Possibly aspiration related. Fever improving. #Sepsis: Secondary to above #Acute hypoxic respiratory failure: on rrom air #Acute on chronic CHF #Possible CVA: Neurology following. Recs: -Seems to be responding well, continue cefepime for now. -Procalcitonin elevated, complete 7 days -If otherwise stable to be discharged can send home with omnicef 300mg q12h to complete the above course. Nic Terrell MD [facility] ([facility]) O: [phone] F: [phone] Subjective Date of service: 09/02/20 Principal diagnosis: CVA Interval history: Afebrile, normal white count. Objective - Exam Narrative Exam: Physical Exam: Constitutional: sedated, intubated, on the vent Head, Ears, Nose: Normocephalic, atraumatic. External ears, nose normal Eyes: Conjunctivae/corneas clear. No icterus. No ptosis. Neck: intubated Oral: intubated Cardiovascular: S1, S2 + Respiratory: AE fair bilaterally and equal GI: Soft, bowel sounds + Musculoskeletal: No pedal edema, no cyanosis. Skin: No rash or abscess Hem/Lymphatic: No palpable cervical or supraclavicular nodes. No lymphangitis Psych: no agitation Neurological: sedated, intubated, on the vent, exam limited - Constitutional Vitals: Vital Signs Temp Pulse Resp BP Pulse Ox 97.8 F 82 18 111/69 95 09/02/20 07:36 09/02/20 07:36 09/02/20 07:36 09/02/20 07:36 09/02/20 08:57 Temperature -Last 24 Hours Temperature 97.8 F Temperature 98.2 F Temperature 97.9 F Temperature 98.5 F Temperature 98.7 F Temperature 98.6 F - Labs CBC & Chem 7: 09/02/20 04:31 09/02/20 04:31 Labs: Abnormal lab results 09/01/20 09/01/20 09/01/20 Range/Units 05:26 11:44 16:31 PT (12.2-14.9) Sec. INR (0.87-1.13) Sodium (137-145) mmol/L Chloride (98-107) mmol/L BUN (9-20) mg/dL Glucose (75-100) mg/dL POC Glucose 166 H 147 H 163 H (70-105) mg/dL 09/01/20 09/02/20 09/02/20 Range/Units 23:27 04:31 04:31 PT 15.7 H (12.2-14.9) Sec. INR 1.20 H (0.87-1.13) Sodium 149 H (137-145) mmol/L Chloride 112.9 H (98-107) mmol/L BUN 28 H (9-20) mg/dL Glucose 112 H (75-100) mg/dL POC Glucose 170 H (70-105) mg/dL 09/02/20 Range/Units 05:00 PT (12.2-14.9) Sec. INR (0.87-1.13) Sodium (137-145) mmol/L Chloride (98-107) mmol/L BUN (9-20) mg/dL Glucose (75-100) mg/dL POC Glucose 110 H (70-105) mg/dL
--- NOTE | 2020-09-02 11:04 | Anesthesia Day of Surgery ---
Anesthesia Day of Surgery - Day of Surgery Patient Examined: Yes Patient H&P Reviewed: Yes Patient is NPO: Yes
[2020-09-02] MEDS ORDERED: propofoL 200 MG/20 ML VIAL IV ONE (11:16)
[2020-09-02] MEDS ORDERED: LIDOCAINE MPF (2%) 20 MG/1 ML VIAL 5 ML ONE (11:16)
--- NOTE | 2020-09-02 11:57 | Progress Note ---
Assessment and Plan Given LA spontaneous echo constrast/smoke visualized on JD today, recommend initiation of DOAC (if ok from a Neuro standpoint). Otherwise stable cardiac status. Pt seen in conjunction with Dr. Misael Cruz, who agrees with the assessment and plan of care. - Patient Problems (1) CVA (cerebral vascular accident) Current Visit: Yes Status: Suspected Qualifiers: CVA mechanism: unspecified Qualified Code(s): I63.9 - Cerebral infarction, unspecified (2) Atrial thrombus Current Visit: Yes Status: Suspected (3) Acute respiratory failure Current Visit: Yes Status: Acute Qualifiers: Qualified Code(s): J96.00 - Acute respiratory failure, unspecified whether with hypoxia or hypercapnia (4) Sepsis Current Visit: Yes Status: Acute (5) PNA (pneumonia) Current Visit: Yes Status: Acute (6) Acute on chronic HFrEF (heart failure with reduced ejection fraction) Current Visit: Yes Status: Acute (7) Hypernatremia Current Visit: Yes Status: Acute (8) Dilated cardiomyopathy Current Visit: Yes Status: Acute (9) NSVT (nonsustained ventricular tachycardia) Current Visit: Yes Status: Acute (10) Hypertension Current Visit: Yes Status: Chronic Qualifiers: Hypertension type: essential hypertension Qualified Code(s): I10 - Essential (primary) hypertension (11) Diabetes mellitus Current Visit: Yes Status: Chronic Subjective Date of service: 09/02/20 Principal diagnosis: CVA Interval history: S/p JD this AM. Pt tolerated procedure well. Otherwise no change in status from a cardiac standpoint. Tele reviewed - SR 70s w/PVCs. Objective Last Vital Signs Temp 97.7 F 09/02/20 11:49 Pulse 79 09/02/20 11:49 Resp 20 09/02/20 11:49 BP 127/87 09/02/20 11:49 Pulse Ox 98 09/02/20 11:49 - Physical Examination General: No Apparent Distress HEENT: Positive: Normocephaly Neck: Positive: neck supple, trachea midline. Negative: JVD/HJR Cardiac: Positive: Reg Rate and Rhythm, S1/S2 Lungs: Positive: Decreased Breath Sounds (bases) Neuro: Positive: Weakness (R hand), Other (aphasic) Abdomen: Positive: Soft. Negative: Tender Skin: Negative: Rash Musculoskeletal: No Fluid Collection Extremities: Present: lower extr. pulses, warm. Absent: edema - Labs and Meds Coagulation 09/02/20 Range/Units 04:31 PT 15.7 H (12.2-14.9) Sec. INR 1.20 H (0.87-1.13) CBC 09/02/20 Range/Units 04:31 WBC 7.7 (4.5-11.0) K/mm3 RBC 4.18 (3.65-5.03) M/mm3 Hgb 12.5 (11.8-15.2) gm/dl Hct 38.5 (35.5-45.6) % Plt Count 150 (140-440) K/mm3 Comprehensive Metabolic Panel 09/02/20 Range/Units 04:31 Sodium 149 H (137-145) mmol/L Potassium 3.8 (3.6-5.0) mmol/L Chloride 112.9 H (98-107) mmol/L Carbon Dioxide 28 (22-30) mmol/L BUN 28 H (9-20) mg/dL Creatinine 0.9 (0.8-1.3) mg/dL Glucose 112 H (75-100) mg/dL Calcium 9.2 (8.4-10.2) mg/dL - Imaging and Cardiology EKG: report reviewed, image reviewed Echo: report reviewed (08/25/2020 - LV mod dilated, EF 20-25%, RV mod-severely dilated, RV mod hypokinetic, LA mildly dilated, negative Bubble study, no LV thrombus) JD: report reviewed - Telemetry EKG Rhythm: Sinus Rhythm - EKG Sinus rhythms and dysrhythmias: sinus tachycardia Ventricular dysrhythmias: ventricular premature com Chamber hypertrophy or enlargement: left atrial enlargement, right atrial enlargment, left ventricular hypertro Repolarization changes or abnormalities: nonspecific abnormality, ST segment, and/or T wave - Allied health notes Allied health notes reviewed: nursing
--- NOTE | 2020-09-02 13:20 | Post Anesthesia Evaluation ---
- Post Anesthesia Evaluation Patient Participated: Yes Airway Patent: Yes Stable Respiratory Function: Yes Nausea/Vomiting: No Temp > 96.8F: Yes Pain Manageable: Yes Adequeate Hydration: Yes Anesthesia Complications: No
--- NOTE | 2020-09-02 16:45 | Progress Note ---
Assessment and Plan This is 60-year-old male with HTN and CHF who was admitted for possible CVA, acute respiratory failure, acute on chronic heart failure and COVID-19 PUI which has been ruled out. A/P Acute Left MCA CVA Acute hypoxic respiratory failure due to acute CVA required intubation Acute on chronic heart failure, LVEF 20 to 25% Cardiogenic shock required pressor support URI with Staph aureus bronchial culture Hypernatremia Thrombocytopenia Hyperchloremia COVID-19 ruled out h/o Hypertension -CCM, cardiology and neurology consulted, appreciate recommendations -S/p vasopressor support with Levophed -cont Statin, aspirin, Plavix -Medical records requested from [place] -IV abx for URI -s/p dobutamine gtt, on BB now -08/24 CT head shows no acute intracranial abnormality, age-related cerebral atrophy, chronic small vessel ischemic changes in white matter, no evidence of recent infarct or mass-effect or midline shift -08/24 CTA neck with contrast shows no significant abnormality -08/24 CTA head with contrast shows no significant abnormality -08/25 echocardiogram shows mildly dilated left ventricle, definitely systolic fun ction severely decreased, severe global hypokinesis of the left ventricle, right ventricle moderate to severely dilated, left atrium mildly dilated, right atrium mildly dilated without evidence of atrial septal defect, trace MR, RVSP is 48 mmHg, mild TR, trace NM, mild pulmonary hypertension, no pericardial effusion or pleural effusion noted, Mild diastolic dysfunction, no ventricular septal defe ct, no left ventricular thrombus noted, LVEF 20 to 25% -08/26 CTA chest shows no evidence of pulmonary embolism, bilateral bronchopneumonia most pronounced within both lower lobes -08/26 BLE Doppler US shows no DVT/SVT -08/26 s/p bronch with culture completed; Staphylococcus aureus -08/28 CT head shows acute right MCA infarct -08/30 MRI brain showed left frontal MCA distribution CVA with some petechial hemo rrhage -08/30 MRA head showed no large vessel occlusion -ST/PT/OT eval -Trend CBC, BMP DVT/GI prophylaxis: SCDs to bilateral lower extremities while in bed, heparin subcu, PPI Disposition: Telemetry, plan to DC home with home health Brief history: This is a 60-year-old male with hypertension and CHF who presented to emergency department on 08/25 with difficulty in speech which began around 5 PM and became progressively worse, unsteady gait and right-sided facial droop. Work-up at emergency department included a CT head and after returning from imaging patient had increased work of breath, shortness of breath and desaturation to 90% SPO2 on room air. Patient was placed on supplemental oxygen via nasal cannula without improvement and progressed to nonrebreather to BiPAP. However the patient was still tachypneic to 50 to 60 breaths/min and was subsequently intuba andrew. Patient was admitted to the hospital service with possible CVA, acute hypoxic respiratory failure, and congestive heart failure. [facility], cardiology and neurology were consulted. Daily clinical course: 08/25: Patient is echocardiogram, MRI brain and MRA head pending. The time of examination patient was sedated on propofol and on assist control tidal volume 450, rate of 26, PEEP of 10 and 100% FiO2. Patient was started on Levophed drip for persistent hypotension. CVL was eventually placed. 08/26: MRI brain pending, echocardiogram shows reduced ejection fraction, co ntinued use of vasopressin. Patient was bronched today by [facility] empiric antibiotic therapy with cefepime was started. Dr. Gonzalez and I updated son at bedside today. CTA pending 08/27: Patient was started on dobutamine drip per cardiology yesterday evening and he has been weaned off of Levophed. [facility] culture resulted with Staph aureus. Infectious disease is aware. Patient is currently on cefepime. Cardiology increased dobutamine drip to 5 mcg. Son updated at bedside with Dr. Gonzalez. The time my examination patient was on CMV tidal volume 450, rate 12, PEEP 8 on 35% FiO2. [facility] ordered as needed fentanyl every 2 hours. Patient is currently on propofol. 08/28: Patient is sedated on propofol and has dobutamine drip infusing which was increased yesterday. He is on CMV tidal volume 450, rate of 20, PEEP of 6 and FiO2 35%. Patient is following commands. Patient's hypernatremia and hype rchloremia slightly worsened. Neurology will obtain repeat CT head since MRI is not able to be completed at this time. RN asked to remove Sanchez in place condom cath. SSI ordered. Plan for extubation today. 08/29: Patient was extubated yesterday. This morning patient is on NC, failed his bedside swallow eval and ST eval was ordered. RN replaced NGT. FWF increased. His hypernatremia and hyperchloremia worsened. Patient will be transferred to the floor. CT head confirmed acute left MCA CVA. 08/30 This is a 60-year-old male with hypertension and CHF who presented to emergency department on 08/25 with difficulty in speech which began around 5 PM and became progressively worse, unsteady gait and right-sided facial droop. Recommend emergency department included a CT head and after returning from imaging patient had increased work of breath, shortness of breath and desaturation to 90% SPO2 on room air. Patient was placed on supplemental oxygen via nasal cannula without improvement and progressed to nonrebreather to BiPAP. However the patient was still tachypneic to 50 to 60 breaths/min and was subsequently intubated, placed on vent.. Patient was admitted to the hospital service with possible CVA, acute hypoxic respiratory failure, and congestive heart failure. CCM, cardiology and neurology were consulted. He was on Dobutamine drip, now discontinued. He improved, was extubated. Repeat CT confirmed acute left MCA infarct. He has facial drrop, right sided weakness and expressive aphasia. He is on Aspirin, Plavix. Was transferred to [facility] yesterday. 08/31; MRI brain yesterday showed left frontal MCA distribution CVA with some petechial hemorrhage without any major vessel occlusion. Pending final speech recommendation, continue tube feeding for now with NG tube. Continue cefazolin for aspiration pneumonia. Patient will need rehab but he is unfunded. Continue PT OT. Continue hypotonic fluid for hypernatremia, monitor BMP. 09/01: Speech recommended pured diet. Sodium level 153 today. Renal diet and D5W. Repeat BMP tomorrow. Clinically stable and sodium level improves placement plan to DC home with home health and family support. Patient is unfunded. 09/02: planned for JD today, cont supportive care. Continue neurology recommendation. Sodium level improving continue pured diet and hypotonic fluid. Monitor BMP. Subjective Date of service: 09/02/20 Principal diagnosis: CVA Interval history: Patient seen and examined. Medical records and medication list reviewed. No acute event overnight noted by the RN. Patient denies any chest pain or difficulty breathing. Patient tolerated pured diet, plan for JD Discussed plan of care at bedside with patient and with RN. Objective - Exam Narrative Exam: General appearance: Present: no acute distress - EENT Eyes: Present: PERRL, EOM intact ENT: dentition normal - Neck Neck: Present: normal ROM - Respiratory Respiratory effort: normal Respiratory: bilateral: CTA - Cardiovascular Rhythm: regular Heart Sounds: Present: S1 & S2. Absent: systolic murmur, diastolic murmur - Extremities Extremities: no ischemia, pulses intact, pulses symmetrical, No edema, normal temperature, normal color Peripheral Pulses: within normal limits - Abdominal General gastrointestinal: soft, non-tender, non-distended, normal bowel sounds - Integumentary Integumentary: Present: clear, warm, dry - Psychiatric Psychiatric: appropriate mood/affect, cooperative - Neurologic Neurologic: Right sided weakness, right sided facial droop, expressive aphasia , awake,alert - Allied Health Allied health notes reviewed: nursing, PT, OT, RT, social work - Constitutional Vitals: Vital Signs - 12hr 09/02/20 09/02/20 09/02/20 07:36 08:57 10:26 Temperature 97.8 F Temperature [ Post-Procedure] Pulse Rate 82 Pulse Rate [ Intra-Procedure ] Pulse Rate [ Post-Procedure] Pulse Rate [Pre 76 -Procedure] Respiratory 18 Rate Respiratory Rate [Intra- Procedure] Respiratory Rate [Post- Procedure] Respiratory 16 Rate [Pre- Procedure] Blood Pressure 111/69 Blood Pressure [Intra- Procedure] Blood Pressure [Post-Procedure ] Blood Pressure 136/87 [Pre-Procedure] O2 Sat by Pulse 100 95 Oximetry O2 Sat by Pulse Oximetry [ Intra-Procedure ] O2 Sat by Pulse Oximetry [Post -Procedure] O2 Sat by Pulse 99 Oximetry [Pre- Procedure] 09/02/20 09/02/20 09/02/20 10:35 10:38 10:43 Temperature Temperature [ Post-Procedure] Pulse Rate Pulse Rate [ 90 Intra-Procedure ] Pulse Rate [ 92 H Post-Procedure] Pulse Rate [Pre 90 -Procedure] Respiratory Rate Respiratory 16 Rate [Intra- Procedure] Respiratory 16 Rate [Post- Procedure] Respiratory 18 Rate [Pre- Procedure] Blood Pressure Blood Pressure 121/85 [Intra- Procedure] Blood Pressure 122/80 [Post-Procedure ] Blood Pressure 141/100 [Pre-Procedure] O2 Sat by Pulse Oximetry O2 Sat by Pulse 92 Oximetry [ Intra-Procedure ] O2 Sat by Pulse 88 Oximetry [Post -Procedure] O2 Sat by Pulse 100 Oximetry [Pre- Procedure] 09/02/20 09/02/20 09/02/20 10:48 11:00 11:15 Temperature Temperature [ 98.1 F Post-Procedure] Pulse Rate Pulse Rate [ Intra-Procedure ] Pulse Rate [ 87 89 86 Post-Procedure] Pulse Rate [Pre -Procedure] Respiratory Rate Respiratory Rate [Intra- Procedure] Respiratory 12 14 16 Rate [Post- Procedure] Respiratory Rate [Pre- Procedure] Blood Pressure Blood Pressure [Intra- Procedure] Blood Pressure 124/81 122/80 126/80 [Post-Procedure ] Blood Pressure [Pre-Procedure] O2 Sat by Pulse Oximetry O2 Sat by Pulse Oximetry [ Intra-Procedure ] O2 Sat by Pulse 94 90 100 Oximetry [Post -Procedure] O2 Sat by Pulse Oximetry [Pre- Procedure] 09/02/20 09/02/20 09/02/20 11:49 13:29 16:02 Temperature 97.7 F 98.0 F Temperature [ Post-Procedure] Pulse Rate 79 79 83 Pulse Rate [ Intra-Procedure ] Pulse Rate [ Post-Procedure] Pulse Rate [Pre -Procedure] Respiratory 20 18 Rate Respiratory Rate [Intra- Procedure] Respiratory Rate [Post- Procedure] Respiratory Rate [Pre- Procedure] Blood Pressure 127/87 121/84 Blood Pressure [Intra- Procedure] Blood Pressure [Post-Procedure ] Blood Pressure [Pre-Procedure] O2 Sat by Pulse 98 99 Oximetry O2 Sat by Pulse Oximetry [ Intra-Procedure ] O2 Sat by Pulse Oximetry [Post -Procedure] O2 Sat by Pulse Oximetry [Pre- Procedure] - Labs CBC & Chem 7: 09/02/20 04:31 09/03/20 05:40 Labs: Abnormal lab results 09/01/20 09/01/20 09/02/20 Range/Units 16:31 23:27 04:31 PT 15.7 H (12.2-14.9) Sec. INR 1.20 H (0.87-1.13) Sodium (137-145) mmol/L Chloride (98-107) mmol/L BUN (9-20) mg/dL Glucose (75-100) mg/dL POC Glucose 163 H 170 H (70-105) mg/dL 09/02/20 09/02/20 Range/Units 04:31 05:00 PT (12.2-14.9) Sec. INR (0.87-1.13) Sodium 149 H (137-145) mmol/L Chloride 112.9 H (98-107) mmol/L BUN 28 H (9-20) mg/dL Glucose 112 H (75-100) mg/dL POC Glucose 110 H (70-105) mg/dL HEART Score - HEART Score Troponin: Troponin T 0.015 ng/mL (0.00-0.029) 09/02/20 04:31
[2020-09-02] MEDS: ASPIRIN 325 MG TAB PO SCH (17:22)
[2020-09-02] MEDS: METOPROLOL TARTRATE 25 MG TAB PO SCH ×2 (17:22→22:12)
[2020-09-02] MEDS: LISINOPRIL 5 MG TAB PO SCH (17:22)
[2020-09-02] MEDS: FUROSEMIDE 40 MG/4 ML INJ IV SCH (17:22)
[2020-09-02] MEDS: CLOPIDOGREL 75 MG TAB PO SCH (17:23)
[2020-09-02] MEDS: FAMOTIDINE 20 MG TAB PO SCH ×2 (17:23→22:11)
[2020-09-02] MEDS: DEXTROSE 5% IN WATER 1,000 ML IV SCH (17:24)
[2020-09-03] MEDS: INSULIN REGULAR, HUMAN 100 UNITS/1 ML SUB-Q SCH ×4 (06:21→17:30)
[2020-09-03] MEDS: HEPARIN 5,000 UNIT/1 ML VIAL SUB-Q SCH ×3 (06:24→21:37)
[2020-09-03 06:27] LABS: BUN/Creatinine Ratio 25; Blood Urea Nitrogen 20 mg/dL (9-20); Calcium 8.5 mg/dL (8.4-10.2); Hemolysis Index 17
[2020-09-03] MEDS: CLOPIDOGREL 75 MG TAB PO SCH (09:28)
[2020-09-03] MEDS: FUROSEMIDE 40 MG/4 ML INJ IV SCH (09:28)
[2020-09-03] MEDS: ASPIRIN 325 MG TAB PO SCH (09:28)
[2020-09-03] MEDS: FAMOTIDINE 20 MG TAB PO SCH ×2 (09:28→21:38)
[2020-09-03] MEDS: LISINOPRIL 5 MG TAB PO SCH (09:29)
[2020-09-03] MEDS: METOPROLOL TARTRATE 25 MG TAB PO SCH (09:29)
--- NOTE | 2020-09-03 11:20 | Progress Note ---
Assessment and Plan Cultures: 08/25/2020 blood culture: No growth 08/25/2020 tracheal aspirate: In process 08/26/2020 right middle lobe BAL: S aureus COVID-19 PCR: Negative A/P: 60-year-old male with hypertension, CHF was admitted to the hospital as a possible stroke with difficulty with speech, right-sided facial droop: #Right-sided pneumonia: Possibly aspiration related. Fever improving. #Sepsis: Secondary to above #Acute hypoxic respiratory failure: on rrom air #Acute on chronic CHF #Possible CVA: Neurology following. Recs: -Completed antibiotics. ID will sign off. Please call with any new concerns. Nic Terrell MD [facility] ([facility]) O: [phone] F: [phone] Subjective Date of service: 09/03/20 Principal diagnosis: CVA Interval history: Afebrile, normal white count. No changes. Objective - Exam Narrative Exam: Physical Exam: Constitutional: sedated, intubated, on the vent Head, Ears, Nose: Normocephalic, atraumatic. External ears, nose normal Eyes: Conjunctivae/corneas clear. No icterus. No ptosis. Neck: intubated Oral: intubated Cardiovascular: S1, S2 + Respiratory: AE fair bilaterally and equal GI: Soft, bowel sounds + Musculoskeletal: No pedal edema, no cyanosis. Skin: No rash or abscess Hem/Lymphatic: No palpable cervical or supraclavicular nodes. Psych: no agitation Neurological: sedated, intubated, on the vent, exam limited - Constitutional Vitals: Vital Signs Temp Pulse Resp BP Pulse Ox 97.3 F L 75 20 134/78 100 09/03/20 07:41 09/03/20 07:41 09/03/20 07:41 09/03/20 07:41 09/03/20 07:41 Temperature -Last 24 Hours Temperature 97.3 F Temperature 97.3 F Temperature 98.1 F Temperature 97.9 F Temperature 98.0 F Temperature 97.7 F - Labs CBC & Chem 7: 09/02/20 04:31 09/03/20 05:40 Labs: Abnormal lab results 09/02/20 09/03/20 Range/Units 18:13 07:43 POC Glucose 175 H 114 H (70-105) mg/dL
[2020-09-03] MEDS ORDERED: ASPIRIN 325 MG TAB PO SCH (12:38)
--- NOTE | 2020-09-03 13:03 | Discharge Summary ---
Providers - Providers Date of Admission: 08/25/20 00:01 Date of discharge: 09/03/20 Attending physician: SANTINO ROBLES 08/25/20 00:33 Occupational Therapy Evaluate and Treat [CONS] Routine Comment: Reason For Exam: Neuro deficits Physical Therapy Evaluation and Treat [CONS] Routine Comment: Reason For Exam: Neuro deficits 08/25/20 00:38 Consult to Physician [CONS] Routine Comment: Consulting Provider: AZAM BELL Physician Instructions: Reason For Exam: CHF 08/25/20 07:16 Consult to Physician [CONS] Routine Comment: Dr. Baig came and see patient/dirk Consulting Provider: DENNIS BAIG Physician Instructions: Reason For Exam: cva 08/26/20 08:13 Consult to Dietitian/Nutrition [CONS] Routine Physician Instructions: Reason For Exam: Reason for Consult: Write/Manage Tube Feeding 08/26/20 16:41 Consult to Physician [CONS] Routine Comment: Consulting Provider: RYLEE MELO Physician Instructions: Reason For Exam: bronchopneumonia/fever 08/28/20 11:17 Consult to Dietitian/Nutrition [CONS] Routine Physician Instructions: Assess nutrtn needs, initiate, modify, manage TF Reason For Exam: Reason for Consult: Write/Manage Tube Feeding Reason for Consult: Write/Manage Tube Feeding 08/29/20 09:06 Speech Therapy Evaluation and Treat [CONS] Stat Reason For Exam: failed bedside swallow eval 08/30/20 09:28 Speech Therapy Evaluation and Treat [CONS] Routine Reason For Exam: Re evaluation, bedside swallow 08/30/20 16:07 Consult to Physician [CONS] Routine Comment: Consulting Provider: MAURA LYNN Physician Instructions: Reason For Exam: Small petechial hemorrhage on ischemic stroke 08/31/20 10:47 Consult to Cardiac Rehabilitation [CONS] Routine Reason For Exam: Cardiomyopathy Additional Notes/Special Instructions: Please evaluate patient for outpatient cardiac rehab in setting of new or worsening diagnosis of severe cardiomyopathy Patient is reportedly followed by [place] [facility] Primary care physician: STAFFING ACCOUNT MANAGER Hospitalization Condition: Critical Disposition: DC-01 TO HOME OR SELFCARE Time spent for discharge: 34 minutes Core Measure Documentation - Palliative Care Palliative Care/ Comfort Measures: Not Applicable - Core Measures Any of the following diagnoses?: none Exam - Constitutional Vitals: Temp Pulse Resp BP Pulse Ox 98.3 F 80 18 100/73 100 09/03/20 11:39 09/03/20 11:39 09/03/20 11:39 09/03/20 11:39 09/03/20 11:39 Plan Activity: advance as tolerated Weight Bearing Status: Weight Bear as Tolerated Diet: low fat, low salt Special Instructions: other (outpt PT) Additional Instructions: f/u with cardiology in one week for initiation of antocoagulation. Follow up with: PRIMARY CARE, [Primary Care Provider] - 3-5 Days CRISTINA MONTES MD [Staff Physician] - 7 Days CHRISTIANNE BELL MD [Staff Physician] - 7 Days Prescriptions: AtorvaSTATin [Lipitor] 80 mg PO QHS #30 tablet Aspirin [Aspirin BABY CHEW TAB] 81 mg PO QDAY #30 tab.chew Furosemide [Lasix TAB] 40 mg PO QDAY #30 tablet Metoprolol [Lopressor TAB] 25 mg PO BID #60 tablet Famotidine [Pepcid] 20 mg PO BID #60 tablet Clopidogrel [Plavix] 75 mg PO QDAY #30 tablet lisinopriL [Zestril TAB] 2.5 mg PO QDAY #30 tablet
[2020-09-03] MEDS: ASPIRIN 81 MG TAB CHEW PO SCH (13:13)
--- NOTE | 2020-09-03 14:18 | Progress Note ---
Assessment and Plan Given LA spontaneous echo constrast/smoke visualized on JD today, recommend initiation of DOAC (if ok from a Neuro standpoint). Will reach out to Case Mgmt regarding assistance with obtaining Eliquis. Will also order LifeVest. Pt may be fitted as an outpatient. Otherwise stable cardiac status. No objections to discharge pending Neuro input regarding Eliquis. Follow-up with Dr. Misael Cruz in our [place] office on 09/24/2020 @ 2:30pm ([phone]). Pt seen in conjunction with Dr. Misael Cruz, who agrees with the assessment and plan of care. - Patient Problems (1) CVA (cerebral vascular accident) Current Visit: Yes Status: Acute Qualifiers: CVA mechanism: embolism Qualified Code(s): I63.9 - Cerebral infarction, unspecified (2) Atrial thrombus Current Visit: Yes Status: Suspected (3) Acute respiratory failure Current Visit: Yes Status: Acute Qualifiers: Qualified Code(s): J96.00 - Acute respiratory failure, unspecified whether with hypoxia or hypercapnia (4) Sepsis Current Visit: Yes Status: Acute (5) PNA (pneumonia) Current Visit: Yes Status: Acute (6) Acute on chronic HFrEF (heart failure with reduced ejection fraction) Current Visit: Yes Status: Acute (7) Hypernatremia Current Visit: Yes Status: Acute (8) Dilated cardiomyopathy Current Visit: Yes Status: Chronic (9) NSVT (nonsustained ventricular tachycardia) Current Visit: Yes Status: Acute (10) Hypertension Current Visit: Yes Status: Chronic Qualifiers: Hypertension type: essential hypertension Qualified Code(s): I10 - Essential (primary) hypertension (11) Diabetes mellitus Current Visit: Yes Status: Chronic Subjective Date of service: 09/03/20 Principal diagnosis: CVA Interval history: Sitting up in bedside chair comfortably upon exam. Regaining some motor function. Still aphasic but can make sounds and write. No cardiac complaints. Tele reviewed - SR 70-80s w/frequent PVCs. Objective Last Vital Signs Temp 98.3 F 09/03/20 11:39 Pulse 80 09/03/20 13:00 Resp 18 09/03/20 11:39 BP 100/73 09/03/20 11:39 Pulse Ox 100 09/03/20 11:39 - Physical Examination General: No Apparent Distress HEENT: Positive: EOMI, Normocephaly Neck: Positive: neck supple, trachea midline. Negative: JVD/HJR Cardiac: Positive: Reg Rate and Rhythm, S1/S2 Lungs: Positive: clear to auscultation Neuro: Positive: Grossly Intact, Weakness (R hand), Other (aphasic) Abdomen: Positive: Soft. Negative: Tender Skin: Negative: Rash Musculoskeletal: No Fluid Collection Extremities: Present: lower extr. pulses, warm. Absent: edema - Labs and Meds Comprehensive Metabolic Panel 09/03/20 Range/Units 05:40 Sodium 141 D (137-145) mmol/L Potassium 3.6 (3.6-5.0) mmol/L Chloride 104.6 (98-107) mmol/L Carbon Dioxide 25 (22-30) mmol/L BUN 20 (9-20) mg/dL Creatinine 0.8 (0.8-1.3) mg/dL Glucose 100 (75-100) mg/dL Calcium 8.5 (8.4-10.2) mg/dL - Imaging and Cardiology EKG: report reviewed, image reviewed Echo: report reviewed (08/25/2020 - LV mod dilated, EF 20-25%, RV mod-severely dilated, RV mod hypokinetic, LA mildly dilated, negative Bubble study, no LV thrombus) - Telemetry EKG Rhythm: Sinus Rhythm - EKG Sinus rhythms and dysrhythmias: sinus tachycardia Ventricular dysrhythmias: ventricular premature com Chamber hypertrophy or enlargement: left atrial enlargement, right atrial enlargment, left ventricular hypertro Repolarization changes or abnormalities: nonspecific abnormality, ST segment, and/or T wave - Allied health notes Allied health notes reviewed: nursing
--- NOTE | 2020-09-03 15:55 | Progress Note ---
Assessment and Plan This is 60-year-old male with HTN and CHF who was admitted for possible CVA, acute respiratory failure, acute on chronic heart failure and COVID-19 PUI which has been ruled out. A/P Acute Left MCA CVA Acute hypoxic respiratory failure due to acute CVA required intubation Acute on chronic heart failure, LVEF 20 to 25% Cardiogenic shock required pressor support URI with Staph aureus bronchial culture Hypernatremia Thrombocytopenia Hyperchloremia COVID-19 ruled out h/o Hypertension Arterial thrombus -CCM, cardiology and neurology consulted, appreciate recommendations -S/p vasopressor support with Levophed -cont Statin, aspirin, Plavix -Medical records requested from [facility] -IV abx for URI -s/p dobutamine gtt, on BB now -08/24 CT head shows no acute intracranial abnormality, age-related cerebral atrophy, chronic small vessel ischemic changes in white matter, no evidence of recent infarct or mass-effect or midline shift -08/24 CTA neck with contrast shows no significant abnormality -08/24 CTA head with contrast shows no significant abnormality -08/25 echocardiogram shows mildly dilated left ventricle, definitely systolic function severely decreased, severe global hypokinesis of the left ventricle, right ventricle moderate to severely dilated, left atrium mildly dilated, right atrium mildly dilated without evidence of atrial septal defect, trace MR, RVSP is 48 mmHg, mild TR, trace ID, mild pulmonary hypertension, no pericardial effusion or pleural effusion noted, Mild diastolic dysfunction, no ventricular septal defect, no left ventricular thrombus noted, LVEF 20 to 25% -08/26 CTA chest shows no evidence of pulmonary embolism, bilateral bronchopneumonia most pronounced within both lower lobes -08/26 BLE Doppler US shows no DVT/SVT -08/26 s/p bronch with culture completed; Staphylococcus aureus -08/28 CT head shows acute right MCA infarct -08/30 MRI brain showed left frontal MCA distribution CVA with some petechial hemorrhage -08/30 MRA head showed no large vessel occlusion -09/02 JD showed spontaneous echo contrast/small on the left side of the heart -ST/PT/OT eval -Trend CBC, BMP DVT/GI prophylaxis: SCDs to bilateral lower extremities while in bed, heparin subcu, PPI Disposition: Telemetry, plan to DC home with home health Brief history: This is a 60-year-old male with hypertension and CHF who presented to emergency department on 08/25 with difficulty in speech which began around 5 PM and became progressively worse, unsteady gait and right-sided facial droop. Work-up at emergency department included a CT head and after returning from imaging patient had increased work of breath, shortness of breath and desaturation to 90% SPO2 on room air. Patient was placed on supplemental oxygen via nasal cannula without improvement and progressed to nonrebreather to BiPAP. However the patient was still tachypneic to 50 to 60 breaths/min and was subsequently intubated. Patient was admitted to the hospital service with possible CVA, acute hypoxic respiratory failure, and congestive heart failure. [facility], cardiology and neurology were consulted. Daily clinical course: 08/25: Patient is echocardiogram, MRI brain and MRA head pending. The time of examination patient was sedated on propofol and on assist control tidal volume 450, rate of 26, PEEP of 10 and 100% FiO2. Patient was started on Levophed drip for persistent hypotension. CVL was eventually placed. 08/26: MRI brain pending, echocardiogram shows reduced ejection fraction, xavier nued use of vasopressin. Patient was bronched today by [facility] empiric antibiotic therapy with cefepime was started. Dr. Gonzalez and I updated son at bedside today. CTA pending 08/27: Patient was started on dobutamine drip per cardiology yesterday evening and he has been weaned off of Levophed. [facility] culture resulted with Staph aureus. Infectious disease is aware. Patient is currently on cefepime. Cardiology increased dobutamine drip to 5 mcg. Son updated at bedside with Dr. Gonzalez. The time my examination patient was on CMV tidal volume 450, rate 12, PEEP 8 on 35% FiO2. [facility] ordered as needed fentanyl every 2 hours. Patient is currently on propofol. 08/28: Patient is sedated on propofol and has dobutamine drip infusing which was increased yesterday. He is on CMV tidal volume 450, rate of 20, PEEP of 6 and FiO2 35%. Patient is following commands. Patient's hypernatremia and hyperch loremia slightly worsened. Neurology will obtain repeat CT head since MRI is not able to be completed at this time. RN asked to remove Sanchez in place condom cath. SSI ordered. Plan for extubation today. 08/29: Patient was extubated yesterday. This morning patient is on NC, failed his bedside swallow eval and ST eval was ordered. RN replaced NGT. FWF increased. His hypernatremia and hyperchloremia worsened. Patient will be transferred to the floor. CT head confirmed acute left MCA CVA. 08/30 This is a 60-year-old male with hypertension and CHF who presented to emergency department on 08/25 with difficulty in speech which began around 5 PM and became progressively worse, unsteady gait and right-sided facial droop. Recommend emergency department included a CT head and after returning from imaging patient had increased work of breath, shortness of breath and desaturation to 90% SPO2 on room air. Patient was placed on supplemental oxygen via nasal cannula without improvement and progressed to nonrebreather to BiPAP. However the patient was still tachypneic to 50 to 60 breaths/min and was subsequently intubated, placed on vent.. Patient was admitted to the hospital service with possible CVA, acute hypoxic respiratory failure, and congestive heart failure. [facility], cardiology and neurology were consulted. He was on Dobutamine drip, now discontinued. He improved, was extubated. Repeat CT confirmed acute left MCA infarct. He has facial drrop, right sided weakness and expressive aphasia. He is on Aspirin, Plavix. Was transferred to Tele yesterday. 08/31; MRI brain yesterday showed left frontal MCA distribution CVA with some petechial hemorrhage without any major vessel occlusion. Pending final speech recommendation, continue tube feeding for now with NG tube. Continue cefazolin for aspiration pneumonia. Patient will need rehab but he is unfunded. Continue PT OT. Continue hypotonic fluid for hypernatremia, monitor BMP. 09/01: Speech recommended pured diet. Sodium level 153 today. Renal diet and D5W. Repeat BMP tomorrow. Clinically stable and sodium level improves placement plan to DC home with home health and family support. Patient is unfunded. 09/02: planned for JD today, cont supportive care. Continue neurology recommendation. Sodium level improving continue pured diet and hypotonic fluid. Monitor BMP. 09/03; Given LA spontaneous echo constrast/smoke visualized on JD, cardiology recommended initiation of DOAC. patient need to start on AC if clears by neuro, waiting on neuro recommendation. patient also need lifevest. Subjective Date of service: 09/03/20 Principal diagnosis: CVA Interval history: Patient seen and examined. Medical records and medication list reviewed. No acute event overnight noted by the RN. Patient denies any chest pain or difficulty breathing. Patient tolerated pured diet, Discussed plan of care at bedside with patient and with RN. Objective - Exam Narrative Exam: General appearance: Present: no acute distress - EENT Eyes: Present: PERRL, EOM intact ENT: dentition normal - Neck Neck: Present: normal ROM - Respiratory Respiratory effort: normal Respiratory: bilateral: CTA - Cardiovascular Rhythm: regular Heart Sounds: Present: S1 & S2. Absent: systolic murmur, diastolic murmur - Extremities Extremities: no ischemia, pulses intact, pulses symmetrical, No edema, normal temperature, normal color Peripheral Pulses: within normal limits - Abdominal General gastrointestinal: soft, non-tender, non-distended, normal bowel sounds - Integumentary Integumentary: Present: clear, warm, dry - Psychiatric Psychiatric: appropriate mood/affect, cooperative - Neurologic Neurologic: Right sided weakness, right sided facial droop, expressive aphasia , awake,alert - Allied Health Allied health notes reviewed: nursing, PT, OT, RT, social work - Constitutional Vitals: Vital Signs - 12hr 09/03/20 09/03/20 09/03/20 04:50 07:41 11:39 Temperature 97.3 F L 97.3 F L 98.3 F Pulse Rate 71 75 80 Respiratory 16 20 18 Rate Blood Pressure 101/71 134/78 100/73 O2 Sat by Pulse 99 100 100 Oximetry 09/03/20 09/03/20 09/03/20 13:00 15:34 15:37 Temperature 98.3 F Pulse Rate 80 82 Respiratory 20 Rate Blood Pressure 81/53 102/69 O2 Sat by Pulse 96 Oximetry - Labs CBC & Chem 7: 09/02/20 04:31 09/03/20 05:40 Labs: Abnormal lab results 09/02/20 09/03/20 09/03/20 Range/Units 18:13 07:43 11:18 POC Glucose 175 H 114 H 130 H (70-105) mg/dL HEART Score - HEART Score Troponin: Troponin T 0.015 ng/mL (0.00-0.029) 09/02/20 04:31
[2020-09-04] MEDS: INSULIN REGULAR, HUMAN 100 UNITS/1 ML SUB-Q SCH ×5 (00:24→21:10)
[2020-09-04] MEDS: DEXTROSE 5% IN WATER 1,000 ML IV SCH (02:18)
[2020-09-04] MEDS: HEPARIN 5,000 UNIT/1 ML VIAL SUB-Q SCH ×3 (05:54→21:05)
[2020-09-04] MEDS: FUROSEMIDE 40 MG TAB PO SCH (05:54)
[2020-09-04] MEDS ORDERED: METOPROLOL SUCCINATE XL 25 MG TAB PO SCH (10:00)
[2020-09-04] MEDS: ASPIRIN 81 MG TAB CHEW PO SCH (10:18)
[2020-09-04] MEDS: FAMOTIDINE 20 MG TAB PO SCH ×2 (10:19→21:04)
[2020-09-04] MEDS: CLOPIDOGREL 75 MG TAB PO SCH (10:19)
[2020-09-04] MEDS: LISINOPRIL 5 MG TAB PO SCH (10:19)
--- NOTE | 2020-09-04 12:40 | Progress Note ---
Assessment and Plan Given LA spontaneous echo constrast/smoke visualized on JD, recommend initiation of DOAC (if ok from a Neuro standpoint). Currently stable cardiac status. Awaiting Neuro input regarding Eliquis prior to discharge. Case d/w RN and Case Mgmt today. Apparently there is no Neurologist rounding or front desk administrator this weekend. As such, anticipate discharge on Sunday. Awaiting LifeVest in the meantime. Order submitted to [employer]. Follow-up with Dr. Misael Cruz in our [place] office on 09/24/2020 @ 2:30pm ([phone]). Pt seen in conjunction with Dr. Mosqueda, who agrees with the assessment and plan of care. - Patient Problems (1) CVA (cerebral vascular accident) Current Visit: Yes Status: Acute Qualifiers: CVA mechanism: embolism (2) Atrial thrombus Current Visit: Yes Status: Acute (3) Acute respiratory failure Current Visit: Yes Status: Acute Qualifiers: Qualified Code(s): J96.00 - Acute respiratory failure, unspecified whether with hypoxia or hypercapnia (4) Sepsis Current Visit: Yes Status: Acute (5) PNA (pneumonia) Current Visit: Yes Status: Acute (6) Acute on chronic HFrEF (heart failure with reduced ejection fraction) Current Visit: Yes Status: Acute (7) Dilated cardiomyopathy Current Visit: Yes Status: Chronic (8) NSVT (nonsustained ventricular tachycardia) Current Visit: Yes Status: Acute (9) Hypertension Current Visit: Yes Status: Chronic Qualifiers: Hypertension type: essential hypertension Qualified Code(s): I10 - Essential (primary) hypertension (10) Diabetes mellitus Current Visit: Yes Status: Chronic Subjective Date of service: 09/04/20 Principal diagnosis: CVA Interval history: Resting comfortably upon assessment. No complaints. Tele reviewed - SR 70-80s w/frequent PVCs (intermittently in a pattern of bigeminy this AM). Objective Last Vital Signs Temp 97.9 F 09/04/20 04:10 Pulse 78 09/04/20 04:10 Resp 18 09/04/20 04:10 BP 117/79 09/04/20 04:10 Pulse Ox 100 09/04/20 04:10 - Physical Examination General: No Apparent Distress HEENT: Positive: EOMI, Normocephaly Neck: Positive: neck supple, trachea midline. Negative: JVD/HJR Cardiac: Positive: Reg Rate and Rhythm, S1/S2 Lungs: Positive: clear to auscultation (bilaterally) Neuro: Positive: Grossly Intact, Weakness (R hand), Other (aphasic) Abdomen: Positive: Soft. Negative: Tender Skin: Negative: Rash Musculoskeletal: No Fluid Collection Extremities: Present: lower extr. pulses, warm. Absent: edema - Imaging and Cardiology EKG: report reviewed, image reviewed Echo: report reviewed (08/25/2020 - LV mod dilated, EF 20-25%, RV mod-severely dilated, RV mod hypokinetic, LA mildly dilated, negative Bubble study, no LV thrombus) - Telemetry EKG Rhythm: Sinus Rhythm - EKG Sinus rhythms and dysrhythmias: sinus tachycardia Ventricular dysrhythmias: ventricular premature com Chamber hypertrophy or enlargement: left atrial enlargement, right atrial enlargment, left ventricular hypertro Repolarization changes or abnormalities: nonspecific abnormality, ST segment, and/or T wave - Allied health notes Allied health notes reviewed: nursing
--- NOTE | 2020-09-04 13:41 | Progress Note ---
Assessment and Plan This is 60-year-old male with HTN and CHF who was admitted for possible CVA, acute respiratory failure, acute on chronic heart failure and COVID-19 PUI which has been ruled out. A/P Acute Left MCA CVA Acute hypoxic respiratory failure due to acute CVA required intubation Acute on chronic heart failure, LVEF 20 to 25% Cardiogenic shock required pressor support URI with Staph aureus bronchial culture Hypernatremia Thrombocytopenia Hyperchloremia COVID-19 ruled out h/o Hypertension Arterial thrombus -CCM, cardiology and neurology consulted, appreciate recommendations -S/p vasopressor support with Levophed -cont Statin, aspirin, Plavix -Medical records requested from [facility] -IV abx for URI -s/p dobutamine gtt, on BB now -08/24 CT head shows no acute intracranial abnormality, age-related cerebral atrophy, chronic small vessel ischemic changes in white matter, no evidence of recent infarct or mass-effect or midline shift -08/24 CTA neck with contrast shows no significant abnormality -08/24 CTA head with contrast shows no significant abnormality -08/25 echocardiogram shows mildly dilated left ventricle, definitely systolic function severely decreased, severe global hypokinesis of the left ventricle, right ventricle moderate to severely dilated, left atrium mildly dilated, right atrium mildly dilated without evidence of atrial septal defect, trace MR, RVSP is 48 mmHg, mild TR, trace ND, mild pulmonary hypertension, no pericardial effusion or pleural effusion noted, Mild diastolic dysfunction, no ventricular septal defect, no left ventricular thrombus noted, LVEF 20 to 25% -08/26 CTA chest shows no evidence of pulmonary embolism, bilateral bronchopneumonia most pronounced within both lower lobes -08/26 BLE Doppler US shows no DVT/SVT -08/26 s/p bronch with culture completed; Staphylococcus aureus -08/28 CT head shows acute right MCA infarct -08/30 MRI brain showed left frontal MCA distribution CVA with some petechial hemorrhage -08/30 MRA head showed no large vessel occlusion -09/02 JD showed spontaneous echo contrast/small on the left side of the heart -ST/PT/OT eval -Trend CBC, BMP DVT/GI prophylaxis: SCDs to bilateral lower extremities while in bed, heparin subcu, PPI Disposition: Telemetry, plan to DC home with home health Brief history: This is a 60-year-old male with hypertension and CHF who presented to emergency department on 08/25 with difficulty in speech which began around 5 PM and became progressively worse, unsteady gait and right-sided facial droop. Work-up at emergency department included a CT head and after returning from imaging patient had increased work of breath, shortness of breath and desaturation to 90% SPO2 on room air. Patient was placed on supplemental oxygen via nasal cannula without improvement and progressed to nonrebreather to BiPAP. However the patient was still tachypneic to 50 to 60 breaths/min and was subsequently intubated. Patient was admitted to the hospital service with possible CVA, acute hypoxic respiratory failure, and congestive heart failure. [facility], cardiology and neurology were consulted. Daily clinical course: 08/25: Patient is echocardiogram, MRI brain and MRA head pending. The time of examination patient was sedated on propofol and on assist control tidal volume 450, rate of 26, PEEP of 10 and 100% FiO2. Patient was started on Levophed drip for persistent hypotension. CVL was eventually placed. 08/26: MRI brain pending, echocardiogram shows reduced ejection fraction, xavier nued use of vasopressin. Patient was bronched today by [facility] empiric antibiotic therapy with cefepime was started. Dr. Gonzalez and I updated son at bedside today. CTA pending 08/27: Patient was started on dobutamine drip per cardiology yesterday evening and he has been weaned off of Levophed. [facility] culture resulted with Staph aureus. Infectious disease is aware. Patient is currently on cefepime. Cardiology increased dobutamine drip to 5 mcg. Son updated at bedside with Dr. Gonzalez. The time my examination patient was on CMV tidal volume 450, rate 12, PEEP 8 on 35% FiO2. [facility] ordered as needed fentanyl every 2 hours. Patient is currently on propofol. 08/28: Patient is sedated on propofol and has dobutamine drip infusing which was increased yesterday. He is on CMV tidal volume 450, rate of 20, PEEP of 6 and FiO2 35%. Patient is following commands. Patient's hypernatremia and hyperch loremia slightly worsened. Neurology will obtain repeat CT head since MRI is not able to be completed at this time. RN asked to remove Sanchez in place condom cath. SSI ordered. Plan for extubation today. 08/29: Patient was extubated yesterday. This morning patient is on NC, failed his bedside swallow eval and ST eval was ordered. RN replaced NGT. FWF increased. His hypernatremia and hyperchloremia worsened. Patient will be transferred to the floor. CT head confirmed acute left MCA CVA. 08/30 This is a 60-year-old male with hypertension and CHF who presented to emergency department on 08/25 with difficulty in speech which began around 5 PM and became progressively worse, unsteady gait and right-sided facial droop. Recommend emergency department included a CT head and after returning from imaging patient had increased work of breath, shortness of breath and desaturation to 90% SPO2 on room air. Patient was placed on supplemental oxygen via nasal cannula without improvement and progressed to nonrebreather to BiPAP. However the patient was still tachypneic to 50 to 60 breaths/min and was subsequently intubated, placed on vent.. Patient was admitted to the hospital service with possible CVA, acute hypoxic respiratory failure, and congestive heart failure. [facility], cardiology and neurology were consulted. He was on Dobutamine drip, now discontinued. He improved, was extubated. Repeat CT confirmed acute left MCA infarct. He has facial drrop, right sided weakness and expressive aphasia. He is on Aspirin, Plavix. Was transferred to Tele yesterday. 08/31; MRI brain yesterday showed left frontal MCA distribution CVA with some petechial hemorrhage without any major vessel occlusion. Pending final speech recommendation, continue tube feeding for now with NG tube. Continue cefazolin for aspiration pneumonia. Patient will need rehab but he is unfunded. Continue PT OT. Continue hypotonic fluid for hypernatremia, monitor BMP. 09/01: Speech recommended pured diet. Sodium level 153 today. Renal diet and D5W. Repeat BMP tomorrow. Clinically stable and sodium level improves placement plan to DC home with home health and family support. Patient is unfunded. 09/02: planned for JD today, cont supportive care. Continue neurology recommendation. Sodium level improving continue pured diet and hypotonic fluid. Monitor BMP. 09/03; Given LA spontaneous echo constrast/smoke visualized on JD, cardiology recommended initiation of DOAC. patient need to start on AC if clears by neuro, waiting on neuro recommendation. patient also need lifevest. 09/04: Discharge pending on LifeVest arrangement neurology recommendation for anticoagulation. Patient tolerated pured diet. Sodium level normalized. Continue to monitor BMP and provide supportive care Subjective Date of service: 09/04/20 Principal diagnosis: CVA Interval history: Patient seen and examined. Medical records and medication list reviewed. No acute event overnight noted by the RN. Patient denies any chest pain or difficulty breathing. Patient tolerated pured diet, Discussed plan of care at bedside with patient and with RN. Objective - Exam Narrative Exam: General appearance: Present: no acute distress - EENT Eyes: Present: PERRL, EOM intact ENT: dentition normal - Neck Neck: Present: normal ROM - Respiratory Respiratory effort: normal Respiratory: bilateral: CTA - Cardiovascular Rhythm: regular Heart Sounds: Present: S1 & S2. Absent: systolic murmur, diastolic murmur - Extremities Extremities: no ischemia, pulses intact, pulses symmetrical, No edema, normal temperature, normal color Peripheral Pulses: within normal limits - Abdominal General gastrointestinal: soft, non-tender, non-distended, normal bowel sounds - Integumentary Integumentary: Present: clear, warm, dry - Psychiatric Psychiatric: appropriate mood/affect, cooperative - Neurologic Neurologic: Right sided weakness, right sided facial droop, expressive aphasia , awake,alert - Allied Health Allied health notes reviewed: nursing, PT, OT, RT, social work - Constitutional Vitals: Vital Signs - 12hr 09/04/20 04:10 Temperature 97.9 F Pulse Rate 78 Respiratory 18 Rate Blood Pressure 117/79 O2 Sat by Pulse 100 Oximetry - Labs CBC & Chem 7: 09/02/20 04:31 09/03/20 05:40 Labs: Abnormal lab results 09/03/20 09/04/20 Range/Units 16:17 06:20 POC Glucose 143 H 108 H (70-105) mg/dL HEART Score - HEART Score Troponin: Troponin T 0.015 ng/mL (0.00-0.029) 09/02/20 04:31
[2020-09-04] MEDS: carvediloL 3.125 MG TAB PO SCH ×2 (15:05→21:05)
[2020-09-05] MEDS: FUROSEMIDE 40 MG TAB PO SCH (05:13)
[2020-09-05] MEDS: HEPARIN 5,000 UNIT/1 ML VIAL SUB-Q SCH ×3 (05:13→21:25)
[2020-09-05] MEDS: INSULIN REGULAR, HUMAN 100 UNITS/1 ML SUB-Q SCH ×3 (10:15→17:50)
[2020-09-05] MEDS: FAMOTIDINE 20 MG TAB PO SCH ×2 (10:16→21:25)
[2020-09-05] MEDS: carvediloL 3.125 MG TAB PO SCH ×2 (10:16→21:25)
[2020-09-05] MEDS: CLOPIDOGREL 75 MG TAB PO SCH (10:16)
[2020-09-05] MEDS: LISINOPRIL 5 MG TAB PO SCH (10:16)
[2020-09-05] MEDS: ASPIRIN 81 MG TAB CHEW PO SCH (10:17)
--- NOTE | 2020-09-05 10:39 | Progress Note ---
Assessment and Plan Given LA spontaneous echo constrast/smoke visualized on JD, recommend initiation of DOAC (if ok from a Neuro standpoint). Currently stable cardiac status. Awaiting Neuro input regarding Eliquis prior to discharge. Case d/w RN and Case Mgmt. Apparently there is no Neurologist rounding or quality control expert this weekend. As such, anticipate discharge tomorrow pending Neuro input and decision regarding Eliquis. Awaiting LifeVest in the meantime. Order submitted to [email or web address] (confirmation placed in pt's chart). Follow-up with Dr. Misael Cruz in our [place] office on 09/24/2020 @ 2:30pm ([phone]). Pt seen in conjunction with Dr. Mosqueda, who agrees with the assessment and plan of care. - Patient Problems (1) CVA (cerebral vascular accident) Current Visit: Yes Status: Acute Qualifiers: CVA mechanism: embolism (2) Atrial thrombus Current Visit: Yes Status: Acute (3) Acute respiratory failure Current Visit: Yes Status: Acute Qualifiers: Qualified Code(s): J96.00 - Acute respiratory failure, unspecified whether with hypoxia or hypercapnia (4) Sepsis Current Visit: Yes Status: Acute (5) PNA (pneumonia) Current Visit: Yes Status: Acute (6) Acute on chronic HFrEF (heart failure with reduced ejection fraction) Current Visit: Yes Status: Acute (7) Dilated cardiomyopathy Current Visit: Yes Status: Chronic (8) NSVT (nonsustained ventricular tachycardia) Current Visit: Yes Status: Acute (9) Hypertension Current Visit: Yes Status: Chronic Qualifiers: Hypertension type: essential hypertension Qualified Code(s): I10 - Essential (primary) hypertension (10) Diabetes mellitus Current Visit: Yes Status: Chronic Subjective Date of service: 09/05/20 Principal diagnosis: CVA Interval history: Resting comfortably in bed upon assessment. No complaints. Is now able to form short sentences. Tele reviewed - SR 70-80s w/frequent PVCs (intermittently with couplets and intermittently in a pattern of bigeminy, no NSVT or events overnight). Objective Last Vital Signs Temp 98.3 F 09/05/20 08:14 Pulse 80 09/05/20 08:14 Resp 18 09/05/20 08:14 BP 114/81 09/05/20 08:14 Pulse Ox 98 09/05/20 08:14 - Physical Examination General: No Apparent Distress HEENT: Positive: EOMI, Normocephaly Neck: Positive: neck supple, trachea midline. Negative: JVD/HJR Cardiac: Positive: Reg Rate and Rhythm, S1/S2 Lungs: Positive: clear to auscultation Neuro: Positive: Grossly Intact, Weakness (R hand) Abdomen: Positive: Soft. Negative: Tender Skin: Negative: Rash Musculoskeletal: No Fluid Collection Extremities: Present: lower extr. pulses, warm. Absent: edema - Imaging and Cardiology EKG: report reviewed, image reviewed Echo: report reviewed (08/25/2020 - LV mod dilated, EF 20-25%, RV mod-severely dilated, RV mod hypokinetic, LA mildly dilated, negative Bubble study, no LV thrombus) - Telemetry EKG Rhythm: Sinus Rhythm - EKG Sinus rhythms and dysrhythmias: sinus tachycardia Ventricular dysrhythmias: ventricular premature com Chamber hypertrophy or enlargement: left atrial enlargement, right atrial enlargment, left ventricular hypertro Repolarization changes or abnormalities: nonspecific abnormality, ST segment, and/or T wave - Allied health notes Allied health notes reviewed: nursing
--- NOTE | 2020-09-05 16:03 | Progress Note ---
Assessment and Plan This is 60-year-old male with HTN and CHF who was admitted for possible CVA, acute respiratory failure, acute on chronic heart failure and COVID-19 PUI which has been ruled out. A/P Acute Left MCA CVA Acute hypoxic respiratory failure due to acute CVA required intubation Acute on chronic heart failure, LVEF 20 to 25% Cardiogenic shock required pressor support URI with Staph aureus bronchial culture Hypernatremia Thrombocytopenia Hyperchloremia COVID-19 ruled out h/o Hypertension Arterial thrombus -CCM, cardiology and neurology consulted, appreciate recommendations -S/p vasopressor support with Levophed -cont Statin, aspirin, Plavix -Medical records requested from [place] -IV abx for URI -s/p dobutamine gtt, on BB now -08/24 CT head shows no acute intracranial abnormality, age-related cerebral atrophy, chronic small vessel ischemic changes in white matter, no evidence of recent infarct or mass-effect or midline shift -08/24 CTA neck with contrast shows no significant abnormality -08/24 CTA head with contrast shows no significant abnormality -08/25 echocardiogram shows mildly dilated left ventricle, definitely systolic function severely decreased, severe global hypokinesis of the left ventricle, right ventricle moderate to severely dilated, left atrium mildly dilated, right atrium mildly dilated without evidence of atrial septal defect, trace MR, RVSP is 48 mmHg, mild TR, trace SD, mild pulmonary hypertension, no pericardial effusion or pleural effusion noted, Mild diastolic dysfunction, no ventricular septal defect, no left ventricular thrombus noted, LVEF 20 to 25% -08/26 CTA chest shows no evidence of pulmonary embolism, bilateral bronchopneumonia most pronounced within both lower lobes -08/26 BLE Doppler US shows no DVT/SVT -08/26 s/p bronch with culture completed; Staphylococcus aureus -08/28 CT head shows acute right MCA infarct -08/30 MRI brain showed left frontal MCA distribution CVA with some petechial hemorrhage -08/30 MRA head showed no large vessel occlusion -09/02 JD showed spontaneous echo contrast/small on the left side of the heart -ST/PT/OT eval -Trend CBC, BMP DVT/GI prophylaxis: SCDs to bilateral lower extremities while in bed, heparin subcu, PPI Disposition: Telemetry, plan to DC home with home health Brief history: This is a 60-year-old male with hypertension and CHF who presented to emergency department on 08/25 with difficulty in speech which began around 5 PM and became progressively worse, unsteady gait and right-sided facial droop. Work-up at emergency department included a CT head and after returning from imaging patient had increased work of breath, shortness of breath and desaturation to 90% SPO2 on room air. Patient was placed on supplemental oxygen via nasal cannula without improvement and progressed to nonrebreather to BiPAP. However the patient was still tachypneic to 50 to 60 breaths/min and was subsequently intubated. Patient was admitted to the hospital service with possible CVA, acute hypoxic respiratory failure, and congestive heart failure. [facility], cardiology and neurology were consulted. Daily clinical course: 08/25: Patient is echocardiogram, MRI brain and MRA head pending. The time of examination patient was sedated on propofol and on assist control tidal volume 450, rate of 26, PEEP of 10 and 100% FiO2. Patient was started on Levophed drip for persistent hypotension. CVL was eventually placed. 08/26: MRI brain pending, echocardiogram shows reduced ejection fraction, xavier nued use of vasopressin. Patient was bronched today by [facility] empiric antibiotic therapy with cefepime was started. Dr. Gonzalez and I updated son at bedside today. CTA pending 08/27: Patient was started on dobutamine drip per cardiology yesterday evening and he has been weaned off of Levophed. [facility] culture resulted with Staph aureus. Infectious disease is aware. Patient is currently on cefepime. Cardiology increased dobutamine drip to 5 mcg. Son updated at bedside with Dr. Gonzalez. The time my examination patient was on CMV tidal volume 450, rate 12, PEEP 8 on 35% FiO2. [facility] ordered as needed fentanyl every 2 hours. Patient is currently on propofol. 08/28: Patient is sedated on propofol and has dobutamine drip infusing which was increased yesterday. He is on CMV tidal volume 450, rate of 20, PEEP of 6 and FiO2 35%. Patient is following commands. Patient's hypernatremia and hyperch loremia slightly worsened. Neurology will obtain repeat CT head since MRI is not able to be completed at this time. RN asked to remove Sanchez in place condom cath. SSI ordered. Plan for extubation today. 08/29: Patient was extubated yesterday. This morning patient is on NC, failed his bedside swallow eval and ST eval was ordered. RN replaced NGT. FWF increased. His hypernatremia and hyperchloremia worsened. Patient will be transferred to the floor. CT head confirmed acute left MCA CVA. 08/30 This is a 60-year-old male with hypertension and CHF who presented to emergency department on 08/25 with difficulty in speech which began around 5 PM and became progressively worse, unsteady gait and right-sided facial droop. Recommend emergency department included a CT head and after returning from imaging patient had increased work of breath, shortness of breath and desaturation to 90% SPO2 on room air. Patient was placed on supplemental oxygen via nasal cannula without improvement and progressed to nonrebreather to BiPAP. However the patient was still tachypneic to 50 to 60 breaths/min and was subsequently intubated, placed on vent.. Patient was admitted to the hospital service with possible CVA, acute hypoxic respiratory failure, and congestive heart failure. CCM, cardiology and neurology were consulted. He was on Dobutamine drip, now discontinued. He improved, was extubated. Repeat CT confirmed acute left MCA infarct. He has facial drrop, right sided weakness and expressive aphasia. He is on Aspirin, Plavix. Was transferred to Tele yesterday. 08/31; MRI brain yesterday showed left frontal MCA distribution CVA with some petechial hemorrhage without any major vessel occlusion. Pending final speech recommendation, continue tube feeding for now with NG tube. Continue cefazolin for aspiration pneumonia. Patient will need rehab but he is unfunded. Continue PT OT. Continue hypotonic fluid for hypernatremia, monitor BMP. 09/01: Speech recommended pured diet. Sodium level 153 today. Renal diet and D5W. Repeat BMP tomorrow. Clinically stable and sodium level improves placement plan to DC home with home health and family support. Patient is unfunded. 09/02: planned for JD today, cont supportive care. Continue neurology recommendation. Sodium level improving continue pured diet and hypotonic fluid. Monitor BMP. 09/03; Given LA spontaneous echo constrast/smoke visualized on JD, cardiology recommended initiation of DOAC. patient need to start on AC if clears by neuro, waiting on neuro recommendation. patient also need lifevest. 09/04-09/05: Discharge pending on LifeVest arrangement neurology recommendation for anticoagulation. Patient tolerated pured diet. Sodium level normalized. Continue to monitor BMP and provide supportive care Subjective Date of service: 09/05/20 Principal diagnosis: CVA Interval history: Patient seen and examined. Medical records and medication list reviewed. No acute event overnight noted by the RN. Patient denies any chest pain or difficulty breathing. Patient tolerating pured diet, Discussed plan of care at bedside with patient and with RN. Objective - Exam Narrative Exam: General appearance: Present: no acute distress - EENT Eyes: Present: PERRL, EOM intact ENT: dentition normal - Neck Neck: Present: normal ROM - Respiratory Respiratory effort: normal Respiratory: bilateral: CTA - Cardiovascular Rhythm: regular Heart Sounds: Present: S1 & S2. Absent: systolic murmur, diastolic murmur - Extremities Extremities: no ischemia, pulses intact, pulses symmetrical, No edema, normal temperature, normal color Peripheral Pulses: within normal limits - Abdominal General gastrointestinal: soft, non-tender, non-distended, normal bowel sounds - Integumentary Integumentary: Present: clear, warm, dry - Psychiatric Psychiatric: appropriate mood/affect, cooperative - Neurologic Neurologic: Right sided weakness, right sided facial droop, expressive aphasia , awake,alert - Allied Health Allied health notes reviewed: nursing, PT, OT, RT, social work - Constitutional Vitals: Vital Signs - 12hr 09/05/20 09/05/20 09/05/20 04:05 08:14 14:24 Temperature 98.0 F 98.3 F Pulse Rate 81 80 78 Respiratory 18 18 Rate Blood Pressure 110/69 114/81 O2 Sat by Pulse 99 98 Oximetry - Labs CBC & Chem 7: 09/02/20 04:31 09/03/20 05:40 Labs: Abnormal lab results 09/04/20 09/04/20 Range/Units 17:26 20:58 POC Glucose 136 H 142 H (70-105) mg/dL HEART Score - HEART Score Troponin: Troponin T 0.015 ng/mL (0.00-0.029) 09/02/20 04:31
[2020-09-06 05:08] VITALS: BP 135/94
[2020-09-06] MEDS: HEPARIN 5,000 UNIT/1 ML VIAL SUB-Q SCH (05:49)
[2020-09-06] MEDS: FUROSEMIDE 40 MG TAB PO SCH (05:49)
[2020-09-06] MEDS: INSULIN REGULAR, HUMAN 100 UNITS/1 ML SUB-Q SCH ×3 (07:34→12:40)
[2020-09-06] MEDS: carvediloL 3.125 MG TAB PO SCH (09:57)
[2020-09-06] MEDS: ASPIRIN 81 MG TAB CHEW PO SCH (09:57)
[2020-09-06] MEDS: FAMOTIDINE 20 MG TAB PO SCH (09:57)
[2020-09-06] MEDS: CLOPIDOGREL 75 MG TAB PO SCH (09:57)
[2020-09-06] MEDS: LISINOPRIL 5 MG TAB PO SCH (09:58)
--- NOTE | 2020-09-06 11:59 | Progress Note ---
Assessment and Plan Telemetry reviewed: Sinus rhythm 84. Occasional episodes of triplet PVCs #Acute on Chronic heart failure in setting of dilated cardiomyopathy * Echocardiogram reviewed (08/26/2020): LVEF is 20 to 25%. Left ventricle is moderately dilated. LV SF is severely decreased. Severe global hypokinesis of the left ventricle. Right ventricle is moderate to severely dilated. Right ventricle is moderately hypokinetic. LA is mildly dilated. Saline bubble contrast intravenous injection does not demonstrate PFO. No obvious thrombus noted in LV * Continue goal-directed therapy with cardioprotective regimen: Continue aspirin, atorvastatin 80 mg nightly, Lasix 40 mg IV daily, metoprolol 25 mg twice daily, lisinopril 2.5 mg daily. Outpatient follow-up with cardiac rehab. * LifeVest placement is indicated in setting of severe cardiomyopathy with demonstrated ventricular ectopy. LifeVest has been ordered placement is pending. #Acute CVA * Per neurology recommendations: on aspirin 325mg and Plavix 75 mg * JD reviewed (09/02/2020): Spontaneous echo contrast/smoke seen throughout the left side of the heart, but no overt thrombus is present. Mild LVH with mildly dilated chamber size and severe global left ventricular hypokinesis. Estimated LVEF of 20 to 25%. * Initiation of DOAC is recommended in setting of ambiguous JD smoke sign. Recommend Eliquis 5 mg twice daily if/when okay per neurology. #Acute hypoxic respiratory failure * Patient has been extubated and is maintaining SPO2 #Hypertension, Chronic * Currently normotensive. Continue current antihypertensive regimen #DVT prophylaxis * Heparin SQ Awaiting LifeVest placement. Patient currently in stable cardiac status. Anticipate discharge once LifeVest and DOAC are resolved. We will follow Follow-up with Dr. Misael Cruz in our [place] office on 09/24/2020 @ 2:30pm ([phone]). This patient was seen in conjunction with Dr Ludy Munguia who agrees with this assessment and plan of care. - Patient Problems (1) Acute exacerbation of CHF (congestive heart failure) Current Visit: Yes Status: Acute Qualifiers: Heart failure type: unspecified Qualified Code(s): I50.9 - Heart failure, unspecified (2) Acute respiratory failure Current Visit: Yes Status: Acute Qualifiers: Qualified Code(s): J96.00 - Acute respiratory failure, unspecified whether with hypoxia or hypercapnia (3) CVA (cerebral vascular accident) Current Visit: Yes Status: Acute Qualifiers: CVA mechanism: embolism (4) DVT prophylaxis Current Visit: Yes Status: Acute (5) Hypertension Current Visit: Yes Status: Chronic Qualifiers: Hypertension type: essential hypertension Qualified Code(s): I10 - Essential (primary) hypertension Subjective Date of service: 09/06/20 Principal diagnosis: CVA Interval history: Patient resting comfortably in chair. No shortness of breath or chest pain overnight Telemetry reviewed: Sinus rhythm 78 with paroxysmal bigeminy. Episode of 4 beat V. tach noted overnight Objective Last Vital Signs Temp 97.5 F L 09/06/20 03:55 Pulse 77 09/06/20 03:55 Resp 18 09/06/20 03:55 BP 135/94 09/06/20 03:55 Pulse Ox 100 09/06/20 03:55 - Physical Examination General: No Apparent Distress HEENT: Positive: EOMI, Normocephaly Neck: Positive: neck supple, trachea midline. Negative: JVD/HJR Cardiac: Positive: Reg Rate and Rhythm, S1/S2 Lungs: Positive: Normal Exam, Normal Breath Sounds Neuro: Positive: Grossly Intact, Weakness (R hand) Abdomen: Positive: Soft. Negative: Tender Skin: Negative: Rash Musculoskeletal: No Fluid Collection Extremities: Present: lower extr. pulses, warm. Absent: edema - Imaging and Cardiology EKG: report reviewed, image reviewed Echo: report reviewed (08/25/2020 - LV mod dilated, EF 20-25%, RV mod-severely dilated, RV mod hypokinetic, LA mildly dilated, negative Bubble study, no LV thrombus) - Telemetry EKG Rhythm: Sinus Rhythm - EKG Sinus rhythms and dysrhythmias: sinus tachycardia Ventricular dysrhythmias: ventricular premature com Chamber hypertrophy or enlargement: left atrial enlargement, right atrial enlargment, left ventricular hypertro Repolarization changes or abnormalities: nonspecific abnormality, ST segment, and/or T wave - Allied health notes Allied health notes reviewed: nursing
--- NOTE | 2020-09-06 12:41 | Progress Note ---
Assessment and Plan Assessment and Plan VTE prophylaxis?: Mechanical Plan of care discussed with patient/family: Yes - Patient Problems # CVA (cerebral vascular accident) - new onset of right sided weakness and speech difficulty -initial NIH #8 -startyed on ASA and plavix plus lipitor 80 mg -Ct brain and CTA brain and neck are unremarkable -Not a candidate for TPA >4.5 Hrs, not a candidate for thrombectomy -Echo is with EF#20-25% with sever LV hypertrophy. -MRI brain is remarkable for left MCA anterior ischemis Plus Acute left cerebellar infarct ++++- Repeat CT brain showed subacute infarct left frontal MCA infarct -LDL#141 +++++ with the finding of dilated cardiomyopathy and 2 event noted on MRI , i will have no objection for AC but will repeat CT brain first today to be sure no hemorrhage is there.? +++++ consider stop ASA or Plavix and add AC if OK with cardiology # Acute exacerbation of CHF (congestive heart failure) -Lasix 40 mg IV every 12 hours. - Fluid restriction. Maintain input output. # Acute respiratory failure -Patient is status post intubation. -DuoNeb by nebulizer every 4 hours. -Albuterol via nebulizer every 4 hours as needed. # Hypertension -Hydralazine 10 mg IV every 6 hours as needed lisinopril 5 mg p.o. daily. - We will monitor the blood pressure closely. # DVT prophylaxis -SCD for DVT prophylaxis as per neurology recommendation. - Pepcid 20 mg IV twice daily for GI prophylaxis. - Patient is a full code pt. is evaluated in ICU he is critically ill time spent in evaluation, review documents and labs,and Xrys ,CT >30 minutes plan 1- will review CT brain 2- Consider further action accordingly will follow as needed Subjective Date of service: 09/06/20 Principal diagnosis: CVA Interval history: pt. is with slight speech out put follow command he is with right side weakness and facial droop on right side echo showed Ef#20-25% with global hypokinesia On ASA plus Plavix plus Lipitor Objective - Vital Sign Vital Signs - 12hr 09/06/20 09/06/20 03:55 12:03 Temperature 97.5 F L Pulse Rate 77 90 Respiratory 18 Rate Blood Pressure 135/94 O2 Sat by Pulse 100 Oximetry - General Apperance Constitutional: comfortable - EENT EENT: PERRL, mucous membranes moist - Respiratory Respiratory: lungs clear, rhonchi - Cardiovascular Cardiovascular: regular rate, normal S1, normal S2 Extremities: no peripheral edema bilat - Gastrointestinal Gastrointestinal: normoactive bowel sounds - Neurologic Cranial nerve examination: PERRL, EOMI, intact (right facial droop) Speech examination: other (slurred speech no clear aphasia is noted ) Detailed motor examination: other (right upper 3+/5 lower 4-/5 .gait not done) - Laboratory Findings CBC and BMP: 09/02/20 04:31 09/03/20 05:40 Abnormal Lab Findings: Abnormal Labs 08/24/20 08/24/20 08/24/20 22:24 22:24 22:24 WBC Plt Count Lymph % (Auto) 11.1 L [place] % (Auto) Lymph # (Auto) 0.7 L [place] # (Auto) Seg Neutrophils % 82.5 H Seg Neutrophils # PT 15.5 H INR D-Dimer ABG pH POC ABG pCO2 POC ABG pO2 ABG pO2 ABG O2 Saturation ABG Base Excess ABG Oxyhemoglobin ABG Sodium ABG Chloride ABG Glucose Oxyhemoglobin Sodium 130 L Chloride 97.5 L BUN Glucose 170 H POC Glucose Calcium Total Creatine Kinase 250 H Troponin T NT-Pro-B Natriuret Pep LDL Cholesterol Direct Arterial Blood Glucose Arterial Blood Ionized Calcium 08/24/20 08/25/20 08/25/20 22:24 01:01 01:47 WBC Plt Count Lymph % (Auto) [place] % (Auto) Lymph # (Auto) [place] # (Auto) Seg Neutrophils % Seg Neutrophils # PT INR D-Dimer ABG pH 7.285 L POC ABG pCO2 POC ABG pO2 ABG pO2 99.5 H ABG O2 Saturation ABG Base Excess -4.2 L ABG Oxyhemoglobin ABG Sodium ABG Chloride ABG Glucose Oxyhemoglobin 94.9 L Sodium Chloride BUN Glucose POC Glucose Calcium Total Creatine Kinase Troponin T NT-Pro-B Natriuret Pep 2769 H LDL Cholesterol Direct 141 H Arterial Blood Glucose Arterial Blood Ionized Calcium 08/25/20 08/25/20 08/25/20 04:45 11:45 17:20 WBC Plt Count Lymph % (Auto) [place] % (Auto) Lymph # (Auto) [place] # (Auto) Seg Neutrophils % Seg Neutrophils # PT INR D-Dimer ABG pH POC ABG pCO2 POC ABG pO2 ABG pO2 194.6 H ABG O2 Saturation 99.2 H ABG Base Excess ABG Oxyhemoglobin ABG Sodium ABG Chloride ABG Glucose Oxyhemoglobin Sodium Chloride BUN Glucose POC Glucose 136 H 117 H Calcium Total Creatine Kinase Troponin T NT-Pro-B Natriuret Pep LDL Cholesterol Direct Arterial Blood Glucose Arterial Blood Ionized Calcium 08/26/20 08/26/20 08/26/20 05:00 05:15 05:15 WBC 11.3 H Plt Count 112 L Lymph % (Auto) 4.2 L [place] % (Auto) 9.2 H Lymph # (Auto) 0.5 L [place] # (Auto) 1.0 H Seg Neutrophils % 85.9 H Seg Neutrophils # 9.7 H PT INR D-Dimer ABG pH 7.495 H POC ABG pCO2 POC ABG pO2 194.0 H ABG pO2 ABG O2 Saturation ABG Base Excess ABG Oxyhemoglobin 98.6 H ABG Sodium ABG Chloride 109.0 H ABG Glucose 125 H Oxyhemoglobin Sodium Chloride BUN Glucose 120 H POC Glucose Calcium 8.2 L Total Creatine Kinase Troponin T 0.032 H D NT-Pro-B Natriuret Pep LDL Cholesterol Direct Arterial Blood Glucose 125 H Arterial Blood Ionized Calcium 4.5 L 08/26/20 08/26/20 08/26/20 05:15 11:40 23:28 WBC Plt Count Lymph % (Auto) [place] % (Auto) Lymph # (Auto) [place] # (Auto) Seg Neutrophils % Seg Neutrophils # PT INR D-Dimer 4955.67 H ABG pH POC ABG pCO2 POC ABG pO2 ABG pO2 ABG O2 Saturation ABG Base Excess ABG Oxyhemoglobin ABG Sodium ABG Chloride ABG Glucose Oxyhemoglobin Sodium Chloride BUN Glucose POC Glucose 116 H 131 H Calcium Total Creatine Kinase Troponin T NT-Pro-B Natriuret Pep LDL Cholesterol Direct Arterial Blood Glucose Arterial Blood Ionized Calcium 08/27/20 08/27/20 08/27/20 04:22 04:50 04:50 WBC Plt Count 103 L Lymph % (Auto) [place] % (Auto) Lymph # (Auto) [place] # (Auto) Seg Neutrophils % Seg Neutrophils # PT INR D-Dimer ABG pH 7.500 H POC ABG pCO2 27.7 L POC ABG pO2 163.1 H ABG pO2 ABG O2 Saturation ABG Base Excess ABG Oxyhemoglobin 98.2 H ABG Sodium ABG Chloride 109.0 H ABG Glucose 116 H Oxyhemoglobin Sodium 147 H Chloride 109.7 H BUN Glucose 112 H POC Glucose Calcium 8.3 L Total Creatine Kinase Troponin T NT-Pro-B Natriuret Pep LDL Cholesterol Direct Arterial Blood Glucose 116 H Arterial Blood Ionized Calcium 08/27/20 08/27/20 08/27/20 05:29 11:21 11:24 WBC Plt Count Lymph % (Auto) [place] % (Auto) Lymph # (Auto) [place] # (Auto) Seg Neutrophils % Seg Neutrophils # PT INR D-Dimer ABG pH POC ABG pCO2 POC ABG pO2 146.6 H ABG pO2 ABG O2 Saturation ABG Base Excess ABG Oxyhemoglobin ABG Sodium ABG Chloride 112.0 H ABG Glucose 127 H Oxyhemoglobin Sodium Chloride BUN Glucose POC Glucose 107 H 117 H Calcium Total Creatine Kinase Troponin T NT-Pro-B Natriuret Pep LDL Cholesterol Direct Arterial Blood Glucose 127 H Arterial Blood Ionized Calcium 08/27/20 08/27/20 08/28/20 16:55 23:18 04:21 WBC Plt Count Lymph % (Auto) [place] % (Auto) Lymph # (Auto) [place] # (Auto) Seg Neutrophils % Seg Neutrophils # PT INR D-Dimer ABG pH POC ABG pCO2 POC ABG pO2 138.2 H ABG pO2 ABG O2 Saturation ABG Base Excess ABG Oxyhemoglobin ABG Sodium 146.2 H ABG Chloride 114.0 H ABG Glucose 138 H Oxyhemoglobin Sodium Chloride BUN Glucose POC Glucose 117 H 132 H Calcium Total Creatine Kinase Troponin T NT-Pro-B Natriuret Pep LDL Cholesterol Direct Arterial Blood Glucose 138 H Arterial Blood Ionized Calcium 08/28/20 08/28/20 08/28/20 04:35 04:35 05:16 WBC Plt Count 114 L Lymph % (Auto) [place] % (Auto) Lymph # (Auto) [place] # (Auto) Seg Neutrophils % Seg Neutrophils # PT INR D-Dimer ABG pH POC ABG pCO2 POC ABG pO2 ABG pO2 ABG O2 Saturation ABG Base Excess ABG Oxyhemoglobin ABG Sodium ABG Chloride ABG Glucose Oxyhemoglobin Sodium 149 H Chloride 113.6 H BUN Glucose 138 H POC Glucose 135 H Calcium 8.3 L Total Creatine Kinase Troponin T NT-Pro-B Natriuret Pep LDL Cholesterol Direct Arterial Blood Glucose Arterial Blood Ionized Calcium 08/28/20 08/29/20 08/29/20 11:19 07:15 07:15 WBC Plt Count 128 L Lymph % (Auto) [place] % (Auto) Lymph # (Auto) [place] # (Auto) Seg Neutrophils % Seg Neutrophils # PT INR D-Dimer ABG pH POC ABG pCO2 POC ABG pO2 ABG pO2 ABG O2 Saturation ABG Base Excess ABG Oxyhemoglobin ABG Sodium ABG Chloride ABG Glucose Oxyhemoglobin Sodium 154 H Chloride 116.2 H BUN Glucose POC Glucose 137 H Calcium Total Creatine Kinase Troponin T NT-Pro-B Natriuret Pep LDL Cholesterol Direct Arterial Blood Glucose Arterial Blood Ionized Calcium 08/29/20 08/30/20 08/30/20 17:11 05:04 09:04 WBC Plt Count 135 L Lymph % (Auto) [place] % (Auto) Lymph # (Auto) [place] # (Auto) Seg Neutrophils % Seg Neutrophils # PT INR D-Dimer ABG pH POC ABG pCO2 POC ABG pO2 ABG pO2 ABG O2 Saturation ABG Base Excess ABG Oxyhemoglobin ABG Sodium ABG Chloride ABG Glucose Oxyhemoglobin Sodium Chloride BUN Glucose POC Glucose 107 H 139 H Calcium Total Creatine Kinase Troponin T NT-Pro-B Natriuret Pep LDL Cholesterol Direct Arterial Blood Glucose Arterial Blood Ionized Calcium 08/30/20 08/30/20 08/30/20 09:04 11:58 23:19 WBC Plt Count Lymph % (Auto) [place] % (Auto) Lymph # (Auto) [place] # (Auto) Seg Neutrophils % Seg Neutrophils # PT INR D-Dimer ABG pH POC ABG pCO2 POC ABG pO2 ABG pO2 ABG O2 Saturation ABG Base Excess ABG Oxyhemoglobin ABG Sodium ABG Chloride ABG Glucose Oxyhemoglobin Sodium 149 H Chloride 112.5 H BUN 23 H Glucose 145 H POC Glucose 160 H 154 H Calcium Total Creatine Kinase Troponin T NT-Pro-B Natriuret Pep LDL Cholesterol Direct Arterial Blood Glucose Arterial Blood Ionized Calcium 08/31/20 08/31/20 08/31/20 05:24 05:58 12:20 WBC Plt Count Lymph % (Auto) [place] % (Auto) Lymph # (Auto) [place] # (Auto) Seg Neutrophils % Seg Neutrophils # PT INR D-Dimer ABG pH POC ABG pCO2 POC ABG pO2 ABG pO2 ABG O2 Saturation ABG Base Excess ABG Oxyhemoglobin ABG Sodium ABG Chloride ABG Glucose Oxyhemoglobin Sodium 151 H Chloride 113.7 H BUN 25 H Glucose 152 H POC Glucose 162 H 125 H Calcium Total Creatine Kinase Troponin T NT-Pro-B Natriuret Pep LDL Cholesterol Direct Arterial Blood Glucose Arterial Blood Ionized Calcium 08/31/20 08/31/20 09/01/20 17:41 23:27 05:01 WBC Plt Count Lymph % (Auto) [place] % (Auto) Lymph # (Auto) [place] # (Auto) Seg Neutrophils % Seg Neutrophils # PT INR D-Dimer ABG pH POC ABG pCO2 POC ABG pO2 ABG pO2 ABG O2 Saturation ABG Base Excess ABG Oxyhemoglobin ABG Sodium ABG Chloride ABG Glucose Oxyhemoglobin Sodium 153 H Chloride 115.0 H BUN 25 H Glucose 161 H POC Glucose 152 H 142 H Calcium Total Creatine Kinase Troponin T NT-Pro-B Natriuret Pep LDL Cholesterol Direct Arterial Blood Glucose Arterial Blood Ionized Calcium 09/01/20 09/01/20 09/01/20 05:26 11:44 16:31 WBC Plt Count Lymph % (Auto) [place] % (Auto) Lymph # (Auto) [place] # (Auto) Seg Neutrophils % Seg Neutrophils # PT INR D-Dimer ABG pH POC ABG pCO2 POC ABG pO2 ABG pO2 ABG O2 Saturation ABG Base Excess ABG Oxyhemoglobin ABG Sodium ABG Chloride ABG Glucose Oxyhemoglobin Sodium Chloride BUN Glucose POC Glucose 166 H 147 H 163 H Calcium Total Creatine Kinase Troponin T NT-Pro-B Natriuret Pep LDL Cholesterol Direct Arterial Blood Glucose Arterial Blood Ionized Calcium 09/01/20 09/02/20 09/02/20 23:27 04:31 04:31 WBC Plt Count Lymph % (Auto) [place] % (Auto) Lymph # (Auto) [place] # (Auto) Seg Neutrophils % Seg Neutrophils # PT 15.7 H INR 1.20 H D-Dimer ABG pH POC ABG pCO2 POC ABG pO2 ABG pO2 ABG O2 Saturation ABG Base Excess ABG Oxyhemoglobin ABG Sodium ABG Chloride ABG Glucose Oxyhemoglobin Sodium 149 H Chloride 112.9 H BUN 28 H Glucose 112 H POC Glucose 170 H Calcium Total Creatine Kinase Troponin T NT-Pro-B Natriuret Pep LDL Cholesterol Direct Arterial Blood Glucose Arterial Blood Ionized Calcium 09/02/20 09/02/20 09/03/20 05:00 18:13 07:43 WBC Plt Count Lymph % (Auto) [place] % (Auto) Lymph # (Auto) [place] # (Auto) Seg Neutrophils % Seg Neutrophils # PT INR D-Dimer ABG pH POC ABG pCO2 POC ABG pO2 ABG pO2 ABG O2 Saturation ABG Base Excess ABG Oxyhemoglobin ABG Sodium ABG Chloride ABG Glucose Oxyhemoglobin Sodium Chloride BUN Glucose POC Glucose 110 H 175 H 114 H Calcium Total Creatine Kinase Troponin T NT-Pro-B Natriuret Pep LDL Cholesterol Direct Arterial Blood Glucose Arterial Blood Ionized Calcium 09/03/20 09/03/20 09/04/20 11:18 16:17 06:20 WBC Plt Count Lymph % (Auto) [place] % (Auto) Lymph # (Auto) [place] # (Auto) Seg Neutrophils % Seg Neutrophils # PT INR D-Dimer ABG pH POC ABG pCO2 POC ABG pO2 ABG pO2 ABG O2 Saturation ABG Base Excess ABG Oxyhemoglobin ABG Sodium ABG Chloride ABG Glucose Oxyhemoglobin Sodium Chloride BUN Glucose POC Glucose 130 H 143 H 108 H Calcium Total Creatine Kinase Troponin T NT-Pro-B Natriuret Pep LDL Cholesterol Direct Arterial Blood Glucose Arterial Blood Ionized Calcium 09/04/20 09/04/20 09/04/20 11:41 17:26 20:58 WBC Plt Count Lymph % (Auto) [place] % (Auto) Lymph # (Auto) [place] # (Auto) Seg Neutrophils % Seg Neutrophils # PT INR D-Dimer ABG pH POC ABG pCO2 POC ABG pO2 ABG pO2 ABG O2 Saturation ABG Base Excess ABG Oxyhemoglobin ABG Sodium ABG Chloride ABG Glucose Oxyhemoglobin Sodium Chloride BUN Glucose POC Glucose 169 H 136 H 142 H Calcium Total Creatine Kinase Troponin T NT-Pro-B Natriuret Pep LDL Cholesterol Direct Arterial Blood Glucose Arterial Blood Ionized Calcium 09/05/20 09/06/20 16:00 07:22 WBC Plt Count Lymph % (Auto) [place] % (Auto) Lymph # (Auto) [place] # (Auto) Seg Neutrophils % Seg Neutrophils # PT INR D-Dimer ABG pH POC ABG pCO2 POC ABG pO2 ABG pO2 ABG O2 Saturation ABG Base Excess ABG Oxyhemoglobin ABG Sodium ABG Chloride ABG Glucose Oxyhemoglobin Sodium Chloride BUN Glucose POC Glucose 121 H 109 H Calcium Total Creatine Kinase Troponin T NT-Pro-B Natriuret Pep LDL Cholesterol Direct Arterial Blood Glucose Arterial Blood Ionized Calcium
--- NOTE | 2020-09-06 13:53 | Cat Scan Report ---
CT HEAD WITHOUT CONTRAST INDICATION / CLINICAL INFORMATION: cva r/o hemorrhage. TECHNIQUE: Axial imaging performed from the skull apex through the skull base without the use of cont rast. Sagittal and coronal reformatted images. All CT scans at this location are performed using CT dose reduction for ALARA by means of automated exposure control. COMPARISON: 08/30/2020 FINDINGS: CEREBRAL PARENCHYMA: Subacute ischemic insult in the left posterior frontal lobe appears stable in si ze and contour since the previous exam. No new area of diminished attenuation has developed. The angela ining brain parenchyma is unremarkable. HEMORRHAGE: None. EXTRA-AXIAL SPACES: Normal in size and morphology for the patient's age. VENTRICULAR SYSTEM: Normal in size and morphology for the patient's age. MIDLINE SHIFT OR HERNIATION: None. CEREBELLUM / BRAINSTEM: No significant abnormality. CALVARIUM: No significant abnormality. ORBITS: Normal as visualized. PARANASAL SINUSES / MASTOID AIR CELLS: Normal as visualized. SOFT TISSUES of HEAD: No significant abnormality. ADDITIONAL FINDINGS: None. IMPRESSION: Evolving subacute ischemic infarct in the left posterior frontal lobe. No new acute process. Signer Name: Kenan Coleman Jr, MD Signed: 09/06/2020 1:49 PM Workstation Name: [id number]
--- NOTE | 2020-09-06 16:39 | Discharge Summary ---
Providers - Providers Date of Admission: 08/25/20 00:01 Date of discharge: 09/06/20 Attending physician: SANTINO ROBLES 08/25/20 00:33 Occupational Therapy Evaluate and Treat [CONS] Routine Comment: Reason For Exam: Neuro deficits Physical Therapy Evaluation and Treat [CONS] Routine Comment: Reason For Exam: Neuro deficits 08/25/20 00:38 Consult to Physician [CONS] Routine Comment: Consulting Provider: AZAM BELL Physician Instructions: Reason For Exam: CHF 08/25/20 07:16 Consult to Physician [CONS] Routine Comment: Dr. Baig came and see patient/dirk Consulting Provider: DENNIS BAIG Physician Instructions: Reason For Exam: cva 08/26/20 08:13 Consult to Dietitian/Nutrition [CONS] Routine Physician Instructions: Reason For Exam: Reason for Consult: Write/Manage Tube Feeding 08/26/20 16:41 Consult to Physician [CONS] Routine Comment: Consulting Provider: RYLEE MELO Physician Instructions: Reason For Exam: bronchopneumonia/fever 08/28/20 11:17 Consult to Dietitian/Nutrition [CONS] Routine Physician Instructions: Assess nutrtn needs, initiate, modify, manage TF Reason For Exam: Reason for Consult: Write/Manage Tube Feeding Reason for Consult: Write/Manage Tube Feeding 08/29/20 09:06 Speech Therapy Evaluation and Treat [CONS] Stat Reason For Exam: failed bedside swallow eval 08/30/20 09:28 Speech Therapy Evaluation and Treat [CONS] Routine Reason For Exam: Re evaluation, bedside swallow 08/30/20 16:07 Consult to Physician [CONS] Routine Comment: Consulting Provider: MAURA LYNN Physician Instructions: Reason For Exam: Small petechial hemorrhage on ischemic stroke 08/31/20 10:47 Consult to Cardiac Rehabilitation [CONS] Routine Reason For Exam: Cardiomyopathy Additional Notes/Special Instructions: Please evaluate patient for outpatient cardiac rehab in setting of new or worsening diagnosis of severe cardiomyopathy Patient is reportedly followed by [facility] 09/03/20 14:14 Consult to Case Management [CONS] Routine Services Needed at Discharge: Other Notified:: CASE MANAGEMENT Comment:: Needs assistance with meds, particularly Eliquis (?coupon) 09/03/20 15:59 Consult to Physician [CONS] Routine Comment: Consulting Provider: DENNIS BAIG Physician Instructions: Reason For Exam: AC recommendation Primary care physician: [facility]TER OUT Hospitalization Condition: Critical Pertinent studies: -08/24 CT head shows no acute intracranial abnormality, age-related cerebral atrophy, chronic small vessel ischemic changes in white matter, no evidence of recent infarct or mass-effect or midline shift -08/24 CTA neck with contrast shows no significant abnormality -08/24 CTA head with contrast shows no significant abnormality -08/25 echocardiogram shows mildly dilated left ventricle, definitely systolic function severely decreased, severe global hypokinesis of the left ventricle, right ventricle moderate to severely dilated, left atrium mildly dilated, right atrium mildly dilated without evidence of atrial septal defect, trace MR, RVSP is 48 mmHg, mild TR, trace [place], mild pulmonary hypertension, no pericardial effusion or pleural effusion noted, Mild diastolic dysfunction, no ventricular septal defect, no left ventricular thrombus noted, LVEF 20 to 25% -08/26 CTA chest shows no evidence of pulmonary embolism, bilateral bronchopneumonia most pronounced within both lower lobes -08/26 BLE Doppler US shows no DVT/SVT -08/26 s/p bronch with culture completed; Staphylococcus aureus -08/28 CT head shows acute right MCA infarct -08/30 MRI brain showed left frontal MCA distribution CVA with some petechial hemorrhage -08/30 MRA head showed no large vessel occlusion -09/02 JD showed spontaneous echo contrast/small on the left side of the heart Hospital course: This is a 60-year-old male with hypertension and CHF who presented to emergency department on 08/25 with difficulty in speech which began around 5 PM and became progressively worse, unsteady gait and right-sided facial droop. Work-up at em ergency department included a CT head and after returning from imaging patient had increased work of breath, shortness of breath and desaturation to 90% SPO2 on room air. Patient was placed on supplemental oxygen via nasal cannula without improvement and progressed to nonrebreather to BiPAP. However the patient was still tachypneic to 50 to 60 breaths/min and was subsequently intubated. Patient was admitted to the hospital service with possible CVA, acute hypoxic respiratory failure, and congestive heart failure. CCM, cardiology and neurology were consulted. Daily clinical course: 08/25: Patient is echocardiogram, MRI brain and MRA head pending. The time of examination patient was sedated on propofol and on assist control tidal volume 450, rate of 26, PEEP of 10 and 100% FiO2. Patient was started on Levophed drip for persistent hypotension. CVL was eventually placed. 08/26: MRI brain pending, echocardiogram shows reduced ejection fraction, continued use of vasopressin. Patient was bronched today by [facility] empiric antibiotic therapy with cefepime was started. Dr. Gonzalez and I updated son at bedside today. CTA pending 08/27: Patient was started on dobutamine drip per cardiology yesterday evening and he has been weaned off of Levophed. [facility] culture resulted with Staph aureus. Infectious disease is aware. Patient is currently on cefepime. Cardiology increased dobutamine drip to 5 mcg. Son updated at bedside with Dr. Gonzalez. The time my examination patient was on CMV tidal volume 450, rate 12, PEEP 8 on 35% FiO2. [facility] ordered as needed fentanyl every 2 hours. Patient is currently on propofol. 08/28: Patient is sedated on propofol and has dobutamine drip infusing which was increased yesterday. He is on CMV tidal volume 450, rate of 20, PEEP of 6 and FiO2 35%. Patient is following commands. Patient's hypernatremia and hyperchloremia slightly worsened. Neurology will obtain repeat CT head since MRI is not able to be completed at this time. RN asked to remove Sanchez in place condom cath. SSI ordered. Plan for extubation today. 08/29: Patient was extubated yesterday. This morning patient is on NC, failed his bedside swallow eval and ST eval was ordered. RN replaced NGT. FWF increased. His hypernatremia and hyperchloremia worsened. Patient will be transferred to the floor. CT head confirmed acute left MCA CVA. 08/30 This is a 60-year-old male with hypertension and CHF who presented to emergency department on 08/25 with difficulty in speech which began around 5 PM and became progressively worse, unsteady gait and right-sided facial droop. Recommend emergency department included a CT head and after returning from imaging patient had increased work of breath, shortness of breath and desaturation to 90% SPO2 on room air. Patient was placed on supplemental oxygen via nasal cannula without improvement and progressed to nonrebreather to BiPAP. However the patient was still tachypneic to 50 to 60 breaths/min and was subs equently intubated, placed on vent.. Patient was admitted to the hospital service with possible CVA, acute hypoxic respiratory failure, and congestive heart failure. [facility], cardiology and neurology were consulted. He was on Dobutamine drip, now discontinued. He improved, was extubated. Repeat CT confirmed acute left MCA infarct. He has facial drrop, right sided weakness and expressive aphasia. He is on Aspirin, Plavix. Was transferred to [facility] yesterday. 08/31; MRI brain yesterday showed left frontal MCA distribution CVA with some petechial hemorrhage without any major vessel occlusion. Pending final speech recommendation, continue tube feeding for now with NG tube. Continue cefazolin for aspiration pneumonia. Patient will need rehab but he is unfunded. Continue PT OT. Continue hypotonic fluid for hypernatremia, monitor BMP. 09/01: Speech recommended pured diet. Sodium level 153 today. Renal diet and D5W. Repeat BMP tomorrow. Clinically stable and sodium level improves placem ent plan to DC home with home health and family support. Patient is unfunded. 09/02: planned for JD today, cont supportive care. Continue neurology recommendation. Sodium level improving continue pured diet and hypotonic fluid. Monitor BMP. 09/03; Given LA spontaneous echo constrast/smoke visualized on JD, cardiology recommended initiation of DOAC. patient need to start on AC if clears by neuro, waiting on neuro recommendation. patient also need lifevest. 09/04-09/05: Discharge pending on [facility]est arrangement neurology recommendation for anticoagulation. Patient tolerated pured diet. Sodium level normalized. Continue to monitor BMP and provide supportive care 09/06: Repeat CT head today showed no hemorrhagic transformation. Neurology cleared to initiate anticoagulation with Eliquis 5 mg twice daily along with Aspirin or Plavix. LifeVest has been arranged. Patient will be discharged home in stable condition with outpatient follow-up with cardiology in 1 week. Discharge plan and management was thoroughly discussed with patient and his son and they both verbalized understanding. Disposition: [id number] HOME UNDER HOME [facility] Final Discharge Diagnosis (Prints w/discharge instructions): Acute Left MCA CVA. Acute hypoxic respiratory failure due to acute CVA required intubation. Acute on chronic heart failure, LVEF 20 to 25%. Cardiogenic shock required pressor support. URI with Staph aureus bronchial culture. Hypernatremia. Thrombocytopenia. Hyperchloremia. COVID-19 ruled out. h/o Hypertension. Arterial thrombus Time spent for discharge: 40 minutes Core Measure Documentation - Palliative Care Palliative Care/ Comfort Measures: Not Applicable - Core Measures Any of the following diagnoses?: none Exam - Physical Exam Narrative exam: General appearance: Present: no acute distress - EENT Eyes: Present: PERRL, EOM intact ENT: dentition normal - Neck Neck: Present: normal ROM - Respiratory Respiratory effort: normal Respiratory: bilateral: CTA - Cardiovascular Rhythm: regular Heart Sounds: Present: S1 & S2. Absent: systolic murmur, diastolic murmur - Extremities Extremities: no ischemia, pulses intact, pulses symmetrical, No edema, normal temperature, normal color Peripheral Pulses: within normal limits - Abdominal General gastrointestinal: soft, non-tender, non-distended, normal bowel sounds - Integumentary Integumentary: Present: clear, warm, dry - Psychiatric Psychiatric: appropriate mood/affect, cooperative - Neurologic Neurologic: Right sided weakness, AAOx3 - Allied Health Allied health notes reviewed: nursing, PT, OT, RT, social work - Constitutional Vitals: Temp Pulse Resp BP Pulse Ox 97.5 F L 90 18 135/94 100 09/06/20 03:55 09/06/20 12:03 09/06/20 03:55 09/06/20 03:55 09/06/20 03:55 Plan Activity: advance as tolerated Weight Bearing Status: Weight Bear as Tolerated Diet: low fat, low salt Special Instructions: physical therapy, occupational therapy Follow up with: PRIMARY CARE, [Primary Care Provider] - 3-5 Days CHRISTIANNE BELL MD [Staff Physician] - 7 Days CRISTINA MONTES MD [Staff Physician] - 7 Days Prescriptions: AtorvaSTATin [Lipitor] 80 mg PO QHS #30 tablet carvediloL [Coreg] 3.125 mg PO BID #60 tablet Apixaban [Eliquis] 5 mg PO Q12HR #60 tablet Furosemide [Lasix TAB] 40 mg PO QDAY #30 tablet Famotidine [Pepcid] 20 mg PO BID #60 tablet lisinopriL [Zestril TAB] 2.5 mg PO QDAY #30 tablet
[2020-09-06] MEDS ORDERED: APIXABAN 5 MG TAB PO SCH (22:00)
== END 2020-09-06 19:20 | disposition home health service (06) | DRG 64 ==
LOC: ED 21:53 → CC1 08-25 00:01 → 4A 08-29 12:23
PROVIDERS: ADMIT Hospitalist; ATTEND Internal Medicine
PROC: 5A09357 Assistance with Respiratory Ventilation, Less than 24 Consecutive Hours, Continuous Positive Airway Pressure (ICD-10-PCS; 2020-08-24)
PROC: 4A033R1 Measurement of Arterial Saturation, Peripheral, Percutaneous Approach (ICD-10-PCS; principal; 2020-08-25)
PROC: 5A1945Z Respiratory Ventilation, 24-96 Consecutive Hours (ICD-10-PCS; 2020-08-25)
PROC: 0BH17EZ Insertion of Endotracheal Airway into Trachea, Via Natural or Artificial Opening (ICD-10-PCS; 2020-08-25)
DX: I63.9 Cerebral infarction, unspecified (principal); J96.00 Acute respiratory failure, unspecified whether with hypoxia or hypercapnia; I50.23 Acute on chronic systolic (congestive) heart failure; A41.9 Sepsis, unspecified organism; J18.9 Pneumonia, unspecified organism; R57.0 Cardiogenic shock; G81.91 Hemiplegia, unspecified affecting right dominant side; E87.1 Hypo-osmolality and hyponatremia; E87.0 Hyperosmolality and hypernatremia; I42.0 Dilated cardiomyopathy; I74.9 Embolism and thrombosis of unspecified artery; E87.8 Other disorders of electrolyte and fluid balance, not elsewhere classified; Z20.822 Contact with and (suspected) exposure to COVID-19; R29.708 NIHSS score 8; I11.0 Hypertensive heart disease with heart failure; J06.9 Acute upper respiratory infection, unspecified; B95.61 Methicillin susceptible Staphylococcus aureus infection as the cause of diseases classified elsewhere; I95.9 Hypotension, unspecified; D69.6 Thrombocytopenia, unspecified; Z79.899 Other long term (current) drug therapy; Z79.891 Long term (current) use of opiate analgesic; Z79.01 Long term (current) use of anticoagulants; Z79.82 Long term (current) use of aspirin
CPT/HCPCS: 31500; 36415; 36600; 70450; 70496; 70498; 70544; 70551; 71045; 71275; 74018; 74230; 80048; 80053; 80061; 80307; 80320; 81001; 82550; 82553; 82803; 82805; 82962; 83880; 84145; 84443; 84484; 85025; 85027; 85379; 85610; 85670; 85730; 86850; 86900; 86901; 87040; 87070; 87076; 87116; 87186; 87205; 87641; 93005; 93306; 93312; 93320; 93325; 93970; 94002; 94003; 94640; 96374; 96375; 99292; G0378; A9270-GY; G0480; J0692; J1170; J1250; J1644; J1815; J1940; J2060; J2250; J2704; J3010; J7040; J7070; Q9967; U0003